=== PATIENT | female | born 1955 | race Caucasian/White ===

== ENCOUNTER 2020-06-10 14:29 | Inpatient (IN) | payer MEDICARE ==
[2020-06-10] MEDS ORDERED: ONDANSETRON 4 MG/2 ML VIAL IVP STA (14:58)
[2020-06-10] MEDS ORDERED: PANTOPRAZOLE 40 MG/10 ML VIAL IVP STA (14:58)
[2020-06-10] MEDS ORDERED: MORPHINE SULFATE 4 MG/ML SYRINGE IV STA (14:58)
[2020-06-10] MEDS ORDERED: SODIUM CHLORIDE 0.9% 1,000 ML IV STA ×2 (14:58)
--- NOTE | 2020-06-10 15:02 | ED ---
Abdominal Pain HPI - General Chief Complaint: Abdominal Pain Stated Complaint: Abd pain Time Seen by Provider: 06/10/20 14:40 Source: patient, RN notes reviewed, old records reviewed Mode of arrival: ambulatory Limitations: no limitations - History of Present Illness Initial Comments: Patient is a 64-year-old female presents here today for lower abdominal pain. Worsening pain starting today. She has been treated for UTI 2 weeks ago. Patient reportedly has had an ostomy done a few years ago and states that she rode past 6 months she's had some output from her rectum. And pressure feeling she has to go to the bathroom. Patient states that she's had no chest pain or shortness of breath. Patient's daughter is an RN who told to come to the ER to her pain. Patient has had no recorded fevers. - Related Data Allergies Allergy/AdvReac Type Severity Reaction Status Date / Time No Known Allergies Allergy Verified 06/10/20 14:37 Review of Systems ROS Statement: Those systems with pertinent positive or pertinent negative responses have been documented in the HPI. ROS Other: All systems not noted in ROS Statement are negative. 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 Past Psychological History: No Psychological Hx Reported Smoking Status: Current every day smoker Past Alcohol Use History: None Reported Past Drug Use History: None Reported General Exam - General Exam Comments Initial Comments: 64-year-old Female. No distress. Limitations: no limitations General appearance: alert, in no apparent distress Head exam: Present: atraumatic, normocephalic, normal inspection Eye exam: Present: normal appearance, PERRL, EOMI. Absent: scleral icterus, conjunctival injection, periorbital swelling ENT exam: Present: normal exam, mucous membranes moist Neck exam: Present: normal inspection. Absent: tenderness, meningismus, lymphadenopathy Respiratory exam: Present: normal lung sounds bilaterally. Absent: respiratory distress, wheezes, rales, rhonchi, stridor Cardiovascular Exam: Present: regular rate, normal rhythm, normal heart sounds. Absent: systolic murmur, diastolic murmur, rubs, gallop, clicks GI/Abdominal exam: Present: soft, normal bowel sounds. Absent: distended, tenderness, guarding, rebound, rigid Extremities exam: Present: normal inspection, full ROM, normal capillary refill. Absent: tenderness, pedal edema, joint swelling, calf tenderness Back exam: Present: normal inspection Neurological exam: Present: alert Psychiatric exam: Present: normal affect, normal mood Skin exam: Present: warm, dry, intact, normal color. Absent: rash Course Vital Signs 06/10/20 06/10/20 14:33 17:07 Temperature 98 F Pulse Rate 138 H 118 H Respiratory 20 12 Rate Blood Pressure 162/84 135/121 O2 Sat by Pulse 97 96 Oximetry Medical Decision Making - Medical Decision Making 64-year-old female who just returned today with lower abdominal pain. She's b een having some lower abdominal pressure for the past 2 weeks but worsening today. She did have some tenderness and guarding. She also states she's had abnormal rectal output despite having an ostomy. Rectal exam was benign with no output on exam today. Patient's labs reveal mild leukocytosis. CT shows evidence of small bowel mass. Impossible partial small bowel obstruction. She does report decreased output from her ostomy. She is no active vomiting. Discussed the findings with Patient. Her surgeon was in [facility] 3 years ago to create the ostomy. She does not remember who her surgeon was. Discussed with Dr. Quevedo whom discussed with Dr. Dent, request medicine admit with surgery consult. - Lab Data Result diagrams: 06/10/20 15:22 06/10/20 15:22 Lab Results 06/10/20 06/10/20 06/10/20 Range/Units 15:22 15:22 15:22 WBC 15.8 H (3.8-10.6) k/uL RBC 5.63 H (3.80-5.40) m/uL Hgb 16.3 H (11.4-16.0) gm/dL Hct 49.5 H (34.0-46.0) % MCV 87.9 (80.0-100.0) fL MCH 28.9 (25.0-35.0) pg MCHC 32.9 (31.0-37.0) g/dL RDW 13.4 (11.5-15.5) % Plt Count 444 (150-450) k/uL Neutrophils % 74 % Lymphocytes % 19 % Monocytes % 4 % Eosinophils % 1 % Basophils % 1 % Neutrophils # 11.6 H (1.3-7.7) k/uL Lymphocytes # 3.0 (1.0-4.8) k/uL Monocytes # 0.6 (0-1.0) k/uL Eosinophils # 0.2 (0-0.7) k/uL Basophils # 0.1 (0-0.2) k/uL PT (9.0-12.0) sec INR (<1.2) APTT (22.0-30.0) sec Sodium 142 (137-145) mmol/L Potassium 3.5 (3.5-5.1) mmol/L Chloride 102 (98-107) mmol/L Carbon Dioxide 28 (22-30) mmol/L Anion Gap 12 mmol/L BUN 13 (7-17) mg/dL Creatinine 0.49 L (0.52-1.04) mg/dL Est GFR (CKD-EPI)AfAm >90 (>60 ml/min/1.73 sqM) Est GFR (CKD-EPI)NonAf >90 (>60 ml/min/1.73 sqM) Glucose 148 H (74-99) mg/dL Lactic Ac Sepsis Rflx Plasma Lactic Acid Donovan (0.7-2.0) mmol/L Calcium 10.3 H (8.4-10.2) mg/dL Total Bilirubin 0.7 (0.2-1.3) mg/dL AST 24 (14-36) U/L ALT 14 (4-34) U/L Alkaline Phosphatase 43 (38-126) U/L Total Protein 7.8 (6.3-8.2) g/dL Albumin 4.9 (3.5-5.0) g/dL Amylase 50 (30-110) U/L Lipase 53 (23-300) U/L Urine Color Yellow Urine Appearance Clear (Clear) Urine pH 5.5 (5.0-8.0) Ur Specific [place] 1.025 (1.001-1.035) Urine Protein 1+ H (Negative) Urine Glucose (UA) Negative (Negative) Urine Ketones 2+ H (Negative) Urine Blood Negative (Negative) Urine Nitrite Negative (Negative) Urine Bilirubin Negative (Negative) Urine Urobilinogen 2.0 (<2.0) mg/dL Ur Leukocyte Esterase Negative (Negative) Urine RBC 1 (0-5) /hpf Urine WBC 1 (0-5) /hpf Ur Squamous Epith Cells 3 (0-4) /hpf Urine Mucus Few H (None) /hpf Stool Occult Blood (Negative) 06/10/20 06/10/20 06/10/20 Range/Units 15:22 15:22 16:08 WBC (3.8-10.6) k/uL RBC (3.80-5.40) m/uL Hgb (11.4-16.0) gm/dL Hct (34.0-46.0) % MCV (80.0-100.0) fL MCH (25.0-35.0) pg MCHC (31.0-37.0) g/dL RDW (11.5-15.5) % Plt Count (150-450) k/uL Neutrophils % % Lymphocytes % % Monocytes % % Eosinophils % % Basophils % % Neutrophils # (1.3-7.7) k/uL Lymphocytes # (1.0-4.8) k/uL Monocytes # (0-1.0) k/uL Eosinophils # (0-0.7) k/uL Basophils # (0-0.2) k/uL PT 10.6 (9.0-12.0) sec INR 1.0 (<1.2) APTT 24.2 (22.0-30.0) sec Sodium (137-145) mmol/L Potassium (3.5-5.1) mmol/L Chloride (98-107) mmol/L Carbon Dioxide (22-30) mmol/L Anion Gap mmol/L BUN (7-17) mg/dL Creatinine (0.52-1.04) mg/dL Est GFR (CKD-EPI)AfAm (>60 ml/min/1.73 sqM) Est GFR (CKD-EPI)NonAf (>60 ml/min/1.73 sqM) Glucose (74-99) mg/dL Lactic Ac Sepsis Rflx Y Plasma Lactic Acid Donovan 2.1 H* (0.7-2.0) mmol/L Calcium (8.4-10.2) mg/dL Total Bilirubin (0.2-1.3) mg/dL AST (14-36) U/L ALT (4-34) U/L Alkaline Phosphatase (38-126) U/L Total Protein (6.3-8.2) g/dL Albumin (3.5-5.0) g/dL Amylase (30-110) U/L Lipase (23-300) U/L Urine Color Urine Appearance (Clear) Urine pH (5.0-8.0) Ur Specific [place] (1.001-1.035) Urine Protein (Negative) Urine Glucose (UA) (Negative) Urine Ketones (Negative) Urine Blood (Negative) Urine Nitrite (Negative) Urine Bilirubin (Negative) Urine Urobilinogen (<2.0) mg/dL Ur Leukocyte Esterase (Negative) Urine RBC (0-5) /hpf Urine WBC (0-5) /hpf Ur Squamous Epith Cells (0-4) /hpf Urine Mucus (None) /hpf Stool Occult Blood (Negative) 06/10/20 Range/Units 17:08 WBC (3.8-10.6) k/uL RBC (3.80-5.40) m/uL Hgb (11.4-16.0) gm/dL Hct (34.0-46.0) % MCV (80.0-100.0) fL MCH (25.0-35.0) pg MCHC (31.0-37.0) g/dL RDW (11.5-15.5) % Plt Count (150-450) k/uL Neutrophils % % Lymphocytes % % Monocytes % % Eosinophils % % Basophils % % Neutrophils # (1.3-7.7) k/uL Lymphocytes # (1.0-4.8) k/uL Monocytes # (0-1.0) k/uL Eosinophils # (0-0.7) k/uL Basophils # (0-0.2) k/uL PT (9.0-12.0) sec INR (<1.2) APTT (22.0-30.0) sec Sodium (137-145) mmol/L Potassium (3.5-5.1) mmol/L Chloride (98-107) mmol/L Carbon Dioxide (22-30) mmol/L Anion Gap mmol/L BUN (7-17) mg/dL Creatinine (0.52-1.04) mg/dL Est GFR (CKD-EPI)AfAm (>60 ml/min/1.73 sqM) Est GFR (CKD-EPI)NonAf (>60 ml/min/1.73 sqM) Glucose (74-99) mg/dL Lactic Ac Sepsis Rflx Plasma Lactic Acid Donovan (0.7-2.0) mmol/L Calcium (8.4-10.2) mg/dL Total Bilirubin (0.2-1.3) mg/dL AST (14-36) U/L ALT (4-34) U/L Alkaline Phosphatase (38-126) U/L Total Protein (6.3-8.2) g/dL Albumin (3.5-5.0) g/dL Amylase (30-110) U/L Lipase (23-300) U/L Urine Color Urine Appearance (Clear) Urine pH (5.0-8.0) Ur Specific [place] (1.001-1.035) Urine Protein (Negative) Urine Glucose (UA) (Negative) Urine Ketones (Negative) Urine Blood (Negative) Urine Nitrite (Negative) Urine Bilirubin (Negative) Urine Urobilinogen (<2.0) mg/dL Ur Leukocyte Esterase (Negative) Urine RBC (0-5) /hpf Urine WBC (0-5) /hpf Ur Squamous Epith Cells (0-4) /hpf Urine Mucus (None) /hpf Stool Occult Blood Negative (Negative) - Radiology Data Radiology results: report reviewed EKG shows sinus tachycardia will which cures. ALLERGIC 114 beats were minute period. Interval is 170 ms. QRS duration is 80 ms. QT QTc is 320/[address] shows mild free fluid in the pelvis. Mixed density material concentrated in the small bowel and left lower quadrant of uncertain significance. Small bowel mass cannot be excluded. Dilated jejunum in the midabdomen. Partial mechanical small bowel obstruction is suspected at the site of the mixed density material. Disposition Clinical Impression: SBO (small bowel obstruction), Abdominal mass Disposition: ADMITTED IP TO THIS HOSP Condition: Stable Is patient prescribed a controlled substance at d/c from ED?: No Referrals: Randolph Renee DO [Primary Care Provider] - 1-2 days Time of Disposition: 18:17
[2020-06-10 15:42] LABS: Basophils # (A) 0.1 k/uL (0-0.2); Basophils % (A) 1 %; Eosinophils # (A) 0.2 k/uL (0-0.7); Eosinophils % (A) 1 %; HCT 49.5 % (34.0-46.0); HGB 16.3 gm/dL (11.4-16.0); Lymphocytes % (A) 19 %; MCH 28.9 pg (25.0-35.0); MCHC 32.9 g/dL (31.0-37.0); MCV 87.9 fL (80.0-100.0); Mean Platelet Volume 7.2; Monocytes # (A) 0.6 k/uL (0-1.0); Monocytes % (A) 4 %; Neutrophils # (A) 11.6 k/uL (1.3-7.7); Neutrophils % (A) 74 %; Platelet Count 444 k/uL (150-450); RBC 5.63 m/uL (3.80-5.40); RDW 13.4 % (11.5-15.5); WBC 15.8 k/uL (3.8-10.6)
[2020-06-10 15:43] LABS: Appearance,Urine Clear (Clear); Bilirubin,Urine Negative (Negative); Blood,Urine Negative (Negative); Color,Urine Yellow; Glucose,Urine (UA) Negative (Negative); Ketones,Urine 2+ (Negative); Leukocyte Esterase,Urine Negative (Negative); Mucus,Urine Few /hpf; Nitrite,Urine Negative (Negative); PH, Urine 5.5 (5.0-8.0); Protein,Urine 1+ (Negative); RBC,Urine 1 /hpf (0-5); Specific Gravity,Urine 1.025 (1.001-1.035); Squamous Epithelial Cell,Urine 3 /hpf (0-4); WBC,Urine 1 /hpf (0-5)
[2020-06-10 15:50] LABS: ALT 14 U/L (4-34); AST 24 U/L (14-36); African American GFR (CKD) >90 (>60 ml/min/1.73 sqM); Albumin 4.9 g/dL (3.5-5.0); Alkaline Phosphatase 43 U/L (38-126); Amylase 50 U/L (30-110); Anion Gap 12 mmol/L; Blood Urea Nitrogen 13 mg/dL (7-17); Calcium 10.3 mg/dL (8.4-10.2); Carbon Dioxide 28 mmol/L (22-30); Chloride 102 mmol/L (98-107); Glucose 148 mg/dL (74-99); Non-African American GFR(CKD) >90 (>60 ml/min/1.73 sqM); Potassium 3.5 mmol/L (3.5-5.1); Sodium 142 mmol/L (137-145); Total Bilirubin 0.7 mg/dL (0.2-1.3); Total Protein 7.8 g/dL (6.3-8.2)
[2020-06-10 15:52] LABS: Partial Thromboplastin Time 24.2 sec (22.0-30.0); Prothrombin Time 10.6 sec (9.0-12.0)
--- NOTE | 2020-06-10 15:54 | XR ---
EXAMINATION TYPE: XR KUB DATE OF EXAM: 06/10/2020 COMPARISON: NONE HISTORY: Abdominal pain TECHNIQUE: 2 views upright FINDINGS: There is no sign of intestinal obstruction or pneumoperitoneum. Fecal pattern is normal. Th ere is left side colostomy. There is no evidence of a mass. Lung bases are clear. IMPRESSION: Nonacute abdomen.
[2020-06-10] MEDS ORDERED: HYDROmorphone 1 MG/ML 1 ML SYRINGE IVP STA (16:58)
[2020-06-10] MEDS ORDERED: SODIUM CHLORIDE 0.9% 1,000 ML IV ONE (16:58)
--- NOTE | 2020-06-10 17:06 | CT ---
EXAMINATION TYPE: CT abdomen pelvis w con DATE OF EXAM: 06/10/2020 COMPARISON: HISTORY: Lower abdominal pain. History of ischemic bowel and resection. CT DLP: 641.9 mGycm Automated exposure control for dose reduction was used. CONTRAST: Performed with IV Contrast, patient injected with 100 mL of Isovue 300. Lung bases are clear of consolidation. There is no pleural effusion. Heart size is normal. There is n o pericardial effusion. Liver spleen stomach pancreas gallbladder appear intact. Bile ducts are not dilated. There is no adrenal mass. Kidneys show satisfactory contrast opacification. There is no hydronephrosi s. Ureters are not dilated. There is no retroperitoneal adenopathy. There is small amount of free flu id in the pelvis. Bladder distends smoothly. Uterus appears normal. There is no evidence of pelvic ma ss. Uterus is retroverted. There is transverse colostomy noted. There is some calcification in mixed density material in the mid small bowel in the left lower quadrant. Small bowel wall mass cannot be e xcluded. This could be some ingested Pepto-Bismol. There is similar small amount of material in the p osterior gastric fundus. There is some dilated jejunum in the mid abdomen that measures up to 3.6 cm. There is apparent resection of the sigmoid colon. Appendix is not definitely seen. There is no sign of thickened appendix. Lumbar vertebra have normal alignment. There is no compression fracture. Posterior elements are intac t. Bony pelvis is intact. Hip joints are intact. IMPRESSION: Mild free fluid in the pelvis. Mixed density material concentrated in the small bowel in the left lower quadrant of uncertain signif icance. Small bowel mass cannot be excluded. Dilated loop of jejunum in the mid abdomen. Partial mech anical small bowel obstruction is suspected at the site of mixed density material in the small bowel.
[2020-06-10] MEDS ORDERED: IBUPROFEN 400 MG TAB PO PRN (18:18)
[2020-06-10] MEDS ORDERED: NALOXONE 0.4 MG/ML 1 ML VIAL IV PRN (18:18)
[2020-06-10] MEDS ORDERED: HYDROmorphone 1 MG/ML 1 ML SYRINGE IVP PRN (18:18)
[2020-06-10] MEDS ORDERED: MORPHINE SULFATE 4 MG/ML SYRINGE IVP STA (18:20)
[2020-06-10 20:06] LABS: Glucose,Whole Blood 110 mg/dL (75-99)
[2020-06-10] MEDS: KETOROLAC 15 MG/ML 1 ML VIAL IVP PRN (20:08)
[2020-06-10] MEDS: PIPERACILLIN-TAZOBACTAM 3.375 GM in SODIUM CHLORIDE 0.9% 100 ML IVPB SCH (20:10)
[2020-06-10] MEDS: INSULIN ASPART (NovoLOG) 100 UNIT/ML VIAL SQ SCH (20:50)
[2020-06-10] MEDS ORDERED: HYDROcodone/APAP 5-325MG 1 EACH TAB PO SCH (21:00)
[2020-06-10] MEDS: GABAPENTIN 300 MG CAP PO SCH (21:56)
[2020-06-10] MEDS: MORPHINE SULFATE 4 MG/ML SYRINGE IVP PRN (22:25)
[2020-06-11] MEDS: HYDROcodone/APAP 5-325MG 1 EACH TAB PO PRN ×2 (00:43→19:51)
[2020-06-11] MEDS: ONDANSETRON 4 MG/2 ML VIAL IVP PRN ×2 (00:55→07:04)
[2020-06-11] MEDS: KETOROLAC 15 MG/ML 1 ML VIAL IVP PRN ×3 (02:10→15:05)
[2020-06-11] MEDS: PIPERACILLIN-TAZOBACTAM 3.375 GM in SODIUM CHLORIDE 0.9% 100 ML IVPB SCH ×3 (02:53→19:52)
[2020-06-11] MEDS: MORPHINE SULFATE 4 MG/ML SYRINGE IVP PRN ×5 (03:43→20:53)
[2020-06-11 05:24] LABS: Basophils # (A) 0.1 k/uL (0-0.2); Basophils % (A) 0 %; Eosinophils # (A) 0.3 k/uL (0-0.7); Eosinophils % (A) 2 %; HCT 36.7 % (34.0-46.0); Lymphocytes % (A) 28 %; MCH 28.7 pg (25.0-35.0); MCHC 32.3 g/dL (31.0-37.0); MCV 88.8 fL (80.0-100.0); Mean Platelet Volume 7.2; Monocytes # (A) 0.6 k/uL (0-1.0); Monocytes % (A) 5 %; Neutrophils # (A) 6.8 k/uL (1.3-7.7); Neutrophils % (A) 63 %; Platelet Count 356 k/uL (150-450); RBC 4.13 m/uL (3.80-5.40); RDW 13.6 % (11.5-15.5); WBC 10.7 k/uL (3.8-10.6)
[2020-06-11 05:46] LABS: HGB 11.9 gm/dL (11.4-16.0)
[2020-06-11] MEDS ORDERED: PANTOPRAZOLE 40 MG TABLET PO SCH (07:30)
[2020-06-11 07:54] LABS: Glucose,Whole Blood 106 mg/dL (75-99)
[2020-06-11] MEDS: lisinopriL 20 MG TAB PO SCH (07:58)
[2020-06-11] MEDS: ASPIRIN 81 MG PO SCH (07:58)
[2020-06-11] MEDS: DULoxetine HCL 60 MG CAPSULE.DR PO SCH (07:58)
[2020-06-11] MEDS: ATORVASTATIN 40 MG TAB PO SCH (07:59)
[2020-06-11] MEDS: INSULIN ASPART (NovoLOG) 100 UNIT/ML VIAL SQ SCH ×4 (07:59→20:18)
[2020-06-11] MEDS: PANTOPRAZOLE 40 MG/10 ML VIAL IV SCH (07:59)
[2020-06-11] MEDS: GABAPENTIN 300 MG CAP PO SCH ×4 (07:59→22:09)
[2020-06-11] MEDS ORDERED: SODIUM CHLORIDE 0.9% 1,000 ML IV SCH (09:30)
--- NOTE | 2020-06-11 09:37 | P.GSCN ---
History of Present Illness Consult date: 06/11/20 History of present illness: 64-year-old female presents to the emergency department with complaints of abdominal pain. She states that she has had chronic abdominal pain for the past few years, over the past couple of weeks pain has worsened and progressed significantly yesterday, bringing her to the emergency room. She states she felt mildly bloated. She states that pain is in bilateral lower quadrants of the abdomen. She states that she does have a complicated surgical history with ischemia to the bowel. This resulted in a colectomy and colostomy placement. Patient states that she was in intensive care for almost 2 weeks during that timeframe and based on intubation, does not remember most of that episode. Patient states that she has not had significant issues with her ostomy since that time. She states that over the last 24 hours, she has noted a decreased output from the ostomy. The last time she emptied her bag was prior to her arrival to the emergency department. She also had 1 episode of emesis this morning. Per nursing, this was after a dose of morphine was given. CT of the abdomen and pelvis was performed in the emergency department yesterday. Concern was noted for possibility of a partial small bowel obstruction. Concern was a lso noted by the radiologist of a material within the small bowel that could be concerning for Pepto-Bismol ingestion versus small bowel mass. On questioning, the patient does admit to using multiple Pepto-Bismol tablets secondary to her abdominal pain. Since presentation, her leukocytosis has improved and lactic acidosis has resolved. 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 1 heart stent Date of Last Stent Placement:: 2007 Past Psychological History: Depression Smoking Status: Current every day smoker Past Alcohol Use History: None Reported Additional Past Alcohol Use History / Comment(s): smoke 1.5 packs per day-trying to quit with gum. Past Drug Use History: None Reported - Past Family History Mother Family Medical History: COPD Father Family Medical History: Myocardial Infarction ([place]) Medications and Allergies Home Medications Medication Instructions Recorded Confirmed Type Aspirin [Adult Low Dose Aspirin EC] 81 mg PO DAILY 06/10/20 06/10/20 History Atorvastatin [Lipitor] 40 mg PO DAILY 06/10/20 06/10/20 History DULoxetine HCL [Cymbalta] 60 mg PO DAILY 06/10/20 06/10/20 History Esomeprazole Magnesium 40 mg PO DAILY 06/10/20 06/10/20 History Gabapentin [Neurontin] 600 mg PO QID 06/10/20 06/10/20 History Hydrocodone/Acetaminophen [Duncan 1 tab PO BID@1200,2000 06/10/20 06/10/20 History 5-325] Ramipril [Altace] 10 mg PO DAILY 06/10/20 06/10/20 History fentaNYL 12MCG/HR PATCH [Duragesic 12 mcg TRANSDERM Q72H 06/10/20 06/10/20 History 12MCG/HR] metFORMIN HCL [Glucophage] 1,000 mg PO BID 06/10/20 06/10/20 History Allergies Allergy/AdvReac Type Severity Reaction Status Date / Time nickel Allergy Unknown Verified 06/10/20 22:05 Surgical - Exam Osteopathic Statement: *. No significant issues noted on an osteopathic structural exam other than those noted in the History and Physical/Consult. Vital Signs Temp Pulse Resp BP Pulse Ox 98 F 138 H 20 162/84 97 06/10/20 14:33 06/10/20 14:33 06/10/20 14:33 06/10/20 14:33 06/10/20 14:33 - General well nourished, no distress - Eyes PERRL - ENT normal mucosa, no hearing loss - Neck trachea midline - Respiratory normal respiratory effort - Abdomen Soft, generalized tenderness to palpation, nondistended, no rebound, no guarding - Psychiatric oriented to time, oriented to person, oriented to place Results - Labs 06/11/20 04:42 06/10/20 15:22 Abnormal Lab Results - Last 24 Hours (Table) 06/10/20 06/10/20 06/10/20 Range/Units 15:22 15:22 15:22 WBC 15.8 H (3.8-10.6) k/uL RBC 5.63 H (3.80-5.40) m/uL Hgb 16.3 H (11.4-16.0) gm/dL Hct 49.5 H (34.0-46.0) % Neutrophils # 11.6 H (1.3-7.7) k/uL Creatinine 0.49 L (0.52-1.04) mg/dL Glucose 148 H (74-99) mg/dL POC Glucose (mg/dL) (75-99) mg/dL Plasma Lactic Acid [place] (0.7-2.0) mmol/L Calcium 10.3 H (8.4-10.2) mg/dL Urine Protein 1+ H (Negative) Urine Ketones 2+ H (Negative) Urine Mucus Few H (None) /hpf 06/10/20 06/10/20 06/11/20 Range/Units 15:22 20:01 04:42 WBC 10.7 H (3.8-10.6) k/uL RBC (3.80-5.40) m/uL Hgb (11.4-16.0) gm/dL Hct (34.0-46.0) % Neutrophils # (1.3-7.7) k/uL Creatinine (0.52-1.04) mg/dL Glucose (74-99) mg/dL POC Glucose (mg/dL) 110 H (75-99) mg/dL Plasma Lactic Acid [place] 2.1 H* (0.7-2.0) mmol/L Calcium (8.4-10.2) mg/dL Urine Protein (Negative) Urine Ketones (Negative) Urine Mucus (None) /hpf 06/11/20 Range/Units 07:53 WBC (3.8-10.6) k/uL RBC (3.80-5.40) m/uL Hgb (11.4-16.0) gm/dL Hct (34.0-46.0) % Neutrophils # (1.3-7.7) k/uL Creatinine (0.52-1.04) mg/dL Glucose (74-99) mg/dL POC Glucose (mg/dL) 106 H (75-99) mg/dL Plasma Lactic Acid [place] (0.7-2.0) mmol/L Calcium (8.4-10.2) mg/dL Urine Protein (Negative) Urine Ketones (Negative) Urine Mucus (None) /hpf Diabetes panel 06/10/20 Range/Units 15:22 Sodium 142 (137-145) mmol/L Potassium 3.5 (3.5-5.1) mmol/L Chloride 102 (98-107) mmol/L Carbon Dioxide 28 (22-30) mmol/L BUN 13 (7-17) mg/dL Creatinine 0.49 L (0.52-1.04) mg/dL Glucose 148 H (74-99) mg/dL Calcium 10.3 H (8.4-10.2) mg/dL AST 24 (14-36) U/L ALT 14 (4-34) U/L Alkaline Phosphatase 43 (38-126) U/L Total Protein 7.8 (6.3-8.2) g/dL Albumin 4.9 (3.5-5.0) g/dL Calcium panel 06/10/20 Range/Units 15:22 Calcium 10.3 H (8.4-10.2) mg/dL Albumin 4.9 (3.5-5.0) g/dL Pituitary panel 06/10/20 Range/Units 15:22 Sodium 142 (137-145) mmol/L Potassium 3.5 (3.5-5.1) mmol/L Chloride 102 (98-107) mmol/L Carbon Dioxide 28 (22-30) mmol/L BUN 13 (7-17) mg/dL Creatinine 0.49 L (0.52-1.04) mg/dL Glucose 148 H (74-99) mg/dL Calcium 10.3 H (8.4-10.2) mg/dL Adrenal panel 06/10/20 Range/Units 15:22 Sodium 142 (137-145) mmol/L Potassium 3.5 (3.5-5.1) mmol/L Chloride 102 (98-107) mmol/L Carbon Dioxide 28 (22-30) mmol/L BUN 13 (7-17) mg/dL Creatinine 0.49 L (0.52-1.04) mg/dL Glucose 148 H (74-99) mg/dL Calcium 10.3 H (8.4-10.2) mg/dL Total Bilirubin 0.7 (0.2-1.3) mg/dL AST 24 (14-36) U/L ALT 14 (4-34) U/L Alkaline Phosphatase 43 (38-126) U/L Total Protein 7.8 (6.3-8.2) g/dL Albumin 4.9 (3.5-5.0) g/dL Assessment and Plan (1) SBO (small bowel obstruction) Narrative/Plan: 64-year-old female with possibility of developing partial small bowel obstruction. Patient has had minimal output from her colostomy over the past [address] of the abdomen and pelvis was concerning for a developing obstruction and a possibility of a small bowel mass versus Pepto-Bismol ingestion. On questioning, patient does admit to using Pepto-Bismol. It is unlikely for a small bowel mass, however, due to this radiologic finding, we will likely have to perform a small bowel follow-through for further evaluation during the patient's admission. Currently, with concern of a small bowel obstruction, we will obtain a acute abdominal series this morning to evaluate for necessity of nasogastric tube placement. Leukocytosis is improving. Lactic acidosis has improved. We will continue to closely monitor and make surgical decisions based on the patient's clinical progress. Current Visit: Yes Status: Acute Code(s): K56.609 - UNSP INTESTNL OBST, UNSP TO PARTIAL VERSUS COMPLETE OBST SNOMED Code(s): 647650686
--- NOTE | 2020-06-11 10:39 | XR ---
EXAMINATION TYPE: XR abdomen acute w cxr DATE OF EXAM: 06/11/2020 COMPARISON: None HISTORY: Small bowel obstruction ischemic bowel TECHNIQUE: Acute abdominal series performed with a frontal chest upright and supine views the abdomen . FINDINGS: Heart size is normal. Pulmonary vasculature is normal. No suspicious infiltrates are eviden t. No free air is under the diaphragm. There couple of small bowel air-fluid levels present. Nonspecific small bowel gas is present. An osto my is on the left abdomen. Differential air-fluid levels are not evident. No mass effect is evident. Psoas margins are normal. O rganomegaly is not evident. Postsurgical changes are within the pelvis. IMPRESSION: 1. Nonspecific abdomen.
[2020-06-11 11:33] LABS: African American GFR (CKD) 118.5 (60.0-200.0); Albumin 3.7 g/dL (3.80-4.90); Albumin/Globulin Ratio 2.31 (1.60-3.17); Anion Gap 10.8 mmol/L (4.00-12.00); Carbon Dioxide 26.2 mmol/L (21.6-31.8); Globulin 1.6 g/dL (1.6-3.3); Non-African American GFR(CKD) 102.3 (60.0-200.0); Potassium 3.2 mmol/L (3.5-5.5); Total Bilirubin 0.4 mg/dL (0.2-1.2); Total Protein 5.3 g/dL (6.2-8.2)
[2020-06-11 11:41] LABS: Glucose,Whole Blood 162 mg/dL (75-99)
[2020-06-11 11:59] LABS: Calcium 7.9 mg/dL (8.7-10.3)
[2020-06-11 13:01] LABS: Hemoglobin A1C 6.1 % (4.0-6.0)
[2020-06-11] MEDS ORDERED: Magnesium Replacement Protocol 1 EACH MISC MISCELLANE PRN (16:43)
[2020-06-11] MEDS ORDERED: Potassium Replacement Protocol 1 EACH MISC MISCELLANE PRN (16:43)
[2020-06-11 16:56] LABS: Glucose,Whole Blood 106 mg/dL (75-99)
[2020-06-11] MEDS: POTASSIUM CHLORIDE ER 20 MEQ TAB.ER PO SCH ×2 (17:15→18:08)
[2020-06-11] MEDS: SODIUM CHLORIDE 0.9% 1,000 ML with POTASSIUM CHLORIDE 40 MEQ IV SCH ×2 (18:08)
[2020-06-11] MEDS: HEPARIN SODIUM,PORCINE 5,000 UNIT/ML 1 ML VIAL SQ SCH (19:52)
[2020-06-11 20:00] LABS: Glucose,Whole Blood 94 mg/dL (75-99)
--- NOTE | 2020-06-11 23:43 | HP ---
HISTORY AND PHYSICAL CHIEF COMPLAINT: Abdominal pain and bowel obstruction possibly. HISTORY OF PRESENT ILLNESS: This 64-year-old woman with a past medical history of multiple medical problems including history of colectomy and history of colostomy for possible ischemic bowel done in [facility]; also, history of diabetes mellitus, history of myocardial infarction, history of CAD stent being followed by Dr. Renee in the outpatient setting. The patient was treated for UTI for the last 2 weeks. The patient had some output from the rectum for the last 6 months. The patient had some pressure feeling in the abdomen. The patient also has significant pain in the lower part of the abdomen and the patient came to [facility] for further evaluation and treatment. The patient felt bloated. The pain is mostly in the lower part of the abdomen. The output from the ostomy has decreased for the past 24 hours concern was bowel obstruction. CT scan of the abdomen showed possible partial small-bowel obstruction. The CT scan of the pelvis and abdomen was done in the ER which showed A surgical evaluation by Dr. Dent is in progress. CT scan showed mild fluid in the pelvis and as well as mixed density material constant in the small bowel in the left lower quadrant of uncertain significance. Small bowel mass versus ingested Pepto- Bismol is a possibility. There is no history of any fever or rigors. There is no history of headache, loss of consciousness, or seizures at this time. PAST MEDICAL HISTORY: Diabetes, myocardial infarction, history of ischemic colon, history of CAD, stent. MEDICATIONS: Medications prior to admission, home medications are: 1. Fentanyl. 2. Hydrocodone. 3. Aspirin. 4. Glucophage. 5. Altace. 6. Neurontin. 7. Esomeprazole. 8. Cymbalta. 9. Lipitor. ALLERGIES: NICKEL. FAMILY HISTORY: History of COPD in the family. SOCIAL HISTORY: No history of smoking. No history of alcohol intake. REVIEW OF SYSTEMS: ENT: No diminished hearing or diminished vision. CARDIOVASCULAR SYSTEM: No angina. RESPIRATORY SYSTEM: No cough. GI: As mentioned earlier. : No dysuria. NERVOUS SYSTEM: No numbness or weakness. ALLERGY/IMMUNOLOGY: No asthma or hayfever. MUSCULOSKELETAL: As mentioned earlier. HEMATOLOGY/ONCOLOGY: No history of anemia. ENDOCRINE: No history of diabetes or hypothyroidism. CONSTITUTIONAL: As mentioned earlier. DERMATOLOGY: Negative. RHEUMATOLOGY: Negative. PSYCHIATRY: As mentioned earlier. PHYSICAL EXAMINATION: The patient is alert and oriented x3. Pulse 91, blood pressure 124/72, respiration 18, temperature 97.9, pulse ox 95% on room air. HEENT: Conjunctivae normal. NECK: No jugular venous distention. CARDIOVASCULAR: S1, S2 muffled. RESPIRATORY: Breath sounds diminished at the bases. A few scattered rhonchi and crackles. ABDOMEN: Soft. Colostomy in situ. There is significant distention in the lower part of the abdomen present. Mild diffuse tenderness also present. No guarding. No rigidity. Bowel sounds diminished. LEGS: No edema, no swelling. NERVOUS SYSTEM: As mentioned earlier. Moves all 4 limbs. No focal motor or sensory deficits. LYMPHATICS: No lymphadenopathy of the neck, axillae or groin. SKIN: No ulcer, rash or bleeding. JOINTS: No active deforming arthropathy. LABS: WBC 10.7. Sodium 143, potassium 3.2. Hemoglobin A1c 6.1. ASSESSMENT: 1. Abdominal pain, diminished p.o. intake, possibly is small-bowel obstruction. 2. Rule out small-bowel tumor. 3. Hypokalemia. 4. Increased WBC. 5. Dehydration, present on admission. 6. Diabetes mellitus type 2. 7. History of myocardial infarction. 8. History of coronary artery disease, stent. 9. History of colostomy. 10.History of depression. 11.History of nicotine dependence. 12.NO CODE, NO CPR, NO VENT. RECOMMENDATIONS AND DISCUSSION: This 64-year-old woman who presented with multiple complex medical issues, we will monitor the patient closely. Continue the current medications. Continue symptomatic treatment. Otherwise closely follow with Surgery, proton pump inhibitors, broad- spectrum IV antibiotics initiated, obtain cultures, obtain potassium and magnesium. Stool OB is negative. Prognosis guarded because of multiple complex medical issues. Further recommendations to follow. Also will obtain a surgical evaluation by Dr. Dent. A copy of dictation forwarded to Dr. Renee who is the primary physician. MMODL / IJN: [id number] / MTDD
[2020-06-12] MEDS: MORPHINE SULFATE 4 MG/ML SYRINGE IVP PRN ×3 (00:59→21:58)
[2020-06-12] MEDS: PIPERACILLIN-TAZOBACTAM 3.375 GM in SODIUM CHLORIDE 0.9% 100 ML IVPB SCH ×3 (03:28→19:17)
[2020-06-12] MEDS: KETOROLAC 15 MG/ML 1 ML VIAL IVP PRN (04:03)
[2020-06-12] MEDS: SODIUM CHLORIDE 0.9% 1,000 ML with POTASSIUM CHLORIDE 40 MEQ IV SCH ×4 (04:58→19:20)
[2020-06-12 07:15] LABS: Glucose,Whole Blood 70 mg/dL (75-99)
[2020-06-12] MEDS: INSULIN ASPART (NovoLOG) 100 UNIT/ML VIAL SQ SCH ×4 (07:35→20:24)
[2020-06-12] MEDS: lisinopriL 20 MG TAB PO SCH (07:56)
[2020-06-12] MEDS: ATORVASTATIN 40 MG TAB PO SCH (07:56)
[2020-06-12] MEDS: ASPIRIN 81 MG PO SCH (07:56)
[2020-06-12] MEDS: HEPARIN SODIUM,PORCINE 5,000 UNIT/ML 1 ML VIAL SQ SCH ×2 (07:57→20:26)
[2020-06-12] MEDS: GABAPENTIN 300 MG CAP PO SCH ×4 (07:57→21:03)
[2020-06-12] MEDS: PANTOPRAZOLE 40 MG/10 ML VIAL IV SCH (07:57)
[2020-06-12] MEDS: DULoxetine HCL 60 MG CAPSULE.DR PO SCH (07:57)
--- NOTE | 2020-06-12 08:17 | P.PN ---
Subjective Progress Note Date: 06/12/20 Patient seen and examined at bedside. No acute events. Denies any nausea or vomiting. States abdominal pain is improving. She has had bowel function through the ostomy. Objective - Vital Signs Vital signs: Vital Signs Temp 99.0 F 06/12/20 04:47 Pulse 86 06/12/20 04:47 Resp 16 06/12/20 04:47 BP 126/74 06/12/20 04:47 Pulse Ox 91 L 06/12/20 04:47 Intake & Output 06/11/20 06/12/20 06/12/20 18:59 06:59 18:59 Intake Total 450 0 Balance 450 0 Intake: Intake, IV Titration 450 Amount Sodium Chloride 0.9% 1, 450 000 ml @ 75 mls/hr IV . [id number] [facility] Rx#:[id number] Oral 0 Other: Voiding Method Toilet # Voids 2 - Constitutional General appearance: Present: cooperative, no acute distress - Gastrointestinal Gastrointestinal Comment(s): Soft, improved tenderness, nondistended, no rebound, no guarding, ostomy is pink and patent with output - Psychiatric Psychiatric: Present: A&O x's 3 - Labs CBC & Chem 7: 06/11/20 04:42 06/11/20 04:42 Labs: Abnormal Lab Results - Last 24 Hours (Table) 06/11/20 06/11/20 06/11/20 Range/Units 04:42 04:42 11:37 Potassium 3.2 L (3.5-5.5) mmol/L Creatinine 0.5 L (0.6-1.5) mg/dL POC Glucose (mg/dL) 162 H (75-99) mg/dL Hemoglobin A1c 6.1 H (4.0-6.0) % Calcium 7.9 L (8.7-10.3) mg/dL Alkaline Phosphatase 31 L (41-126) U/L Total Protein 5.3 L (6.2-8.2) g/dL Albumin 3.70 L (3.80-4.90) g/dL 06/11/20 06/12/20 Range/Units 16:54 07:14 Potassium (3.5-5.5) mmol/L Creatinine (0.6-1.5) mg/dL POC Glucose (mg/dL) 106 H 70 L (75-99) mg/dL Hemoglobin A1c (4.0-6.0) % Calcium (8.7-10.3) mg/dL Alkaline Phosphatase (41-126) U/L Total Protein (6.2-8.2) g/dL Albumin (3.80-4.90) g/dL Assessment and Plan (1) SBO (small bowel obstruction) Narrative/Plan: 64-year-old female with possibility of developing partial small bowel obstruction. Patient is having ostomy output and no longer having nausea or vomiting. She states that she is hungry at this time. At this point, it does appear that a partial small bowel obstruction is resolving. However, based on initial CT of the abdomen and pelvis that revealed a possibility of a small bowel mass, we will perform a small bowel follow-through to evaluate for any small bowel mass. Diet can be advanced after study is performed as it does not appear that the patient is obstructed at this time. Current Visit: Yes Status: Acute Code(s): K56.609 - UNSP INTESTNL OBST, UNSP TO PARTIAL VERSUS COMPLETE OBST SNOMED Code(s): 285619991
[2020-06-12] MEDS: HYDROcodone/APAP 5-325MG 1 EACH TAB PO PRN ×2 (08:37→20:28)
[2020-06-12 10:59] LABS: Potassium 3.7 mmol/L (3.5-5.5)
[2020-06-12] MEDS: MAGNESIUM SULFATE-D5W PMX 1 GM in DEXTROSE/WATER 1 100ML.BAG IVPB SCH ×4 (11:34→19:16)
[2020-06-12] MEDS: ONDANSETRON 4 MG/2 ML VIAL IVP PRN (12:23)
[2020-06-12 12:31] LABS: Glucose,Whole Blood 93 mg/dL (75-99)
[2020-06-12 17:17] LABS: Glucose,Whole Blood 90 mg/dL (75-99)
--- NOTE | 2020-06-12 19:42 | PN ---
PROGRESS NOTE DATE OF SERVICE: 06/12/2020 This 64-year-old woman who was admitted with acute partial small-bowel obstruction is being closely monitored. Abdominal distention is slightly better today. The patient was recommended abdominal barium followthrough by Surgery. No chest pain. No palpitations. No fever. PHYSICAL EXAMINATION: Alert and oriented x3. Pulse is 86. Blood pressure 126/74, respirations 16, temperature 99 degrees, pulse ox 91% on room air. HEENT: Conjunctivae normal. NECK: No jugular venous distention. CARDIOVASCULAR SYSTEM: S1, S2 muffled. RESPIRATORY SYSTEM: Breath sounds diminished at the bases. No rhonchi. No crackles. ABDOMEN: Soft. Colostomy present. Some output is also present. Mild diffuse tenderness. No guarding. No rigidity. No mass palpable. LEGS: No edema. No swelling. NERVOUS SYSTEM: No focal deficit. LABS: Magnesium 0.5. ASSESSMENT: 1. Abdominal pain and diminished p.o. intake, possibly partial small bowel obstruction. 2. Hypomagnesemia. 3. Rule out small-bowel tumor per CT scan. 4. Hypokalemia. 5. Increased white count. 6. Dehydration, present on admission. 7. Diabetes mellitus, type 2. 8. History of myocardial infarction. 9. History of coronary artery disease, stent. 10.History of colostomy. 11.History of depression. 12.History of nicotine dependence. 13.NO CODE, NO CPR, NO VENT. RECOMMENDATIONS AND DISCUSSION: I recommend to continue current medications, continue with the monitoring, symptomatic treatment. Otherwise at this time I recommend magnesium sulfate supplementation, barium followthrough. Closely follow with Surgery. Guarded prognosis. Further recommendations to follow. MMODL / IJN: [id number] /
[2020-06-12 19:52] LABS: Glucose,Whole Blood 87 mg/dL (75-99)
[2020-06-12] MEDS ORDERED: Magnesium Replacement Protocol 1 EACH MISC MISCELLANE PRN (21:11)
[2020-06-13 02:00] LABS: Glucose,Whole Blood 87 mg/dL (75-99)
[2020-06-13] MEDS: PIPERACILLIN-TAZOBACTAM 3.375 GM in SODIUM CHLORIDE 0.9% 100 ML IVPB SCH ×3 (03:16→19:50)
[2020-06-13] MEDS: MORPHINE SULFATE 4 MG/ML SYRINGE IVP PRN (03:49)
[2020-06-13 06:10] LABS: Basophils % (A) 0 %; Eosinophils # (A) 0.2 k/uL (0-0.7); Eosinophils % (A) 3 %; HCT 33.7 % (34.0-46.0); HGB 10.9 gm/dL (11.4-16.0); Lymphocytes # (A) 1.3 k/uL (1.0-4.8); Lymphocytes % (A) 20 %; MCH 29.8 pg (25.0-35.0); MCHC 32.4 g/dL (31.0-37.0); MCV 91.8 fL (80.0-100.0); Mean Platelet Volume 7.3; Monocytes # (A) 0.4 k/uL (0-1.0); Monocytes % (A) 6 %; Neutrophils # (A) 4.5 k/uL (1.3-7.7); Neutrophils % (A) 68 %; Platelet Count 265 k/uL (150-450); RBC 3.67 m/uL (3.80-5.40); RDW 13.3 % (11.5-15.5); WBC 6.6 k/uL (3.8-10.6)
[2020-06-13 07:03] LABS: Glucose,Whole Blood 71 mg/dL (75-99)
[2020-06-13] MEDS: GABAPENTIN 300 MG CAP PO SCH ×4 (08:12→21:01)
[2020-06-13] MEDS: lisinopriL 20 MG TAB PO SCH (08:12)
[2020-06-13] MEDS: ASPIRIN 81 MG PO SCH (08:12)
[2020-06-13] MEDS: DULoxetine HCL 60 MG CAPSULE.DR PO SCH (08:12)
[2020-06-13] MEDS: HYDROcodone/APAP 5-325MG 1 EACH TAB PO PRN (08:13)
[2020-06-13] MEDS: HEPARIN SODIUM,PORCINE 5,000 UNIT/ML 1 ML VIAL SQ SCH ×2 (08:13→21:34)
[2020-06-13] MEDS: PANTOPRAZOLE 40 MG/10 ML VIAL IV SCH (08:13)
[2020-06-13] MEDS: INSULIN ASPART (NovoLOG) 100 UNIT/ML VIAL SQ SCH ×4 (08:15→21:35)
[2020-06-13] MEDS: SODIUM CHLORIDE 0.9% 1,000 ML with POTASSIUM CHLORIDE 40 MEQ IV SCH ×2 (08:15)
[2020-06-13] MEDS: ATORVASTATIN 40 MG TAB PO SCH (08:15)
[2020-06-13 08:53] LABS: Magnesium 0.5 mg/dL (1.5-2.4)
[2020-06-13 09:27] LABS: African American GFR (CKD) 140.2 (60.0-200.0); Albumin 3.6 g/dL (3.80-4.90); Albumin/Globulin Ratio 2.4 (1.60-3.17); Anion Gap 11.2 mmol/L (4.00-12.00); Calcium 7.6 mg/dL (8.7-10.3); Carbon Dioxide 21.8 mmol/L (21.6-31.8); Globulin 1.5 g/dL (1.6-3.3); Magnesium 1.5 mg/dL (1.5-2.4); Potassium 3.6 mmol/L (3.5-5.5); Total Bilirubin 0.5 mg/dL (0.3-1.2); Total Protein 5.1 g/dL (6.2-8.2)
--- NOTE | 2020-06-13 09:41 | FL ---
EXAMINATION TYPE: FL small bowel follow through DATE OF EXAM: 06/13/2020 CLINICAL HISTORY: History of ischemic bowel and large resection with pain, small bowel obstruction TECHNIQUE: A single contrast small bowel follow through is performed utilizing barium. COMPARISON: Abdominal x-ray from yesterday and [address] exam from 2 days ago. FINDINGS: Technology [employer] Specialist image of the abdomen shows left-sided ostomy. There is overall paucity of bowel gas. Sutures left pelvis are redemonstrated from partial colectomy and distal rectal stump. The small bowel study shows delayed transit of contrast to colonic level or ostomy. At nearly 24 hour delay there is failure to pass contrast into the left-sided ostomy or remnant proximal colon. Initia l images show more prominent contrast filled and dilated stomach along with duodenal sweep and proxim al jejunal loops throughout the abdomen. More delayed images show less contrast filled and dilated pr oximal small bowel loops versus initial images. There is only slow movement of contrast into more dis onesimo small bowel loops. Nurse confirms there is no passage of contrast through the left-sided ostomy. Corresponding CT shows poor distention of the terminal ileum and distal ileal loops. IMPRESSION: Findings consistent with persistent mid to distal small bowel obstruction with transition point likely in the lower abdomen or upper pelvis midline or left of midline presumed on the basis o f adhesions. I suspect or favor left upper pelvis where there is transition from fecal and fluid fill ed dilated small bowel to nondistended small bowel axial image 15 and coronal image [address]
[2020-06-13 10:42] LABS: Glucose,Whole Blood 88 mg/dL (75-99)
[2020-06-13 11:09] VITALS: BMI 21.8
--- NOTE | 2020-06-13 11:58 | P.PN ---
Subjective This is a pleasant 64 years old female with multiple medical problems as below who presents with abdominal pain, constipation and recurrent nausea vomiting and found to have small bowel obstruction, with tumor cannot be ruled out. Surgery tomorrow on the case and they ordered a small bowel 5 through follow-through showing persistent mid to distal small bowel obstruction with transition zone as described. Surgery team decided to go for surgery tomorrow. NG tube placement was unsuccessful today. Vital signs stable. CBC and BMP and liver enzymes were unremarkable. She remains on Zosyn and normocephalic normal saline at 75 mL/h. Hemoglobin A1c 6.1% and BLOOD in stool is negative Objective - Vital Signs Vital signs: Vital Signs Temp 98.6 F 06/13/20 11:16 Pulse 85 06/13/20 11:16 Resp 18 06/13/20 11:16 BP 150/67 06/13/20 11:16 Pulse Ox 95 06/13/20 11:16 Intake & Output 06/12/20 06/13/20 06/13/20 18:59 06:59 18:59 Weight 57.606 kg Other: Voiding Method Bedside Commode # Voids 2 2 - Exam GENERAL: The patient is alert and oriented x3, not in any acute distress. Well developed, well nourished. HEENT: Pupils are round and equally reacting to light. EOMI. No scleral icterus. No conjunctival pallor. Normocephalic, atraumatic. No pharyngeal erythema. No thyromegaly. CARDIOVASCULAR: S1 and S2 present. No murmurs, rubs, or gallops. PULMONARY: Chest is clear to auscultation, no wheezing or crackles. ABDOMEN: Soft, nontender, nondistended, normoactive bowel sounds. No palpable or ganomegaly. MUSCULOSKELETAL: No joint swelling or deformity. EXTREMITIES: No cyanosis, clubbing, or pedal edema. NEUROLOGICAL: Gross neurological examination did not reveal any focal deficits. SKIN: No rashes. no petechiae. - Labs CBC & Chem 7: 06/13/20 05:37 06/13/20 05:37 Labs: Abnormal Lab Results - Last 24 Hours (Table) 06/12/20 06/13/20 06/13/20 Range/Units 04:32 05:37 05:37 RBC 3.67 L (3.80-5.40) m/uL Hgb 10.9 L (11.4-16.0) gm/dL Hct 33.7 L (34.0-46.0) % BUN 6.0 L (9.0-27.0) mg/dL Creatinine 0.3 L (0.6-1.5) mg/dL POC Glucose (mg/dL) (75-99) mg/dL Calcium 7.6 L (8.7-10.3) mg/dL Magnesium 0.5 L* (1.5-2.4) mg/dL Total Protein 5.1 L (6.2-8.2) g/dL Albumin 3.60 L (3.80-4.90) g/dL Globulin 1.5 L (1.6-3.3) g/dL 06/13/20 Range/Units 07:01 RBC (3.80-5.40) m/uL Hgb (11.4-16.0) gm/dL Hct (34.0-46.0) % BUN (9.0-27.0) mg/dL Creatinine (0.6-1.5) mg/dL POC Glucose (mg/dL) 71 L (75-99) mg/dL Calcium (8.7-10.3) mg/dL Magnesium (1.5-2.4) mg/dL Total Protein (6.2-8.2) g/dL Albumin (3.80-4.90) g/dL Globulin (1.6-3.3) g/dL Assessment and Plan Assessment: -Acute Small bowel obstruction, tumor could not be excluded patient is going for exploratory laparotomy tomorrow by surgery team. Continue with antibiotic -Diabetes mellitus -History of coronary artery disease status post stent -Nicotine dependence Depression, not in activity DVT prophylaxis: Subcutaneous heparin GI prophylaxis: Protonix Prognosis is guarded
--- NOTE | 2020-06-13 13:14 | P.PN ---
Progress Note - Text Progress Note Date: 06/13/20 Small bowel follow-through was evaluated. The finding was noted of distal small bowel obstruction. At this point, the patient has no output from her ostomy site. He continues to have abdominal pain. I did discuss this in depth with the patient and the patient's daughter. Recommendation is for laparotomy to relieve the function. Obstruction is likely secondary from previous surgical adhesions. I did also recommend nasogastric tube placement prior to surgical procedure. The case was discussed in depth with the patient and the patient's daughter. The patient is noted to have a located medical history and tobacco use with cigarette smoking. When the risks of surgery secondary to these comorbidities. I also did a poor outcome. The patient has decided to lift her no CODE STATUS for the surgical procedure. We will make further recommendations after surgery. Joe Dent, DO
[2020-06-13] MEDS ORDERED: IV FLUID CONTINUATION 1,000 ML IV ONE (13:28)
[2020-06-13 13:48] LABS: Glucose,Whole Blood 78 mg/dL (75-99)
[2020-06-13] MEDS ORDERED: DEXAMETHASONE SOD PHOSPHATE 10 MG/ML 1 ML VIAL IV ONE (14:08)
[2020-06-13] MEDS ORDERED: ONDANSETRON 4 MG/2 ML VIAL IVP ONE (14:08)
[2020-06-13] MEDS ORDERED: HEPARIN SODIUM,PORCINE 5,000 UNIT/ML 1 ML VIAL SQ ONE (14:16)
[2020-06-13] MEDS ORDERED: MIDAZOLAM 2 MG/2 ML VIAL ONE (14:30)
[2020-06-13] MEDS ORDERED: LIDOCAINE 1% INJ 10MG/ML (20 ML MDV) ONE (14:30)
[2020-06-13] MEDS ORDERED: SUCCINYLCHOLINE CHLORIDE 100 MG/5 ML SYR IV ONE (14:30)
[2020-06-13] MEDS ORDERED: ROCURONIUM 10 MG/ML (10 ML VIAL) IV ONE (14:30)
[2020-06-13] MEDS ORDERED: fentaNYL (PF) 50 MCG/ML 2 ML AMP ONE (14:30)
[2020-06-13] MEDS ORDERED: NEOSTIGMINE 1 MG/ML 10 ML VIAL ONE (14:30)
[2020-06-13] MEDS ORDERED: GLYCOPYRROLATE 0.2 MG/ML 2 ML VIAL ONE (14:30)
[2020-06-13] MEDS ORDERED: PROPOFOL 10 MG/ML 20 ML VIAL IV ONE (14:30)
[2020-06-13] MEDS ORDERED: LACTATED RINGERS 1,000 ML IV ONE (14:32)
--- NOTE | 2020-06-13 17:56 | P.OP ---
Date of Procedure: 06/13/20 Preoperative Diagnosis: Small bowel obstruction Postoperative Diagnosis: Small bowel obstruction Small bowel perforation Small bowel ischemia Frozen abdomen Procedure(s) Performed: Exploratory laparotomy Small bowel resection 2 Appendectomy Extensive lysis of adhesions Anesthesia: KERRY Surgeon: Joe Dent Pathology: other (Small bowel resection 2, appendix) Condition: stable Disposition: floor Indications for Procedure: 64-year-old female presented to the emergency department with complaints of abdominal pain. On workup, she was found to have concern for small bowel obstruction and possibility of small bowel mass. Initially, it appeared that her obstruction was relieved, however on small bowel follow-through it was noted that the patient did have a high-grade obstruction. Secondary to this, plan was for laparotomy to relieve bowel obstruction. Risks, benefits and alternatives were provided to the patient. She did provide consent prior to attending the operating suite. Operative Findings: Frozen abdomen Small bowel perforation Small bowel ischemia Description of Procedure: The patient was brought into the operating suite and placed in supine position on the operating table. The patient underwent endotracheal intubation after general anesthetic was administered. The patient was then prepped and draped in regular sterile fashion. Colostomy was covered and Ioband was placed. Navarro catheter was placed under sterile conditions. NG tube was placed prior to incision. Midline incision was made over the patient's previous midline incision site. Dissection was carried towards the fascia and the fascia was incised. The fascia was incised along the length of the incision. It was immediately clear that the patient had significant amount of adhesions of the small bowel adherent to the abdominal wall and other small bowel. 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 Meticulous dissection was carried to free the small bowel from adhesions. Extensive lysis of adhesions was performed that took approximately 90 minutes. During this dissection, it was clear that the extremely dilated portion of the proximal small bowel was extremely thin-walled and on dissection was noted to have a small tear that was leaking succus. After appropriate proximal and distal adhesions were dissected, this portion of the small bowel was resected. Resection was performed using a BUTCH 75 mm staple load fired across both proximal and distal segment. Anastomosis was then created by creating 2 enterotomies and stapling with a BUTCH-75 stapler. Resulting enterotomy was closed with a TX 60 stapler. Dissection was then carried distally ileocolic junction. At this point the appendix was noted to be densely adhered to the abdominal wall and the right ovary. Due to the fact that the patient had a frozen abdomen, it was decided that an appendectomy would be performed. A window was created between the appendix and the mesoappendix. LigaSure was used to dissect the appendix from the mesoappendix. A stapler was fired across the base of the appendix and the appendix was handed off as specimen. The transition point was noted in the left lower quadrant as dissection was carried proximally from the ileocolic junction. This was noted t o have some ischemic changes. Due to this concern, this portion of the small bowel was also resected. This portion of the small bowel was noted to be approximately 2 inches long. Both a proximal and distal point of transection were noted and transected using BUTCH 75 mm stapler. Enterotomies were then created in both proximal and distal end and anastomosis was created with a BUTCH- 75 stapler. Resulting enterotomy was closed with a TX 60 stapler. Staple line was then imbricated using 3-0 Vicryl suture. At this point the entire small bowel was freed from surrounding adhesions from the ligament of Treitz to the ileocolic junction. Hemostasis was noted to be maintained. No additional points of obstruction were noted. The small bowel was then reduced back into the abdomen. The midline incision was then closed with a looped PDS suture. Skin incision was then closed with skin jay. The patient was awakened in the operating suite and taken to postanesthesia care unit in stable condition.
[2020-06-13 18:24] LABS: Glucose,Whole Blood 186 mg/dL (75-99)
[2020-06-13] MEDS: DEXTROSE 5%-0.45% NACL 1,000 ML IV SCH (19:51)
[2020-06-13 20:26] LABS: Glucose,Whole Blood 187 mg/dL (75-99)
[2020-06-13] MEDS: HYDROmorphone 0.5 MG/0.5 ML SYRINGE IVP PRN (22:47)
[2020-06-14] MEDS: HYDROmorphone 0.5 MG/0.5 ML SYRINGE IVP PRN ×7 (02:00→23:36)
[2020-06-14] MEDS: PIPERACILLIN-TAZOBACTAM 3.375 GM in SODIUM CHLORIDE 0.9% 100 ML IVPB SCH ×3 (03:05→19:57)
[2020-06-14] MEDS: DEXTROSE 5%-0.45% NACL 1,000 ML IV SCH ×2 (03:06→14:01)
[2020-06-14 05:08] LABS: HCT 36.8 % (34.0-46.0); HGB 12.2 gm/dL (11.4-16.0); MCH 29.6 pg (25.0-35.0); MCHC 33.3 g/dL (31.0-37.0); MCV 88.9 fL (80.0-100.0); Mean Platelet Volume 7.3; Platelet Count 315 k/uL (150-450); RBC 4.13 m/uL (3.80-5.40); RDW 13.8 % (11.5-15.5); WBC 9.7 k/uL (3.8-10.6)
[2020-06-14 05:54] LABS: Lymphocytes # (M) 0.58 k/uL (1.0-4.8); Monocytes # (M) 0.58 k/uL (0-1.0); Neutrophils # (M) 8.54 k/uL (1.3-7.7); Neutrophils % (M) 88 %; Nucleated Red Blood Cells 0 /100 WBC (0-0); Total Cells Counted 100
[2020-06-14 07:22] LABS: Glucose,Whole Blood 204 mg/dL (75-99)
[2020-06-14] MEDS: INSULIN ASPART (NovoLOG) 100 UNIT/ML VIAL SQ SCH ×4 (08:12→21:33)
[2020-06-14] MEDS: GABAPENTIN 300 MG CAP PO SCH ×4 (08:16→21:33)
[2020-06-14] MEDS: ASPIRIN 81 MG PO SCH (08:16)
[2020-06-14] MEDS: lisinopriL 20 MG TAB PO SCH (08:16)
[2020-06-14] MEDS: ATORVASTATIN 40 MG TAB PO SCH (08:17)
[2020-06-14] MEDS: DULoxetine HCL 60 MG CAPSULE.DR PO SCH (08:17)
[2020-06-14] MEDS: PANTOPRAZOLE 40 MG/10 ML VIAL IV SCH (08:17)
[2020-06-14] MEDS: HEPARIN SODIUM,PORCINE 5,000 UNIT/ML 1 ML VIAL SQ SCH ×2 (08:17→19:59)
[2020-06-14 09:36] LABS: African American GFR (CKD) 118.5 (60.0-200.0); Anion Gap 11.6 mmol/L (4.00-12.00); Calcium 7.6 mg/dL (8.7-10.3); Carbon Dioxide 19.4 mmol/L (21.6-31.8); Non-African American GFR(CKD) 102.3 (60.0-200.0); Potassium 3.5 mmol/L (3.5-5.5)
[2020-06-14 11:42] LABS: Glucose,Whole Blood 196 mg/dL (75-99)
--- NOTE | 2020-06-14 13:19 | P.PN ---
Subjective Progress Note Date: 06/14/20 Patient seen and examined at bedside. No significant complaints. Denies any significant abdominal pain. States pain is well controlled. Navarro catheter is in place. Nasogastric tube in place. Objective - Vital Signs Vital signs: Vital Signs Temp 98.0 F 06/14/20 12:09 Pulse 109 H 06/14/20 12:09 Resp 15 06/14/20 12:09 BP 113/66 06/14/20 12:09 Pulse Ox 98 06/14/20 12:09 Intake & Output 06/13/20 06/14/20 06/14/20 18:59 06:59 18:59 Intake Total 2000 500 Output Total 725 1550 Balance 1275 -1050 Weight 57.606 kg Intake: IV 1300 Intake, IV Titration 700 500 Amount Dextrose 5%-0.45% NaCl 1, 400 000 ml @ 100 mls/hr IV . Q10H [facility] Rx#:[id number] Piperacillin-Tazobactam 3 100 100 .375 gm In Sodium Chloride 0.9% 100 ml @ 25 mls/hr IVPB Q8H [facility] Rx#: [id number] Sodium Chloride 0.9% 1, 600 000 ml @ 75 mls/hr IV . [id number] [facility] with Potassium Chloride 40 meq Rx#:[id number] Output: Gastric Drainage 150 350 Urine 525 1200 Estimated Blood Loss 50 Other: Voiding Method Bedside Commode - Constitutional General appearance: Present: cooperative, no acute distress - Respiratory Details: no difficulty with respiration - Gastrointestinal Gastrointestinal Comment(s): soft, appropriate tenderness, nondistended, no rebound, no guarding, no output from ostomy - Musculoskeletal Musculoskeletal: Present: generalized weakness - Psychiatric Psychiatric: Present: A&O x's 3 - Labs CBC & Chem 7: 06/14/20 04:46 06/14/20 04:46 Labs: Abnormal Lab Results - Last 24 Hours (Table) 06/13/20 06/13/20 06/14/20 Range/Units 18:21 20:25 04:46 Neutrophils # (Manual) (1.3-7.7) k/uL Lymphocytes # (Manual) (1.0-4.8) k/uL Carbon Dioxide 19.4 L (21.6-31.8) mmol/L BUN 5.0 L (9.0-27.0) mg/dL Creatinine 0.5 L (0.6-1.5) mg/dL BUN/Creatinine Ratio 10.00 L (12.00-20.00) Ratio Glucose 210 H (70-110) mg/dL POC Glucose (mg/dL) 186 H 187 H (75-99) mg/dL Calcium 7.6 L (8.7-10.3) mg/dL Magnesium 1.0 L (1.5-2.4) mg/dL 06/14/20 06/14/20 06/14/20 Range/Units 04:46 07:20 11:38 Neutrophils # (Manual) 8.54 H (1.3-7.7) k/uL Lymphocytes # (Manual) 0.58 L (1.0-4.8) k/uL Carbon Dioxide (21.6-31.8) mmol/L BUN (9.0-27.0) mg/dL Creatinine (0.6-1.5) mg/dL BUN/Creatinine Ratio (12.00-20.00) Ratio Glucose (70-110) mg/dL POC Glucose (mg/dL) 204 H 196 H (75-99) mg/dL Calcium (8.7-10.3) mg/dL Magnesium (1.5-2.4) mg/dL Assessment and Plan (1) SBO (small bowel obstruction) Narrative/Plan: Postoperative day #1, exploratory laparotomy, small bowel resection Will continue Navarro catheter for today Increase activity Patient will likely remain n.p.o. for a few days, will begin TPN for parenteral nutrition Continue pain control Medical management Current Visit: Yes Status: Acute Code(s): K56.609 - UNSP INTESTNL OBST, UNSP TO PARTIAL VERSUS COMPLETE OBST SNOMED Code(s): 371196795
[2020-06-14] MEDS: MAGNESIUM SULFATE-D5W PMX 1 GM in DEXTROSE/WATER 1 100ML.BAG IVPB SCH ×3 (15:15→18:25)
[2020-06-14] MEDS: POTASSIUM CHLORIDE ER 20 MEQ TAB.ER PO SCH ×2 (15:22→16:44)
[2020-06-14] MEDS ORDERED: MVI, ADULT NO.4 WITH VIT K 10 ML, TRACE (CONC-1ML/DOSE) 1 ML in AMINO ACID 4.25%-D10W+L... IV ONE ×3 (16:00)
[2020-06-14] MEDS: FAT EMULSION 20% 250 ML IV SCH (16:39)
[2020-06-14] MEDS: SODIUM CHLORIDE 0.9% 1,000 ML IV SCH (16:40)
[2020-06-14 17:25] LABS: Glucose,Whole Blood 155 mg/dL (75-99)
--- NOTE | 2020-06-14 17:40 | P.PN ---
Subjective 64 years old female with multiple medical problems as below who presents with abdominal pain, constipation and recurrent nausea vomiting and found to have small bowel obstruction, with tumor cannot be ruled out. Surgery tomorrow on the case and they ordered a small bowel 5 through follow-through showing persistent mid to distal small bowel obstruction with transition zone as described. Surgery team decided to go for surgery tomorrow. NG tube placement was unsuccessful today. Vital signs stable. CBC and BMP and liver enzymes were unremarkable. She remains on Zosyn and normocephalic normal saline at 75 mL/h. Hemoglobin A1c 6.1% and BLOOD in stool is negative 06/14/2020 Patient is an NG tube in place still having significant output patient will be started on TPN and start her on IV fluids at 50 mL per hour S patient will get the fluids in the form of TPN around 80 mL per hour. Constitutional: Denied any fatigue denied any fever. Cardio vascular: denied any chest pain, palpitations Gastrointestinal denied any nausea vomiting Pulmonary: Denied any shortness of breath cough Neurologic denied any new focal deficits All inpatient medications were reviewed and appropriate changes in these medications as dictated in the interval history and assessment and plan. Objective - Vital Signs Vital signs: Vital Signs Temp 98.0 F 06/14/20 12:09 Pulse 109 H 06/14/20 12:09 Resp 15 06/14/20 12:09 BP 113/66 06/14/20 12:09 Pulse Ox 98 06/14/20 12:09 Intake & Output 06/13/20 06/14/20 06/14/20 18:59 06:59 18:59 Intake Total 2000 500 Output Total 725 1550 Balance 1275 -1050 Weight 57.606 kg 57.606 kg Intake: IV 1300 Intake, IV Titration 700 500 Amount Dextrose 5%-0.45% NaCl 1, 400 000 ml @ 100 mls/hr IV . Q10H [facility] Rx#:[id number] Piperacillin-Tazobactam 3 100 100 .375 gm In Sodium Chloride 0.9% 100 ml @ 25 mls/hr IVPB Q8H [facility] Rx#: [id number] Sodium Chloride 0.9% 1, 600 000 ml @ 75 mls/hr IV . [id number] [facility] with Potassium Chloride 40 meq Rx#:[id number] Output: Gastric Drainage 150 350 Urine 525 1200 Estimated Blood Loss 50 Other: Voiding Method Bedside Commode Indwelling Catheter - Exam GENERAL: The patient is alert and oriented x3, not in any acute distress. Well developed, well nourished. HEENT: Pupils are round and equally reacting to light. EOMI. No scleral icterus. No conjunctival pallor. Normocephalic, atraumatic. No pharyngeal erythema. No thyromegaly. CARDIOVASCULAR: S1 and S2 present. No murmurs, rubs, or gallops. PULMONARY: Chest is clear to auscultation, no wheezing or crackles. ABDOMEN: Soft, nontender, nondistended, bowel sounds are sluggish. No palpable organomegaly. NG tube in place with significant output MUSCULOSKELETAL: No joint swelling or deformity. EXTREMITIES: No cyanosis, clubbing, or pedal edema. NEUROLOGICAL: Gross neurological examination did not reveal any focal deficits. SKIN: No rashes. no petechiae. - Labs CBC & Chem 7: 06/14/20 04:46 06/14/20 04:46 Labs: Abnormal Lab Results - Last 24 Hours (Table) 06/13/20 06/13/20 06/14/20 Range/Units 18:21 20:25 04:46 Neutrophils # (Manual) (1.3-7.7) k/uL Lymphocytes # (Manual) (1.0-4.8) k/uL Carbon Dioxide 19.4 L (21.6-31.8) mmol/L BUN 5.0 L (9.0-27.0) mg/dL Creatinine 0.5 L (0.6-1.5) mg/dL BUN/Creatinine Ratio 10.00 L (12.00-20.00) Ratio Glucose 210 H (70-110) mg/dL POC Glucose (mg/dL) 186 H 187 H (75-99) mg/dL Calcium 7.6 L (8.7-10.3) mg/dL Magnesium 1.0 L (1.5-2.4) mg/dL 06/14/20 06/14/20 06/14/20 Range/Units 04:46 07: 11:38 Neutrophils # (Manual) 8.54 H (1.3-7.7) k/uL Lymphocytes # (Manual) 0.58 L (1.0-4.8) k/uL Carbon Dioxide (21.6-31.8) mmol/L BUN (9.0-27.0) mg/dL Creatinine (0.6-1.5) mg/dL BUN/Creatinine Ratio (12.00-20.00) Ratio Glucose (70-110) mg/dL POC Glucose (mg/dL) 204 H 196 H (75-99) mg/dL Calcium (8.7-10.3) mg/dL Magnesium (1.5-2.4) mg/dL 06/14/20 Range/Units 17:23 Neutrophils # (Manual) (1.3-7.7) k/uL Lymphocytes # (Manual) (1.0-4.8) k/uL Carbon Dioxide (21.6-31.8) mmol/L BUN (9.0-27.0) mg/dL Creatinine (0.6-1.5) mg/dL BUN/Creatinine Ratio (12.00-20.00) Ratio Glucose (70-110) mg/dL POC Glucose (mg/dL) 155 H (75-99) mg/dL Calcium (8.7-10.3) mg/dL Magnesium (1.5-2.4) mg/dL Assessment and Plan Plan: - Small bowel obstruction, patient is status post laparotomy small bowel resection pathology is pending and the patient will be started on TPN as per [facility] surgery and patient was started on IV fluids as well patient presently has an NG tube -Diabetes mellitustype II continue with present regimen -History of coronary artery disease with stents in the past -Nicotine dependence Depression, not in activity DVT prophylaxis: Subcutaneous heparin GI prophylaxis: Protonix
[2020-06-14 20:53] LABS: Glucose,Whole Blood 177 mg/dL (75-99)
[2020-06-15] MEDS: DEXTROSE 5%-0.45% NACL 1,000 ML IV SCH ×2 (01:25→10:11)
[2020-06-15] MEDS: PIPERACILLIN-TAZOBACTAM 3.375 GM in SODIUM CHLORIDE 0.9% 100 ML IVPB SCH ×3 (03:36→20:05)
[2020-06-15] MEDS: HYDROmorphone 0.5 MG/0.5 ML SYRINGE IVP PRN ×6 (03:36→23:12)
[2020-06-15 06:08] LABS: Basophils % (A) 0 %; Eosinophils # (A) 0.1 k/uL (0-0.7); Eosinophils % (A) 1 %; HCT 32.4 % (34.0-46.0); HGB 10.8 gm/dL (11.4-16.0); Lymphocytes # (A) 0.8 k/uL (1.0-4.8); Lymphocytes % (A) 8 %; MCH 28.8 pg (25.0-35.0); MCHC 33.2 g/dL (31.0-37.0); MCV 86.7 fL (80.0-100.0); Mean Platelet Volume 7.3; Monocytes # (A) 0.4 k/uL (0-1.0); Monocytes % (A) 5 %; Neutrophils # (A) 7.7 k/uL (1.3-7.7); Neutrophils % (A) 85 %; Platelet Count 308 k/uL (150-450); RBC 3.74 m/uL (3.80-5.40); RDW 13.8 % (11.5-15.5); WBC 9.1 k/uL (3.8-10.6)
[2020-06-15 06:12] LABS: Ionized Calcium 4.6 mg/dL (4.5-5.3)
[2020-06-15] MEDS: ONDANSETRON 4 MG/2 ML VIAL IVP PRN (06:30)
[2020-06-15 07:12] LABS: Glucose,Whole Blood 181 mg/dL (75-99)
[2020-06-15] MEDS: INSULIN ASPART (NovoLOG) 100 UNIT/ML VIAL SQ SCH ×4 (08:17→22:30)
[2020-06-15] MEDS: DULoxetine HCL 60 MG CAPSULE.DR PO SCH (08:24)
[2020-06-15] MEDS: HEPARIN SODIUM,PORCINE 5,000 UNIT/ML 1 ML VIAL SQ SCH ×2 (08:24→20:04)
[2020-06-15] MEDS: PANTOPRAZOLE 40 MG/10 ML VIAL IV SCH (08:24)
[2020-06-15] MEDS: ASPIRIN 81 MG PO SCH (08:24)
[2020-06-15] MEDS: ATORVASTATIN 40 MG TAB PO SCH (08:24)
[2020-06-15] MEDS: lisinopriL 20 MG TAB PO SCH (08:24)
[2020-06-15] MEDS: GABAPENTIN 300 MG CAP PO SCH ×4 (08:24→22:31)
[2020-06-15 09:45] LABS: African American GFR (CKD) 127.6 (60.0-200.0); Albumin 3.2 g/dL (3.80-4.90); Anion Gap 9.4 mmol/L (4.00-12.00); BUN/Creat Ratio 12.5 Ratio (12.00-20.00); Calcium 7.9 mg/dL (8.7-10.3); Carbon Dioxide 25.6 mmol/L (21.6-31.8); Globulin 1.6 g/dL (1.6-3.3); Magnesium 1.5 mg/dL (1.5-2.4); Non-African American GFR(CKD) 110.1 (60.0-200.0); Phosphorus 1.2 mg/dL (2.4-5.1); Potassium 3.1 mmol/L (3.5-5.5); Total Bilirubin 0.5 mg/dL (0.2-1.2); Total Protein 4.8 g/dL (6.2-8.2)
[2020-06-15] MEDS ORDERED: 1: MVI, ADULT NO.4 WITH VIT K 10 ML, TRACE (CONC-1ML/DOSE) 1 ML in AMINO ACID 4.25%-D10W IV SCH ×3 (10:00)
[2020-06-15 11:21] LABS: Glucose,Whole Blood 183 mg/dL (75-99)
[2020-06-15] MEDS: SODIUM CHLORIDE 0.9% 1,000 ML IV SCH (11:27)
[2020-06-15] MEDS: POTASSIUM PHOSPHATE 10 MMOL in SODIUM CHLORIDE 0.9% 250 ML IV SCH ×3 (14:03→17:59)
[2020-06-15] MEDS: POTASSIUM CHLORIDE ER 20 MEQ TAB.ER PO SCH ×2 (14:03→15:55)
[2020-06-15] MEDS: MAGNESIUM SULFATE-D5W PMX 1 GM in DEXTROSE/WATER 1 100ML.BAG IVPB SCH ×3 (14:04→23:56)
--- NOTE | 2020-06-15 15:22 | P.PN ---
Subjective Progress Note Date: 06/15/20 Patient seen and examined at bedside. States her abdominal pain is very well controlled. Denies any nausea or vomiting. Nasogastric tube in place with only about 350 mL of bilious material over the past 24 hours. No ostomy output yet. Objective - Vital Signs Vital signs: Vital Signs Temp 98.1 F 06/15/20 12:23 Pulse 109 H 06/15/20 12:23 Resp 17 06/15/20 12:23 BP 156/72 06/15/20 12:23 Pulse Ox 97 06/15/20 12:23 Intake & Output 06/14/20 06/15/20 06/15/20 18:59 06:59 18:59 Intake Total 1710.833 0 Output Total 650 200 Balance -650 1510.833 0 Weight 57.606 kg Intake: Intake, IV Titration 1710.833 Amount Fat Emulsion 20% 250 ml @ 210 21 mls/hr IV [id number]@1600 [facility] Rx#:[id number] Magnesium Sulfate-D5w Pmx 100 1 gm In Dextrose/Water 1 100ml.bag @ 100 mls/hr IVPB Q1H [facility] Rx#: [id number] Mvi, Adult No.4 with Vit 800.833 K 10 ml Trace (Conc-1Ml/ Dose) 1 ml In Amino Acid 4.25%-D10w+Lytes*E* 1,000 ml @ 50 mls/hr IV . [id number] [facility] Rx#:[id number] Sodium Chloride 0.9% 1, 600 000 ml @ 50 mls/hr IV . Q20H [facility] Rx#:[id number] Oral 0 Output: Gastric Drainage 200 Urine 650 Other: Voiding Method Indwelling Catheter Indwelling Catheter Indwelling Catheter - Constitutional General appearance: Present: cooperative, no acute distress - EENT Eyes: Present: PERRLA - Gastrointestinal Gastrointestinal Comment(s): Soft, nontender, nondistended, no rebound, no guarding, midline incision with surgical dressing intact, ostomy is pink and patent with no output - Musculoskeletal Musculoskeletal: Present: generalized weakness - Psychiatric Psychiatric: Present: A&O x's 3 - Labs CBC & Chem 7: 06/15/20 05:30 06/15/20 05:30 Labs: Abnormal Lab Results - Last 24 Hours (Table) 06/14/20 06/14/2020 Range/Units 17:23 20:52 05:30 RBC 3.74 L (3.80-5.40) m/uL Hgb 10.8 L (11.4-16.0) gm/dL Hct 32.4 L (34.0-46.0) % Lymphocytes # 0.8 L (1.0-4.8) k/uL Potassium (3.5-5.5) mmol/L BUN (9.0-27.0) mg/dL Creatinine (0.6-1.5) mg/dL Glucose (70-110) mg/dL POC Glucose (mg/dL) 155 H 177 H (75-99) mg/dL Calcium (8.7-10.3) mg/dL Phosphorus (2.4-5.1) mg/dL Total Protein (6.2-8.2) g/dL Albumin (3.80-4.90) g/dL 06/15/20 06/15/20 06/15/20 Range/Units 05:30 07:10 11:20 RBC (3.80-5.40) m/uL Hgb (11.4-16.0) gm/dL Hct (34.0-46.0) % Lymphocytes # (1.0-4.8) k/uL Potassium 3.1 L (3.5-5.5) mmol/L BUN 5.0 L (9.0-27.0) mg/dL Creatinine 0.4 L (0.6-1.5) mg/dL Glucose 188 H (70-110) mg/dL POC Glucose (mg/dL) 181 H 183 H (75-99) mg/dL Calcium 7.9 L (8.7-10.3) mg/dL Phosphorus 1.2 L (2.4-5.1) mg/dL Total Protein 4.8 L (6.2-8.2) g/dL Albumin 3.20 L (3.80-4.90) g/dL Assessment and Plan (1) SBO (small bowel obstruction) Narrative/Plan: Postoperative day #2, exploratory laparotomy, small bowel resection Okay to DC Navarro catheter, patient is requesting 1 additional day of Navarro catheter Increase activity, patient was up to the chair today We'll consult physical and occupational therapy TPN was started, continue Patient with tachycardia, we will continue to follow as it is likely postsurgical at this time with no evidence of any other source Continue pain control Medical management Current Visit: Yes Status: Acute Code(s): K56.609 - UNSP INTESTNL OBST, UNSP TO PARTIAL VERSUS COMPLETE OBST SNOMED Code(s): 620265945
[2020-06-15 17:15] LABS: Glucose,Whole Blood 202 mg/dL (75-99)
--- NOTE | 2020-06-15 17:30 | P.PN ---
Subjective 64 years old female with multiple medical problems as below who presents with abdominal pain, constipation and recurrent nausea vomiting and found to have small bowel obstruction, with tumor cannot be ruled out. Surgery tomorrow on the case and they ordered a small bowel 5 through follow-through showing persistent mid to distal small bowel obstruction with transition zone as described. Surgery team decided to go for surgery tomorrow. NG tube placement was unsuccessful today. Vital signs stable. CBC and BMP and liver enzymes were unremarkable. She remains on Zosyn and normocephalic normal saline at 75 mL/h. Hemoglobin A1c 6.1% and BLOOD in stool is negative 06/14/2020 Patient is an NG tube in place still having significant output patient will be started on TPN and start her on IV fluids at 50 mL per hour S patient will get the fluids in the form of TPN around 80 mL per hour. 06/15/2020 Patient has around 400 mL of bilious fluid be NG tube. Patient will fluids are within normal limits and the patient is presently on TPN as well as normal saline. Patient bicarbonate improved. Acidosis resolved patient has low potassium which will be replaced low phosphorus and magnesium was replaced patient does have started passing gas and moved bowel into the colostomy at Constitutional: Denied any fatigue denied any fever. Cardio vascular: denied any chest pain, palpitations Gastrointestinal denied any nausea vomiting Pulmonary: Denied any shortness of breath cough Neurologic denied any new focal deficits All inpatient medications were reviewed and appropriate changes in these medications as dictated in the interval history and assessment and plan. Objective - Vital Signs Vital signs: Vital Signs Temp 98.1 F 06/15/20 12:23 Pulse 109 H 06/15/20 12:23 Resp 17 06/15/20 12:23 BP 156/72 06/15/20 12:23 Pulse Ox 97 06/15/20 12:23 Intake & Output 06/14/20 06/15/20 06/15/20 18:59 06:59 18:59 Intake Total 7122.992 1708 Output Total 650 200 750 Balance -650 1510.833 950 Weight 57.606 kg Intake: Intake, IV Titration 9041.409 2140 Amount Fat Emulsion 20% 250 ml @ 210 21 mls/hr IV [id number]@1600 [facility] Rx#:[id number] Magnesium Sulfate-D5w Pmx 100 1 gm In Dextrose/Water 1 100ml.bag @ 100 mls/hr IVPB Q1H [facility] Rx#: [id number] Magnesium Sulfate-D5w Pmx 200 1 gm In Dextrose/Water 1 100ml.bag @ 100 mls/hr IVPB Q1H [facility] Rx#: [id number] Mvi, Adult No.4 with Vit 800.833 K 10 ml Trace (Conc-1Ml/ Dose) 1 ml In Amino Acid 4.25%-D10w+Lytes*E* 1,000 ml @ 50 mls/hr IV . [id number] [facility] Rx#:[id number] Mvi, Adult No.4 with Vit 1000 K 10 ml Trace (Conc-1Ml/ Dose) 1 ml Potassium Chloride 20 meq Magnesium Sulfate gm 1 gm Potassium Phosphate 10 mmol In Amino Acid 4.25%- D10w+Lytes*E* 1,000 ml @ 70 mls/hr IV .BY DURATION [facility] Rx#:[id number] Potassium Phosphate 10 500 mmol In Sodium Chloride 0 .9% 250 ml @ 125 mls/hr IV Q2H [facility] Rx#:[id number] Sodium Chloride 0.9% 1, 600 000 ml @ 50 mls/hr IV . Q20H [facility] Rx#:[id number] Oral 0 Output: Gastric Drainage 200 Urine 650 750 Other: Voiding Method Indwelling Catheter Indwelling Catheter Indwelling Catheter - Exam GENERAL: The patient is alert and oriented x3, not in any acute distress. Well developed, well nourished. HEENT: Pupils are round and equally reacting to light. EOMI. No scleral icterus. No conjunctival pallor. Normocephalic, atraumatic. No pharyngeal erythema. No thyromegaly. CARDIOVASCULAR: S1 and S2 present. No murmurs, rubs, or gallops. PULMONARY: Chest is clear to auscultation, no wheezing or crackles. ABDOMEN: Soft, nontender, nondistended, bowel sounds are sluggish. No palpable organomegaly. NG tube in place with significant output MUSCULOSKELETAL: No joint swelling or deformity. EXTREMITIES: No cyanosis, clubbing, or pedal edema. NEUROLOGICAL: Gross neurological examination did not reveal any focal deficits. SKIN: No rashes. no petechiae. - Labs CBC & Chem 7: 06/15/20 05:30 06/15/20 05:30 Labs: Abnormal Lab Results - Last 24 Hours (Table) 06/14/20 06/15/20 06/15/20 Range/Units 20:52 05:30 05:30 RBC 3.74 L (3.80-5.40) m/uL Hgb 10.8 L (11.4-16.0) gm/dL Hct 32.4 L (34.0-46.0) % Lymphocytes # 0.8 L (1.0-4.8) k/uL Potassium 3.1 L (3.5-5.5) mmol/L BUN 5.0 L (9.0-27.0) mg/dL Creatinine 0.4 L (0.6-1.5) mg/dL Glucose 188 H (70-110) mg/dL POC Glucose (mg/dL) 177 H (75-99) mg/dL Calcium 7.9 L (8.7-10.3) mg/dL Phosphorus 1.2 L (2.4-5.1) mg/dL Total Protein 4.8 L (6.2-8.2) g/dL Albumin 3.20 L (3.80-4.90) g/dL 06/15/20 06/15/20 06/15/20 Range/Units 07:10 11:20 17:14 RBC (3.80-5.40) m/uL Hgb (11.4-16.0) gm/dL Hct (34.0-46.0) % Lymphocytes # (1.0-4.8) k/uL Potassium (3.5-5.5) mmol/L BUN (9.0-27.0) mg/dL Creatinine (0.6-1.5) mg/dL Glucose (70-110) mg/dL POC Glucose (mg/dL) 181 H 183 H 202 H (75-99) mg/dL Calcium (8.7-10.3) mg/dL Phosphorus (2.4-5.1) mg/dL Total Protein (6.2-8.2) g/dL Albumin (3.80-4.90) g/dL Assessment and Plan Plan: - Small bowel obstruction, patient is status post laparotomy small bowel resection pathology is pending and the patient will be started on TPN as per [facility] surgery and patient was started on IV fluids as well patient presently has an NG tube -Diabetes mellitustype II continue with present regimen -History of coronary artery disease with stents in the past -Nicotine dependence Depression, not in activity DVT prophylaxis: Subcutaneous heparin GI prophylaxis: Protonix
[2020-06-15 21:23] LABS: Glucose,Whole Blood 147 mg/dL (75-99)
[2020-06-15 22:49] LABS: Magnesium 1.8 mg/dL (1.6-2.3); Potassium 3.2 mmol/L (3.5-5.1)
[2020-06-15] MEDS: POTASSIUM CHLORIDE 10 MEQ in WATER FOR INJECTION 1 100ML.BAG IVPB SCH (23:56)
[2020-06-15] MEDS: 1: MVI, ADULT NO.4 WITH VIT K 10 ML, TRACE (CONC-1ML/DOSE) 1 ML, POTASSIUM CHLORIDE 20 M IV SCH ×6 (23:58)
[2020-06-16] MEDS: MAGNESIUM SULFATE-D5W PMX 1 GM in DEXTROSE/WATER 1 100ML.BAG IVPB SCH ×3 (00:55→15:33)
[2020-06-16] MEDS: POTASSIUM CHLORIDE 10 MEQ in WATER FOR INJECTION 1 100ML.BAG IVPB SCH ×3 (00:55→03:04)
[2020-06-16] MEDS: HYDROmorphone 0.5 MG/0.5 ML SYRINGE IVP PRN ×7 (03:01→21:01)
[2020-06-16] MEDS: PIPERACILLIN-TAZOBACTAM 3.375 GM in SODIUM CHLORIDE 0.9% 100 ML IVPB SCH ×3 (04:09→19:57)
[2020-06-16 07:18] LABS: Glucose,Whole Blood 186 mg/dL (75-99)
[2020-06-16 07:29] LABS: Basophils % (A) 0 %; Eosinophils # (A) 0.3 k/uL (0-0.7); Eosinophils % (A) 3 %; HCT 30.5 % (34.0-46.0); HGB 10.1 gm/dL (11.4-16.0); Lymphocytes # (A) 0.7 k/uL (1.0-4.8); Lymphocytes % (A) 8 %; MCH 29.3 pg (25.0-35.0); MCV 88.6 fL (80.0-100.0); Mean Platelet Volume 7.1; Monocytes # (A) 0.4 k/uL (0-1.0); Monocytes % (A) 5 %; Neutrophils # (A) 7.2 k/uL (1.3-7.7); Neutrophils % (A) 82 %; Platelet Count 304 k/uL (150-450); RBC 3.45 m/uL (3.80-5.40); RDW 13.7 % (11.5-15.5); WBC 8.8 k/uL (3.8-10.6)
[2020-06-16] MEDS: GABAPENTIN 300 MG CAP PO SCH ×4 (08:13→21:49)
[2020-06-16] MEDS: ASPIRIN 81 MG PO SCH (08:13)
[2020-06-16] MEDS: DULoxetine HCL 60 MG CAPSULE.DR PO SCH (08:13)
[2020-06-16] MEDS: PANTOPRAZOLE 40 MG/10 ML VIAL IV SCH (08:13)
[2020-06-16] MEDS: ATORVASTATIN 40 MG TAB PO SCH (08:13)
[2020-06-16] MEDS: lisinopriL 20 MG TAB PO SCH (08:13)
[2020-06-16] MEDS: INSULIN ASPART (NovoLOG) 100 UNIT/ML VIAL SQ SCH ×4 (08:14→21:44)
[2020-06-16] MEDS: HEPARIN SODIUM,PORCINE 5,000 UNIT/ML 1 ML VIAL SQ SCH ×2 (08:14→21:44)
[2020-06-16] MEDS: SODIUM CHLORIDE 0.9% 1,000 ML IV SCH (10:35)
[2020-06-16] MEDS ORDERED: POTASSIUM CHLORIDE ER 20 MEQ TAB.ER PO STA (10:54)
[2020-06-16 11:37] LABS: African American GFR (CKD) 140.2 (60.0-200.0); Anion Gap 7.7 mmol/L (4.00-12.00); BUN/Creat Ratio 23.33 Ratio (12.00-20.00); Carbon Dioxide 25.3 mmol/L (21.6-31.8); Magnesium 1.8 mg/dL (1.5-2.4); Phosphorus 2.1 mg/dL (2.4-5.1); Potassium 3.7 mmol/L (3.5-5.5)
[2020-06-16 11:40] LABS: Glucose,Whole Blood 162 mg/dL (75-99)
--- NOTE | 2020-06-16 12:50 | P.PN ---
Subjective Progress Note Date: 06/16/20 Patient seen and examined at bedside. States she is feeling better. No significant output from ostomy at this point. Denies nausea or vomiting. Is ambulating. Objective - Vital Signs Vital signs: Vital Signs Temp 98.1 F 06/16/20 12:21 Pulse 99 06/16/20 12:21 Resp 18 06/16/20 12:21 BP 123/56 06/16/20 12:21 Pulse Ox 100 06/16/20 12:21 Intake & Output 06/15/20 06/16/20 06/16/20 18:59 06:59 18:59 Intake Total 1700 2100 Output Total 3800 1850 1325 Balance -2100 250 -1325 Intake: Intake, IV Titration 1700 2100 Amount Magnesium Sulfate-D5w Pmx 200 1 gm In Dextrose/Water 1 100ml.bag @ 100 mls/hr IVPB Q1H [facility] Rx#: [id number] Magnesium Sulfate-D5w Pmx 200 1 gm In Dextrose/Water 1 100ml.bag @ 100 mls/hr IVPB Q1H [facility] Rx#: [id number] Mvi, Adult No.4 with Vit 1000 700 K 10 ml Trace (Conc-1Ml/ Dose) 1 ml Potassium Chloride 20 meq Magnesium Sulfate gm 1 gm Potassium Phosphate 10 mmol In Amino Acid 4.25%- D10w+Lytes*E* 1,000 ml @ 70 mls/hr IV .BY DURATION [facility] Rx#:[id number] Piperacillin-Tazobactam 3 100 .375 gm In Sodium Chloride 0.9% 100 ml @ 25 mls/hr IVPB Q8H [facility] Rx#: [id number] Potassium Chloride 10 meq 400 In Water For Injection 1 100ml.bag @ 100 mls/hr IVPB Q1HR [facility] Rx#: [id number] Potassium Phosphate 10 500 100 mmol In Sodium Chloride 0 .9% 250 ml @ 125 mls/hr IV Q2H [facility] Rx#:[id number] Sodium Chloride 0.9% 1, 600 000 ml @ 50 mls/hr IV . Q20H [facility] Rx#:[id number] Oral 0 Output: Gastric Drainage 125 Urine 3800 1850 1200 Other: Voiding Method Indwelling Catheter Indwelling Catheter Indwelling Catheter # Voids 2 - Constitutional General appearance: Present: cooperative, no acute distress - Gastrointestinal Gastrointestinal Comment(s): Soft, nontender, nondistended, no rebound, no guarding, ostomy is pink and patent with no output - Musculoskeletal Musculoskeletal: Present: generalized weakness - Psychiatric Psychiatric: Present: A&O x's 3 - Labs CBC & Chem 7: 06/16/20 07:08 06/16/20 07:08 Labs: Abnormal Lab Results - Last 24 Hours (Table) 06/15/20 06/15/20 06/15/20 Range/Units 17:14 21:14 22:17 RBC (3.80-5.40) m/uL Hgb (11.4-16.0) gm/dL Hct (34.0-46.0) % Lymphocytes # (1.0-4.8) k/uL Potassium 3.2 L (3.5-5.1) mmol/L BUN (9.0-27.0) mg/dL Creatinine (0.6-1.5) mg/dL BUN/Creatinine Ratio (12.00-20.00) Ratio Glucose (70-110) mg/dL POC Glucose (mg/dL) 202 H 147 H (75-99) mg/dL Calcium (8.7-10.3) mg/dL Phosphorus (2.4-5.1) mg/dL 06/16/20 06/16/20 06/16/20 Range/Units 07:07 07:08 07:08 RBC 3.45 L (3.80-5.40) m/uL Hgb 10.1 L (11.4-16.0) gm/dL Hct 30.5 L (34.0-46.0) % Lymphocytes # 0.7 L (1.0-4.8) k/uL Potassium (3.5-5.1) mmol/L BUN 7.0 L (9.0-27.0) mg/dL Creatinine 0.3 L (0.6-1.5) mg/dL BUN/Creatinine Ratio 23.33 H (12.00-20.00) Ratio Glucose 183 H (70-110) mg/dL POC Glucose (mg/dL) 186 H (75-99) mg/dL Calcium 8.0 L (8.7-10.3) mg/dL Phosphorus 2.1 L (2.4-5.1) mg/dL 06/16/20 Range/Units 11:37 RBC (3.80-5.40) m/uL Hgb (11.4-16.0) gm/dL Hct (34.0-46.0) % Lymphocytes # (1.0-4.8) k/uL Potassium (3.5-5.1) mmol/L BUN (9.0-27.0) mg/dL Creatinine (0.6-1.5) mg/dL BUN/Creatinine Ratio (12.00-20.00) Ratio Glucose (70-110) mg/dL POC Glucose (mg/dL) 162 H (75-99) mg/dL Calcium (8.7-10.3) mg/dL Phosphorus (2.4-5.1) mg/dL Assessment and Plan (1) SBO (small bowel obstruction) Narrative/Plan: Postoperative day #3, exploratory laparotomy, small bowel resection Discontinue Navarro catheter, discussed with nursing Increase activity, patient was up to the chair today Consult to physical and occupational therapy TPN was started, continue Tachycardia improved today Awaiting bowel function Continue pain control Medical management Current Visit: Yes Status: Acute Code(s): K56.609 - UNSP INTESTNL OBST, UNSP TO PARTIAL VERSUS COMPLETE OBST SNOMED Code(s): 818178804
[2020-06-16] MEDS ORDERED: POTASSIUM PHOSPHATE 10 MMOL in SODIUM CHLORIDE 0.9% 250 ML IV ONE (13:30)
--- NOTE | 2020-06-16 15:28 | P.PN ---
Subjective 64 years old female with multiple medical problems as below who presents with abdominal pain, constipation and recurrent nausea vomiting and found to have small bowel obstruction, with tumor cannot be ruled out. Surgery tomorrow on the case and they ordered a small bowel 5 through follow-through showing persistent mid to distal small bowel obstruction with transition zone as described. Surgery team decided to go for surgery tomorrow. NG tube placement was unsuccessful today. Vital signs stable. CBC and BMP and liver enzymes were unremarkable. She remains on Zosyn and normocephalic normal saline at 75 mL/h. Hemoglobin A1c 6.1% and BLOOD in stool is negative 06/14/2020 Patient is an NG tube in place still having significant output patient will be started on TPN and start her on IV fluids at 50 mL per hour S patient will get the fluids in the form of TPN around 80 mL per hour. 06/15/2020 Patient has around 400 mL of bilious fluid be NG tube. Patient will fluids are within normal limits and the patient is presently on TPN as well as normal saline. Patient bicarbonate improved. Acidosis resolved patient has low potassium which will be replaced low phosphorus and magnesium was replaced patient does have started passing gas and moved bowel into the colostomy. 06/16/2020 Passing some gas patient only had around 250 mL output from the NG tube for last 24 hours. Patient did not move her bowel. Patient does have good bowel sounds Constitutional: Denied any fatigue denied any fever. Cardio vascular: denied any chest pain, palpitations Gastrointestinal denied any nausea vomiting Pulmonary: Denied any shortness of breath cough Neurologic denied any new focal deficits All inpatient medications were reviewed and appropriate changes in these medications as dictated in the interval history and assessment and plan. Objective - Vital Signs Vital signs: Vital Signs Temp 98.1 F 06/16/20 12:21 Pulse 99 06/16/20 12:21 Resp 18 06/16/20 12:21 BP 123/56 06/16/20 12:21 Pulse Ox 100 06/16/20 12:21 Intake & Output 06/15/20 06/16/20 06/16/20 18:59 06:59 18:59 Intake Total 1700 2100 Output Total 3800 1850 2175 Balance -2100 250 -2175 Weight 57.606 kg Intake: Intake, IV Titration 1700 2100 Amount Magnesium Sulfate-D5w Pmx 200 1 gm In Dextrose/Water 1 100ml.bag @ 100 mls/hr IVPB Q1H [facility] Rx#: [id number] Magnesium Sulfate-D5w Pmx 200 1 gm In Dextrose/Water 1 100ml.bag @ 100 mls/hr IVPB Q1H [facility] Rx#: [id number] Mvi, Adult No.4 with Vit 1000 700 K 10 ml Trace (Conc-1Ml/ Dose) 1 ml Potassium Chloride 20 meq Magnesium Sulfate gm 1 gm Potassium Phosphate 10 mmol In Amino Acid 4.25%- D10w+Lytes*E* 1,000 ml @ 70 mls/hr IV .BY DURATION [facility] Rx#:[id number] Piperacillin-Tazobactam 3 100 .375 gm In Sodium Chloride 0.9% 100 ml @ 25 mls/hr IVPB Q8H [facility] Rx#: [id number] Potassium Chloride 10 meq 400 In Water For Injection 1 100ml.bag @ 100 mls/hr IVPB Q1HR [facility] Rx#: [id number] Potassium Phosphate 10 500 100 mmol In Sodium Chloride 0 .9% 250 ml @ 125 mls/hr IV Q2H [facility] Rx#:[id number] Sodium Chloride 0.9% 1, 600 000 ml @ 50 mls/hr IV . Q20H [facility] Rx#:[id number] Oral 0 Output: Gastric Drainage 125 Urine 3800 1850 2050 Uretheral (Navarro) 850 Other: Voiding Method Indwelling Catheter Indwelling Catheter Indwelling Catheter # Voids 2 - Exam GENERAL: The patient is alert and oriented x3, not in any acute distress. Well developed, well nourished. HEENT: Pupils are round and equally reacting to light. EOMI. No scleral icterus. No conjunctival pallor. Normocephalic, atraumatic. No pharyngeal erythema. No thyromegaly. CARDIOVASCULAR: S1 and S2 present. No murmurs, rubs, or gallops. PULMONARY: Chest is clear to auscultation, no wheezing or crackles. ABDOMEN: Soft, nontender, nondistended, bowel sounds are sluggish. No palpable organomegaly. NG tube in place with significant output MUSCULOSKELETAL: No joint swelling or deformity. EXTREMITIES: No cyanosis, clubbing, or pedal edema. NEUROLOGICAL: Gross neurological examination did not reveal any focal deficits. SKIN: No rashes. no petechiae. - Labs CBC & Chem 7: 06/16/20 07:08 06/16/20 07:08 Labs: Abnormal Lab Results - Last 24 Hours (Table) 06/15/20 06/15/20 06/15/20 Range/Units 17:14 21:14 22:17 RBC (3.80-5.40) m/uL Hgb (11.4-16.0) gm/dL Hct (34.0-46.0) % Lymphocytes # (1.0-4.8) k/uL Potassium 3.2 L (3.5-5.1) mmol/L BUN (9.0-27.0) mg/dL Creatinine (0.6-1.5) mg/dL BUN/Creatinine Ratio (12.00-20.00) Ratio Glucose (70-110) mg/dL POC Glucose (mg/dL) 202 H 147 H (75-99) mg/dL Calcium (8.7-10.3) mg/dL Phosphorus (2.4-5.1) mg/dL 06/16/20 06/16/20 06/16/20 Range/Units 07:07 07:08 07:08 RBC 3.45 L (3.80-5.40) m/uL Hgb 10.1 L (11.4-16.0) gm/dL Hct 30.5 L (34.0-46.0) % Lymphocytes # 0.7 L (1.0-4.8) k/uL Potassium (3.5-5.1) mmol/L BUN 7.0 L (9.0-27.0) mg/dL Creatinine 0.3 L (0.6-1.5) mg/dL BUN/Creatinine Ratio 23.33 H (12.00-20.00) Ratio Glucose 183 H (70-110) mg/dL POC Glucose (mg/dL) 186 H (75-99) mg/dL Calcium 8.0 L (8.7-10.3) mg/dL Phosphorus 2.1 L (2.4-5.1) mg/dL 06/16/20 Range/Units 11:37 RBC (3.80-5.40) m/uL Hgb (11.4-16.0) gm/dL Hct (34.0-46.0) % Lymphocytes # (1.0-4.8) k/uL Potassium (3.5-5.1) mmol/L BUN (9.0-27.0) mg/dL Creatinine (0.6-1.5) mg/dL BUN/Creatinine Ratio (12.00-20.00) Ratio Glucose (70-110) mg/dL POC Glucose (mg/dL) 162 H (75-99) mg/dL Calcium (8.7-10.3) mg/dL Phosphorus (2.4-5.1) mg/dL Assessment and Plan Plan: - Small bowel obstruction, patient is status post laparotomy small bowel resection pathology is pending and the patient will be started on TPN as per [facility] surgery and patient was started on IV fluids as well patient presently has an NG tube -Diabetes mellitustype II continue with present regimen -History of coronary artery disease with stents in the past -Nicotine dependence Depression, not in activity DVT prophylaxis: Subcutaneous heparin GI prophylaxis: Protonix
[2020-06-16] MEDS: FAT EMULSION 20% 250 ML IV SCH (15:33)
[2020-06-16] MEDS: 1: MVI, ADULT NO.4 WITH VIT K 10 ML, TRACE (CONC-1ML/DOSE) 1 ML, POTASSIUM CHLORIDE 20 M IV SCH ×6 (15:34)
[2020-06-16 17:15] LABS: Glucose,Whole Blood 138 mg/dL (75-99)
[2020-06-16 20:40] LABS: Glucose,Whole Blood 156 mg/dL (75-99)
[2020-06-17] MEDS: HYDROmorphone 0.5 MG/0.5 ML SYRINGE IVP PRN ×4 (00:01→11:31)
[2020-06-17] MEDS: 1: MVI, ADULT NO.4 WITH VIT K 10 ML, TRACE (CONC-1ML/DOSE) 1 ML, POTASSIUM CHLORIDE 20 M IV SCH ×18 (00:04→20:07)
[2020-06-17] MEDS: PIPERACILLIN-TAZOBACTAM 3.375 GM in SODIUM CHLORIDE 0.9% 100 ML IVPB SCH ×3 (03:37→19:20)
[2020-06-17] MEDS: SODIUM CHLORIDE 0.9% 1,000 ML IV SCH (03:39)
[2020-06-17 04:05] LABS: Basophils % (A) 0 %; Eosinophils # (A) 0.3 k/uL (0-0.7); Eosinophils % (A) 4 %; HCT 32.1 % (34.0-46.0); HGB 10.9 gm/dL (11.4-16.0); Lymphocytes % (A) 13 %; MCH 30.7 pg (25.0-35.0); MCHC 33.9 g/dL (31.0-37.0); MCV 90.4 fL (80.0-100.0); Mean Platelet Volume 7.2; Monocytes # (A) 0.6 k/uL (0-1.0); Monocytes % (A) 7 %; Neutrophils # (A) 5.6 k/uL (1.3-7.7); Neutrophils % (A) 73 %; Platelet Count 304 k/uL (150-450); RBC 3.56 m/uL (3.80-5.40); RDW 13.4 % (11.5-15.5); WBC 7.7 k/uL (3.8-10.6)
[2020-06-17 07:07] LABS: Glucose,Whole Blood 181 mg/dL (75-99)
[2020-06-17] MEDS: INSULIN ASPART (NovoLOG) 100 UNIT/ML VIAL SQ SCH ×4 (07:59→21:12)
[2020-06-17] MEDS: DULoxetine HCL 60 MG CAPSULE.DR PO SCH (08:00)
[2020-06-17] MEDS: lisinopriL 20 MG TAB PO SCH (08:00)
[2020-06-17] MEDS: GABAPENTIN 300 MG CAP PO SCH ×5 (08:00→21:13)
[2020-06-17] MEDS: ASPIRIN 81 MG PO SCH (08:00)
[2020-06-17] MEDS: HEPARIN SODIUM,PORCINE 5,000 UNIT/ML 1 ML VIAL SQ SCH ×2 (08:00→21:12)
[2020-06-17] MEDS: ATORVASTATIN 40 MG TAB PO SCH (08:00)
[2020-06-17] MEDS: PANTOPRAZOLE 40 MG/10 ML VIAL IV SCH (08:00)
[2020-06-17 09:54] LABS: African American GFR (CKD) 127.6 (60.0-200.0); Albumin 3.4 g/dL (3.80-4.90); Albumin/Globulin Ratio 1.79 (1.60-3.17); Anion Gap 9.7 mmol/L (4.00-12.00); Calcium 8.6 mg/dL (8.7-10.3); Carbon Dioxide 25.3 mmol/L (21.6-31.8); Globulin 1.9 g/dL (1.6-3.3); Magnesium 1.7 mg/dL (1.5-2.4); Non-African American GFR(CKD) 110.1 (60.0-200.0); Phosphorus 2.9 mg/dL (2.4-5.1); Potassium 4.2 mmol/L (3.5-5.5); Total Bilirubin 0.3 mg/dL (0.3-1.2); Total Protein 5.3 g/dL (6.2-8.2)
[2020-06-17 12:07] LABS: Glucose,Whole Blood 148 mg/dL (75-99)
--- NOTE | 2020-06-17 13:25 | P.PN ---
Subjective Progress Note Date: 06/17/20 Patient doing well no complaints. No output from ileostomy. Walking in halls Objective - Vital Signs Vital signs: Vital Signs Temp 99.2 F 06/17/20 11:46 Pulse 100 06/17/20 11:46 Resp 16 06/17/20 11:46 BP 157/84 06/17/20 11:46 Pulse Ox 99 06/17/20 11:46 Intake & Output 06/16/20 06/17/20 06/17/20 18:59 06:59 18:59 Intake Total 1026.3333 1640 Output Total 0005 Balance -0988.6613 1640 Weight 57.606 kg Intake: Intake, IV Titration 1026.3333 1640 Amount Mvi, Adult No.4 with Vit 1026.3333 840 K 10 ml Trace (Conc-1Ml/ Dose) 1 ml Potassium Chloride 20 meq Magnesium Sulfate gm 1 gm Potassium Phosphate 10 mmol In Amino Acid 4.25%- D10w+Lytes*E* 1,000 ml @ 70 mls/hr IV .BY DURATION GAIL Rx#:[id number] Piperacillin-Tazobactam 3 200 .375 gm In Sodium Chloride 0.9% 100 ml @ 25 mls/hr IVPB Q8H GAIL Rx#: [id number] Sodium Chloride 0.9% 1, 600 000 ml @ 50 mls/hr IV . Q20H GAIL Rx#:[id number] Output: Gastric Drainage 225 Urine 2250 Uretheral ([place]) 850 Other: Voiding Method Bedside Commode Bedside Commode Bedside Commode Diaper Diaper # Voids 1 3 1 - Constitutional General appearance: Present: cooperative - Cardiovascular Rhythm: regular - Gastrointestinal Gastrointestinal Comment(s): S/NT/ND incision CDI Ostomy pink patent no output - Labs CBC & Chem 7: 06/17/20 03:40 06/17/20 03:40 Labs: Abnormal Lab Results - Last 24 Hours (Table) 06/16/20 06/16/20 06/17/20 Range/Units 17:09 20:36 03:40 RBC (3.80-5.40) m/uL Hgb (11.4-16.0) gm/dL Hct (34.0-46.0) % BUN 8.0 L (9.0-27.0) mg/dL Creatinine 0.4 L (0.6-1.5) mg/dL Glucose 184 H (70-110) mg/dL POC Glucose (mg/dL) 138 H 156 H (75-99) mg/dL Calcium 8.6 L (8.7-10.3) mg/dL Total Protein 5.3 L (6.2-8.2) g/dL Albumin 3.40 L (3.80-4.90) g/dL 06/17/20 06/17/20 06/17/20 Range/Units 03:40 07:00 11:47 RBC 3.56 L (3.80-5.40) m/uL Hgb 10.9 L (11.4-16.0) gm/dL Hct 32.1 L (34.0-46.0) % BUN (9.0-27.0) mg/dL Creatinine (0.6-1.5) mg/dL Glucose (70-110) mg/dL POC Glucose (mg/dL) 181 H 148 H (75-99) mg/dL Calcium (8.7-10.3) mg/dL Total Protein (6.2-8.2) g/dL Albumin (3.80-4.90) g/dL Assessment and Plan Assessment: S/P exlap SBR and RADHAMES Plan: Continue NPO NGT AND TPN until further bowel function returns
[2020-06-17] MEDS: KETOROLAC 15 MG/ML 1 ML VIAL IVP PRN (16:07)
[2020-06-17] MEDS: MAGNESIUM SULFATE-D5W PMX 1 GM in DEXTROSE/WATER 1 100ML.BAG IVPB SCH ×2 (16:07→17:58)
--- NOTE | 2020-06-17 16:58 | P.PN ---
Subjective 64 years old female with multiple medical problems as below who presents with abdominal pain, constipation and recurrent nausea vomiting and found to have small bowel obstruction, with tumor cannot be ruled out. Surgery tomorrow on the case and they ordered a small bowel 5 through follow-through showing persistent mid to distal small bowel obstruction with transition zone as described. Surgery team decided to go for surgery tomorrow. NG tube placement was unsuccessful today. Vital signs stable. CBC and BMP and liver enzymes were unremarkable. She remains on Zosyn and normocephalic normal saline at 75 mL/h. Hemoglobin A1c 6.1% and BLOOD in stool is negative 06/14/2020 Patient is an NG tube in place still having significant output patient will be started on TPN and start her on IV fluids at 50 mL per hour S patient will get the fluids in the form of TPN around 80 mL per hour. 06/15/2020 Patient has around 400 mL of bilious fluid be NG tube. Patient will fluids are within normal limits and the patient is presently on TPN as well as normal saline. Patient bicarbonate improved. Acidosis resolved patient has low potassium which will be replaced low phosphorus and magnesium was replaced patient does have started passing gas and moved bowel into the colostomy. 06/16/2020 Passing some gas patient only had around 250 mL output from the NG tube for last 24 hours. Patient did not move her bowel. Patient does have good bowel sounds 06/17/2020 Patient barely has any output via NG tube probably NG tube can be removed patie nt does have good bowel sounds passing gas but did not move her bowel yet. Patient will be started on nonsteroidal and anti-inflammatory steroid opiates patient is Dilaudid as well as fentanyl patch. Constitutional: Denied any fatigue denied any fever. Cardio vascular: denied any chest pain, palpitations Gastrointestinal denied any nausea vomiting Pulmonary: Denied any shortness of breath cough Neurologic denied any new focal deficits All inpatient medications were reviewed and appropriate changes in these medications as dictated in the interval history and assessment and plan. Objective - Vital Signs Vital signs: Vital Signs Temp 99.2 F 06/17/20 11:46 Pulse 100 06/17/20 11:46 Resp 16 06/17/20 11:46 BP 157/84 06/17/20 11:46 Pulse Ox 99 06/17/20 11:46 Intake & Output 10/09/20 10/10/20 10/10/20 18:59 06:59 18:59 Intake Total 1026.3333 1640 970 Output Total 2475 Balance -2081.5870 1640 970 Weight 57.606 kg Intake: IV 420 Mvi, Adult No.4 with Vit 420 K 10 ml Trace (Conc-1Ml/ Dose) 1 ml Potassium Chloride 20 meq Magnesium Sulfate gm 1 gm Potassium Phosphate 10 mmol In Amino Acid 4.25%- D10w+Lytes*E* 1,000 ml @ 70 mls/hr IV .BY DURATION GAIL Rx#:[id number] Intake, IV Titration 1026.3333 1640 450 Amount Mvi, Adult No.4 with Vit 1026.3333 840 K 10 ml Trace (Conc-1Ml/ Dose) 1 ml Potassium Chloride 20 meq Magnesium Sulfate gm 1 gm Potassium Phosphate 10 mmol In Amino Acid 4.25%- D10w+Lytes*E* 1,000 ml @ 70 mls/hr IV .BY DURATION GAIL Rx#:[id number] Piperacillin-Tazobactam 3 200 .375 gm In Sodium Chloride 0.9% 100 ml @ 25 mls/hr IVPB Q8H GAIL Rx#: [id number] Sodium Chloride 0.9% 1, 600 450 000 ml @ 50 mls/hr IV . Q20H GAIL Rx#:[id number] Oral 100 Output: Gastric Drainage 225 Urine 2250 Uretheral ([place]) 850 Other: Voiding Method Bedside Commode Bedside Commode Bedside Commode Diaper Diaper # Voids 1 3 3 - Exam GENERAL: The patient is alert and oriented x3, not in any acute distress. Well developed, well nourished. HEENT: Pupils are round and equally reacting to light. EOMI. No scleral icterus. No conjunctival pallor. Normocephalic, atraumatic. No pharyngeal erythema. No thyromegaly. CARDIOVASCULAR: S1 and S2 present. No murmurs, rubs, or gallops. PULMONARY: Chest is clear to auscultation, no wheezing or crackles. ABDOMEN: Soft, nontender, nondistended, bowel sounds are sluggish. No palpable organomegaly. NG tube in place with significant output MUSCULOSKELETAL: No joint swelling or deformity. EXTREMITIES: No cyanosis, clubbing, or pedal edema. NEUROLOGICAL: Gross neurological examination did not reveal any focal deficits. SKIN: No rashes. no petechiae. - Labs CBC & Chem 7: 06/17/20 03:40 06/17/20 03:40 Labs: Abnormal Lab Results - Last 24 Hours (Table) 06/16/20 06/16/20 06/17/20 Range/Units 17:09 20:36 03:40 RBC (3.80-5.40) m/uL Hgb (11.4-16.0) gm/dL Hct (34.0-46.0) % BUN 8.0 L (9.0-27.0) mg/dL Creatinine 0.4 L (0.6-1.5) mg/dL Glucose 184 H (70-110) mg/dL POC Glucose (mg/dL) 138 H 156 H (75-99) mg/dL Calcium 8.6 L (8.7-10.3) mg/dL Total Protein 5.3 L (6.2-8.2) g/dL Albumin 3.40 L (3.80-4.90) g/dL 06/17/20 06/17/20 06/17/20 Range/Units 03:40 07:00 11:47 RBC 3.56 L (3.80-5.40) m/uL Hgb 10.9 L (11.4-16.0) gm/dL Hct 32.1 L (34.0-46.0) % BUN (9.0-27.0) mg/dL Creatinine (0.6-1.5) mg/dL Glucose (70-110) mg/dL POC Glucose (mg/dL) 181 H 148 H (75-99) mg/dL Calcium (8.7-10.3) mg/dL Total Protein (6.2-8.2) g/dL Albumin (3.80-4.90) g/dL Assessment and Plan Plan: - Small bowel obstruction, patient is status post laparotomy small bowel resection pathology is showed just serositis without any evidence of cancer and the is presently on TPN still has an NG tube which probably can come out today. Patient will be transitioned to nonsteroidal anti-inflammatory's to avoid any ileus. -Diabetes mellitustype II continue with present regimen -History of coronary artery disease with stents in the past -Nicotine dependence Depression, not in activity DVT prophylaxis: Subcutaneous heparin GI prophylaxis: Protonix
[2020-06-17 17:15] LABS: Glucose,Whole Blood 187 mg/dL (75-99)
[2020-06-17 20:18] LABS: Glucose,Whole Blood 157 mg/dL (75-99)
[2020-06-18] MEDS: KETOROLAC 15 MG/ML 1 ML VIAL IVP PRN ×4 (00:28→20:46)
[2020-06-18] MEDS: SODIUM CHLORIDE 0.9% 1,000 ML IV SCH ×2 (01:08→22:58)
[2020-06-18] MEDS: PIPERACILLIN-TAZOBACTAM 3.375 GM in SODIUM CHLORIDE 0.9% 100 ML IVPB SCH ×3 (04:31→20:47)
[2020-06-18 06:57] LABS: Basophils % (A) 1 %; Eosinophils # (A) 0.2 k/uL (0-0.7); Eosinophils % (A) 3 %; HCT 28.2 % (34.0-46.0); HGB 9.6 gm/dL (11.4-16.0); Lymphocytes % (A) 17 %; MCH 30.3 pg (25.0-35.0); MCHC 34.1 g/dL (31.0-37.0); MCV 88.7 fL (80.0-100.0); Mean Platelet Volume 8.1; Monocytes # (A) 0.5 k/uL (0-1.0); Monocytes % (A) 9 %; Neutrophils # (A) 3.9 k/uL (1.3-7.7); Neutrophils % (A) 68 %; Platelet Count 173 k/uL (150-450); RBC 3.18 m/uL (3.80-5.40); RDW 13.4 % (11.5-15.5); WBC 5.7 k/uL (3.8-10.6)
[2020-06-18 07:09] LABS: Glucose,Whole Blood 202 mg/dL (75-99)
[2020-06-18 07:21] LABS: ALT 11 U/L (4-34); AST 26 U/L (14-36); African American GFR (CKD) >90 (>60 ml/min/1.73 sqM); Albumin 2.9 g/dL (3.5-5.0); Albumin/Globulin Ratio 1.1; Alkaline Phosphatase 60 U/L (38-126); Anion Gap 8 mmol/L; Blood Urea Nitrogen 11 mg/dL (7-17); Calcium 9.1 mg/dL (8.4-10.2); Carbon Dioxide 24 mmol/L (22-30); Chloride 104 mmol/L (98-107); Globulin 2.7 g/dL; Glucose 189 mg/dL (74-99); Magnesium 1.8 mg/dL (1.6-2.3); Non-African American GFR(CKD) >90 (>60 ml/min/1.73 sqM); Phosphorus 4.4 mg/dL (2.5-4.5); Potassium 5.8 mmol/L (3.5-5.1); Sodium 136 mmol/L (137-145); Total Bilirubin 0.7 mg/dL (0.2-1.3); Total Protein 5.6 g/dL (6.3-8.2)
[2020-06-18] MEDS: ACETAMINOPHEN TAB 325 MG TAB PO PRN (08:25)
[2020-06-18] MEDS: ASPIRIN 81 MG PO SCH (08:25)
[2020-06-18] MEDS: ATORVASTATIN 40 MG TAB PO SCH (08:25)
[2020-06-18] MEDS: DULoxetine HCL 60 MG CAPSULE.DR PO SCH (08:25)
[2020-06-18] MEDS: INSULIN ASPART (NovoLOG) 100 UNIT/ML VIAL SQ SCH ×4 (08:25→20:46)
[2020-06-18] MEDS: GABAPENTIN 300 MG CAP PO SCH ×4 (08:25→20:46)
[2020-06-18] MEDS: HEPARIN SODIUM,PORCINE 5,000 UNIT/ML 1 ML VIAL SQ SCH ×2 (08:26→20:46)
[2020-06-18] MEDS: PANTOPRAZOLE 40 MG/10 ML VIAL IV SCH (08:29)
[2020-06-18] MEDS: lisinopriL 20 MG TAB PO SCH (08:29)
[2020-06-18] MEDS: MAGNESIUM SULFATE-D5W PMX 1 GM in DEXTROSE/WATER 1 100ML.BAG IVPB SCH ×2 (08:29→12:13)
--- NOTE | 2020-06-18 09:34 | P.PN ---
Subjective Progress Note Date: 06/18/20 Patient doing well no complaints. No output from ileostomy but hse states she thinks she had some gas in bag. Walking in halls Objective - Vital Signs Vital signs: Vital Signs Temp 98.5 F 06/18/20 04:21 Pulse 97 06/18/20 04:21 Resp 18 06/18/20 04:21 BP 150/83 06/18/20 04:21 Pulse Ox 95 06/18/20 04:21 Intake & Output 06/17/20 06/18/20 06/18/20 18:59 06:59 18:59 Intake Total 970 1440 Balance 970 1440 Intake: IV 420 840 Mvi, Adult No.4 with Vit 420 840 K 10 ml Trace (Conc-1Ml/ Dose) 1 ml Potassium Chloride 20 meq Magnesium Sulfate gm 1 gm Potassium Phosphate 10 mmol In Amino Acid 4.25%- D10w+Lytes*E* 1,000 ml @ 70 mls/hr IV .BY DURATION GAIL Rx#:[id number] Intake, IV Titration 450 600 Amount Piperacillin-Tazobactam 3 200 .375 gm In Sodium Chloride 0.9% 100 ml @ 25 mls/hr IVPB Q8H GAIL Rx#: [id number] Sodium Chloride 0.9% 1, 450 400 000 ml @ 50 mls/hr IV . Q20H GAIL Rx#:[id number] Oral 100 Other: Voiding Method Bedside Commode Bedside Commode Diaper Diaper Incontinent # Voids 3 6 - Constitutional General appearance: Present: cooperative - Cardiovascular Rhythm: regular - Gastrointestinal Gastrointestinal Comment(s): S/NT/ND Ileostomy pink and patent without gas or bile in bag - Psychiatric Psychiatric: Present: A&O x's 3 - Labs CBC & Chem 7: 06/18/20 06:46 06/18/20 06:46 Labs: Abnormal Lab Results - Last 24 Hours (Table) 06/17/20 06/17/20 06/17/20 Range/Units 03:40 11:47 16:56 RBC (3.80-5.40) m/uL Hgb (11.4-16.0) gm/dL Hct (34.0-46.0) % Sodium (137-145) mmol/L Potassium (3.5-5.1) mmol/L BUN 8.0 L (9.0-27.0) mg/dL Creatinine 0.4 L (0.6-1.5) mg/dL Glucose 184 H (70-110) mg/dL POC Glucose (mg/dL) 148 H 187 H (75-99) mg/dL Calcium 8.6 L (8.7-10.3) mg/dL Total Protein 5.3 L (6.2-8.2) g/dL Albumin 3.40 L (3.80-4.90) g/dL 06/17/20 06/18/20 06/18/20 Range/Units 20:17 06:46 06:46 RBC 3.18 L (3.80-5.40) m/uL Hgb 9.6 L (11.4-16.0) gm/dL Hct 28.2 L (34.0-46.0) % Sodium 136 L (137-145) mmol/L Potassium 5.8 H (3.5-5.1) mmol/L BUN (9.0-27.0) mg/dL Creatinine 0.36 L (0.6-1.5) mg/dL Glucose 189 H (70-110) mg/dL POC Glucose (mg/dL) 157 H (75-99) mg/dL Calcium (8.7-10.3) mg/dL Total Protein 5.6 L (6.2-8.2) g/dL Albumin 2.9 L (3.80-4.90) g/dL 06/18/20 Range/Units 07:04 RBC (3.80-5.40) m/uL Hgb (11.4-16.0) gm/dL Hct (34.0-46.0) % Sodium (137-145) mmol/L Potassium (3.5-5.1) mmol/L BUN (9.0-27.0) mg/dL Creatinine (0.6-1.5) mg/dL Glucose (70-110) mg/dL POC Glucose (mg/dL) 202 H (75-99) mg/dL Calcium (8.7-10.3) mg/dL Total Protein (6.2-8.2) g/dL Albumin (3.80-4.90) g/dL Assessment and Plan Assessment: S/P exlap SBR and RADHAMES Plan: Continue NPO NGT AND TPN until further bowel function returns
[2020-06-18 11:44] LABS: Glucose,Whole Blood 137 mg/dL (75-99)
[2020-06-18] MEDS: [UNRECOGNIZED DRUG - REMARK] IV SCH ×4 (12:13)
[2020-06-18] MEDS ORDERED: SODIUM POLYSTYRENE SULFONATE 15 GM/60 ML BOTTLE PO STA (12:45)
[2020-06-18] MEDS: amLODIPine 5 MG TAB PO SCH (13:05)
--- NOTE | 2020-06-18 13:51 | P.PN ---
Subjective 64 years old female with multiple medical problems as below who presents with abdominal pain, constipation and recurrent nausea vomiting and found to have small bowel obstruction, with tumor cannot be ruled out. Surgery tomorrow on the case and they ordered a small bowel 5 through follow-through showing persistent mid to distal small bowel obstruction with transition zone as described. Surgery team decided to go for surgery tomorrow. NG tube placement was unsuccessful today. Vital signs stable. CBC and BMP and liver enzymes were unremarkable. She remains on Zosyn and normocephalic normal saline at 75 mL/h. Hemoglobin A1c 6.1% and BLOOD in stool is negative 06/14/2020 Patient is an NG tube in place still having significant output patient will be started on TPN and start her on IV fluids at 50 mL per hour S patient will get the fluids in the form of TPN around 80 mL per hour. 06/15/2020 Patient has around 400 mL of bilious fluid be NG tube. Patient will fluids are within normal limits and the patient is presently on TPN as well as normal saline. Patient bicarbonate improved. Acidosis resolved patient has low potassium which will be replaced low phosphorus and magnesium was replaced patient does have started passing gas and moved bowel into the colostomy. 06/16/2020 Passing some gas patient only had around 250 mL output from the NG tube for last 24 hours. Patient did not move her bowel. Patient does have good bowel sounds 06/17/2020 Patient barely has any output via NG tube probably NG tube can be removed patie nt does have good bowel sounds passing gas but did not move her bowel yet. Patient will be started on nonsteroidal and anti-inflammatory steroid opiates patient is Dilaudid as well as fentanyl patch. 06/18/2020 Patient is receiving medication for constipation is passing gas did not move her bowel yet patient still has an NG tube although not much drainage from there patient was started on nonsteroidal anti-inflammatories yesterday to avoid opiates. Patient's serum potassium went up because of which I'm cutting down lisinopril will also do her kayOxalate instructions were provided not to give tomorrow morning lisinopril if patient's potassium continues to be high tomorrow. Patient's blood pressure was elevated patient was started on amlodipine Constitutional: Denied any fatigue denied any fever. Cardio vascular: denied any chest pain, palpitations Gastrointestinal denied any nausea vomiting Pulmonary: Denied any shortness of breath cough Neurologic denied any new focal deficits All inpatient medications were reviewed and appropriate changes in these medications as dictated in the interval history and assessment and plan. Objective - Vital Signs Vital signs: Vital Signs Temp 98.1 F 06/18/20 11:12 Pulse 80 06/18/20 11:12 Resp 18 06/18/20 11:12 BP 167/69 06/18/20 11:12 Pulse Ox 95 06/18/20 11:12 Intake & Output 06/17/20 06/18/20 06/18/20 18:59 06:59 18:59 Intake Total 970 1440 Balance 970 1440 Intake: IV 420 840 Mvi, Adult No.4 with Vit 420 840 K 10 ml Trace (Conc-1Ml/ Dose) 1 ml Potassium Chloride 20 meq Magnesium Sulfate gm 1 gm Potassium Phosphate 10 mmol In Amino Acid 4.25%- D10w+Lytes*E* 1,000 ml @ 70 mls/hr IV .BY DURATION GAIL Rx#:[id number] Intake, IV Titration 450 600 Amount Piperacillin-Tazobactam 3 200 .375 gm In Sodium Chloride 0.9% 100 ml @ 25 mls/hr IVPB Q8H GAIL Rx#: [id number] Sodium Chloride 0.9% 1, 450 400 000 ml @ 50 mls/hr IV . Q20H GAIL Rx#:[id number] Oral 100 Other: Voiding Method Bedside Commode Bedside Commode Bedside Commode Diaper Diaper Diaper Incontinent Incontinent # Voids 3 6 - Exam GENERAL: The patient is alert and oriented x3, not in any acute distress. Well developed, well nourished. HEENT: Pupils are round and equally reacting to light. EOMI. No scleral icterus. No conjunctival pallor. Normocephalic, atraumatic. No pharyngeal erythema. No thyromegaly. CARDIOVASCULAR: S1 and S2 present. No murmurs, rubs, or gallops. PULMONARY: Chest is clear to auscultation, no wheezing or crackles. ABDOMEN: Soft, nontender, nondistended, bowel sounds are sluggish. No palpable organomegaly. NG tube in place with significant output MUSCULOSKELETAL: No joint swelling or deformity. EXTREMITIES: No cyanosis, clubbing, or pedal edema. NEUROLOGICAL: Gross neurological examination did not reveal any focal deficits. SKIN: No rashes. no petechiae. - Labs CBC & Chem 7: 06/18/20 06:46 06/18/20 06:46 Labs: Abnormal Lab Results - Last 24 Hours (Table) 06/17/20 06/17/20 06/18/20 Range/Units 16:56 20:17 06:46 RBC 3.18 L (3.80-5.40) m/uL Hgb 9.6 L (11.4-16.0) gm/dL Hct 28.2 L (34.0-46.0) % Sodium (137-145) mmol/L Potassium (3.5-5.1) mmol/L Creatinine (0.52-1.04) mg/dL Glucose (74-99) mg/dL POC Glucose (mg/dL) 187 H 157 H (75-99) mg/dL Total Protein (6.3-8.2) g/dL Albumin (3.5-5.0) g/dL 06/18/20 06/18/20 06/18/20 Range/Units 06:46 07:04 11:14 RBC (3.80-5.40) m/uL Hgb (11.4-16.0) gm/dL Hct (34.0-46.0) % Sodium 136 L (137-145) mmol/L Potassium 5.8 H (3.5-5.1) mmol/L Creatinine 0.36 L (0.52-1.04) mg/dL Glucose 189 H (74-99) mg/dL POC Glucose (mg/dL) 202 H 137 H (75-99) mg/dL Total Protein 5.6 L (6.3-8.2) g/dL Albumin 2.9 L (3.5-5.0) g/dL Assessment and Plan Plan: - Small bowel obstruction, patient is status post laparotomy small bowel resection pathology is showed just serositis without any evidence of cancer and the is presently on TPN still has an NG tube which probably can come out today. Patient will be transitioned to nonsteroidal anti-inflammatory's to avoid any ileus. -Hyperkalemia: Management as mentioned above this -Diabetes mellitustype II continue with present regimen -History of coronary artery disease with stents in the past -Nicotine dependence Depression, not in activity DVT prophylaxis: Subcutaneous heparin GI prophylaxis: Protonix
[2020-06-18] MEDS: HYDROmorphone 0.5 MG/0.5 ML SYRINGE IVP PRN (16:21)
[2020-06-18 17:24] LABS: Glucose,Whole Blood 203 mg/dL (75-99)
[2020-06-18 20:14] LABS: Glucose,Whole Blood 143 mg/dL (75-99)
[2020-06-19] MEDS: KETOROLAC 15 MG/ML 1 ML VIAL IVP PRN ×4 (01:38→20:06)
[2020-06-19] MEDS: HYDROmorphone 0.5 MG/0.5 ML SYRINGE IVP PRN (02:10)
[2020-06-19] MEDS: SODIUM CHLORIDE 0.9% 1,000 ML IV SCH (02:24)
[2020-06-19] MEDS: [UNRECOGNIZED DRUG - REMARK] IV SCH ×8 (02:24→16:28)
[2020-06-19] MEDS: PIPERACILLIN-TAZOBACTAM 3.375 GM in SODIUM CHLORIDE 0.9% 100 ML IVPB SCH ×3 (03:42→19:25)
[2020-06-19 05:12] LABS: HCT 30.8 % (34.0-46.0); HGB 10.2 gm/dL (11.4-16.0); MCH 30.2 pg (25.0-35.0); MCHC 33.1 g/dL (31.0-37.0); MCV 91.3 fL (80.0-100.0); Mean Platelet Volume 7.7; RBC 3.37 m/uL (3.80-5.40); RDW 13.4 % (11.5-15.5); WBC 8.4 k/uL (3.8-10.6)
[2020-06-19 05:46] LABS: Platelet Count 384 k/uL (150-450)
[2020-06-19 06:17] LABS: Eosinophils # (M) 0.34 k/uL (0-0.7); Lymphocytes # (M) 1.76 k/uL (1.0-4.8); Monocytes # (M) 1.01 k/uL (0-1.0); Neutrophils # (M) 5.29 k/uL (1.3-7.7); Neutrophils % (M) 63 %; Nucleated Red Blood Cells 0 /100 WBC (0-0); Total Cells Counted 100
[2020-06-19 06:56] LABS: Glucose,Whole Blood 184 mg/dL (75-99)
--- NOTE | 2020-06-19 08:46 | P.PN ---
Subjective Progress Note Date: 06/19/20 Patient seen and examined at bedside. States overall, she is feeling very well. Ambulating in the kim. She states that she is having some gas in the ostomy bag and she has had to burp the bag over the past 2 days. Per nursing, this has not been witnessed. Objective - Vital Signs Vital signs: Vital Signs Temp 99 F 06/19/20 04:58 Pulse 91 06/19/20 04:58 Resp 18 06/19/20 04:58 BP 169/71 06/19/20 04:58 Pulse Ox 95 06/19/20 04:58 Intake & Output 06/18/20 06/19/20 06/19/20 18:59 06:59 18:59 Intake Total 1060 1080 Balance 1060 1080 Intake: IV 560 560 Mvi, Adult No.4 with Vit 560 560 K 10 ml Trace (Conc-1Ml/ Dose) 1 ml Potassium Chloride 20 meq Magnesium Sulfate gm 1 gm Potassium Phosphate 10 mmol In Amino Acid 4.25%- D10w+Lytes*E* 1,000 ml @ 70 mls/hr IV .BY DURATION GAIL Rx#:[id number] Intake, IV Titration 400 520 Amount Magnesium Sulfate gm 1.5 70 gm In Amino Acid 4.25%- D10w+Lytes*E* 1,000 ml @ 70 mls/hr IV .BY DURATION GAIL Rx#:[id number] Sodium Chloride 0.9% 1, 400 450 000 ml @ 50 mls/hr IV . Q20H GAIL Rx#:[id number] Oral 100 Other: Voiding Method Bedside Commode Bedside Commode Diaper Incontinent # Voids 2 2 - Constitutional General appearance: Present: cooperative, no acute distress - Respiratory Details: No difficulty with respiration - Gastrointestinal Gastrointestinal Comment(s): Soft, mildly distended, no rebound, no guarding, incision site clean, dry and intact, ostomy is pink and patent - Musculoskeletal Musculoskeletal: Present: generalized weakness - Psychiatric Psychiatric: Present: A&O x's 3 - Labs CBC & Chem 7: 06/19/20 04:01 06/18/20 06:46 Labs: Abnormal Lab Results - Last 24 Hours (Table) 06/18/20 06/18/20 06/18/20 Range/Units 11:14 17:22 20:13 RBC (3.80-5.40) m/uL Hgb (11.4-16.0) gm/dL Hct (34.0-46.0) % Monocytes # (Manual) (0-1.0) k/uL POC Glucose (mg/dL) 137 H 203 H 143 H (75-99) mg/dL 06/19/20 06/19/20 Range/Units 04:01 06:54 RBC 3.37 L (3.80-5.40) m/uL Hgb 10.2 L (11.4-16.0) gm/dL Hct 30.8 L (34.0-46.0) % Monocytes # (Manual) 1.01 H (0-1.0) k/uL POC Glucose (mg/dL) 184 H (75-99) mg/dL Assessment and Plan (1) SBO (small bowel obstruction) Narrative/Plan: Postoperative day #6, exploratory laparotomy, small bowel resection Increase activity, continue to ambulate in hallway Continue physical and occupational therapy Continue TPN Apparently, nasogastric tube fell out yesterday. After attempt was made to replace, patient refused further replacement. On discussion today, patient stated it is not worth it to have the tube in. She is stating that she is having some gas in the ostomy bag and has had to burp the ostomy bag the past few days. Based on this finding, we will start a trial of sips of clear liquids. This was explained to the patient. Continue pain control, try to avoid narcotic pain medication Medical management Current Visit: Yes Status: Acute Code(s): K56.609 - UNSP INTESTNL OBST, UNSP TO PARTIAL VERSUS COMPLETE OBST SNOMED Code(s): 317571949
[2020-06-19] MEDS: INSULIN ASPART (NovoLOG) 100 UNIT/ML VIAL SQ SCH ×4 (08:50→21:04)
[2020-06-19] MEDS: lisinopriL 20 MG TAB PO SCH (08:50)
[2020-06-19] MEDS: ATORVASTATIN 40 MG TAB PO SCH (08:50)
[2020-06-19] MEDS: ASPIRIN 81 MG PO SCH (08:50)
[2020-06-19] MEDS: HEPARIN SODIUM,PORCINE 5,000 UNIT/ML 1 ML VIAL SQ SCH ×2 (08:51→21:05)
[2020-06-19] MEDS: amLODIPine 5 MG TAB PO SCH (08:51)
[2020-06-19] MEDS: PANTOPRAZOLE 40 MG/10 ML VIAL IV SCH (08:51)
[2020-06-19] MEDS: GABAPENTIN 300 MG CAP PO SCH ×4 (08:51→21:04)
[2020-06-19] MEDS: DULoxetine HCL 60 MG CAPSULE.DR PO SCH (08:51)
[2020-06-19 10:22] LABS: African American GFR (CKD) 127.6 (60.0-200.0); Albumin 3.4 g/dL (3.80-4.90); Albumin/Globulin Ratio 1.62 (1.60-3.17); Anion Gap 10.6 mmol/L (4.00-12.00); BUN/Creat Ratio 22.5 Ratio (12.00-20.00); Calcium 8.6 mg/dL (8.7-10.3); Carbon Dioxide 26.4 mmol/L (21.6-31.8); Globulin 2.1 g/dL (1.6-3.3); Magnesium 1.8 mg/dL (1.5-2.4); Non-African American GFR(CKD) 110.1 (60.0-200.0); Phosphorus 3.8 mg/dL (2.4-5.1); Potassium 4.4 mmol/L (3.5-5.5); Total Bilirubin 0.4 mg/dL (0.2-1.2); Total Protein 5.5 g/dL (6.2-8.2)
[2020-06-19 11:27] LABS: Glucose,Whole Blood 197 mg/dL (75-99)
[2020-06-19] MEDS: MAGNESIUM SULFATE-D5W PMX 1 GM in DEXTROSE/WATER 1 100ML.BAG IVPB SCH ×2 (12:25→16:28)
--- NOTE | 2020-06-19 14:30 | P.PN ---
Subjective 64 years old female with multiple medical problems as below who presents with abdominal pain, constipation and recurrent nausea vomiting and found to have small bowel obstruction, with tumor cannot be ruled out. Surgery tomorrow on the case and they ordered a small bowel 5 through follow-through showing persistent mid to distal small bowel obstruction with transition zone as described. Surgery team decided to go for surgery tomorrow. NG tube placement was unsuccessful today. Vital signs stable. CBC and BMP and liver enzymes were unremarkable. She remains on Zosyn and normocephalic normal saline at 75 mL/h. Hemoglobin A1c 6.1% and BLOOD in stool is negative 06/14/2020 Patient is an NG tube in place still having significant output patient will be started on TPN and start her on IV fluids at 50 mL per hour S patient will get the fluids in the form of TPN around 80 mL per hour. 06/15/2020 Patient has around 400 mL of bilious fluid be NG tube. Patient will fluids are within normal limits and the patient is presently on TPN as well as normal saline. Patient bicarbonate improved. Acidosis resolved patient has low potassium which will be replaced low phosphorus and magnesium was replaced patient does have started passing gas and moved bowel into the colostomy. 06/16/2020 Passing some gas patient only had around 250 mL output from the NG tube for last 24 hours. Patient did not move her bowel. Patient does have good bowel sounds 06/17/2020 Patient barely has any output via NG tube probably NG tube can be removed patie nt does have good bowel sounds passing gas but did not move her bowel yet. Patient will be started on nonsteroidal and anti-inflammatory steroid opiates patient is Dilaudid as well as fentanyl patch. 06/18/2020 Patient is receiving medication for constipation is passing gas did not move her bowel yet patient still has an NG tube although not much drainage from there patient was started on nonsteroidal anti-inflammatories yesterday to avoid opiates. Patient's serum potassium went up because of which I'm cutting down lisinopril will also do her kayOxalate instructions were provided not to give tomorrow morning lisinopril if patient's potassium continues to be high tomorrow. Patient's blood pressure was elevated patient was started on amlodipine 06/19/2020 Patient's pain is fairly well-controlled NG tube came out and patient is single gas into the colostomy bag and tolerating clear liquid diet. Patient still has a fentanyl patch patient is also on Toradol when necessary. Her potassium improved. Constitutional: Denied any fatigue denied any fever. Cardio vascular: denied any chest pain, palpitations Gastrointestinal denied any nausea vomiting Pulmonary: Denied any shortness of breath cough Neurologic denied any new focal deficits All inpatient medications were reviewed and appropriate changes in these medications as dictated in the interval history and assessment and plan. Objective - Vital Signs Vital signs: Vital Signs Temp 98.5 F 06/19/20 12:05 Pulse 98 06/19/20 12:05 Resp 17 06/19/20 12:05 BP 166/73 06/19/20 12:05 Pulse Ox 94 L 06/19/20 12:05 Intake & Output 06/18/20 06/19/20 06/19/20 18:59 06:59 18:59 Intake Total 1060 1080 Balance 1060 1080 Weight 57.606 kg Intake: IV 560 560 Mvi, Adult No.4 with Vit 560 560 K 10 ml Trace (Conc-1Ml/ Dose) 1 ml Potassium Chloride 20 meq Magnesium Sulfate gm 1 gm Potassium Phosphate 10 mmol In Amino Acid 4.25%- D10w+Lytes*E* 1,000 ml @ 70 mls/hr IV .BY DURATION GAIL Rx#:[id number] Intake, IV Titration 400 520 Amount Magnesium Sulfate gm 1.5 70 gm In Amino Acid 4.25%- D10w+Lytes*E* 1,000 ml @ 70 mls/hr IV .BY DURATION GAIL Rx#:[id number] Sodium Chloride 0.9% 1, 400 450 000 ml @ 50 mls/hr IV . Q20H GAIL Rx#:[id number] Oral 100 Other: Voiding Method Bedside Commode Bedside Commode Diaper Incontinent # Voids 2 2 - Exam GENERAL: The patient is alert and oriented x3, not in any acute distress. Well developed, well nourished. HEENT: Pupils are round and equally reacting to light. EOMI. No scleral icterus. No conjunctival pallor. Normocephalic, atraumatic. No pharyngeal erythema. No thyromegaly. CARDIOVASCULAR: S1 and S2 present. No murmurs, rubs, or gallops. PULMONARY: Chest is clear to auscultation, no wheezing or crackles. ABDOMEN: Soft, nontender, nondistended, normal bowel sounds patient does have air in the colostomy bag. No palpable organomegaly. Off NG tube MUSCULOSKELETAL: No joint swelling or deformity. EXTREMITIES: No cyanosis, clubbing, or pedal edema. NEUROLOGICAL: Gross neurological examination did not reveal any focal deficits. SKIN: No rashes. no petechiae. - Labs CBC & Chem 7: 06/19/20 04:01 06/19/20 04:01 Labs: Abnormal Lab Results - Last 24 Hours (Table) 06/18/20 06/18/20 06/19/20 Range/Units 17:22 20:13 04:01 RBC 3.37 L (3.80-5.40) m/uL Hgb 10.2 L (11.4-16.0) gm/dL Hct 30.8 L (34.0-46.0) % Monocytes # (Manual) 1.01 H (0-1.0) k/uL Creatinine (0.6-1.5) mg/dL BUN/Creatinine Ratio (12.00-20.00) Ratio Glucose (70-110) mg/dL POC Glucose (mg/dL) 203 H 143 H (75-99) mg/dL Calcium (8.7-10.3) mg/dL Total Protein (6.2-8.2) g/dL Albumin (3.80-4.90) g/dL 06/19/20 06/19/20 06/19/20 Range/Units 04:01 06:54 11:26 RBC (3.80-5.40) m/uL Hgb (11.4-16.0) gm/dL Hct (34.0-46.0) % Monocytes # (Manual) (0-1.0) k/uL Creatinine 0.4 L (0.6-1.5) mg/dL BUN/Creatinine Ratio 22.50 H (12.00-20.00) Ratio Glucose 201 H (70-110) mg/dL POC Glucose (mg/dL) 184 H 197 H (75-99) mg/dL Calcium 8.6 L (8.7-10.3) mg/dL Total Protein 5.5 L (6.2-8.2) g/dL Albumin 3.40 L (3.80-4.90) g/dL Assessment and Plan Plan: - Small bowel obstruction, patient is status post laparotomy small bowel resecti on pathology is showed just serositis without any evidence of cancer and the is presently on TPN still has an NG tube which probably can come out today. Patient will be transitioned to nonsteroidal anti-inflammatory's to avoid any ileus. Patient is passing gas NG tube is out started on clear liquid diet. Patient's saturations have gone down a bit and requiring oxygen I'll obtain a chest x-ray to make sure patient doesn't have any pulmonary edema patient's IV fluids will be discontinued if needed will order Lasix. -Hyperkalemia: Management as mentioned above this -Diabetes mellitustype II continue with present regimen -History of coronary artery disease with stents in the past -Nicotine dependence Depression, not in activity DVT prophylaxis: Subcutaneous heparin GI prophylaxis: Protonix
--- NOTE | 2020-06-19 14:58 | XR ---
EXAMINATION TYPE: XR chest 1V DATE OF EXAM: 06/19/2020 CLINICAL HISTORY: Pulmonary edema TECHNIQUE: Portable upright view of the chest COMPARISON: Chest radiograph 06/11/2020 FINDINGS: The cardiomediastinal silhouette is within normal limits for size. Pulmonary vasculature i s normal. There is no focal air space opacity, pleural effusion, or pneumothorax seen. The osseous st ructures are intact. IMPRESSION: No acute cardiopulmonary process.
[2020-06-19] MEDS: FAT EMULSION 20% 250 ML IV SCH (16:28)
[2020-06-19] MEDS: ACETAMINOPHEN TAB 325 MG TAB PO PRN (16:29)
[2020-06-19 17:11] LABS: Glucose,Whole Blood 161 mg/dL (75-99)
[2020-06-19 20:50] LABS: Glucose,Whole Blood 216 mg/dL (75-99)
[2020-06-20] MEDS: KETOROLAC 15 MG/ML 1 ML VIAL IVP PRN ×3 (01:47→18:27)
[2020-06-20] MEDS: PIPERACILLIN-TAZOBACTAM 3.375 GM in SODIUM CHLORIDE 0.9% 100 ML IVPB SCH ×3 (03:33→20:59)
[2020-06-20 07:09] LABS: Glucose,Whole Blood 207 mg/dL (75-99)
[2020-06-20] MEDS: INSULIN ASPART (NovoLOG) 100 UNIT/ML VIAL SQ SCH ×4 (07:36→21:26)
[2020-06-20] MEDS: amLODIPine 5 MG TAB PO SCH (07:37)
[2020-06-20] MEDS: lisinopriL 20 MG TAB PO SCH (07:37)
[2020-06-20] MEDS: ASPIRIN 81 MG PO SCH (07:38)
[2020-06-20] MEDS: DULoxetine HCL 60 MG CAPSULE.DR PO SCH (07:38)
[2020-06-20] MEDS: PANTOPRAZOLE 40 MG/10 ML VIAL IV SCH (07:38)
[2020-06-20] MEDS: ATORVASTATIN 40 MG TAB PO SCH (07:38)
[2020-06-20] MEDS: GABAPENTIN 300 MG CAP PO SCH ×4 (07:38→21:25)
[2020-06-20] MEDS: HYDROmorphone 0.5 MG/0.5 ML SYRINGE IVP PRN ×2 (07:56→11:32)
[2020-06-20] MEDS: HEPARIN SODIUM,PORCINE 5,000 UNIT/ML 1 ML VIAL SQ SCH ×2 (07:57→21:26)
--- NOTE | 2020-06-20 09:11 | P.PN ---
Subjective Progress Note Date: 06/20/20 Patient seen and examined at bedside. Had a large bowel movement that is present in the ostomy bag at this time. Denies nausea or vomiting. Tolerating clear liquid diet. Objective - Vital Signs Vital signs: Vital Signs Temp 99.4 F 06/20/20 05:00 Pulse 82 06/20/20 05:00 Resp 18 06/20/20 05:00 BP 172/74 06/20/20 05:00 Pulse Ox 97 06/20/20 05:00 Intake & Output 06/19/20 06/20/20 06/20/20 18:59 06:59 18:59 Intake Total 1436 Balance 1436 Weight 57.606 kg Intake: Intake, IV Titration 1436 Amount Fat Emulsion 20% 250 ml @ 231 21 mls/hr IV MoWeFr@1600 GAIL Rx#:[id number] Magnesium Sulfate gm 1.5 805 gm In Amino Acid 4.25%- D10w+Lytes*E* 1,000 ml @ 70 mls/hr IV .BY DURATION GAIL Rx#:[id number] Magnesium Sulfate-D5w Pmx 100 1 gm In Dextrose/Water 1 100ml.bag @ 100 mls/hr IVPB Q1H GAIL Rx#: [id number] Piperacillin-Tazobactam 3 100 .375 gm In Sodium Chloride 0.9% 100 ml @ 25 mls/hr IVPB Q8H GAIL Rx#: [id number] Sodium Chloride 0.9% 1, 200 000 ml @ 50 mls/hr IV . Q20H GAIL Rx#:[id number] Other: Voiding Method Bedside Commode # Voids 5 8 - Constitutional General appearance: Present: cooperative, no acute distress - Gastrointestinal Gastrointestinal Comment(s): Soft, nontender, nondistended, no rebound, no guarding, ostomy pink and patent, some serous drainage noted from the midline incision site - Psychiatric Psychiatric: Present: A&O x's 3 - Labs CBC & Chem 7: 06/19/20 04:01 06/19/20 04:01 Labs: Abnormal Lab Results - Last 24 Hours (Table) 06/19/20 06/19/20 06/19/20 Range/Units 04:01 11:26 17:10 Creatinine 0.4 L (0.6-1.5) mg/dL BUN/Creatinine Ratio 22.50 H (12.00-20.00) Ratio Glucose 201 H (70-110) mg/dL POC Glucose (mg/dL) 197 H 161 H (75-99) mg/dL Calcium 8.6 L (8.7-10.3) mg/dL Total Protein 5.5 L (6.2-8.2) g/dL Albumin 3.40 L (3.80-4.90) g/dL 06/19/20 06/20/20 Range/Units 20:48 06:58 Creatinine (0.6-1.5) mg/dL BUN/Creatinine Ratio (12.00-20.00) Ratio Glucose (70-110) mg/dL POC Glucose (mg/dL) 216 H 207 H (75-99) mg/dL Calcium (8.7-10.3) mg/dL Total Protein (6.2-8.2) g/dL Albumin (3.80-4.90) g/dL Assessment and Plan (1) SBO (small bowel obstruction) Narrative/Plan: Postoperative day #7, exploratory laparotomy, small bowel resection Increase activity, continue to ambulate in hallway Continue physical and occupational therapy Half rate TPN today, plan for discontinuing TPN tomorrow Patient having bowel function. Advance to full liquid diet. Continue pain control, try to avoid narcotic pain medication Likely plan for discharge tomorrow after patient has weaned from TPN. Medical management Current Visit: Yes Status: Acute Code(s): K56.609 - UNSP INTESTNL OBST, UNSP TO PARTIAL VERSUS COMPLETE OBST SNOMED Code(s): 826214648
[2020-06-20 09:31] LABS: African American GFR (CKD) 127.6 (60.0-200.0); Anion Gap 10.9 mmol/L (4.00-12.00); BUN/Creat Ratio 22.5 Ratio (12.00-20.00); Calcium 8.5 mg/dL (8.7-10.3); Carbon Dioxide 24.1 mmol/L (21.6-31.8); Magnesium 1.7 mg/dL (1.5-2.4); Non-African American GFR(CKD) 110.1 (60.0-200.0); Phosphorus 3.2 mg/dL (2.4-5.1); Potassium 3.9 mmol/L (3.5-5.5)
[2020-06-20] MEDS: MAGNESIUM SULFATE-D5W PMX 1 GM in DEXTROSE/WATER 1 100ML.BAG IVPB SCH ×2 (11:31→16:45)
[2020-06-20] MEDS: [UNRECOGNIZED DRUG - REMARK] IV SCH ×8 (11:31→18:40)
[2020-06-20 12:00] LABS: Glucose,Whole Blood 151 mg/dL (75-99)
--- NOTE | 2020-06-20 15:20 | P.PN ---
Subjective 64 years old female with multiple medical problems as below who presents with abdominal pain, constipation and recurrent nausea vomiting and found to have small bowel obstruction, with tumor cannot be ruled out. Surgery tomorrow on the case and they ordered a small bowel 5 through follow-through showing persistent mid to distal small bowel obstruction with transition zone as described. Surgery team decided to go for surgery tomorrow. NG tube placement was unsuccessful today. Vital signs stable. CBC and BMP and liver enzymes were unremarkable. She remains on Zosyn and normocephalic normal saline at 75 mL/h. Hemoglobin A1c 6.1% and BLOOD in stool is negative 06/14/2020 Patient is an NG tube in place still having significant output patient will be started on TPN and start her on IV fluids at 50 mL per hour S patient will get the fluids in the form of TPN around 80 mL per hour. 06/15/2020 Patient has around 400 mL of bilious fluid be NG tube. Patient will fluids are within normal limits and the patient is presently on TPN as well as normal saline. Patient bicarbonate improved. Acidosis resolved patient has low potassium which will be replaced low phosphorus and magnesium was replaced patient does have started passing gas and moved bowel into the colostomy. 06/16/2020 Passing some gas patient only had around 250 mL output from the NG tube for last 24 hours. Patient did not move her bowel. Patient does have good bowel sounds 06/17/2020 Patient barely has any output via NG tube probably NG tube can be removed patie nt does have good bowel sounds passing gas but did not move her bowel yet. Patient will be started on nonsteroidal and anti-inflammatory steroid opiates patient is Dilaudid as well as fentanyl patch. 06/18/2020 Patient is receiving medication for constipation is passing gas did not move her bowel yet patient still has an NG tube although not much drainage from there patient was started on nonsteroidal anti-inflammatories yesterday to avoid opiates. Patient's serum potassium went up because of which I'm cutting down lisinopril will also do her kayOxalate instructions were provided not to give tomorrow morning lisinopril if patient's potassium continues to be high tomorrow. Patient's blood pressure was elevated patient was started on amlodipine 06/19/2020 Patient's pain is fairly well-controlled NG tube came out and patient is single gas into the colostomy bag and tolerating clear liquid diet. Patient still has a fentanyl patch patient is also on Toradol when necessary. Her potassium improved. 06/20/2020 Patient did have a bowel movement into the colostomy.patient's TPN will be tapered down and possibility of discharge tomorrow patient will be continued with physical therapy and occupational therapy patient. Diet is being advanced to full liquid diet. Possibly of discharge tomorrow Constitutional: Denied any fatigue denied any fever. Cardio vascular: denied any chest pain, palpitations Gastrointestinal denied any nausea vomiting Pulmonary: Denied any shortness of breath cough Neurologic denied any new focal deficits All inpatient medications were reviewed and appropriate changes in these medications as dictated in the interval history and assessment and plan. Objective - Vital Signs Vital signs: Vital Signs Temp 98.7 F 06/20/20 11:54 Pulse 104 H 06/20/20 11:54 Resp 18 06/20/20 11:54 BP 137/78 06/20/20 11:54 Pulse Ox 96 06/20/20 11:54 Intake & Output 06/19/20 06/20/20 06/20/20 18:59 06:59 18:59 Intake Total 1003 1436 Balance 1003 1436 Weight 57.606 kg Intake: Intake, IV Titration 1003 1436 Amount Fat Emulsion 20% 250 ml @ 231 21 mls/hr IV MoWeFr@1600 GAIL Rx#:[id number] Magnesium Sulfate gm 1.5 1003 805 gm In Amino Acid 4.25%- D10w+Lytes*E* 1,000 ml @ 70 mls/hr IV .BY DURATION GAIL Rx#:[id number] Magnesium Sulfate-D5w Pmx 100 1 gm In Dextrose/Water 1 100ml.bag @ 100 mls/hr IVPB Q1H GAIL Rx#: [id number] Piperacillin-Tazobactam 3 100 .375 gm In Sodium Chloride 0.9% 100 ml @ 25 mls/hr IVPB Q8H GAIL Rx#: [id number] Sodium Chloride 0.9% 1, 200 000 ml @ 50 mls/hr IV . Q20H GAIL Rx#:[id number] Other: Voiding Method Bedside Commode # Voids 5 8 1 - Exam GENERAL: The patient is alert and oriented x3, not in any acute distress. Well developed, well nourished. HEENT: Pupils are round and equally reacting to light. EOMI. No scleral icterus. No conjunctival pallor. Normocephalic, atraumatic. No pharyngeal erythema. No thyromegaly. CARDIOVASCULAR: S1 and S2 present. No murmurs, rubs, or gallops. PULMONARY: Chest is clear to auscultation, no wheezing or crackles. ABDOMEN: Soft, nontender, nondistended, normal bowel sounds patient does havetool in the colostomy bag. No palpable organomegaly. Off NG tube MUSCULOSKELETAL: No joint swelling or deformity. EXTREMITIES: No cyanosis, clubbing, or pedal edema. NEUROLOGICAL: Gross neurological examination did not reveal any focal deficits. SKIN: No rashes. no petechiae. - Labs CBC & Chem 7: 06/19/20 04:01 06/20/20 04:38 Labs: Abnormal Lab Results - Last 24 Hours (Table) 06/19/20 06/19/20 06/20/20 Range/Units 17:10 20:48 04:38 Creatinine 0.4 L (0.6-1.5) mg/dL BUN/Creatinine Ratio 22.50 H (12.00-20.00) Ratio Glucose 211 H (70-110) mg/dL POC Glucose (mg/dL) 161 H 216 H (75-99) mg/dL Calcium 8.5 L (8.7-10.3) mg/dL 06/20/20 06/20/20 Range/Units 06:58 11:58 Creatinine (0.6-1.5) mg/dL BUN/Creatinine Ratio (12.00-20.00) Ratio Glucose (70-110) mg/dL POC Glucose (mg/dL) 207 H 151 H (75-99) mg/dL Calcium (8.7-10.3) mg/dL Assessment and Plan Plan: - Small bowel obstruction, patient is status post laparotomy small bowel resection pathology is showed just serositis without any evidence of cancer and the is presently on TPN still has an NG tube which probably can come out today. Patient will be transitioned to nonsteroidal anti-inflammatory's to avoid any ileus. patient side is being advanced and does have stool in the colostomy bag -Hyperkalemia: Management as mentioned above this -Diabetes mellitustype II continue with present regimen -History of coronary artery disease with stents in the past -Nicotine dependence Depression, not in activity DVT prophylaxis: Subcutaneous heparin GI prophylaxis: Protonix
[2020-06-20 17:24] LABS: Glucose,Whole Blood 141 mg/dL (75-99)
[2020-06-20 21:05] VITALS: TEMP 98.3
[2020-06-20 21:09] LABS: Glucose,Whole Blood 152 mg/dL (75-99)
[2020-06-21] MEDS: KETOROLAC 15 MG/ML 1 ML VIAL IVP PRN ×2 (02:41→10:27)
[2020-06-21] MEDS: PIPERACILLIN-TAZOBACTAM 3.375 GM in SODIUM CHLORIDE 0.9% 100 ML IVPB SCH ×2 (03:17→12:54)
[2020-06-21 05:28] VITALS: BP 165/79; PULSE 93; RESP 18
[2020-06-21 05:47] LABS: Ionized Calcium 4.8 mg/dL (4.5-5.3)
[2020-06-21 07:07] LABS: Glucose,Whole Blood 177 mg/dL (75-99)
[2020-06-21] MEDS ORDERED: [UNRECOGNIZED DRUG - REMARK] IV SCH ×4 (08:00)
[2020-06-21] MEDS: GABAPENTIN 300 MG CAP PO SCH (08:39)
[2020-06-21] MEDS: lisinopriL 20 MG TAB PO SCH (08:39)
[2020-06-21] MEDS: INSULIN ASPART (NovoLOG) 100 UNIT/ML VIAL SQ SCH ×2 (08:39→12:55)
[2020-06-21] MEDS: ASPIRIN 81 MG PO SCH (08:39)
[2020-06-21] MEDS: ATORVASTATIN 40 MG TAB PO SCH (08:39)
[2020-06-21] MEDS: amLODIPine 5 MG TAB PO SCH (08:39)
[2020-06-21] MEDS: HEPARIN SODIUM,PORCINE 5,000 UNIT/ML 1 ML VIAL SQ SCH (08:40)
[2020-06-21] MEDS: DULoxetine HCL 60 MG CAPSULE.DR PO SCH (08:40)
[2020-06-21] MEDS: PANTOPRAZOLE 40 MG/10 ML VIAL IV SCH (08:40)
[2020-06-21 09:39] LABS: African American GFR (CKD) 127.6 (60.0-200.0); Anion Gap 8.9 mmol/L (4.00-12.00); BUN/Creat Ratio 22.5 Ratio (12.00-20.00); Calcium 8.5 mg/dL (8.7-10.3); Carbon Dioxide 24.1 mmol/L (21.6-31.8); Magnesium 1.8 mg/dL (1.5-2.4); Non-African American GFR(CKD) 110.1 (60.0-200.0); Phosphorus 3.4 mg/dL (2.4-5.1)
--- NOTE | 2020-06-21 09:51 | P.DS ---
Providers Date of admission: 06/10/20 18:20 Attending physician: Juan Rice Consults: 06/10/20 18:18 Consult Physician Stat Consulting Provider: Joe Dent Consult Reason/Comments: Abdominal mass Do you want consulting provider notified?: Already Contacted [facility]: 64 years old female with multiple medical problems as below who presents with abdominal pain, constipation and recurrent nausea vomiting and found to have small bowel obstruction, with tumor cannot be ruled out. Surgery tomorrow on the case and they ordered a small bowel 5 through follow-through showing persistent mid to distal small bowel obstruction with transition zone as described. Surgery team decided to go for surgery tomorrow. NG tube placement was unsuccessful today. Vital signs stable. CBC and BMP and liver enzymes were unremarkable. She remains on Zosyn and normocephalic normal saline at 75 mL/h. Hemoglobin A1c 6.1% and BLOOD in stool is negative 06/14/2020 Patient is an NG tube in place still having significant output patient will be started on TPN and start her on IV fluids at 50 mL per hour S patient will get the fluids in the form of TPN around 80 mL per hour. 06/15/2020 Patient has around 400 mL of bilious fluid be NG tube. Patient will fluids are within normal limits and the patient is presently on TPN as well as normal saline. Patient bicarbonate improved. Acidosis resolved patient has low potassium which will be replaced low phosphorus and magnesium was replaced patient does have started passing gas and moved bowel into the colostomy. 06/16/2020 Passing some gas patient only had around 250 mL output from the NG tube for last 24 hours. Patient did not move her bowel. Patient does have good bowel sounds 06/17/2020 Patient barely has any output via NG tube probably NG tube can be removed patient does have good bowel sounds passing gas but did not move her bowel yet. Patient will be started on nonsteroidal and anti-inflammatory steroid opiates patient is Dilaudid as well as fentanyl patch. 06/18/2020 Patient is receiving medication for constipation is passing gas did not move her bowel yet patient still has an NG tube although not much drainage from there patient was started on nonsteroidal anti-inflammatories yesterday to avoid opiates. Patient's serum potassium went up because of which I'm cutting down lisinopril will also do her kayOxalate instructions were provided not to give tomorrow morning lisinopril if patient's potassium continues to be high tomorrow. Patient's blood pressure was elevated patient was started on amlodipine 06/19/2020 Patient's pain is fairly well-controlled NG tube came out and patient is single gas into the colostomy bag and tolerating clear liquid diet. Patient still has a fentanyl patch patient is also on Toradol when necessary. Her potassium improved. 06/20/2020 Patient did have a bowel movement into the colostomy.patient's TPN will be tapered down and possibility of discharge tomorrow patient will be continued with physical therapy and occupational therapy patient. Diet is being advanced to full liquid diet. Possibly of discharge tomorrow 06/21/2020 Patient is clinically doing well will be discharged today patient's TPN will be discontinued. GENERAL: The patient is alert and oriented x3, not in any acute distress. Well developed, well nourished. HEENT: Pupils are round and equally reacting to light. EOMI. No scleral icterus. No conjunctival pallor. Normocephalic, atraumatic. No pharyngeal erythema. No thyromegaly. CARDIOVASCULAR: S1 and S2 present. No murmurs, rubs, or gallops. PULMONARY: Chest is clear to auscultation, no wheezing or crackles. ABDOMEN: Soft, nontender, nondistended, normal bowel sounds patient does have tool in the colostomy bag. No palpable organomegaly. Off NG tube MUSCULOSKELETAL: No joint swelling or deformity. EXTREMITIES: No cyanosis, clubbing, or pedal edema. NEUROLOGICAL: Gross neurological examination did not reveal any focal deficits. SKIN: No rashes. no petechiae. Assessment and Plan Plan: - Small bowel obstruction, patient is status post laparotomy small bowel resection pathology is showed just serositis without any evidence of cancer and tTPN is being discontinued. -Hyperkalemia: Management as mentioned above this -Diabetes mellitustype II continue with present regimen -History of coronary artery disease with stents in the past -Nicotine dependence Depression Patient Condition at Discharge: Stable Plan - Discharge Summary Discharge Rx Participant: Yes New Discharge Prescriptions: New amLODIPine [Norvasc] 5 mg PO DAILY #30 tab traMADol HCL [Ultram] 50 mg PO Q4HR PRN 3 Days #18 tab PRN Reason: Pain Continue metFORMIN HCL [Glucophage] 1,000 mg PO BID fentaNYL 12MCG/HR PATCH [Duragesic 12MCG/HR] 12 mcg TRANSDERM Q72H Ramipril [Altace] 10 mg PO DAILY Gabapentin [Neurontin] 600 mg PO QID Esomeprazole Magnesium 40 mg PO DAILY DULoxetine HCL [Cymbalta] 60 mg PO DAILY Atorvastatin [Lipitor] 40 mg PO DAILY Aspirin [Adult Low Dose Aspirin EC] 81 mg PO DAILY Discontinued Hydrocodone/Acetaminophen [[place] 5-325] 1 tab PO BID@1200,1999 Discharge Medication List Aspirin [Adult Low Dose Aspirin EC] 81 mg PO DAILY 06/10/20 [History] Atorvastatin [Lipitor] 40 mg PO DAILY 06/10/20 [History] DULoxetine HCL [Cymbalta] 60 mg PO DAILY 06/10/20 [History] Esomeprazole Magnesium 40 mg PO DAILY 06/10/20 [History] Gabapentin [Neurontin] 600 mg PO QID 06/10/20 [History] Ramipril [Altace] 10 mg PO DAILY 06/10/20 [History] fentaNYL 12MCG/HR PATCH [Duragesic 12MCG/HR] 12 mcg TRANSDERM Q72H 06/10/20 [History] metFORMIN HCL [Glucophage] 1,000 mg PO BID 06/10/20 [History] amLODIPine [Norvasc] 5 mg PO DAILY #30 tab 06/21/20 [Rx] traMADol HCL [Ultram] 50 mg PO Q4HR PRN 3 Days #18 tab 06/21/20 [Rx] Follow up Appointment(s)/Referral(s): Randolph Renee DO [Primary Care Provider] - 06/26/20 2:05 pm (Will see Nanda @ 2:05 in [place] office ) Joe Dent DO [Doctor of Osteopathic Medicine] - 1 Week (Please call office and leave message to make appointment ) Discharge Disposition: HOME SELF-CARE
[2020-06-21 11:14] LABS: Glucose,Whole Blood 144 mg/dL (75-99)
--- NOTE | 2020-06-21 12:05 | P.PN ---
Subjective Progress Note Date: 06/21/20 Pt seen and examined. Tolerating diet. Denies N/V. Having stool from ostomy. Objective - Vital Signs Vital signs: Vital Signs Temp 98.3 F 06/21/20 05:00 Pulse 93 06/21/20 05:00 Resp 18 06/21/20 05:00 BP 165/79 06/21/20 05:00 Pulse Ox 98 06/21/20 05:00 Intake & Output 06/20/20 06/21/20 06/21/20 18:59 06:59 18:59 Intake Total 200 Balance 200 Intake: Intake, IV Titration 200 Amount Piperacillin-Tazobactam 3 200 .375 gm In Sodium Chloride 0.9% 100 ml @ 25 mls/hr IVPB Q8H [facility] Rx#: [id number] Other: Voiding Method Bedside Commode Bedside Commode # Voids 1 1 # Bowel Movements 1 - Constitutional General appearance: Present: cooperative, no acute distress - Gastrointestinal Gastrointestinal Comment(s): soft, NT, ND, midline incision site C/D/I, ostomy pink and patent - Psychiatric Psychiatric: Present: A&O x's 3 - Labs CBC & Chem 7: 06/19/20 04:01 06/21/20 05:03 Labs: Abnormal Lab Results - Last 24 Hours (Table) 06/20/20 06/20/20 06/21/20 Range/Units 17:13 21:07 05:03 Sodium 134 L (135-145) mmol/L Creatinine 0.4 L (0.6-1.5) mg/dL BUN/Creatinine Ratio 22.50 H (12.00-20.00) Ratio Glucose 197 H (70-110) mg/dL POC Glucose (mg/dL) 141 H 152 H (75-99) mg/dL Calcium 8.5 L (8.7-10.3) mg/dL 06/21/20 06/21/20 Range/Units 07:05 11:13 Sodium (135-145) mmol/L Creatinine (0.6-1.5) mg/dL BUN/Creatinine Ratio (12.00-20.00) Ratio Glucose (70-110) mg/dL POC Glucose (mg/dL) 177 H 144 H (75-99) mg/dL Calcium (8.7-10.3) mg/dL Assessment and Plan (1) SBO (small bowel obstruction) Narrative/Plan: Postoperative day #8, exploratory laparotomy, small bowel resection Increase activity, continue to ambulate in hallway Continue physical and occupational therapy Patient having bowel function. Advance to soft diet on discharge Continue pain control, try to avoid narcotic pain medication OK for DC with Oral Abx Medical management Current Visit: Yes Status: Acute Code(s): K56.609 - UNSP INTESTNL OBST, UNSP TO PARTIAL VERSUS COMPLETE OBST SNOMED Code(s): 184613876
--- NOTE | 2020-06-22 11:32 | CDI ---
Documentation Clarification Form Date: 06/22/20 From: Sabrina Gates Phone: If you have a question about this query, please contact Sybil Woodall, Legal Financial Specialist at [phone] between 8am and 5pm. Admit Date: 06/10/20 Discharge Date:06/21/20 Patient Name: Caitie Almaraz Visit Number: [id number] ATTENTION: The Clinical Documentation Specialists (CDI) and [facility] Coding Staff appreciate your assistance in clarifying documentation. Please respond to the clarification below the line at the bottom and electronically sign. The CDI & [facility] Coding staff will review the response and follow-up if needed. Please note: Queries are made part of the Legal Health Record. If you have any questions, please contact the author of this message via ITS. Dear Dr. Felipe The patient presented with the following: partial small bowel obstruction. Documentation in the Op note states small bowel ischemia History/Risk Factors: History of bowel ischemia, colectomy, colostomy, CAD Clinical Indicators: Abdominal pain Lab findings: Lactic Acid 2.1, WBC 9.7 Radiology findings: CT Abd/pelvis: Mild free fluid in the pelvis 06/13/20 Small bowel follow through - Findings consistent with persistent mid to distal small bowel obstruction presumed on the basis of adhesions Pathology: Small bowel #1 - Focal early serositis in assocation with a transmural defect. No significant pathologic abnormality. Small bowel #2 - mild/minimal serositis with focal serosal adhesion formation and normal mucosa. Vital Signs: T. 98, P. 138, R. 20, BP 162/84 Treatment: Resection of small bowel, IV Zosyn In your professional opinion, can you please clarify? Small Bowel Ischemia Ruled Out Small Bowel Ischemia Ruled In (specify acuity) Acute Chronic Other, please specify Unable to determine Unable to determine MTDD
--- NOTE | 2020-06-22 11:41 | CDI ---
Documentation Clarification Form Date: 06/22/20 From: Sabrina Gates Phone: If you have a question about this query, please contact Sybil Woodall, Geriatric Personal Care Aide at [phone] between 8am and 5pm. Admit Date: 06/10/20 Discharge Date:06/21/20 Patient Name: Caitie Almaraz Visit Number: [id number] ATTENTION: The Clinical Documentation Specialists (CDI) and [facility] Coding Staff appreciate your assistance in clarifying documentation. Please respond to the clarification below the line at the bottom and electronically sign. The CDI & [facility] Coding staff will review the response and follow-up if needed. Please note: Queries are made part of the Legal Health Record. If you have any questions, please contact the author of this message via ITS. Dear Dr. Felipe The patient presented with the following: small bowel obstruction History/Risk Factors: CAD, history of stent, previous ND Clinical Indicators: Elevated blood pressure Vital Signs: BP: 06/10 - 162/84, 135/121, 131/85; 06/13 - Systolic 139 - 175, diastolic 61 - 80; 06/18 Systolic 135 - 167, diastolic 69 - 84; 06/19 Systolic - 161 - 169, diastolic 69 - 73 Treatment: Patient started on Amlodipine 5 mg PO daily In your professional opinion, can you please clarify the elevated blood pressure? Hypertension Elevated readings without diagnosis of hypertension Other, please specify Unable to determine Hypertension MTDD
== END 2020-06-21 13:57 | disposition home or self-care (01) | DRG 329 ==
LOC: EC 14:29 → 6NMEDSUR 18:20
PROVIDERS: ADMIT Hospitalist; ATTEND Hospitalist
PROC: 0DTJ0ZZ Resection of Appendix, Open Approach (ICD-10-PCS; principal; 2020-06-13 14:32)
PROC: 0D1B0Z4 Bypass Ileum to Cutaneous, Open Approach (ICD-10-PCS; principal; 2020-06-13 14:32)
PROC: 0DB80ZZ Excision of Small Intestine, Open Approach (ICD-10-PCS; principal; 2020-06-13 14:32)
PROC: 0DNW0ZZ Release Peritoneum, Open Approach (ICD-10-PCS; principal; 2020-06-13 14:32)
PROC: 0D9670Z Drainage of Stomach with Drainage Device, Via Natural or Artificial Opening (ICD-10-PCS; principal; 2020-06-13 14:32)
PROC: 3E0336Z Introduction of Nutritional Substance into Peripheral Vein, Percutaneous Approach (ICD-10-PCS; 2020-06-14)
DX: K56.51 Intestinal adhesions [bands], with partial obstruction (principal); K65.8 Other peritonitis; K63.1 Perforation of intestine (nontraumatic); E87.2 Acidosis; K55.9 Vascular disorder of intestine, unspecified; D72.829 Elevated white blood cell count, unspecified; E11.9 Type 2 diabetes mellitus without complications; E83.42 Hypomagnesemia; I10 Essential (primary) hypertension; E86.0 Dehydration; E87.5 Hyperkalemia; E87.6 Hypokalemia; F17.200 Nicotine dependence, unspecified, uncomplicated; F32.9 Major depressive disorder, single episode, unspecified; I25.10 Atherosclerotic heart disease of native coronary artery without angina pectoris; I25.2 Old myocardial infarction; G89.29 Other chronic pain; Z66 Do not resuscitate; Z79.82 Long term (current) use of aspirin; Z79.84 Long term (current) use of oral hypoglycemic drugs; Z79.899 Other long term (current) drug therapy; Z87.440 Personal history of urinary (tract) infections; Z89.519 Acquired absence of unspecified leg below knee; Z93.3 Colostomy status; Z95.5 Presence of coronary angioplasty implant and graft; Z90.49 Acquired absence of other specified parts of digestive tract; Z82.49 Family history of ischemic heart disease and other diseases of the circulatory system; Z82.5 Family history of asthma and other chronic lower respiratory diseases
CPT/HCPCS: 36415; 71045; 74018; 74022; 74177; 74248; 80048; 80053; 81001; 82150; 82272; 82330; 83036; 83605; 83690; 83735; 84100; 84132; 84478; 85025; 85610; 85730; 86850; 86900; 86901; 88302; 88307; 93005; 96361; 96374; 96375; 99285

== ENCOUNTER → 2021-10-05 | Outpatient (CLI) | payer MEDICARE ==
--- NOTE | 2021-10-05 09:55 | US ---
EXAMINATION TYPE: US abdomen complete DATE OF EXAM: 10/05/2021 COMPARISON: CT A&P 2019 CLINICAL HISTORY: R10.10 ABDOMINAL PAIN. Nausea and vomiting for many months per patient. EXAM MEASUREMENTS: Liver Length: 16.4 cm. Normal less than 15.5 cm. Gallbladder Wall: 0.25 cm CBD: 1.02 cm Spleen: 8.2 x 3.6 cm Right Kidney: 10.9 x 4.1 x 4.9 cm Left Kidney: 11.9 x 4.8 x 5.3 cm Pancreas: Limited visualization; pancreatic duct measuring 0.41 cm. Normal less than 0.3 cm at the d istal head of pancreas. Liver: Appears wnl Gallbladder: Hydropic; 11.8 x 4.7 cm Evidence for sonographic Dillon's sign: No CBD: Dilated at 1.02 cm Spleen: wnl Right Kidney: No hydronephrosis or masses seen Left Kidney: No hydronephrosis or masses seen Upper IVC: wnl Abd Aorta: wnl IMPRESSION: 1. Mild hepatomegaly. 2. Prominent pancreatic duct within the head and proximal body of the pancreas. Consider ERCP for add itional evaluation.
== END | disposition home or self-care (01) ==
LOC: RADUSWWP 08:14
PROVIDERS: ATTEND Family Medicine
DX: R16.0 Hepatomegaly, not elsewhere classified (principal)
CPT/HCPCS: 76700

== ENCOUNTER → 2021-10-29 | Outpatient (CLI) | payer MEDICARE ==
[2021-10-29 07:30] LABS: Basophils # (A) 0.1 k/uL (0-0.2); Basophils % (A) 1 %; Eosinophils # (A) 0.4 k/uL (0-0.7); Eosinophils % (A) 4 %; HCT 41.3 % (34.0-46.0); HGB 13.9 gm/dL (11.4-16.0); Lymphocytes # (A) 4.6 k/uL (1.0-4.8); Lymphocytes % (A) 51 %; MCH 31.8 pg (25.0-35.0); MCHC 33.7 g/dL (31.0-37.0); MCV 94.3 fL (80.0-100.0); Monocytes # (A) 0.5 k/uL (0-1.0); Monocytes % (A) 5 %; Neutrophils # (A) 3.3 k/uL (1.3-7.7); Neutrophils % (A) 36 %; Platelet Count 364 k/uL (150-450); RBC 4.38 m/uL (3.80-5.40); RDW 13.1 % (11.5-15.5); WBC 9.1 k/uL (3.8-10.6)
[2021-10-29 07:42] LABS: ALT 14 U/L (4-34); AST 18 U/L (14-36); African American GFR (CKD) >90 (>60 ml/min/1.73 sqM); Albumin 4.2 g/dL (3.5-5.0); Albumin/Globulin Ratio 1.4; Alkaline Phosphatase 54 U/L (38-126); Anion Gap 7 mmol/L; Blood Urea Nitrogen 12 mg/dL (7-17); Calcium 9.8 mg/dL (8.4-10.2); Carbon Dioxide 26 mmol/L (22-30); Chloride 106 mmol/L (98-107); Globulin 3.1 g/dL; Glucose 119 mg/dL (74-99); Lipase 140 U/L (23-300); Non-African American GFR(CKD) >90 (>60 ml/min/1.73 sqM); Potassium 4.2 mmol/L (3.5-5.1); Sodium 139 mmol/L (137-145); Total Bilirubin 0.5 mg/dL (0.2-1.3); Total Protein 7.3 g/dL (6.3-8.2)
--- NOTE | 2021-10-30 06:12 | MR ---
EXAMINATION TYPE: MR abdomen wo/w con DATE OF EXAM: 10/29/2021 COMPARISON: None HISTORY: Prior xray, CT , and US on synapse, no prior MR, upper abdomen issues, history of colostomy CONTRAST: Standard multiplanar, multisequence MRI departmental protocol images were obtained without contrast a nd with 5.5ml mL intravenous Gadavist gadolinium contrast. Liver shows no focal defect. There is borderline dilated gallbladder measuring 4.7 cm in diameter. Th ere is no evidence of pancreatic mass. Spleen appears intact. The distal pancreatic duct is tortuous and mildly ectatic. No filling defect. The common bile duct measures up to 11 mm. I see no filling de fect. There is no evidence of adrenal mass. Kidneys have normal size and contour. There is no hydronephrosi s. The stomach is intact. There is no evidence of pleural effusion. There is no evidence of retroperi toneal adenopathy. The contrast images show no pathologic enhancement. There is normal enhancement of the kidneys. There is normal enhancement of the portal venous system. No evidence of thrombosis. The re is 2 cm fat-containing umbilical hernia. There is no ascites. There is colostomy noted in the left mid abdomen. IMPRESSION: Dilated gallbladder suggestive of gallbladder dysfunction or cholecystitis. No gallstones seen. No ev idence of common duct stone. Large common bile duct Consistent with gallbladder dysfunction. pancreatic duct measures 6 mm distally and could relate to previous inflammation No pancreatic mass identified.
== END | disposition home or self-care (01) ==
LOC: RADMRIMAIN 06:40
PROVIDERS: ATTEND Nurse Practitioner Family
DX: K82.8 Other specified diseases of gallbladder (principal)
CPT/HCPCS: 80053; 83690; 85025; 74183; 36415; A9585

== ENCOUNTER 2022-05-16 09:57 | Inpatient (IN) | payer MEDICARE ==
[2022-05-16] MEDS ORDERED: METOCLOPRAMIDE 5 MG/ML 2 ML VIAL IVP STA (10:05)
--- NOTE | 2022-05-16 10:16 | ED ---
Weakness HPI - General Chief complaint: Weakness Stated complaint: weakness Time Seen by Provider: 05/16/22 09:58 Source: patient, family, EMS, RN notes reviewed - History of Present Illness Initial comments: This is a 66-year-old female who presents to the emergency department for weakness. Patient was brought in by EMS, her daughter states that she had not answered the phone for the last day, and decided to go over to her house, at which time she decided to call EMS due to the progressive weakness. Her daughter did note that she had dried vomit on her pillow as well. Patient reports associated dizziness with the weakness. Denies any room spinning sensations and describes the dizziness as a lightheadedness. States that she is not able to walk very far without getting fatigued. Also experiencing memory loss and difficulty recalling the date. Her daughter is a nurse here at [facility] and is w ith her at bedside. Denies any unilateral symptoms, chest pain, shortness of breath, or experiencing any pain. Additionally, her daughter states that she has recently been treated for multiple UTIs that have not been going away. Denies any fevers, chills, sore throat, cough, dyspnea, chest pain, palpitations, abdominal pain, nausea, vomiting, diarrhea, back pain, or headaches. MD Complaint: generalized weakness Onset/Timin -: week(s) Location: generalized Consistency: constant - Related Data Home Medications Medication Instructions Recorded Confirmed Aspirin [Adult Low Dose Aspirin EC] 81 mg PO DAILY 06/10/20 05/16/22 Atorvastatin [Lipitor] 40 mg PO DAILY 06/10/20 05/16/22 DULoxetine HCL [Cymbalta] 60 mg PO DAILY 06/10/20 05/16/22 Gabapentin [Neurontin] 600 mg PO QID 06/10/20 05/16/22 fentaNYL 12MCG/HR PATCH [Duragesic 12 mcg TRANSDERM Q72H 06/10/20 05/16/22 12MCG/HR] ramipriL [Altace] 10 mg PO DAILY 06/10/20 05/16/22 Albuterol Inhaler [Ventolin Hfa 2 puff INHALATION RT-Q6H PRN 05/16/22 05/16/22 Inhaler] HYDROcodone/APAP 5-325MG [[place] 1 tab PO BID PRN 05/16/22 05/16/22 5-325] Naproxen Sodium [Aleve] 220 mg PO Q8H PRN 05/16/22 05/16/22 Omeprazole 20 mg PO DAILY 05/16/22 05/16/22 metFORMIN HCL [Glucophage] 500 mg PO BID 05/16/22 05/16/22 Allergies Allergy/AdvReac Type Severity Reaction Status Date / Time nickel Allergy Unknown Verified 05/16/22 11:25 Review of Systems ROS Statement: Those systems with pertinent positive or pertinent negative responses have been documented in the HPI. ROS Other: All systems not noted in ROS Statement are negative. 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 1 heart stent Date of Last Stent Placement:: 2007 Past Psychological History: Depression Smoking Status: Current every day smoker Past Alcohol Use History: None Reported Additional Past Alcohol Use History / Comment(s): smoke 1.5 packs per day-trying to quit with gum. Past Drug Use History: None Reported - Past Family History Mother Family Medical History: COPD Father Family Medical History: Myocardial Infarction (SD) General Exam General appearance: alert, in no apparent distress Head exam: Present: atraumatic, normocephalic, normal inspection Respiratory exam: Present: normal lung sounds bilaterally. Absent: respiratory distress, wheezes, rales, rhonchi, stridor Cardiovascular Exam: Present: regular rate, normal rhythm, normal heart sounds. Absent: systolic murmur, diastolic murmur, rubs, gallop, clicks Neurological exam: Present: alert, oriented X3, CN II-XII intact Expanded Speech: Present: fluid speech Psychiatric exam: Present: normal affect, normal mood Skin exam: Present: warm, dry, intact, normal color. Absent: rash Course Vital Signs 05/16/22 10:13 Temperature 97.6 F Pulse Rate 97 Respiratory 20 Rate Blood Pressure 131/66 O2 Sat by Pulse 97 Oximetry EKG Findings - EKG Comments: EKG Findings:: Sinus rhythm. Ventricular rate 95 bpm, [place] interval 167 ms, QRS duration 78 ms, QTC 380 ms. Medical Decision Making - Medical Decision Making This is a 66-year-old female who presents to the emergency department for weakness. Given that this has been a progressive onset without any unilateral symptoms, this is unlikely to be a vascular process. Patient started on 1 L of IV fluids by EMS in route. Chest x-ray reveals no acute cardiopulmonary process. Lab work reveals a critically low magnesium level of 0.6. She also has a urinary tract infection. Magnesium replaced with 3 g IV magnesium sulfat e. She was also given 20 mEq of K-dur for hypokalemia. 1 g of ceftriaxone provided for the urinary tract infection. Given the critically low magnesium level and failed outpatient management of the UTI, patient will be admitted for further care. This case was discussed in detail with the attending ED physician. Presentation, findings, and treatment plan discussed in detail as well. - Lab Data Result diagrams: 05/16/22 10:14 05/16/22 10:14 Lab Results 05/16/22 05/16/22 05/16/22 Range/Units 10:14 10:14 10:14 WBC 10.6 (3.8-10.6) k/uL RBC 3.91 (3.80-5.40) m/uL Hgb 11.6 (11.4-16.0) gm/dL Hct 35.5 (34.0-46.0) % MCV 90.8 (80.0-100.0) fL MCH 29.7 (25.0-35.0) pg MCHC 32.7 (31.0-37.0) g/dL RDW 13.4 (11.5-15.5) % Plt Count 268 (150-450) k/uL MPV 7.8 Neutrophils % 77 % Lymphocytes % 12 % Monocytes % 8 % Eosinophils % 0 % Basophils % 0 % Neutrophils # 8.2 H (1.3-7.7) k/uL Lymphocytes # 1.3 (1.0-4.8) k/uL Monocytes # 0.8 (0-1.0) k/uL Eosinophils # 0.1 (0-0.7) k/uL Basophils # 0.0 (0-0.2) k/uL PT 11.8 (9.0-12.0) sec INR 1.1 (<1.2) APTT 24.8 (22.0-30.0) sec Sodium (137-145) mmol/L Potassium (3.5-5.1) mmol/L Chloride (98-107) mmol/L Carbon Dioxide (22-30) mmol/L Anion Gap mmol/L BUN (7-17) mg/dL Creatinine (0.52-1.04) mg/dL Est GFR (CKD-EPI)AfAm (>60 ml/min/1.73 sqM) Est GFR (CKD-EPI)NonAf (>60 ml/min/1.73 sqM) Glucose (74-99) mg/dL Plasma Lactic Acid [place] (0.7-2.0) mmol/L Calcium (8.4-10.2) mg/dL Phosphorus (2.5-4.5) mg/dL Magnesium (1.6-2.3) mg/dL Total Bilirubin (0.2-1.3) mg/dL AST (14-36) U/L ALT (4-34) U/L Alkaline Phosphatase (38-126) U/L Troponin I (0.000-0.034) ng/mL Total Protein (6.3-8.2) g/dL Albumin (3.5-5.0) g/dL TSH (0.465-4.680) mIU/L Urine Color Yellow Urine Appearance Turbid H (Clear) Urine pH 6.0 (5.0-8.0) Ur Specific [place] 1.018 (1.001-1.035) Urine Protein 2+ H (Negative) Urine Glucose (UA) 2+ H (Negative) Urine Ketones 4+ H (Negative) Urine Blood Small H (Negative) Urine Nitrite Positive H (Negative) Urine Bilirubin Negative (Negative) Urine Urobilinogen <2.0 (<2.0) mg/dL Ur Leukocyte Esterase Large H (Negative) Urine RBC 4 (0-5) /hpf Urine WBC >182 H (0-5) /hpf Urine WBC Clumps Many H (None) /hpf Urine Bacteria Few H (None) /hpf Urine Mucus Few H (None) /hpf Coronavirus (PCR) (Not Detectd) 05/16/22 05/16/22 05/16/22 Range/Units 10:14 10:14 10:14 WBC (3.8-10.6) k/uL RBC (3.80-5.40) m/uL Hgb (11.4-16.0) gm/dL Hct (34.0-46.0) % MCV (80.0-100.0) fL MCH (25.0-35.0) pg MCHC (31.0-37.0) g/dL RDW (11.5-15.5) % Plt Count (150-450) k/uL MPV Neutrophils % % Lymphocytes % % Monocytes % % Eosinophils % % Basophils % % Neutrophils # (1.3-7.7) k/uL Lymphocytes # (1.0-4.8) k/uL Monocytes # (0-1.0) k/uL Eosinophils # (0-0.7) k/uL Basophils # (0-0.2) k/uL PT (9.0-12.0) sec INR (<1.2) APTT (22.0-30.0) sec Sodium 136 L (137-145) mmol/L Potassium 3.2 L (3.5-5.1) mmol/L Chloride 96 L (98-107) mmol/L Carbon Dioxide 24 (22-30) mmol/L Anion Gap 16 mmol/L BUN 12 (7-17) mg/dL Creatinine 0.41 L (0.52-1.04) mg/dL Est GFR (CKD-EPI)AfAm >90 (>60 ml/min/1.73 sqM) Est GFR (CKD-EPI)NonAf >90 (>60 ml/min/1.73 sqM) Glucose 147 H (74-99) mg/dL Plasma Lactic Acid Donovan 1.2 (0.7-2.0) mmol/L Calcium 7.6 L (8.4-10.2) mg/dL Phosphorus (2.5-4.5) mg/dL Magnesium 0.6 L* (1.6-2.3) mg/dL Total Bilirubin 0.8 (0.2-1.3) mg/dL AST 18 (14-36) U/L ALT 9 (4-34) U/L Alkaline Phosphatase 49 (38-126) U/L Troponin I <0.012 (0.000-0.034) ng/mL Total Protein 6.1 L (6.3-8.2) g/dL Albumin 3.5 (3.5-5.0) g/dL TSH 0.565 (0.465-4.680) mIU/L Urine Color Urine Appearance (Clear) Urine pH (5.0-8.0) Ur Specific [place] (1.001-1.035) Urine Protein (Negative) Urine Glucose (UA) (Negative) Urine Ketones (Negative) Urine Blood (Negative) Urine Nitrite (Negative) Urine Bilirubin (Negative) Urine Urobilinogen (<2.0) mg/dL Ur Leukocyte Esterase (Negative) Urine RBC (0-5) /hpf Urine WBC (0-5) /hpf Urine WBC Clumps (None) /hpf Urine Bacteria (None) /hpf Urine Mucus (None) /hpf Coronavirus (PCR) (Not Detectd) 05/16/22 05/16/22 Range/Units 10:14 10:19 WBC (3.8-10.6) k/uL RBC (3.80-5.40) m/uL Hgb (11.4-16.0) gm/dL Hct (34.0-46.0) % MCV (80.0-100.0) fL MCH (25.0-35.0) pg MCHC (31.0-37.0) g/dL RDW (11.5-15.5) % Plt Count (150-450) k/uL MPV Neutrophils % % Lymphocytes % % Monocytes % % Eosinophils % % Basophils % % Neutrophils # (1.3-7.7) k/uL Lymphocytes # (1.0-4.8) k/uL Monocytes # (0-1.0) k/uL Eosinophils # (0-0.7) k/uL Basophils # (0-0.2) k/uL PT (9.0-12.0) sec INR (<1.2) APTT (22.0-30.0) sec Sodium (137-145) mmol/L Potassium (3.5-5.1) mmol/L Chloride (98-107) mmol/L Carbon Dioxide (22-30) mmol/L Anion Gap mmol/L BUN (7-17) mg/dL Creatinine (0.52-1.04) mg/dL Est GFR (CKD-EPI)AfAm (>60 ml/min/1.73 sqM) Est GFR (CKD-EPI)NonAf (>60 ml/min/1.73 sqM) Glucose (74-99) mg/dL Plasma Lactic Acid Donovan (0.7-2.0) mmol/L Calcium (8.4-10.2) mg/dL Phosphorus 2.4 L (2.5-4.5) mg/dL Magnesium (1.6-2.3) mg/dL Total Bilirubin (0.2-1.3) mg/dL AST (14-36) U/L ALT (4-34) U/L Alkaline Phosphatase (38-126) U/L Troponin I (0.000-0.034) ng/mL Total Protein (6.3-8.2) g/dL Albumin (3.5-5.0) g/dL TSH (0.465-4.680) mIU/L Urine Color Urine Appearance (Clear) Urine pH (5.0-8.0) Ur Specific [place] (1.001-1.035) Urine Protein (Negative) Urine Glucose (UA) (Negative) Urine Ketones (Negative) Urine Blood (Negative) Urine Nitrite (Negative) Urine Bilirubin (Negative) Urine Urobilinogen (<2.0) mg/dL Ur Leukocyte Esterase (Negative) Urine RBC (0-5) /hpf Urine WBC (0-5) /hpf Urine WBC Clumps (None) /hpf Urine Bacteria (None) /hpf Urine Mucus (None) /hpf Coronavirus (PCR) Not Detected (Not Detectd) - Radiology Data Radiology results: report reviewed, image reviewed Disposition Clinical Impression: Hypomagnesemia, UTI (urinary tract infection), Weakness Disposition: ADMITTED IP TO THIS HOSP
[2022-05-16 11:19] LABS: Basophils % (A) 0 %; Eosinophils # (A) 0.1 k/uL (0-0.7); Eosinophils % (A) 0 %; HCT 35.5 % (34.0-46.0); HGB 11.6 gm/dL (11.4-16.0); Lymphocytes # (A) 1.3 k/uL (1.0-4.8); Lymphocytes % (A) 12 %; MCH 29.7 pg (25.0-35.0); MCHC 32.7 g/dL (31.0-37.0); MCV 90.8 fL (80.0-100.0); Mean Platelet Volume 7.8; Monocytes # (A) 0.8 k/uL (0-1.0); Monocytes % (A) 8 %; Neutrophils # (A) 8.2 k/uL (1.3-7.7); Neutrophils % (A) 77 %; Platelet Count 268 k/uL (150-450); RBC 3.91 m/uL (3.80-5.40); RDW 13.4 % (11.5-15.5); WBC 10.6 k/uL (3.8-10.6)
[2022-05-16 11:45] LABS: Appearance,Urine Turbid (Clear); Bacteria,Urine Few /hpf; Bilirubin,Urine Negative (Negative); Blood,Urine Small (Negative); Color,Urine Yellow; Glucose,Urine (UA) 2+ (Negative); Leukocyte Esterase,Urine Large (Negative); Mucus,Urine Few /hpf; Nitrite,Urine Positive (Negative); Protein,Urine 2+ (Negative); RBC,Urine 4 /hpf (0-5); Specific Gravity,Urine 1.018 (1.001-1.035); Urobilinogen,Urine <2.0 mg/dL (<2.0); WBC,Urine >182 /hpf (0-5)
[2022-05-16 11:48] LABS: INR 1.1 (<1.2); Partial Thromboplastin Time 24.8 sec (22.0-30.0); Prothrombin Time 11.8 sec (9.0-12.0)
[2022-05-16 11:49] LABS: Ketones,Urine 4+ (Negative)
[2022-05-16 12:06] LABS: ALT 9 U/L (4-34); AST 18 U/L (14-36); African American GFR (CKD) >90 (>60 ml/min/1.73 sqM); Albumin 3.5 g/dL (3.5-5.0); Alkaline Phosphatase 49 U/L (38-126); Anion Gap 16 mmol/L; Blood Urea Nitrogen 12 mg/dL (7-17); Calcium 7.6 mg/dL (8.4-10.2); Carbon Dioxide 24 mmol/L (22-30); Chloride 96 mmol/L (98-107); Glucose 147 mg/dL (74-99); Non-African American GFR(CKD) >90 (>60 ml/min/1.73 sqM); Potassium 3.2 mmol/L (3.5-5.1); Sodium 136 mmol/L (137-145); Total Bilirubin 0.8 mg/dL (0.2-1.3); Total Protein 6.1 g/dL (6.3-8.2)
--- NOTE | 2022-05-16 12:06 | XR ---
EXAMINATION TYPE: 2 view chest x-ray DATE OF EXAM: 05/16/2022 CLINICAL HISTORY: Weakness. TECHNIQUE: Frontal and lateral views of the chest are obtained. COMPARISON: None at time of dictation. FINDINGS: Mild chronic underlying emphysematous changes are present. There is no focal air space opa city, pleural effusion, or pneumothorax seen. The cardiac silhouette size is within normal limits. O verlying EKG leads are seen. The osseous structures are intact. IMPRESSION: No acute process.
[2022-05-16 12:11] LABS: Magnesium 0.6 mg/dL (1.6-2.3)
[2022-05-16] MEDS ORDERED: POTASSIUM CHLORIDE ER 20 MEQ TAB.ER PO STA (12:18)
[2022-05-16] MEDS ORDERED: NALOXONE 0.4 MG/ML 1 ML VIAL IV PRN ×2 (12:32→14:55)
[2022-05-16] MEDS ORDERED: HYDROcodone/APAP 5-325MG 1 EACH TAB PO PRN (12:36)
[2022-05-16] MEDS: MAGNESIUM SULFATE-D5W PMX 1 GM in DEXTROSE/WATER 1 100ML.BAG IVPB SCH ×3 (13:10→15:15)
[2022-05-16] MEDS: GABAPENTIN 300 MG CAP PO SCH ×3 (13:12→21:40)
[2022-05-16] MEDS ORDERED: cefTRIAXone IN SWFI 1,000 MG/10 ML SYRINGE IVP SCH (13:45)
[2022-05-16] MEDS ORDERED: ALBUTEROL NEBULIZED 2.5 MG/3 ML INHALATION PRN (15:04)
--- NOTE | 2022-05-16 15:08 | P.HPIM ---
History of Present Illness H&P Date: 05/16/22 Chief Complaint: uti 66-year-old female who presents to the emergency department for weakness and change in mental status. Patient's daughter states that she had not answered the phone for the last day, and decided to go over to her house, at which time she decided to call EMS due to the progressive weakness. Her daughter did note that she had dried vomit on her pillow as well. Patient reports associated dizziness with the weakness. History is very limited from the patient due to confusion. No one currently at the bedside to elaborate further history. Patient's has been having memory loss. Denies any unilateral symptoms, chest pain, shortness of breath, or experiencing any pain. Her daughter told emergency department staff that patient has recently been treated for multiple UTIs that have not been going away. In the emergency department she was hemodynamically stable. Labs revealed sodium 136, potassium 3., magnesium 0.6, tested negative for covid. 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 1 heart stent Date of Last Stent Placement:: 2007 Past Psychological History: Depression Smoking Status: Current every day smoker Past Alcohol Use History: None Reported Additional Past Alcohol Use History / Comment(s): smoke 1.5 packs per day-trying to quit with gum. Past Drug Use History: None Reported - Past Family History Mother Family Medical History: COPD Father Family Medical History: Myocardial Infarction (MA) Medications and Allergies Home Medications Medication Instructions Recorded Confirmed Type Aspirin [Adult Low Dose Aspirin EC] 81 mg PO DAILY 06/10/20 05/16/22 History Atorvastatin [Lipitor] 40 mg PO DAILY 06/10/20 05/16/22 History DULoxetine HCL [Cymbalta] 60 mg PO DAILY 06/10/20 05/16/22 History Gabapentin [Neurontin] 600 mg PO QID 06/10/20 05/16/22 History fentaNYL 12MCG/HR PATCH [Duragesic 12 mcg TRANSDERM Q72H 06/10/20 05/16/22 History 12MCG/HR] ramipriL [Altace] 10 mg PO DAILY 06/10/20 05/16/22 History Albuterol Inhaler [Ventolin Hfa 2 puff INHALATION RT-Q6H PRN 05/16/22 05/16/22 History Inhaler] HYDROcodone/APAP 5-325MG [[place] 1 tab PO BID PRN 05/16/22 05/16/22 History 5-325] Naproxen Sodium [Aleve] 220 mg PO Q8H PRN 05/16/22 05/16/22 History Omeprazole 20 mg PO DAILY 05/16/22 05/16/22 History metFORMIN HCL [Glucophage] 500 mg PO BID 05/16/22 05/16/22 History Allergies Allergy/AdvReac Type Severity Reaction Status Date / Time nickel Allergy Unknown Verified 05/16/22 11:25 Physical Exam Vitals: Vital Signs Temp Pulse Resp BP Pulse Ox 05/16/22 10:13 97.6 F 97 20 131/66 97 Intake and Output 05/15/22 05/16/22 05/16/22 22:59 06:59 14:59 Other: Weight 58.967 kg Constitutional: No acute distress, conversant, pleasant Eyes:Anicteric sclerae, moist conjunctiva, no lid-lag, PERRLA, ENMT: Oropharynx clear, no erythema, exudates Neck: Supple, FROM, no masses, or JVD, No carotid bruits, No thyromegaly Lungs: Clear to auscultation, Clear to percussion, Normal respiratory effort, no accessory muscle use Cardiovascular: Heart regular in rate and rhythm, No murmurs, gallops, or rubs, No peripheral edema Abdominal: Soft, Nontender, no guarding, rebound or rigidity, Normoactive bowel sounds, No hepatomegaly, No splenomegaly, No palpable mass Skin: Normal temperature, tone, texture, turgor, no induration, No subcutaneous nodules, No rash, lesions, No ulcers Extremities: Left above-knee amputation. No digital cyanosis, No clubbing, Pedal pulses intact and symmetrical, Radial pulses intact and symmetrical, No calf tenderness Neuro: Alert but disoriented to date and place Results CBC & Chem 7: 05/16/22 10:14 05/16/22 10:14 Labs: Abnormal Lab Results - Last 24 Hours (Table) 05/16/22 05/16/22 05/16/22 Range/Units 10:14 10:14 10:14 Neutrophils # 8.2 H (1.3-7.7) k/uL Sodium 136 L (137-145) mmol/L Potassium 3.2 L (3.5-5.1) mmol/L Chloride 96 L (98-107) mmol/L Creatinine 0.41 L (0.52-1.04) mg/dL Glucose 147 H (74-99) mg/dL Calcium 7.6 L (8.4-10.2) mg/dL Magnesium 0.6 L* (1.6-2.3) mg/dL Total Protein 6.1 L (6.3-8.2) g/dL Urine Appearance Turbid H (Clear) Urine Protein 2+ H (Negative) Urine Glucose (UA) 2+ H (Negative) Urine Ketones 4+ H (Negative) Urine Blood Small H (Negative) Urine Nitrite Positive H (Negative) Ur Leukocyte Esterase Large H (Negative) Urine WBC >182 H (0-5) /hpf Urine WBC Clumps Many H (None) /hpf Urine Bacteria Few H (None) /hpf Urine Mucus Few H (None) /hpf Assessment and Plan Plan: Metabolic encephalopathy Likely secondary to her infection Hold all opiates Neuro checks Acute UTI, recurrent Patient was treated by her primary care physician recently, urine cultures obtained at the office, will follow Ceftriaxone 1 g IV daily for now Diabetes type 2 Hold oral hypoglycemic agents Sliding scale insulin HTN Hyperlipidemia Stable resume meds DVT prophylaxis Lovenox subcu Admit to inpatient Expected length of stay more than 2 midnights.
[2022-05-16] MEDS: SODIUM CHLORIDE 0.9% 1,000 ML IV SCH (15:33)
[2022-05-16 17:14] LABS: Glucose,Whole Blood 151 mg/dL (70-110)
[2022-05-16] MEDS: ACETAMINOPHEN TAB 325 MG TAB PO PRN ×2 (17:52→23:05)
[2022-05-16] MEDS: INSULIN ASPART (NovoLOG) 100 UNIT/ML VIAL SQ SCH ×2 (17:53→21:40)
[2022-05-16 18:44] LABS: African American GFR (CKD) >90 (>60 ml/min/1.73 sqM); Anion Gap 14 mmol/L; Blood Urea Nitrogen 9 mg/dL (7-17); Calcium 7.8 mg/dL (8.4-10.2); Carbon Dioxide 24 mmol/L (22-30); Chloride 94 mmol/L (98-107); Glucose 147 mg/dL (74-99); Magnesium 1.6 mg/dL (1.6-2.3); Non-African American GFR(CKD) >90 (>60 ml/min/1.73 sqM); Sodium 132 mmol/L (137-145)
[2022-05-16 20:44] LABS: Glucose,Whole Blood 275 mg/dL (70-110)
[2022-05-17] MEDS: ACETAMINOPHEN TAB 325 MG TAB PO PRN ×2 (04:16→18:20)
[2022-05-17] MEDS: SODIUM CHLORIDE 0.9% 1,000 ML IV SCH ×2 (04:34→22:31)
[2022-05-17 07:07] LABS: Glucose,Whole Blood 167 mg/dL (70-110)
[2022-05-17] MEDS: ENOXAPARIN 40 MG/0.4 ML SYRINGE SQ SCH (08:20)
[2022-05-17] MEDS: INSULIN ASPART (NovoLOG) 100 UNIT/ML VIAL SQ SCH ×4 (08:20→22:30)
[2022-05-17] MEDS: ATORVASTATIN 40 MG TAB PO SCH (08:21)
[2022-05-17] MEDS: DULoxetine HCL 60 MG CAPSULE.DR PO SCH (08:21)
[2022-05-17] MEDS: PANTOPRAZOLE 40 MG TABLET PO SCH (08:21)
[2022-05-17] MEDS: GABAPENTIN 300 MG CAP PO SCH ×4 (08:21→22:31)
[2022-05-17] MEDS: ASPIRIN 81 MG PO SCH (08:21)
[2022-05-17] MEDS: lisinopriL 20 MG TAB PO SCH (08:21)
[2022-05-17 09:03] LABS: Basophils # (A) 0.02 X 10*3/uL (0.00-0.10); Basophils % (A) 0.2 %; Eosinophils # (A) 0.01 X 10*3/uL (0.04-0.35); Eosinophils % (A) 0.1 %; HCT 33.3 % (37.2-46.3); HGB 11.2 g/dL (12.0-15.0); Immature Grans, Automated 0.2 %; Lymphocytes # (A) 1.24 X 10*3/uL (0.90-5.00); Lymphocytes % (A) 14.7 %; MCH 30.1 pg (27.0-32.0); MCHC 33.6 g/dL (32.0-37.0); MCV 89.5 fL (80.0-97.0); Mean Platelet Volume 10.2 fL (9.5-12.2); Monocytes % (A) 9.5 %; NRBC Per 100 WBC 0 /100 WBCS (0.0-0.0); Neutrophils # (A) 6.37 X 10*3/uL (1.80-7.70); Neutrophils % (A) 75.3 %; Platelet Count 275 X 10*3/uL (140-440); RBC 3.72 X 10*6/uL (4.10-5.20); RDW 13.3 % (11.5-14.5); WBC 8.46 X 10*3/uL (4.50-10.00)
[2022-05-17 09:22] LABS: Magnesium 1.7 mg/dL (1.5-2.4)
[2022-05-17 09:38] LABS: African American GFR (CKD) 116.9 (60.0-200.0); Albumin 3.3 g/dL (3.8-4.9); Albumin/Globulin Ratio 1.43 (1.60-3.17); Anion Gap 12.5 mmol/L (10.00-18.00); BUN/Creat Ratio 12.8 Ratio (12.00-20.00); Blood Urea Nitrogen 6.4 mg/dL (9.0-27.0); Calcium 7.8 mg/dL (8.7-10.3); Carbon Dioxide 25.5 mmol/L (20.0-27.5); Globulin 2.3 g/dL (1.6-3.3); Non-African American GFR(CKD) 100.9 (60.0-200.0); Potassium 2.6 mmol/L (3.5-5.5); Total Bilirubin 0.3 mg/dL (0.30-1.20); Total Protein 5.6 g/dL (6.2-8.2)
[2022-05-17] MEDS ORDERED: POTASSIUM CHLORIDE ER 20 MEQ TAB.ER PO STA (10:25)
[2022-05-17] MEDS ORDERED: POTASSIUM CHLORIDE 20 MEQ in WATER FOR INJECTION 1 100ML.BAG IVPB STA (10:25)
[2022-05-17 11:05] LABS: Glucose,Whole Blood 164 mg/dL (70-110)
[2022-05-17 11:34] VITALS: BMI 23.8
[2022-05-17] MEDS ORDERED: POTASSIUM CHLORIDE ER 20 MEQ TAB.ER PO SCH (12:00)
[2022-05-17] MEDS ORDERED: POTASSIUM CHLORIDE ER 20 MEQ TAB.ER PO ONE (13:00)
[2022-05-17] MEDS: HYDROcodone/APAP 5-325MG 1 EACH TAB PO PRN (13:10)
--- NOTE | 2022-05-17 13:22 | P.PN ---
Subjective Progress Note Date: 05/17/22 Principal diagnosis: change in mentation According to patient's daughter. Patient is currently feeling much better. Her mental status is improved. She denied having any pain or shortness of breath. She did have a fever last night as high as 101.9. That is currently resolved. Objective - Vital Signs Vital signs: Vital Signs Temp 99.9 F H 05/17/22 11:36 Pulse 74 05/17/22 11:36 Resp 16 05/17/22 11:36 BP 155/72 05/17/22 11:36 Pulse Ox 98 05/17/22 11:36 FiO2 Intake & Output 05/16/22 05/17/22 05/17/22 18:59 06:59 18:59 Output Total 50 Balance -50 Weight 58.967 kg 58.967 kg Output: Stool 50 Other: Voiding Method Toilet Toilet # Voids 2 - Exam Constitutional: No acute distress, conversant, pleasant Eyes:Anicteric sclerae, moist conjunctiva, no lid-lag, PERRLA, ENMT: Oropharynx clear, no erythema, exudates Neck: Supple, FROM, no masses, or JVD, No carotid bruits, No thyromegaly Lungs: Clear to auscultation, Clear to percussion, Normal respiratory effort, no accessory muscle use Cardiovascular: Heart regular in rate and rhythm, No murmurs, gallops, or rubs, No peripheral edema Abdominal: Soft, Nontender, no guarding, rebound or rigidity, Normoactive bowel sounds, No hepatomegaly, No splenomegaly, No palpable mass Skin: Normal temperature, tone, texture, turgor, no induration, No subcutaneous nodules, No rash, lesions, No ulcers Extremities: Left above-knee amputation. No digital cyanosis, No clubbing, Pedal pulses intact and symmetrical, Radial pulses intact and symmetrical, No calf tenderness Psychiatric: Alert and oriented to person, place and time, appropriate affect, intact judgement Neuro: Muscles Strength 5/5 in all 4 extremities, Sensation to light touch grossly present throughout, Cranial nerves II-XII grossly intact, no focal sensory deficits - Labs CBC & Chem 7: 05/17/22 05:45 05/17/22 05:45 Labs: Abnormal Lab Results - Last 24 Hours (Table) 05/16/22 05/16/22 05/16/22 Range/Units 17:12 18:09 20:42 RBC (4.10-5.20) X 10*6/uL Hgb (12.0-15.0) g/dL Hct (37.2-46.3) % Eosinophils # (0.04-0.35) X 10*3/uL Sodium 132 L (137-145) mmol/L Potassium 3.0 L (3.5-5.1) mmol/L Chloride 94 L (98-107) mmol/L BUN (9.0-27.0) mg/dL Creatinine 0.43 L (0.52-1.04) mg/dL Glucose 147 H (74-99) mg/dL POC Glucose (mg/dL) 151 H 275 H (70-110) mg/dL Calcium 7.8 L (8.4-10.2) mg/dL ALT (8-44) U/L Total Protein (6.2-8.2) g/dL Albumin (3.8-4.9) g/dL Albumin/Globulin Ratio (1.60-3.17) g/dL 05/17/22 05/17/22 05/17/22 Range/Units 05:45 05:45 07:06 RBC 3.72 L (4.10-5.20) X 10*6/uL Hgb 11.2 L (12.0-15.0) g/dL Hct 33.3 L (37.2-46.3) % Eosinophils # 0.01 L (0.04-0.35) X 10*3/uL Sodium (137-145) mmol/L Potassium 2.6 L* (3.5-5.1) mmol/L Chloride (98-107) mmol/L BUN 6.4 L (9.0-27.0) mg/dL Creatinine 0.5 L (0.52-1.04) mg/dL Glucose 162 H (74-99) mg/dL POC Glucose (mg/dL) 167 H (70-110) mg/dL Calcium 7.8 L (8.4-10.2) mg/dL ALT 7 L (8-44) U/L Total Protein 5.6 L (6.2-8.2) g/dL Albumin 3.3 L (3.8-4.9) g/dL Albumin/Globulin Ratio 1.43 L (1.60-3.17) g/dL 05/17/22 Range/Units 11:04 RBC (4.10-5.20) X 10*6/uL Hgb (12.0-15.0) g/dL Hct (37.2-46.3) % Eosinophils # (0.04-0.35) X 10*3/uL Sodium (137-145) mmol/L Potassium (3.5-5.1) mmol/L Chloride (98-107) mmol/L BUN (9.0-27.0) mg/dL Creatinine (0.52-1.04) mg/dL Glucose (74-99) mg/dL POC Glucose (mg/dL) 164 H (70-110) mg/dL Calcium (8.4-10.2) mg/dL ALT (8-44) U/L Total Protein (6.2-8.2) g/dL Albumin (3.8-4.9) g/dL Albumin/Globulin Ratio (1.60-3.17) g/dL Microbiology - Last 24 Hours (Table) 05/16/22 10:14 Urine Culture - Preliminary Urine,Catheterized Assessment and Plan Plan: Metabolic encephalopathy Likely secondary to her infection Improved Acute UTI, recurrent Patient was treated by her primary care physician recently, urine cultures obtained at the office, will follow Ceftriaxone 1 g IV daily Acute sepsis Secondary to UTI Blood cultures sent Follow-up urine cultures and blood cultures Diabetes type 2 Hold oral hypoglycemic agents Sliding scale insulin HTN Hyperlipidemia Stable resume meds DVT prophylaxis Lovenox subcu
[2022-05-17 17:19] LABS: Glucose,Whole Blood 131 mg/dL (70-110)
[2022-05-17 18:32] LABS: Appearance,Urine Cloudy (Clear); Bilirubin,Urine Negative (Negative); Blood,Urine Small (Negative); Color,Urine Yellow; Glucose,Urine (UA) 3+ (Negative); Ketones,Urine 1+ (Negative); Leukocyte Esterase,Urine Large (Negative); Mucus,Urine Rare /hpf; Nitrite,Urine Negative (Negative); Protein,Urine 1+ (Negative); RBC,Urine 7 /hpf (0-5); Specific Gravity,Urine 1.016 (1.001-1.035); Squamous Epithelial Cell,Urine 6 /hpf (0-4); Urobilinogen,Urine <2.0 mg/dL (<2.0); WBC,Urine 140 /hpf (0-5)
[2022-05-17] MEDS ORDERED: MORPHINE SULFATE 2 MG/ML SYRINGE IVP STA (19:36)
[2022-05-17 20:27] LABS: Glucose,Whole Blood 318 mg/dL (70-110)
[2022-05-18] MEDS: HYDROcodone/APAP 5-325MG 1 EACH TAB PO PRN ×2 (01:09→17:35)
[2022-05-18] MEDS: ACETAMINOPHEN TAB 325 MG TAB PO PRN (04:19)
[2022-05-18 07:11] LABS: Glucose,Whole Blood 118 mg/dL (70-110)
[2022-05-18] MEDS: INSULIN ASPART (NovoLOG) 100 UNIT/ML VIAL SQ SCH ×4 (07:17→20:36)
[2022-05-18] MEDS: lisinopriL 20 MG TAB PO SCH (08:48)
[2022-05-18] MEDS: PANTOPRAZOLE 40 MG TABLET PO SCH (08:48)
[2022-05-18] MEDS: GABAPENTIN 300 MG CAP PO SCH ×4 (08:48→22:01)
[2022-05-18] MEDS: DULoxetine HCL 60 MG CAPSULE.DR PO SCH (08:48)
[2022-05-18] MEDS: ATORVASTATIN 40 MG TAB PO SCH (08:48)
[2022-05-18] MEDS: ASPIRIN 81 MG PO SCH (08:48)
[2022-05-18] MEDS: ENOXAPARIN 40 MG/0.4 ML SYRINGE SQ SCH (08:48)
[2022-05-18] MEDS: SODIUM CHLORIDE 0.9% 1,000 ML IV SCH ×2 (08:49→20:37)
[2022-05-18] MEDS ORDERED: MORPHINE SULFATE 2 MG/ML SYRINGE IVP STA (09:56)
[2022-05-18 11:15] LABS: Glucose,Whole Blood 308 mg/dL (70-110)
[2022-05-18 11:32] LABS: Basophils # (A) 0.02 X 10*3/uL (0.00-0.10); Basophils % (A) 0.2 %; Eosinophils # (A) 0.04 X 10*3/uL (0.04-0.35); Eosinophils % (A) 0.5 %; HCT 30.8 % (37.2-46.3); Immature Grans, Automated 0.4 %; Lymphocytes # (A) 1.22 X 10*3/uL (0.90-5.00); MCHC 32.5 g/dL (32.0-37.0); MCV 89.3 fL (80.0-97.0); Mean Platelet Volume 10.2 fL (9.5-12.2); Monocytes # (A) 0.89 X 10*3/uL (0.20-1.00); Monocytes % (A) 10.9 %; NRBC Per 100 WBC 0 /100 WBCS (0.0-0.0); Neutrophils # (A) 5.93 X 10*3/uL (1.80-7.70); Platelet Count 285 X 10*3/uL (140-440); RBC 3.45 X 10*6/uL (4.10-5.20); RDW 13.4 % (11.5-14.5); WBC 8.13 X 10*3/uL (4.50-10.00)
[2022-05-18 11:40] LABS: African American GFR (CKD) 138.3 (60.0-200.0); Anion Gap 9.3 mmol/L (10.00-18.00); Calcium 7.7 mg/dL (8.7-10.3); Carbon Dioxide 24.7 mmol/L (20.0-27.5); Non-African American GFR(CKD) 119.3 (60.0-200.0); Potassium 3.2 mmol/L (3.5-5.5)
[2022-05-18] MEDS: INSULIN DETEMIR (LEVEMIR) 100 UNIT/ML SYR SQ SCH (13:24)
[2022-05-18] MEDS ORDERED: POTASSIUM CHLORIDE ER 20 MEQ TAB.ER PO STA (14:44)
--- NOTE | 2022-05-18 14:48 | P.PN ---
Subjective Progress Note Date: 05/18/22 Principal diagnosis: change in mentation Patient has been having pain in her left lower extremity stump. She had a fever last night of 102. She denied having any chills. No nausea or vomiting. Objective - Vital Signs Vital signs: Vital Signs Temp 98.5 F 05/18/22 11:42 Pulse 80 05/18/22 11:42 Resp 15 05/18/22 11:42 BP 126/74 05/18/22 11:42 Pulse Ox 96 05/18/22 11:42 FiO2 Intake & Output 05/17/22 05/18/22 05/18/22 18:59 06:59 18:59 Output Total 100 Balance -100 Weight 58.967 kg Output: Stool 100 Other: Voiding Method Toilet Toilet Toilet # Voids 3 2 - Exam Constitutional: No acute distress, conversant, pleasant Eyes:Anicteric sclerae, moist conjunctiva, no lid-lag, PERRLA, ENMT: Oropharynx clear, no erythema, exudates Neck: Supple, FROM, no masses, or JVD, No carotid bruits, No thyromegaly Lungs: Clear to auscultation, Clear to percussion, Normal respiratory effort, no accessory muscle use Cardiovascular: Heart regular in rate and rhythm, No murmurs, gallops, or rubs, No peripheral edema Abdominal: Soft, Nontender, no guarding, rebound or rigidity, Normoactive bowel sounds, No hepatomegaly, No splenomegaly, No palpable mass Skin: Normal temperature, tone, texture, turgor, no induration, No subcutaneous nodules, No rash, lesions, No ulcers Extremities: Left above-knee amputation. No digital cyanosis, No clubbing, Pedal pulses intact and symmetrical, Radial pulses intact and symmetrical, No calf tenderness Psychiatric: Alert and oriented to person, place and time, appropriate affect, intact judgement Neuro: Muscles Strength 5/5 in all 4 extremities, Sensation to light touch grossly present throughout, Cranial nerves II-XII grossly intact, no focal sensory deficits - Labs CBC & Chem 7: 05/18/22 06:19 05/18/22 06:19 Labs: Abnormal Lab Results - Last 24 Hours (Table) 05/17/22 05/17/22 05/17/22 Range/Units 14:20 17:18 20:25 RBC (4.10-5.20) X 10*6/uL Hgb (12.0-15.0) g/dL Hct (37.2-46.3) % Sodium (135-145) mmol/L Potassium (3.5-5.5) mmol/L Anion Gap (10.00-18.00) mmol/L BUN (9.0-27.0) mg/dL Creatinine (0.6-1.5) mg/dL BUN/Creatinine Ratio (12.00-20.00) Ratio POC Glucose (mg/dL) 131 H 318 H (70-110) mg/dL Calcium (8.7-10.3) mg/dL Urine Appearance Cloudy H (Clear) Urine Protein 1+ H (Negative) Urine Glucose (UA) 3+ H (Negative) Urine Ketones 1+ H (Negative) Urine Blood Small H (Negative) Ur Leukocyte Esterase Large H (Negative) Urine RBC 7 H (0-5) /hpf Urine WBC 140 H (0-5) /hpf Urine WBC Clumps Few H (None) /hpf Ur Squamous Epith Cells 6 H (0-4) /hpf Urine Mucus Rare H (None) /hpf 05/18/22 05/18/22 05/18/22 Range/Units 06:19 06:19 07:10 RBC 3.45 L (4.10-5.20) X 10*6/uL Hgb 10.0 L (12.0-15.0) g/dL Hct 30.8 L (37.2-46.3) % Sodium 133 L (135-145) mmol/L Potassium 3.2 L (3.5-5.5) mmol/L Anion Gap 9.30 L (10.00-18.00) mmol/L BUN 3.0 L (9.0-27.0) mg/dL Creatinine 0.3 L (0.6-1.5) mg/dL BUN/Creatinine Ratio 10.00 L (12.00-20.00) Ratio POC Glucose (mg/dL) 118 H (70-110) mg/dL Calcium 7.7 L (8.7-10.3) mg/dL Urine Appearance (Clear) Urine Protein (Negative) Urine Glucose (UA) (Negative) Urine Ketones (Negative) Urine Blood (Negative) Ur Leukocyte Esterase (Negative) Urine RBC (0-5) /hpf Urine WBC (0-5) /hpf Urine WBC Clumps (None) /hpf Ur Squamous Epith Cells (0-4) /hpf Urine Mucus (None) /hpf 05/18/22 Range/Units 11:14 RBC (4.10-5.20) X 10*6/uL Hgb (12.0-15.0) g/dL Hct (37.2-46.3) % Sodium (135-145) mmol/L Potassium (3.5-5.5) mmol/L Anion Gap (10.00-18.00) mmol/L BUN (9.0-27.0) mg/dL Creatinine (0.6-1.5) mg/dL BUN/Creatinine Ratio (12.00-20.00) Ratio POC Glucose (mg/dL) 308 H (70-110) mg/dL Calcium (8.7-10.3) mg/dL Urine Appearance (Clear) Urine Protein (Negative) Urine Glucose (UA) (Negative) Urine Ketones (Negative) Urine Blood (Negative) Ur Leukocyte Esterase (Negative) Urine RBC (0-5) /hpf Urine WBC (0-5) /hpf Urine WBC Clumps (None) /hpf Ur Squamous Epith Cells (0-4) /hpf Urine Mucus (None) /hpf Microbiology - Last 24 Hours (Table) 05/17/22 14:20 Urine Culture - Preliminary Urine,Voided 05/16/22 18:14 Blood Culture - Preliminary Blood No Growth after 24 hours 05/16/22 10:14 Urine Culture - Preliminary Urine,Catheterized Gram Neg Bacilli Assessment and Plan Plan: Metabolic encephalopathy Likely secondary to her infection Improved Acute UTI, recurrent Follow-up urine cultures Ceftriaxone 1 g IV daily Acute sepsis Secondary to UTI Blood cultures sent Follow-up urine cultures and blood cultures Diabetes type 2 Blood sugars uncontrolled, start Lantus 10 units daily. Hold oral hypoglycemic agents Sliding scale insulin HTN Hyperlipidemia Stable resume meds Chronic pain continue opiates. DVT prophylaxis Lovenox subcu
[2022-05-18 17:15] LABS: Glucose,Whole Blood 64 mg/dL (70-110)
[2022-05-18 17:30] LABS: Glucose,Whole Blood 95 mg/dL (70-110)
[2022-05-18 18:15] VITALS: RESP 16; TEMP 98.1
[2022-05-18 20:17] LABS: Glucose,Whole Blood 259 mg/dL (70-110)
[2022-05-19] MEDS: ACETAMINOPHEN TAB 325 MG TAB PO PRN (00:11)
[2022-05-19] MEDS ORDERED: Potassium Replacement Protocol 1 EACH MISC MISCELLANE PRN (02:58)
[2022-05-19] MEDS: POTASSIUM CHLORIDE ER 20 MEQ TAB.ER PO SCH ×2 (04:04→05:02)
[2022-05-19 07:09] LABS: Glucose,Whole Blood 105 mg/dL (70-110)
[2022-05-19] MEDS: INSULIN ASPART (NovoLOG) 100 UNIT/ML VIAL SQ SCH (07:23)
[2022-05-19] MEDS: HYDROcodone/APAP 5-325MG 1 EACH TAB PO PRN (08:33)
[2022-05-19] MEDS: GABAPENTIN 300 MG CAP PO SCH (08:34)
[2022-05-19] MEDS: ATORVASTATIN 40 MG TAB PO SCH (08:34)
[2022-05-19] MEDS: ENOXAPARIN 40 MG/0.4 ML SYRINGE SQ SCH (08:34)
[2022-05-19] MEDS: ASPIRIN 81 MG PO SCH (08:34)
[2022-05-19] MEDS: PANTOPRAZOLE 40 MG TABLET PO SCH (08:34)
[2022-05-19] MEDS: lisinopriL 20 MG TAB PO SCH (08:35)
[2022-05-19] MEDS: DULoxetine HCL 60 MG CAPSULE.DR PO SCH (08:35)
[2022-05-19] MEDS: INSULIN DETEMIR (LEVEMIR) 100 UNIT/ML SYR SQ SCH (08:35)
[2022-05-19 08:43] VITALS: BP 164/72; PULSE 79
--- NOTE | 2022-05-19 09:04 | P.DS ---
Providers Date of admission: 05/16/22 12:42 Expected date of discharge: 05/19/22 Attending physician: Alan Forman MD [facility] Course: 66-year-old female who presents to the emergency department for weakness and change in mental status. Patient's daughter states that she had not answered the phone for the last day, and decided to go over to her house, at which time she decided to call EMS due to the progressive weakness. Her daughter did note that she had dried vomit on her pillow as well. Patient reports associated dizziness with the weakness. History is very limited from the patient due to confusion. No one currently at the bedside to elaborate further history. Patient's has been having memory loss. Denies any unilateral symptoms, chest pain, shortness of breath, or experiencing any pain. Her daughter told emergency department staff that patient has recently been treated for multiple UTIs that have not been going away. In the emergency department she was hemodynamically stable. Labs revealed sodium 136, potassium 3., magnesium 0.6, tested negative for covid. Urinalysis was significant for pyuria. Patient was admitted for further evaluation and treatment. Upon admission she continued to have high fevers. Up to 102. Source was likely from the urine. Patient was treated with ceftriaxone 1 g IV daily. Urine cultures grew Klebsiella that was sensitive to third-generation cephalosporins. During the hospitalization she was treated with sliding scale insulin. Oral meds were held. Her potassium was noted to be low at 2.6, it was replaced. Normalized on the day of discharge. With treatment of her mental status improved, she came back to her baseline, confusion resolved. At that time of discharge she has not been febrile for more than 24 hours. She is currently doing well. Case discussed with her daughter. She will be discharged home in stable condition. Time for discharge 35 minutes. Plan - Discharge Summary Discharge Rx Participant: No New Discharge Prescriptions: New Cefdinir [Omnicef] 300 mg PO Q12HR 5 Days #10 capsule Continue fentaNYL 12MCG/HR PATCH [Duragesic 12MCG/HR] 12 mcg TRANSDERM Q72H ramipriL [Altace] 10 mg PO DAILY Gabapentin [Neurontin] 600 mg PO QID DULoxetine HCL [Cymbalta] 60 mg PO DAILY Atorvastatin [Lipitor] 40 mg PO DAILY Aspirin [Adult Low Dose Aspirin EC] 81 mg PO DAILY Naproxen Sodium [Aleve] 220 mg PO Q8H PRN PRN Reason: Pain metFORMIN HCL [Glucophage] 500 mg PO BID Omeprazole 20 mg PO DAILY HYDROcodone/APAP 5-325MG [[place] 5-325] 1 tab PO BID PRN PRN Reason: Pain Albuterol Inhaler [Ventolin Hfa Inhaler] 2 puff INHALATION RT-Q6H PRN PRN Reason: Shortness Of Breath Discharge Medication List Aspirin [Adult Low Dose Aspirin EC] 81 mg PO DAILY 06/10/20 [History] Atorvastatin [Lipitor] 40 mg PO DAILY 06/10/20 [History] DULoxetine HCL [Cymbalta] 60 mg PO DAILY 06/10/20 [History] Gabapentin [Neurontin] 600 mg PO QID 06/10/20 [History] fentaNYL 12MCG/HR PATCH [Duragesic 12MCG/HR] 12 mcg TRANSDERM Q72H 06/10/20 [History] ramipriL [Altace] 10 mg PO DAILY 06/10/20 [History] Albuterol Inhaler [Ventolin Hfa Inhaler] 2 puff INHALATION RT-Q6H PRN 05/16/22 [History] HYDROcodone/APAP 5-325MG [[place] 5-325] 1 tab PO BID PRN 05/16/22 [History] Naproxen Sodium [Aleve] 220 mg PO Q8H PRN 05/16/22 [History] Omeprazole 20 mg PO DAILY 05/16/22 [History] metFORMIN HCL [Glucophage] 500 mg PO BID 05/16/22 [History] Cefdinir [Omnicef] 300 mg PO Q12HR 5 Days #10 capsule 05/19/22 [Rx] Follow up Appointment(s)/Referral(s): Randolph Renee, [Primary Care Provider] - 1-2 days Discharge/Stand Alone Forms: Who Do I Call?, Community Resources, Help In The Home, [employer]
[2022-05-19] MEDS: SODIUM CHLORIDE 0.9% 1,000 ML IV SCH (11:10)
== END 2022-05-19 11:45 | disposition home or self-care (01) | DRG 871 ==
LOC: EC 09:57 → 4SSUR 12:42 → 5NMEDONC 16:18
PROVIDERS: ADMIT Internal Medicine; ATTEND Internal Medicine
DX: A41.59 Other Gram-negative sepsis (principal); G93.41 Metabolic encephalopathy; N39.0 Urinary tract infection, site not specified; E11.9 Type 2 diabetes mellitus without complications; E78.5 Hyperlipidemia, unspecified; E83.42 Hypomagnesemia; E87.6 Hypokalemia; F17.210 Nicotine dependence, cigarettes, uncomplicated; F32.A Depression, unspecified; I10 Essential (primary) hypertension; I25.2 Old myocardial infarction; Z20.822 Contact with and (suspected) exposure to COVID-19; Z79.82 Long term (current) use of aspirin; Z79.84 Long term (current) use of oral hypoglycemic drugs; Z79.899 Other long term (current) drug therapy; Z87.440 Personal history of urinary (tract) infections; Z89.519 Acquired absence of unspecified leg below knee; Z93.3 Colostomy status; Z95.5 Presence of coronary angioplasty implant and graft; Z82.49 Family history of ischemic heart disease and other diseases of the circulatory system; Z82.5 Family history of asthma and other chronic lower respiratory diseases; Z88.8 Allergy status to other drugs, medicaments and biological substances; Z89.512 Acquired absence of left leg below knee
CPT/HCPCS: 36415; 71046; 80048; 80053; 81001; 83605; 83735; 84100; 84132; 84443; 84484; 85025; 85610; 85730; 87040; 87077; 87086; 87186; 87635; 93005; 96365; 96366; 96375; 99285

== ENCOUNTER 2023-01-21 07:33 | Emergency (ER) | payer MEDICARE ==
[2023-01-21 07:38] VITALS: TEMP 98.9
[2023-01-21] MEDS ORDERED: SODIUM CHLORIDE 0.9% 1,000 ML IV STA (07:40)
[2023-01-21] MEDS ORDERED: ONDANSETRON 4 MG/2 ML VIAL IVP STA (07:40)
[2023-01-21] MEDS ORDERED: MORPHINE SULFATE 4 MG/ML SYRINGE IVP STA (07:51)
[2023-01-21] MEDS ORDERED: KETOROLAC 15 MG/ML 1 ML VIAL IVP STA (07:51)
[2023-01-21 07:55] LABS: Basophils % (A) 0 %; Eosinophils # (A) 0.1 k/uL (0-0.7); Eosinophils % (A) 0 %; HCT 38.3 % (34.0-46.0); HGB 12.8 gm/dL (11.4-16.0); Lymphocytes # (A) 1.3 k/uL (1.0-4.8); Lymphocytes % (A) 9 %; MCH 30.3 pg (25.0-35.0); MCHC 33.5 g/dL (31.0-37.0); MCV 90.5 fL (80.0-100.0); Mean Platelet Volume 7.5; Monocytes # (A) 0.8 k/uL (0-1.0); Monocytes % (A) 6 %; Neutrophils # (A) 11.3 k/uL (1.3-7.7); Neutrophils % (A) 82 %; Platelet Count 401 k/uL (150-450); RBC 4.23 m/uL (3.80-5.40); RDW 13.5 % (11.5-15.5); WBC 13.7 k/uL (3.8-10.6)
[2023-01-21 08:10] LABS: ALT 14 U/L (4-34); AST 16 U/L (14-36); African American GFR (CKD) >90 (>60 ml/min/1.73 sqM); Albumin 3.9 g/dL (3.5-5.0); Alkaline Phosphatase 83 U/L (38-126); Anion Gap 15 mmol/L; Blood Urea Nitrogen 14 mg/dL (7-17); Calcium 9.4 mg/dL (8.4-10.2); Carbon Dioxide 23 mmol/L (22-30); Chloride 96 mmol/L (98-107); Glucose 187 mg/dL (74-99); Lipase 20 U/L (23-300); Magnesium 1.5 mg/dL (1.6-2.3); Non-African American GFR(CKD) >90 (>60 ml/min/1.73 sqM); Sodium 134 mmol/L (137-145); Total Bilirubin 0.7 mg/dL (0.2-1.3); Total Protein 7.1 g/dL (6.3-8.2)
[2023-01-21] MEDS ORDERED: MAGNESIUM OXIDE 400 MG TAB PO STA (09:50)
--- NOTE | 2023-01-21 09:51 | ED ---
Nausea/Vomiting/Diarrhea HPI - General Chief complaint: Nausea/Vomiting/Diarrhea Stated complaint: weakness Time Seen by Provider: 01/21/23 07:40 Source: patient, RN notes reviewed Mode of arrival: ambulatory Limitations: no limitations - History of Present Illness Initial comments: 67-year-old female presents emergency Department chief complaint of nausea vomiting. Patient states that she's had since last couple days. Patient reports no fever. No significant increase in stool output. She does have a colostomy in which she does have mild hypomagnesemia at times. Patient denies chest pain shortness breath she states she feels weak, dehydrated. Denies any dysuria hematuria patient's had history of bowel resection. - Related Data Home Medications Medication Instructions Recorded Confirmed Aspirin [Adult Low Dose Aspirin EC] 81 mg PO DAILY 06/10/20 05/16/22 Atorvastatin [Lipitor] 40 mg PO DAILY 06/10/20 05/16/22 DULoxetine HCL [Cymbalta] 60 mg PO DAILY 06/10/20 05/16/22 Gabapentin [Neurontin] 600 mg PO QID 06/10/20 05/16/22 fentaNYL 12MCG/HR PATCH [Duragesic 12 mcg TRANSDERM Q72H 06/10/20 05/16/22 12MCG/HR] ramipriL [Altace] 10 mg PO DAILY 06/10/20 05/16/22 Albuterol Inhaler [Ventolin Hfa 2 puff INHALATION RT-Q6H PRN 05/16/22 05/16/22 Inhaler] HYDROcodone/APAP 5-325MG [[place] 1 tab PO BID PRN 05/16/22 05/16/22 5-325] Naproxen Sodium [Aleve] 220 mg PO Q8H PRN 05/16/22 05/16/22 Omeprazole 20 mg PO DAILY 05/16/22 05/16/22 metFORMIN HCL [Glucophage] 500 mg PO BID 05/16/22 05/16/22 Previous Rx's Medication Instructions Recorded Cefdinir [Omnicef] 300 mg PO Q12HR 5 Days #10 capsule 05/19/22 Nitrofurantoin Monohyd/M-Cryst 100 mg PO Q12HR #14 cap 01/21/23 [Macrobid] Ondansetron Odt [Zofran Odt] 4 mg PO Q8HR PRN #10 tab 01/21/23 Allergies Allergy/AdvReac Type Severity Reaction Status Date / Time nickel Allergy Unknown Verified 01/21/23 07:38 Review of Systems ROS Statement: Those systems with pertinent positive or pertinent negative responses have been documented in the HPI. ROS Other: All systems not noted in ROS Statement are negative. Past Medical History Past Medical History: COPD, Diabetes Mellitus, Myocardial Infarction ([place]) Additional Past Medical History / Comment(s): ischemic of colon 2016, uti's, Last Myocardial Infarction Date:: 2009 History of Any Multi-Drug Resistant Organisms: None Reported Past Surgical History: Heart Catheterization With Stent Additional Past Surgical History / Comment(s): left Below the knee amputation r/ t fall, nonhealing infection after mulitple surgeries. colostomy - "due to ischemia of colon", another bowel surgery to remove part of colon r/t blockage, 1 heart stent Date of Last Stent Placement:: 2007 Past Psychological History: Depression Smoking Status: Current every day smoker Past Alcohol Use History: None Reported Past Drug Use History: None Reported - Past Family History Mother Family Medical History: COPD Father Family Medical History: Myocardial Infarction ([place]) General Exam Limitations: no limitations General appearance: alert, in no apparent distress Head exam: Present: atraumatic, normocephalic, normal inspection Eye exam: Present: normal appearance, PERRL, EOMI. Absent: scleral icterus, conjunctival injection, periorbital swelling ENT exam: Present: normal exam, mucous membranes dry Neck exam: Present: normal inspection, full ROM. Absent: tenderness, meningismus, lymphadenopathy Respiratory exam: Present: normal lung sounds bilaterally. Absent: respiratory distress, wheezes, rales, rhonchi, stridor Cardiovascular Exam: Present: normal rhythm, tachycardia, normal heart sounds. Absent: systolic murmur, diastolic murmur, rubs, gallop, clicks GI/Abdominal exam: Present: soft, normal bowel sounds. Absent: distended, tenderness, guarding, rebound, rigid Course Vital Signs 01/21/23 01/21/23 07:35 09:56 Temperature 98.9 F Pulse Rate 129 H 105 H Respiratory 20 18 Rate Blood Pressure 115/74 118/69 O2 Sat by Pulse 96 96 Oximetry Medical Decision Making - Medical Decision Making Was pt. sent in by a medical professional or institution (, PA, DATA WAREHOUSING MANAGER, urgent care, hospital, or [place] health care facility...) When possible be specific @ -No Did you speak to anyone other than the patient for history (EMS, parent, family, police, friend...)? What history was obtained from this source @ -No Did you review nursing and triage notes (agree or disagree)? Why? @ -I reviewed and agree with nursing and triage notes Were old charts reviewed (outside hosp., previous admission, EMS record, old EKG, old radiological studies, urgent care reports/EKG's, [place] health care facility records)? Report findings @ -No old charts were reviewed Differential Diagnosis (chest pain, altered mental status, abdominal pain women, abdominal pain men, vaginal bleeding, weakness, fever, dyspnea, syncope, headache, dizziness, GI bleed, back pain, seizure, CVA, palpatations, mental health, musculoskeletal)? @ -nDifferential Abdominal Pain Women: Appendicitis, Cholecystitis, diverticulosis, ischemic bowel, pancreatitis, hepatitis, UTI, gastroenteritis, AAA, incarcerated hernia, bowel obstruction, constipation, inflammatory bowel, hepatitis, peptic ulcer disease, splenic infarction, perforated viscus, vulvitis, ovarian torsion, PID, kidney stone, placenta abruption, this is not meant to be an all-inclusive listble EKG interpreted by me (3pts min.). @ -As above X-rays interpreted by me (1pt min.). @ -None done CT interpreted by me (1pt min.). @ -None done U/S interpreted by me (1pt. min.). @ -None done What testing was considered but not performed or refused? (CT, X-rays, U/S, la bs)? Why? @ -None What meds were considered but not given or refused? Why? @ -None Did you discuss the management of the patient with other professionals (professionals i.e. , PA, DATA WAREHOUSING MANAGER, lab, RT, psych nurse, social work case manager, wire welder, teacher, supply officer, shoe parts caser)? Give summary @ -No Was smoking cessation discussed for >3mins.? @ -No Was critical care preformed (if so, how long)? @ -No Were there social determinants of health that impacted care today? How? (Homelessness, low income, unemployed, alcoholism, drug addiction, transportation, low edu. Level, literacy, decrease access to med. care, mcc, rehab)? @ -No Was there de-escalation of care discussed even if they declined (Discuss DNR or withdrawal of care, Hospice)? DNR status @ -No What co-morbidities impacted this encounter? (DM, HTN, Smoking, COPD, CAD, Cancer, CVA, ARF, Chemo, Hep., AIDS, mental health diagnosis, sleep apnea, morbid obesity)? @ -History of bowel obstruction, colostomy Was patient admitted / discharged? Hospital course, mention meds given and route, prescriptions, significant lab abnormalities, going to OR and other pertinent info. @ -Discharge patient was well hydrated, given antiemetics patient is greatly improve her rate has improved. Patient did have mild dehydration. Patient does have evidence of urinary tract infection she was given Rocephin. Patient discharged on Macrobid. Patient agrees to plan of discharge and return for worsening changes symptoms. Undiagnosed new problem with uncertain prognosis? @ -No Drug Therapy requiring intensive monitoring for toxicity (Heparin, Nitro, Insulin, Cardizem)? @ -No Were any procedures done? @ -No Diagnosis/symptom? @ -Nausea vomiting, UTI Acute, or Chronic, or Acute on Chronic? @ -Acute Uncomplicated (without systemic symptoms) or Complicated (systemic symptoms)? @ -Uncomplicated Side effects of treatment? @ -No Exacerbation, Progression, or Severe Exacerbation? @ -No Poses a threat to life or bodily function? How? (Chest pain, [place], [place], pneumonia, PE, COPD, DKA, ARF, appy, cholecystitis, CVA, Diverticulitis, Homicidal, Suicidal, threat to staff... and all critical care pts) @ -No - Lab Data Result diagrams: 01/21/23 07:45 01/21/23 07:45 Lab Results 01/21/23 01/21/23 01/21/23 Range/Units 07:45 07:45 09:39 WBC 13.7 H (3.8-10.6) k/uL RBC 4.23 (3.80-5.40) m/uL Hgb 12.8 (11.4-16.0) gm/dL Hct 38.3 (34.0-46.0) % MCV 90.5 (80.0-100.0) fL MCH 30.3 (25.0-35.0) pg MCHC 33.5 (31.0-37.0) g/dL RDW 13.5 (11.5-15.5) % Plt Count 401 (150-450) k/uL MPV 7.5 Neutrophils % 82 % Lymphocytes % 9 % Monocytes % 6 % Eosinophils % 0 % Basophils % 0 % Neutrophils # 11.3 H (1.3-7.7) k/uL Lymphocytes # 1.3 (1.0-4.8) k/uL Monocytes # 0.8 (0-1.0) k/uL Eosinophils # 0.1 (0-0.7) k/uL Basophils # 0.0 (0-0.2) k/uL Sodium 134 L (137-145) mmol/L Potassium 4.0 (3.5-5.1) mmol/L Chloride 96 L (98-107) mmol/L Carbon Dioxide 23 (22-30) mmol/L Anion Gap 15 mmol/L BUN 14 (7-17) mg/dL Creatinine 0.55 (0.52-1.04) mg/dL Est GFR (CKD-EPI)AfAm >90 (>60 ml/min/1.73 sqM) Est GFR (CKD-EPI)NonAf >90 (>60 ml/min/1.73 sqM) Glucose 187 H (74-99) mg/dL Calcium 9.4 (8.4-10.2) mg/dL Magnesium 1.5 L (1.6-2.3) mg/dL Total Bilirubin 0.7 (0.2-1.3) mg/dL AST 16 (14-36) U/L ALT 14 (4-34) U/L Alkaline Phosphatase 83 (38-126) U/L Total Protein 7.1 (6.3-8.2) g/dL Albumin 3.9 (3.5-5.0) g/dL Lipase 20 L (23-300) U/L Urine Color Yellow Urine Appearance Turbid H (Clear) Urine pH 5.5 (5.0-8.0) Ur Specific [place] 1.019 (1.001-1.035) Urine Protein 2+ H (Negative) Urine Glucose (UA) 1+ H (Negative) Urine Ketones 2+ H (Negative) Urine Blood Small H (Negative) Urine Nitrite Positive H (Negative) Urine Bilirubin Negative (Negative) Urine Urobilinogen <2.0 (<2.0) mg/dL Ur Leukocyte Esterase Large H (Negative) Urine RBC 21 H (0-5) /hpf Urine WBC >182 H (0-5) /hpf Urine WBC Clumps Many H (None) /hpf Ur Squamous Epith Cells 1 (0-4) /hpf Urine Bacteria Occasional H (None) /hpf Urine Mucus Many H (None) /hpf - EKG Data -: EKG Interpreted by Me EKG Comments: EKG performed at 7:57 sinus tachycardia rate of 118. PR170 QS 78 QT / QTC 432/502 Disposition Clinical Impression: UTI (urinary tract infection), Dehydration, Nausea & vomiting Disposition: HOME SELF-CARE Condition: Stable Instructions (If sedation given, give patient instructions): Acute Nausea and Vomiting (ED) Additional Instructions: Please return to the Emergency Department if symptoms worsen or any other concerns. Prescriptions: Nitrofurantoin Monohyd/M-Cryst [Macrobid] 100 mg PO Q12HR #14 cap Ondansetron Odt [Zofran Odt] 4 mg PO Q8HR PRN #10 tab PRN Reason: Nausea Is patient prescribed a controlled substance at d/c from ED?: No Referrals: Randolph Renee DO [Primary Care Provider] - 1-2 days Time of Disposition: 10:11
[2023-01-21 09:55] LABS: Appearance,Urine Turbid (Clear); Bacteria,Urine Occasional /hpf; Bilirubin,Urine Negative (Negative); Blood,Urine Small (Negative); Color,Urine Yellow; Glucose,Urine (UA) 1+ (Negative); Leukocyte Esterase,Urine Large (Negative); Mucus,Urine Many /hpf; Nitrite,Urine Positive (Negative); PH, Urine 5.5 (5.0-8.0); Protein,Urine 2+ (Negative); RBC,Urine 21 /hpf (0-5); Specific Gravity,Urine 1.019 (1.001-1.035); Squamous Epithelial Cell,Urine 1 /hpf (0-4); Urobilinogen,Urine <2.0 mg/dL (<2.0); WBC,Urine >182 /hpf (0-5)
[2023-01-21 09:57] VITALS: BP 118/69; PULSE 105; RESP 18
[2023-01-21 10:07] LABS: Ketones,Urine 2+ (Negative)
[2023-01-21] MEDS ORDERED: cefTRIAXone IN SWFI 1,000 MG/10 ML SYRINGE IVP STA (10:25)
== END 2023-01-21 10:57 | disposition home or self-care (01) ==
LOC: EC 07:33
DX: N39.0 Urinary tract infection, site not specified (principal); E86.0 Dehydration; R11.2 Nausea with vomiting, unspecified; J44.9 Chronic obstructive pulmonary disease, unspecified; E11.9 Type 2 diabetes mellitus without complications; I25.2 Old myocardial infarction; F32.A Depression, unspecified; F17.200 Nicotine dependence, unspecified, uncomplicated; Z79.82 Long term (current) use of aspirin; Z79.899 Other long term (current) drug therapy; Z91.018 Allergy to other foods
CPT/HCPCS: 36415; 93005; 80053; 83690; 83735; 85025; 81001; 99285; 96374; 96375 ×3; 96361; J2270; J2405; J0696; J1885

== ENCOUNTER 2023-08-25 13:03 | Emergency (ER) | payer MEDICARE ==
[2023-08-25 13:30] VITALS: RESP 18
[2023-08-25] MEDS ORDERED: SODIUM CHLORIDE 0.9% 1,000 ML IV STA (13:53)
[2023-08-25] MEDS ORDERED: SODIUM CHLORIDE 0.9% 500 ML 500 ML IV STA (13:53)
--- NOTE | 2023-08-25 13:55 | ED ---
General Adult HPI - General Chief complaint: Weakness Stated complaint: weakness not feeling well Time Seen by Provider: 08/25/23 13:10 Source: patient, family, RN notes reviewed, old records reviewed Mode of arrival: wheelchair Limitations: no limitations - History of Present Illness Initial comments: This is a 68-year-old female presents emergency Department complaining since she hasn't been feeling well. Patient states since she's had vomiting and feeling extremely weak. Patient states his symptoms got worse over the weekend so she came in today to be evaluated. Patient denied any abdominal pain patient denies any cough patient denies any fever chills per patient denies any dysuria hematuria urinary frequency. Patient denies any chest pain shortness of breath. Patient states she just is very weak and continues to vomi t a few times a day. Patient states she has a colostomy so she always is having loose stools. - Related Data Home Medications Medication Instructions Recorded Confirmed Aspirin [Adult Low Dose Aspirin EC] 81 mg PO DAILY 06/10/20 05/16/22 Atorvastatin [Lipitor] 40 mg PO DAILY 06/10/20 05/16/22 DULoxetine HCL [Cymbalta] 60 mg PO DAILY 06/10/20 05/16/22 Gabapentin [Neurontin] 600 mg PO QID 06/10/20 05/16/22 fentaNYL 12MCG/HR PATCH [Duragesic 12 mcg TRANSDERM Q72H 06/10/20 05/16/22 12MCG/HR] ramipriL [Altace] 10 mg PO DAILY 06/10/20 05/16/22 Albuterol Inhaler [Ventolin Hfa 2 puff INHALATION RT-Q6H PRN 05/16/22 05/16/22 Inhaler] HYDROcodone/APAP 5-325MG [[place] 1 tab PO BID PRN 05/16/22 05/16/22 5-325] Naproxen Sodium [Aleve] 220 mg PO Q8H PRN 05/16/22 05/16/22 Omeprazole 20 mg PO DAILY 05/16/22 05/16/22 metFORMIN HCL [Glucophage] 500 mg PO BID 05/16/22 05/16/22 Previous Rx's Medication Instructions Recorded Cefdinir [Omnicef] 300 mg PO Q12HR 5 Days #10 capsule 05/19/22 Nitrofurantoin Monohyd/M-Cryst 100 mg PO Q12HR #14 cap 01/21/23 [Macrobid] Ondansetron Odt [Zofran Odt] 4 mg PO Q8HR PRN #10 tab 01/21/23 Nitrofurantoin Monohyd/M-Cryst 100 mg PO Q12HR #14 cap 08/25/23 [Macrobid] Allergies Allergy/AdvReac Type Severity Reaction Status Date / Time nickel Allergy Unknown Verified 01/21/23 07:38 Review of Systems ROS Statement: Those systems with pertinent positive or pertinent negative responses have been documented in the HPI. ROS Other: All systems not noted in ROS Statement are negative. 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 colostomy - "due to ischemia of colon", another bowel surgery to remove part of colon r/t blockage, 1 heart stent Date of Last Stent Placement:: 2007 Past Psychological History: Depression Smoking Status: Current every day smoker Past Alcohol Use History: None Reported Past Drug Use History: None Reported - Past Family History Mother Family Medical History: COPD Father Family Medical History: Myocardial Infarction ([place]) General Exam - General Exam Comments Initial Comments: GENERAL: Patient is well-developed and well-nourished. Patient is nontoxic and well- hydrated and is in mild distress. ENT: Neck is soft and supple. No significant lymphadenopathy is noted. Oropharynx is clear. Dry mucous membranes. Neck has full range of motion without elicitin g any pain. EYES: The sclera were anicteric and conjunctiva were pink and moist. Extraocular mov ements were intact and pupils were equal round and reactive to light. Eyelids were unremarkable. PULMONARY: Unlabored respirations. Good breath sounds bilaterally. No audible rales rhonchi or wheezing was noted. CARDIOVASCULAR: There is a regular rate and rhythm without any murmurs gallops or rubs. ABDOMEN: Patient has mild epigastric abdominal tenderness SKIN: Skin is clear with no lesions or rashes and otherwise unremarkable. NEUROLOGIC: Patient is alert and oriented x3. Cranial nerves II through XII are grossly intact. Motor and sensory are also intact. Normal speech, volume and content. Symmetrical smile. MUSCULOSKELETAL: Patient has a prosthetic leg on the left side. There is no edema on the right side LYMPHATICS: No significant lymphadenopathy is noted PSYCHIATRIC: Normal psychiatric evaluation. Limitations: no limitations Course Vital Signs 08/25/23 08/25/23 13:07 14:09 Temperature 97.8 F Pulse Rate 127 H 110 H Respiratory 18 18 Rate Blood Pressure 81/57 84/56 O2 Sat by Pulse 97 96 Oximetry Medical Decision Making - Medical Decision Making Was pt. sent in by a medical professional or institution (, PA, FACTORY HAND, urgent care, hospital, or prison...) When possible be specific @ -No Did you speak to anyone other than the patient for history (EMS, parent, family, police, friend...)? What history was obtained from this source @ -No Did you review nursing and triage notes (agree or disagree)? Why? @ -I reviewed and agree with nursing and triage notes Were old charts reviewed (outside hosp., previous admission, EMS record, old EKG, old radiological studies, urgent care reports/EKG's, prison records)? Report findings @ -No old charts were reviewed Differential Diagnosis (chest pain, altered mental status, abdominal pain women, abdominal pain men, vaginal bleeding, weakness, fever, dyspnea, syncope, headache, dizziness, GI bleed, back pain, seizure, CVA, palpatations, mental health, musculoskeletal)? @ -Differential Abdominal Pain Women: Appendicitis, Cholecystitis, diverticulosis, ischemic bowel, pancreatitis, hepatitis, UTI, gastroenteritis, AAA, incarcerated hernia, bowel obstruction, co nstipation, inflammatory bowel, hepatitis, peptic ulcer disease, splenic infarction, perforated viscus, vulvitis, ovarian torsion, PID, kidney stone, placenta abruption, this is not meant to be an all-inclusive list EKG interpreted by me (3pts min.). @ -As above X-rays interpreted by me (1pt min.). @ -None done CT interpreted by me (1pt min.). @ -None done U/S interpreted by me (1pt. min.). @ -None done What testing was considered but not performed or refused? (CT, X-rays, U/S, labs)? Why? @ -None What meds were considered but not given or refused? Why? @ -None Did you discuss the management of the patient with other professionals (professionals i.e. , PA, FACTORY HAND, lab, RT, psych nurse, community mental health social worker, desilverizer, teacher, patrol community service officer, watch caser)? Give summary @ -No Was smoking cessation discussed for >3mins.? @ -No Was critical care preformed (if so, how long)? @ -No Were there social determinants of health that impacted care today? How? (Homelessness, low income, unemployed, alcoholism, drug addiction, transportation, low edu. Level, literacy, decrease access to med. care, mcc, rehab)? @ -No Was there de-escalation of care discussed even if they declined (Discuss DNR or withdrawal of care, Hospice)? DNR status @ -No What co-morbidities impacted this encounter? (DM, HTN, Smoking, COPD, CAD, Cancer, CVA, ARF, Chemo, Hep., AIDS, mental health diagnosis, sleep apnea, morbid obesity)? @ -None Was patient admitted / discharged? Hospital course, mention meds given and route, prescriptions, significant lab abnormalities, going to OR and other pertinent info. @ -Patient had a urinary tract infection. I gave the patient 2 g of Rocephin. Patient states the last time she had Macrobid it worked really well for her urinary tract infectious I wrote a prescription for Macrobid. Patient also received a liter and half of fluid. Patient states she has Zofran at home if she gets nauseated. Patient states she was comfortable going home at this time. Undiagnosed new problem with uncertain prognosis? @ -No Drug Therapy requiring intensive monitoring for toxicity (Heparin, Nitro, Insulin, Cardizem)? @ -No Were any procedures done? @ -No Diagnosis/symptom? @ -Urinary tract infection Acute, or Chronic, or Acute on Chronic? @ -Acute Uncomplicated (without systemic symptoms) or Complicated (systemic symptoms)? @ -Complicated Side effects of treatment? @ -No Exacerbation, Progression, or Severe Exacerbation? @ -No Poses a threat to life or bodily function? How? (Chest pain, [place], [place], pneumonia, PE, COPD, DKA, ARF, appy, cholecystitis, CVA, Diverticulitis, Homicidal, Suicidal, threat to staff... and all critical care pts) @ -No - Lab Data Result diagrams: 08/25/23 14:06 08/25/23 14:06 Lab Results 08/25/23 08/25/23 08/25/23 Range/Units 14:06 14:06 14:06 WBC 10.8 H (3.8-10.6) k/uL RBC 4.83 (3.80-5.40) m/uL Hgb 13.9 (11.4-16.0) gm/dL Hct 42.6 (34.0-46.0) % MCV 88.2 (80.0-100.0) fL MCH 28.9 (25.0-35.0) pg MCHC 32.7 (31.0-37.0) g/dL RDW 14.9 (11.5-15.5) % Plt Count 543 H (150-450) k/uL MPV 7.7 Neutrophils % 72 % Lymphocytes % 19 % Monocytes % 6 % Eosinophils % 1 % Basophils % 0 % Neutrophils # 7.8 H (1.3-7.7) k/uL Lymphocytes # 2.0 (1.0-4.8) k/uL Monocytes # 0.7 (0-1.0) k/uL Eosinophils # 0.1 (0-0.7) k/uL Basophils # 0.0 (0-0.2) k/uL Sodium 136 L (137-145) mmol/L Potassium 3.4 L (3.5-5.1) mmol/L Chloride 93 L (98-107) mmol/L Carbon Dioxide 26 (22-30) mmol/L Anion Gap 17 mmol/L BUN 15 (7-17) mg/dL Creatinine 0.92 (0.52-1.04) mg/dL Est GFR (CKD-EPI)AfAm 74 (>60 ml/min/1.73 sqM) Est GFR (CKD-EPI)NonAf 64 (>60 ml/min/1.73 sqM) Glucose 167 H (74-99) mg/dL Plasma Lactic Acid [place] 4.2 H* (0.7-2.0) mmol/L Calcium 9.6 (8.4-10.2) mg/dL Total Bilirubin 0.4 (0.2-1.3) mg/dL AST 21 (14-36) U/L ALT 18 (4-34) U/L Alkaline Phosphatase 118 (38-126) U/L Total Protein 7.3 (6.3-8.2) g/dL Albumin 3.8 (3.5-5.0) g/dL Amylase 62 (30-110) U/L Lipase 166 (23-300) U/L Urine Color Urine Appearance (Clear) Urine pH (5.0-8.0) Ur Specific [place] (1.001-1.035) Urine Protein (Negative) Urine Glucose (UA) (Negative) Urine Ketones (Negative) Urine Blood (Negative) Urine Nitrite (Negative) Urine Bilirubin (Negative) Urine Urobilinogen (<2.0) mg/dL Ur Leukocyte Esterase (Negative) Urine RBC (0-5) /hpf Urine WBC (0-5) /hpf Urine WBC Clumps (None) /hpf Ur Squamous Epith Cells (0-4) /hpf Hyaline Casts (0-2) /lpf Urine Mucus (None) /hpf 08/25/23 Range/Units 15:40 WBC (3.8-10.6) k/uL RBC (3.80-5.40) m/uL Hgb (11.4-16.0) gm/dL Hct (34.0-46.0) % MCV (80.0-100.0) fL MCH (25.0-35.0) pg MCHC (31.0-37.0) g/dL RDW (11.5-15.5) % Plt Count (150-450) k/uL MPV Neutrophils % % Lymphocytes % % Monocytes % % Eosinophils % % Basophils % % Neutrophils # (1.3-7.7) k/uL Lymphocytes # (1.0-4.8) k/uL Monocytes # (0-1.0) k/uL Eosinophils # (0-0.7) k/uL Basophils # (0-0.2) k/uL Sodium (137-145) mmol/L Potassium (3.5-5.1) mmol/L Chloride (98-107) mmol/L Carbon Dioxide (22-30) mmol/L Anion Gap mmol/L BUN (7-17) mg/dL Creatinine (0.52-1.04) mg/dL Est GFR (CKD-EPI)AfAm (>60 ml/min/1.73 sqM) Est GFR (CKD-EPI)NonAf (>60 ml/min/1.73 sqM) Glucose (74-99) mg/dL Plasma Lactic Acid [place] (0.7-2.0) mmol/L Calcium (8.4-10.2) mg/dL Total Bilirubin (0.2-1.3) mg/dL AST (14-36) U/L ALT (4-34) U/L Alkaline Phosphatase (38-126) U/L Total Protein (6.3-8.2) g/dL Albumin (3.5-5.0) g/dL Amylase (30-110) U/L Lipase (23-300) U/L Urine Color Light Yellow Urine Appearance Turbid H (Clear) Urine pH 6.0 (5.0-8.0) Ur Specific [place] 1.030 (1.001-1.035) Urine Protein 2+ H (Negative) Urine Glucose (UA) Negative (Negative) Urine Ketones Negative (Negative) Urine Blood Moderate H (Negative) Urine Nitrite Negative (Negative) Urine Bilirubin Negative (Negative) Urine Urobilinogen <2.0 (<2.0) mg/dL Ur Leukocyte Esterase Moderate (Negative) Urine RBC 18 H (0-5) /hpf Urine WBC >182 H (0-5) /hpf Urine WBC Clumps Many H (None) /hpf Ur Squamous Epith Cells 8 H (0-4) /hpf Hyaline Casts 146 H (0-2) /lpf Urine Mucus Moderate H (None) /hpf Disposition Clinical Impression: Urinary tract infection Disposition: HOME SELF-CARE Condition: Good Prescriptions: Nitrofurantoin Monohyd/M-Cryst [Macrobid] 100 mg PO Q12HR #14 cap Is patient prescribed a controlled substance at d/c from ED?: No Referrals: Randolph Renee DO [Primary Care Provider] - 1-2 days Time of Disposition: 16:23
[2023-08-25 14:51] LABS: Basophils % (A) 0 %; Eosinophils # (A) 0.1 k/uL (0-0.7); Eosinophils % (A) 1 %; HCT 42.6 % (34.0-46.0); HGB 13.9 gm/dL (11.4-16.0); Lymphocytes % (A) 19 %; MCH 28.9 pg (25.0-35.0); MCHC 32.7 g/dL (31.0-37.0); MCV 88.2 fL (80.0-100.0); Mean Platelet Volume 7.7; Monocytes # (A) 0.7 k/uL (0-1.0); Monocytes % (A) 6 %; Neutrophils # (A) 7.8 k/uL (1.3-7.7); Neutrophils % (A) 72 %; Platelet Count 543 k/uL (150-450); RBC 4.83 m/uL (3.80-5.40); RDW 14.9 % (11.5-15.5); WBC 10.8 k/uL (3.8-10.6)
[2023-08-25 14:55] LABS: ALT 18 U/L (4-34); AST 21 U/L (14-36); African American GFR (CKD) 74 (>60 ml/min/1.73 sqM); Albumin 3.8 g/dL (3.5-5.0); Alkaline Phosphatase 118 U/L (38-126); Amylase 62 U/L (30-110); Anion Gap 17 mmol/L; Blood Urea Nitrogen 15 mg/dL (7-17); Calcium 9.6 mg/dL (8.4-10.2); Carbon Dioxide 26 mmol/L (22-30); Chloride 93 mmol/L (98-107); Glucose 167 mg/dL (74-99); Lipase 166 U/L (23-300); Non-African American GFR(CKD) 64 (>60 ml/min/1.73 sqM); Potassium 3.4 mmol/L (3.5-5.1); Sodium 136 mmol/L (137-145); Total Bilirubin 0.4 mg/dL (0.2-1.3); Total Protein 7.3 g/dL (6.3-8.2)
[2023-08-25 16:05] LABS: Appearance,Urine Turbid (Clear); Color,Urine Light Yellow; Protein,Urine 2+ (Negative)
[2023-08-25 16:06] LABS: Bilirubin,Urine Negative (Negative); Blood,Urine Moderate (Negative); Glucose,Urine (UA) Negative (Negative); Ketones,Urine Negative (Negative); Leukocyte Esterase,Urine Moderate (Negative); Nitrite,Urine Negative (Negative); Urobilinogen,Urine <2.0 mg/dL (<2.0)
[2023-08-25 16:09] LABS: Hyaline Casts,Urine 146 /lpf (0-2); Mucus,Urine Moderate /hpf; RBC,Urine 18 /hpf (0-5); Squamous Epithelial Cell,Urine 8 /hpf (0-4); WBC,Urine >182 /hpf (0-5)
[2023-08-25] MEDS ORDERED: cefTRIAXone IN SWFI 1,000 MG/10 ML SYRINGE IVP STA (16:15)
[2023-08-25 16:50] VITALS: BP 106/65; PULSE 82; TEMP 98.3
== END 2023-08-25 17:11 | disposition home or self-care (01) ==
LOC: EC 13:03
DX: N39.0 Urinary tract infection, site not specified (principal); B96.20 Unspecified Escherichia coli [E. coli] as the cause of diseases classified elsewhere; J44.9 Chronic obstructive pulmonary disease, unspecified; E11.9 Type 2 diabetes mellitus without complications; I25.2 Old myocardial infarction; F17.200 Nicotine dependence, unspecified, uncomplicated; F32.A Depression, unspecified; Z79.84 Long term (current) use of oral hypoglycemic drugs; Z79.899 Other long term (current) drug therapy; Z79.82 Long term (current) use of aspirin; Z95.5 Presence of coronary angioplasty implant and graft; Z91.048 Other nonmedicinal substance allergy status
CPT/HCPCS: 36415; 80053; 82150; 83605; 83690; 85025; 81001; 87086; 87077; 87186; 99284; 96374; 96361 ×2; J0696

== ENCOUNTER → 2023-10-31 | Outpatient (CLI) | payer MEDICARE ==
[2023-10-31 13:35] LABS: African American GFR (CKD) >90 (>60 ml/min/1.73 sqM); Blood Urea Nitrogen 10 mg/dL (7-17); Non-African American GFR(CKD) >90 (>60 ml/min/1.73 sqM)
--- NOTE | 2023-10-31 15:04 | CT ---
EXAMINATION TYPE: CT abdomen pelvis w con DATE OF EXAM: 10/31/2023 COMPARISON: 06/10/2020 HISTORY: Benign essential microscopic hematuria. CT DLP: 944 mGycm Automated exposure control for dose reduction was used. TECHNIQUE: Helical acquisition of images was performed from the lung bases through the pelvis. CONTRAST: Performed with Oral Contrast and with IV Contrast, patient injected with 100 mL of Isovue 300. FINDINGS: Lung bases are clear. There is no gallstone, wall thickening or pericholecystic fluid. Gallbladder is mildly prominent in s ize. There is no biliary ductal dilatation. There is a small hypodensity medial segment left lobe liver which is seen previously is stable. There is no suspicious mass within the liver, pancreas, spleen and adrenal glands is no organomegaly. There is no solid renal mass or hydronephrosis. There are no filling defects within the collecting sy stems or ureters. Caliber of the abdominal aorta is normal and there is no retroperitoneal adenopathy. There is a large periumbilical hernia containing colon with no evidence of obstruction or strangulati on. There is a colostomy in the left upper quadrant. There appears to been a left hemicolectomy. There has been interval development of a large septated mainly cystic cystic and partially solid mass in the midline pelvis measuring 11.7 x 11.4 cm. It is highly suspicious for uterine or adnexal neopl asm. MRI of the pelvis useful for further evaluation. There is no pelvic adenopathy or free fluid The osseous structures are intact. IMPRESSION: 1. Interval development of a large pelvic mass highly suspicious for neoplasm. Follow-up with MRI is recommended for further evaluation. 2. Postsurgical changes involving the left colon and sigmoid colon with left upper quadrant colostomy . 3. Periumbilical hernia containing colon. No evidence of bowel obstruction. 4. No significant amount of the kidneys or collecting systems.
== END ==
LOC: RADCTMAIN 12:37
PROVIDERS: ATTEND Urology
DX: K42.9 Umbilical hernia without obstruction or gangrene (principal); R31.1 Benign essential microscopic hematuria; R19.00 Intra-abdominal and pelvic swelling, mass and lump, unspecified site; Z93.3 Colostomy status
CPT/HCPCS: 82565; 84520; 74177; 36415; Q9967

== ENCOUNTER → 2023-11-07 | Outpatient (CLI) | payer MEDICARE ==
--- NOTE | 2023-11-07 19:44 | MR ---
EXAMINATION TYPE: MR pelvis wo/w con DATE OF EXAM: 11/07/2023 7:42 AM CLINICAL INDICATION:Female, 68 years old with history of R19.00 Pelvic mass; PHH, Pelvic mass, Abnorm al CT COMPARISON: CT 10/31/2023, MRI 10/29/2021 TECHNIQUE: Triplane multisequence imaging was performed of the pelvis. IV Contrast: 5.5 cc Gadavist FINDINGS: Reproductive: Vagina: Unremarkable. Uterus: The uterus is displaced to the left secondary to mass described below. Endometrium is grossly within normal limits. Evaluation limited due to large mass. Ovaries: There is a complex adnexal mass felt to be arising from the left ovary measuring at least 10 .9 x 9.4 x 10.9 cm with mural soft tissue/mass which is also measuring at least 7.1 x 6.0 x 4.1 cm. N o mural soft tissue edematous postcontrast enhancement. And areas of intrinsic high T1 signal are see n suggestive of proteinaceous/hemorrhagic contents. Bladder: Unremarkable. Bowel: Unremarkable as visualized. Peritoneum: A small amount of free fluid in the pelvis. Lymph nodes: No evidence of adenopathy. Vasculature: Unremarkable. Musculoskeletal: Bone marrow signal is within normal signal intensity. Abdominal wall/soft tissues: Unremarkable. IMPRESSION: Complex cystic mass in the pelvis, thought to be arising from the right ovary with displacement of th e uterus leftward. There is internal soft tissue and postcontrast enhancement. Findings concerning fo r cystic ovarian neoplasm such as serous or mucinous cystadenocarcinoma. No evidence for lymphadenopa thy at this time. Findings are new from 10/29/2021 MRI Gynecologic surgical consultation recommended.
== END | disposition home or self-care (01) ==
LOC: RADMRIMAIN 06:09
PROVIDERS: ATTEND Urology
DX: R19.00 Intra-abdominal and pelvic swelling, mass and lump, unspecified site (principal); R93.89 Abnormal findings on diagnostic imaging of other specified body structures
CPT/HCPCS: 72197; A9585

== ENCOUNTER → 2024-06-08 | Outpatient (CLI) | payer MEDICARE ==
[2024-06-08 11:53] LABS: African American GFR (CKD) >90 (>60 ml/min/1.73 sqM); Blood Urea Nitrogen 8 mg/dL (7-17); Non-African American GFR(CKD) >90 (>60 ml/min/1.73 sqM)
--- NOTE | 2024-06-08 14:34 | CT ---
EXAMINATION TYPE: CT abdomen pelvis w con CT DLP: 433.5 mGycm, Automated exposure control for dose reduction was used. DATE OF EXAM: 06/08/2024 1:46 PM COMPARISON: CT abdomen pelvis 10/31/2023, 06/10/2020, MR pelvis 11/07/2023, MR abdomen 10/29/2021 CLINICAL INDICATION:Female, 68 years old with history of C56.9 OVARIAN CX; ovarian ca TECHNIQUE: Standard CT of the abdomen and pelvis following the administration of 100 cc of Isovue 3 00 IV contrast material and oral contrast. Coronal and sagittal reformats were performed. FINDINGS: LOWER CHEST: Unremarkable ABDOMEN LIVER: Stable peripheral left hepatic lobe 1.7 cm hypodense lesion. Stable dating back to 2019 and co nsidered benign. Likely hemangioma or focal fatty infiltration. No suspicious hepatic lesions. GALLBLADDER AND BILE DUCTS: Increased dilated gallbladder measuring up to 3.8 cm in diameter. Redemon stration of intra and extrahepatic biliary ductal the common bile duct measuring up to 1.1 cm of the pancreatic head. There is abrupt cut off of the common bile duct at the pancreatic head. PANCREAS: Redemonstration of pancreatic duct dilatation measuring up to 7 mm of the pancreatic head. There is abrupt cut off of the duct at the ampulla. SPLEEN: Unremarkable. ADRENAL GLANDS: Unremarkable. KIDNEYS AND URETERS: No evidence of hydronephrosis or renal calculus. The kidneys enhance symmetrical ly. Bilateral extrarenal pelvises. Right inferior pole cortical 1.1 cm cyst is increased in prior exa mination when it measured grossly 8 mm. Chest is demonstrated within both collecting systems on the d elayed phase. PELVIS BLADDER: Unremarkable REPRODUCTIVE: Interval surgical removal of previously seen pelvic cystic mass. No suspicious soft tis christina within this surgical bed to suggest recurrence. ABDOMEN & PELVIS STOMACH AND BOWEL: Circumferential wall thickening of the stomach. No surrounding inflammatory change s. Duodenum is unremarkable. Postsurgical changes with left mid anterolateral wall ostomy and Jo n pouch. Enteric contrast reaches the ascending colon. Colonic anastomosis is identified in the poste rior pelvis. No evidence of bowel obstruction. PERITONEUM: No evidence of pneumoperitoneum or free fluid. VASCULATURE: Mild atherosclerotic calcifications are present throughout the abdominal aorta and its b ranches. No evidence of aortic aneurysm. MUSCULOSKELETAL: No acute osseous abnormalities. No aggressive osseous lesion. LYMPH NODES: No evidence for lymphadenopathy. SOFT TISSUE/ABDOMINAL WALL: Left mid anterior abdominal wall ostomy. Parastomal fat-containing hernia identified. Additional postsurgical changes of the anterior wall from periumbilical hernia treatment . Small stable midline ventral wall epigastric region fat filled hernia. IMPRESSION: 1. Postsurgical changes from pelvic complex cystic mass removal. No suspicious soft tissue in the collins rgical bed to suggest recurrence. No definitive evidence for metastasis within the abdomen or pelvis. 2. Similar intra and extra hepatic biliary ductal dilatation with main pancreatic duct dilatation. Ag ain focal transition identified at the ampulla. No reported mass on prior MR 2021. Additionally dilat ation of the gallbladder which is mildly increased from prior CT. 3. Nonspecific circumferential wall thickening of the stomach. Could be seen with gastritis. Correlat e clinically. [facility], , 06/08/2024 2:32 PM
== END | disposition home or self-care (01) ==
LOC: RADCTMAIN 10:55
PROVIDERS: ATTEND Internal Medicine Hematology & Oncology
DX: C56.9 Malignant neoplasm of unspecified ovary
CPT/HCPCS: 36415; 74177; 82565; 84520

== ENCOUNTER 2024-06-15 11:08 | Day surgery (SDC) | payer MEDICARE ==
[2024-06-11 12:02] VITALS: BMI 21.5
[~2024-06-15 11:08] MED LIST: HYDROmorphone 0.5 MG/0.5 ML SYRINGE IVP PRN; MIDAZOLAM 2 MG/2 ML VIAL IV PRN; Pre Op ABX Message 1 EACH MISC MISCELLANE ONE
[2024-06-15 12:25] VITALS: RESP 16; TEMP 97.2
[2024-06-15] MEDS: IV FLUID CONTINUATION 1,000 ML IV ONE (12:30)
[2024-06-15] MEDS: LACTATED RINGERS 1,000 ML IV SCH (12:31)
[2024-06-15 12:33] LABS: Glucose,Whole Blood 132 mg/dL (70-110)
[2024-06-15] MEDS: ONDANSETRON 4 MG/2 ML VIAL IVP ONE (12:33)
[2024-06-15] MEDS: DEXAMETHASONE SOD PHOSPHATE 4 MG/ML 1 ML VIAL IV ONE (12:33)
[2024-06-15 12:34] LABS: Anisocytosis Slight; Basophils % (A) 1 %; Eosinophils # (A) 0.2 k/uL (0-0.7); Eosinophils % (A) 2 %; HCT 38.4 % (34.0-46.0); HGB 12.6 gm/dL (11.4-16.0); Lymphocytes # (A) 3.3 k/uL (1.0-4.8); Lymphocytes % (A) 43 %; MCH 28.5 pg (25.0-35.0); MCHC 32.7 g/dL (31.0-37.0); Mean Platelet Volume 7.4; Monocytes # (A) 0.3 k/uL (0-1.0); Monocytes % (A) 4 %; Neutrophils # (A) 3.5 k/uL (1.3-7.7); Neutrophils % (A) 47 %; Platelet Count 376 k/uL (150-450); RBC 4.41 m/uL (3.80-5.40); RDW 18.3 % (11.5-15.5); WBC 7.6 k/uL (3.8-10.6)
[2024-06-15 12:45] LABS: Glucose 133 mg/dL (74-99); Potassium 4.6 mmol/L (3.5-5.1); Sodium 140 mmol/L (137-145)
[2024-06-15 12:46] LABS: ALT 19 U/L (4-34); AST 32 U/L (14-36); African American GFR (CKD) >90 (>60 ml/min/1.73 sqM); Albumin 4.4 g/dL (3.5-5.0); Alkaline Phosphatase 67 U/L (38-126); Anion Gap 4 mmol/L; Blood Urea Nitrogen 13 mg/dL (7-17); Calcium 9.8 mg/dL (8.4-10.2); Carbon Dioxide 27 mmol/L (22-30); Chloride 109 mmol/L (98-107); Non-African American GFR(CKD) >90 (>60 ml/min/1.73 sqM); Total Bilirubin 0.6 mg/dL (0.2-1.3); Total Protein 7.7 g/dL (6.3-8.2)
[2024-06-15] MEDS ORDERED: MIDAZOLAM 2 MG/2 ML VIAL ONE (13:52)
[2024-06-15] MEDS ORDERED: LIDOCAINE 1% INJ 10MG/ML (20 ML MDV) ONE (13:52)
[2024-06-15] MEDS ORDERED: ceFAZolin 1 GM/50 ML BAG (PMX) ONE (13:52)
[2024-06-15] MEDS: SODIUM CHLORIDE 0.9% 50 ML with ceFAZolin 2,000 MG IV ONE (13:52)
[2024-06-15] MEDS ORDERED: fentaNYL (PF) 50 MCG/ML 2 ML AMP ONE (13:52)
[2024-06-15] MEDS ORDERED: PROPOFOL 10 MG/ML 20 ML VIAL IV ONE (13:52)
[2024-06-15] MEDS ORDERED: KETAMINE HCL IN 0.9 % NACL 50 MG/5 ML SYRINGE ONE (13:52)
[2024-06-15] MEDS: BUPIVACAINE (PF) 0.25% 30 ML VIAL SQ ONE ×2 (14:05)
--- NOTE | 2024-06-15 14:51 | P.OP ---
Date of Procedure: 06/15/24 Preoperative Diagnosis: Ovarian cancer Postoperative Diagnosis: Ovarian cancer Procedure(s) Performed: Mediport placement with fluoroscopy Anesthesia: MAC Surgeon: Joe Dent Pathology: none sent Condition: stable Disposition: same day Indications for Procedure: 68-year-old female with recent diagnosis of ovarian cancer. After consultation with her oncologist, decision has been made for chemotherapy induction. Plan is for Mediport placement with fluoroscopy. Risks, benefits and alternatives were provided to the patient including risk of bleeding, pneumothorax, infection. She did provide consent prior to attending the operating suite. Operative Findings: Appropriate flush and withdrawal from Mediport site Description of Procedure: Patient was brought to the operative suite and placed in supine position on the operating table. Sedation was provided by anesthesia and the patient underwent endotracheal intubation. She was then prepped and draped in regular sterile fashion. Right chest was marked and attempt was made to access the subclavian vein. 3 separate attempts were made with no success in passing the wire after flash was observed in the syringe. Decision was made to place in the internal jugular vein. Ultrasound was used and internal jugular vein was accessed on first attempt. Guidewire was placed and noted to be in appropriate position under fluoroscopy. At this point incision was made over the anticipated pocket for port site and hemostasis was maintained. Pocket was created with cautery. Tunnel was then created from this site to the guidewire insertion site on the right side of the neck. Catheter was inserted through the tunnel. Dilator sheath was placed over the guidewire under fluoroscopic guidance and catheter was then placed with sheath removal. Catheter appeared in appropriate position based on fluoroscopy. Catheter was attached to port site and appropriate flush and withdrawal of saline was noted. Port was secured to the pectoralis fascia using 2-0 Prolene suture. Hep-Lock was placed with continued appropriate flush and withdrawal. Wound was then closed with 3-0 Vicryl and 4-0 Vicryl subcuticular suture. Sterile dressing was applied. The patient was awakened in the operating suite and taken to postanesthesia care unit in stable condition with pending chest x-ray.
--- NOTE | 2024-06-15 15:02 | FL ---
EXAMINATION TYPE: FL guided central line placemt DATE OF EXAM: 06/15/2024 FLUOROSCOPY Port a cath with Omega 1 image scanned 24 sec fluoro time 368.84 DAP [facility], , 06/15/2024 3:00 PM
[2024-06-15 15:24] VITALS: BP 124/57; PULSE 65
--- NOTE | 2024-06-15 15:37 | XR ---
EXAMINATION TYPE: XR chest 1V portable DATE OF EXAM: 06/15/2024 Comparison: 05/16/2022 Clinical History: 68-year-old female Mediport placement Findings: Heart upper limits of normal in size. Right anterior chest wall injection port with catheter tip the brachiocephalic vein confluence. Hyperinflation. No consolidation or pleural effusion. Impression: Borderline heart size. COPD. No definite acute process. Right anterior chest wall injection port with catheter tip near the expected brachiocephalic vein confluence. [facility], , 06/15/2024 3:35 PM
== END 2024-06-15 15:59 | disposition home or self-care (01) ==
LOC: OR 11:08
PROVIDERS: ATTEND Surgery
CPT/HCPCS: 71045; 77001; 80053; 85025

== ENCOUNTER 2024-10-06 16:53 | Inpatient (IN) | payer MEDICARE ==
--- NOTE | 2024-10-06 17:28 | ED ---
Weakness HPI - General Source: patient, RN notes reviewed Mode of arrival: EMS <JomarGwendolyn - Last Filed: 10/06/24 17:26> <Georgia Montero - Last Filed: 10/06/24 23:03> - General Chief complaint: Weakness Stated complaint: bladder infection Time Seen by Provider: 10/06/24 17:26 - History of Present Illness Initial comments: Quick [id number] female with history of active ovarian cancer on chemo and pulmonary embolism presenting for weakness. Patient had chemotherapy this morning was on the phone with her daughter who reported patient was moaning in pain on the phone which prompted her to call EMS. Patient endorses, dysuria, s hortness of breath, and chills. Denies chest pain. She is on Eliquis for previous pulmonary embolism. (Gwendolyn Hadley) 69-year-old female with past medical history of COPD, diabetes, pulmonary embolisms, mesenteric ischemia status post colostomy, ovarian cancer on current chemotherapy who presents to the emergency department with weakness. Patient was on the phone with her daughter when she went unresponsive. EMS was called. Patient was tachycardic in the 130s. Patient was confused. States that she has not felt well. She is cold and concern for UTI as she has had malodorous urine and dysuria. Patient is on chemotherapy. Her last infusion was on October 28. She follows with Dr. Hadley. States she has had a poor appetite. Patient has history of PE and is on Eliquis. No report of any fevers. No other alleviating, precipitating or modifying factors (Georgia Montero) - Related Data Home Medications Medication Instructions Recorded Confirmed Atorvastatin [Lipitor] 40 mg PO DAILY 06/10/20 10/06/24 DULoxetine HCL [Cymbalta] 60 mg PO DAILY 06/10/20 10/06/24 Gabapentin [Neurontin] 600 mg PO QID 06/10/20 10/06/24 fentaNYL 12MCG/HR PATCH [Duragesic 1 patch TRANSDERM Q72H 06/10/20 10/06/24 12MCG/HR] Albuterol Inhaler [Ventolin Hfa 2 puff INHALATION RT-Q4H PRN 05/16/22 10/06/24 Inhaler] HYDROcodone/APAP 5-325MG [[place] 1 tab PO BID PRN 05/16/22 10/06/24 5-325] Apixaban [Eliquis] 5 mg PO BID 06/11/24 10/06/24 Aspirin 81 mg PO DAILY 06/11/24 10/06/24 Fluticasone/Vilanterol [Breo 1 puff INHALATION RT-DAILY 06/11/24 10/06/24 Ellipta 100-25 Mcg Inhalr] Insulin Aspart (Niacinamide) 4 units SQ TID-W/MEALS PRN 06/11/24 10/06/24 [Fiasp 100 Unit/ml Flextouch Pen] Insulin Glargine,Hum.rec.anlog 10 unit SQ HS 06/11/24 10/06/24 [Basaglar Kwikpen U-100] Metoprolol Tartrate [Lopressor] 50 mg PO BID 06/11/24 10/06/24 Pantoprazole [Protonix] 40 mg PO DAILY 06/11/24 10/06/24 amLODIPine [Norvasc] 10 mg PO DAILY 06/11/24 10/06/24 Ondansetron [Zofran] 4 - 8 mg PO Q4H PRN MDD 8 tabs 06/28/24 10/06/24 Omeprazole 20 mg PO DAILY 10/06/24 10/06/24 Allergies Allergy/AdvReac Type Severity Reaction Status Date / Time adhesive tape Allergy Rash/Hives Verified 10/06/24 20:07 nickel Allergy Unknown Verified 10/06/24 20:07 Review of Systems ROS Other: All systems not noted in ROS Statement are negative. <Gwendolyn Hadley - Last Filed: 10/06/24 17:26> ROS Other: All systems not noted in ROS Statement are negative. <Georgia Montero - Last Filed: 10/06/24 23:03> ROS Statement: Those systems with pertinent positive or pertinent negative responses have been documented in the HPI. 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 colostomy - "due to ischemia of colon", another bowel surgery to remove part of colon r/t blockage, 1 heart stent Past Anesthesia/Blood Transfusion Reactions: No Reported Reaction Additional Past Anesthesia/Blood Transfusion Reaction / Comment(s): no known blood transfusion Date of Last Stent Placement:: 2007 Past Psychological History: Depression Smoking Status: Former smoker Past Alcohol Use History: None Reported Past Drug Use History: None Reported - Past Family History Mother Family Medical History: COPD Father Family Medical History: Myocardial Infarction (SC) Additional Family Medical History / Comment(s): SC at age 62 <Gwendolyn Hadley - Last Filed: 10/06/24 17:26> General Exam <Gwendolyn Hadley - Last Filed: 10/06/24 17:26> - General Exam Comments Initial Comments: Visual Physical Exam Vital signs reviewed General: Well-appearing, nontoxic, no acute distress. Head: Normocephalic, atraumatic Eyes: PERRLA, EOMI ENT: Airway patent Chest: Nonlabored breathing Skin: No visual rash, normal skin tone Neuro: Alert and oriented 3 Musculoskeletal: No gross abnormalities (Gwendolyn Hadley) Course Vital Signs 10/06/24 10/06/24 16:56 18:00 Temperature 98.5 F 98.8 F Pulse Rate 119 H 110 H Respiratory 16 18 Rate Blood Pressure 109/71 105/58 O2 Sat by Pulse 96 96 Oximetry Medical Decision Making <Gwendolyn Hadley - Last Filed: 10/06/24 17:26> - Lab Data Result diagrams: 10/06/24 17:42 10/06/24 17:42 <Georgia Montero - Last Filed: 10/06/24 23:03> - Medical Decision Making I completed the quick note portion of this chart signed Gwendolyn Hadley PA-C (Gwendolyn Hadley) Was pt. sent in by a medical professional or institution ([facility], [employer], urgent care, hospital, or residential...) When possible be specific @ -[No] Did you speak to anyone other than the patient for history (EMS, parent, family, police, friend...)? What history was obtained from this source @ -[No] Did you review nursing and triage notes (agree or disagree)? Why? @ -[I reviewed and agree with nursing and triage notes] Were old charts reviewed (outside hosp., previous admission, EMS record, old EKG, old radiological studies, urgent care reports/EKG's, residential records)? Report findings @ -[No old charts were reviewed] Differential Diagnosis (chest pain, altered mental status, abdominal pain women, abdominal pain men, vaginal bleeding, weakness, fever, dyspnea, syncope, headache, dizziness, GI bleed, back pain, seizure, CVA, palpatations, mental health, musculoskeletal)? @ -[not applicable] EKG interpreted by me (3pts min.). @ -Yes and demonstrates sinus rhythm with a rate of 93. Parable 161. QRS 78. QTc of 392. No acute ST segment elevation. Mild ST depression V2 through V6 X-rays interpreted by me (1pt min.). @ -[None done] CT interpreted by me (1pt min.). @ -[None done] U/S interpreted by me (1pt. min.). @ -[None done] What testing was considered but not performed or refused? (CT, X-rays, U/S, labs)? Why? @ -[None] What meds were considered but not given or refused? Why? @ -[None] Did you discuss the management of the patient with other professionals (professionals i.e. , PA, [employer]TE[employer]IAN, lab, RT, psych nurse, social work administrator, canvas baster, teacher, ambulance officer, case resource manager)? Give summary @ -[No] Was smoking cessation discussed for >3mins.? @ -[No] Was critical care preformed (if so, how long)? @ -[No] Were there social determinants of health that impacted care today? How? (Homelessness, low income, unemployed, alcoholism, drug addiction, transportation, low edu. Level, literacy, decrease access to med. care, long term, rehab)? @ -[No] Was there de-escalation of care discussed even if they declined (Discuss DNR or withdrawal of care, Hospice)? DNR status @ -[No] What co-morbidities impacted this encounter? (DM, HTN, Smoking, COPD, CAD, Cancer, CVA, ARF, Chemo, Hep., AIDS, mental health diagnosis, sleep apnea, morbid obesity)? @ -[None] Was patient admitted / discharged? Hospital course, mention meds given and route, prescriptions, significant lab abnormalities, going to OR and other pertinent info. @ -[hospital course] Undiagnosed new problem with uncertain prognosis? @ -[No] Drug Therapy requiring intensive monitoring for toxicity (Heparin, Nitro, Insulin, Cardizem)? @ -[No] Were any procedures done? @ -[No] Diagnosis/symptom? @ -[default] Acute, or Chronic, or Acute on Chronic? @ -[default] Uncomplicated (without systemic symptoms) or Complicated (systemic symptoms)? @ -[default] Side effects of treatment? @ -[No] Exacerbation, Progression, or Severe Exacerbation? @ -[No] Poses a threat to life or bodily function? How? (Chest pain, USA, SC, pneumonia, PE, COPD, DKA, ARF, appy, cholecystitis, CVA, Diverticulitis, Homicidal, Suicidal, threat to staff... and all critical care pts) @ -[No] (Georgia Montero) - Lab Data Lab Results 10/06/24 10/06/24 10/06/24 Range/Units 17:42 17:42 17:42 WBC 8.0 (3.8-10.6) k/uL RBC 3.18 L (3.80-5.40) m/uL Hgb 10.3 L (11.4-16.0) gm/dL Hct 30.1 L (34.0-46.0) % MCV 94.6 (80.0-100.0) fL MCH 32.3 (25.0-35.0) pg MCHC 34.2 (31.0-37.0) g/dL RDW 14.5 (11.5-15.5) % Plt Count 152 (150-450) k/uL MPV 9.0 Neutrophils % 72 % Lymphocytes % 14 % Monocytes % 10 % Eosinophils % 0 % Basophils % 0 % Neutrophils # 5.7 (1.3-7.7) k/uL Lymphocytes # 1.2 (1.0-4.8) k/uL Monocytes # 0.8 (0-1.0) k/uL Eosinophils # 0.0 (0-0.7) k/uL Basophils # 0.0 (0-0.2) k/uL PT 15.7 H (10.0-12.5) sec INR 1.5 H (<1.2) APTT 29.0 (22.0-30.0) sec Sodium (137-145) mmol/L Potassium (3.5-5.1) mmol/L Chloride (98-107) mmol/L Carbon Dioxide (22-30) mmol/L Anion Gap mmol/L BUN (7-17) mg/dL Creatinine (0.52-1.04) mg/dL Est GFR (CKD-EPI)AfAm (>60 ml/min/1.73 sqM) Est GFR (CKD-EPI)NonAf (>60 ml/min/1.73 sqM) Glucose (74-99) mg/dL Lactic Ac Sepsis Rflx Plasma Lactic Acid Donovan (0.7-2.0) mmol/L Calcium (8.4-10.2) mg/dL Magnesium (1.6-2.3) mg/dL Total Bilirubin (0.2-1.3) mg/dL AST (14-36) U/L ALT (4-34) U/L Alkaline Phosphatase (38-126) U/L Troponin I (0.000-0.034) ng/mL Total Protein (6.3-8.2) g/dL Albumin (3.5-5.0) g/dL Urine Color Yellow Urine Appearance Turbid H (Clear) Urine pH 6.0 (5.0-8.0) Ur Specific [place] 1.018 (1.001-1.035) Urine Protein 3+ H (Negative) Urine Glucose (UA) Trace H (Negative) Urine Ketones Negative (Negative) Urine Blood Moderate H (Negative) Urine Nitrite Negative (Negative) Urine Bilirubin Negative (Negative) Urine Urobilinogen <2.0 (<2.0) mg/dL Ur Leukocyte Esterase Large H (Negative) Urine RBC 31 H (0-5) /hpf Urine WBC >182 H (0-5) /hpf Urine WBC Clumps Many H (None) /hpf Ur Squamous Epith Cells 2 (0-4) /hpf Urine Bacteria Occasional H (None) /hpf Urine Mucus Few H (None) /hpf Influenza Type A (PCR) (Not Detectd) Influenza Type B (PCR) (Not Detectd) RSV (PCR) (Not Detectd) SARS-CoV-2 (PCR) (Not Detectd) 10/06/24 10/06/24 10/06/24 Range/Units 17:42 17:42 17:42 WBC (3.8-10.6) k/uL RBC (3.80-5.40) m/uL Hgb (11.4-16.0) gm/dL Hct (34.0-46.0) % MCV (80.0-100.0) fL MCH (25.0-35.0) pg MCHC (31.0-37.0) g/dL RDW (11.5-15.5) % Plt Count (150-450) k/uL MPV Neutrophils % % Lymphocytes % % Monocytes % % Eosinophils % % Basophils % % Neutrophils # (1.3-7.7) k/uL Lymphocytes # (1.0-4.8) k/uL Monocytes # (0-1.0) k/uL Eosinophils # (0-0.7) k/uL Basophils # (0-0.2) k/uL PT (10.0-12.5) sec INR (<1.2) APTT (22.0-30.0) sec Sodium 133 L (137-145) mmol/L Potassium 2.8 L (3.5-5.1) mmol/L Chloride 97 L (98-107) mmol/L Carbon Dioxide 23 (22-30) mmol/L Anion Gap 13 mmol/L BUN 10 (7-17) mg/dL Creatinine 0.75 (0.52-1.04) mg/dL Est GFR (CKD-EPI)AfAm >90 (>60 ml/min/1.73 sqM) Est GFR (CKD-EPI)NonAf 82 (>60 ml/min/1.73 sqM) Glucose 167 H (74-99) mg/dL Lactic Ac Sepsis Rflx Plasma Lactic Acid Donovan 2.6 H* (0.7-2.0) mmol/L Calcium 6.2 L* (8.4-10.2) mg/dL Magnesium <0.4 L* (1.6-2.3) mg/dL Total Bilirubin 0.8 (0.2-1.3) mg/dL AST 23 (14-36) U/L ALT 12 (4-34) U/L Alkaline Phosphatase 52 (38-126) U/L Troponin I <0.012 (0.000-0.034) ng/mL Total Protein 6.2 L (6.3-8.2) g/dL Albumin 3.6 (3.5-5.0) g/dL Urine Color Urine Appearance (Clear) Urine pH (5.0-8.0) Ur Specific [place] (1.001-1.035) Urine Protein (Negative) Urine Glucose (UA) (Negative) Urine Ketones (Negative) Urine Blood (Negative) Urine Nitrite (Negative) Urine Bilirubin (Negative) Urine Urobilinogen (<2.0) mg/dL Ur Leukocyte Esterase (Negative) Urine RBC (0-5) /hpf Urine WBC (0-5) /hpf Urine WBC Clumps (None) /hpf Ur Squamous Epith Cells (0-4) /hpf Urine Bacteria (None) /hpf Urine Mucus (None) /hpf Influenza Type A (PCR) (Not Detectd) Influenza Type B (PCR) (Not Detectd) RSV (PCR) (Not Detectd) SARS-CoV-2 (PCR) (Not Detectd) 10/06/24 10/06/24 Range/Units 17:42 18:48 WBC (3.8-10.6) k/uL RBC (3.80-5.40) m/uL Hgb (11.4-16.0) gm/dL Hct (34.0-46.0) % MCV (80.0-100.0) fL MCH (25.0-35.0) pg MCHC (31.0-37.0) g/dL RDW (11.5-15.5) % Plt Count (150-450) k/uL MPV Neutrophils % % Lymphocytes % % Monocytes % % Eosinophils % % Basophils % % Neutrophils # (1.3-7.7) k/uL Lymphocytes # (1.0-4.8) k/uL Monocytes # (0-1.0) k/uL Eosinophils # (0-0.7) k/uL Basophils # (0-0.2) k/uL PT (10.0-12.5) sec INR (<1.2) APTT (22.0-30.0) sec Sodium (137-145) mmol/L Potassium (3.5-5.1) mmol/L Chloride (98-107) mmol/L Carbon Dioxide (22-30) mmol/L Anion Gap mmol/L BUN (7-17) mg/dL Creatinine (0.52-1.04) mg/dL Est GFR (CKD-EPI)AfAm (>60 ml/min/1.73 sqM) Est GFR (CKD-EPI)NonAf (>60 ml/min/1.73 sqM) Glucose (74-99) mg/dL Lactic Ac Sepsis Rflx Y Plasma Lactic Acid Donovan (0.7-2.0) mmol/L Calcium (8.4-10.2) mg/dL Magnesium (1.6-2.3) mg/dL Total Bilirubin (0.2-1.3) mg/dL AST (14-36) U/L ALT (4-34) U/L Alkaline Phosphatase (38-126) U/L Troponin I (0.000-0.034) ng/mL Total Protein (6.3-8.2) g/dL Albumin (3.5-5.0) g/dL Urine Color Urine Appearance (Clear) Urine pH (5.0-8.0) Ur Specific [place] (1.001-1.035) Urine Protein (Negative) Urine Glucose (UA) (Negative) Urine Ketones (Negative) Urine Blood (Negative) Urine Nitrite (Negative) Urine Bilirubin (Negative) Urine Urobilinogen (<2.0) mg/dL Ur Leukocyte Esterase (Negative) Urine RBC (0-5) /hpf Urine WBC (0-5) /hpf Urine WBC Clumps (None) /hpf Ur Squamous Epith Cells (0-4) /hpf Urine Bacteria (None) /hpf Urine Mucus (None) /hpf Influenza Type A (PCR) Not Detected (Not Detectd) Influenza Type B (PCR) Not Detected (Not Detectd) RSV (PCR) Not Detected (Not Detectd) SARS-CoV-2 (PCR) Not Detected (Not Detectd) Disposition <Gwendolyn Hadley - Last Filed: 10/06/24 17:26> Is patient prescribed a controlled substance at d/c from ED?: No Time of Disposition: 20:15 Decision to Admit Reason: Admit from EC Decision Date: 10/06/24 Decision Time: 20:15 <Georgia Montero - Last Filed: 10/06/24 23:03> Clinical Impression: UTI (urinary tract infection), Hypocalcemia, Hypokalemia, Hypomagnesemia Disposition: ADMITTED IP TO THIS HOSP Condition: Stable
--- NOTE | 2024-10-06 17:42 | XR ---
EXAMINATION TYPE: XR chest 2V DATE OF EXAM: 10/06/2024 5:37 PM COMPARISON: Chest radiographs from 06/15/2024 TECHNIQUE: XR chest 2V Frontal and lateral views of the chest. CLINICAL INDICATION:Female, 69 years old with history of shortness of breath; FINDINGS: Lungs/Pleura: There is no evidence of pleural effusion, focal consolidation, or pneumothorax. Pulmonary vascularity: Unremarkable. Heart/mediastinum: Cardiomediastinal silhouette is unremarkable. Musculoskeletal: No acute osseous pathology. Other findings: None Lines/Tubes: [id number] projecting over the right hemithorax with distal tip at the right brachiocephalic confl uence in stable position. IMPRESSION: No acute cardiopulmonary disease process. [facility], , 10/06/2024 5:40 PM
[2024-10-06 18:11] LABS: Appearance,Urine Turbid (Clear); Bacteria,Urine Occasional /hpf; Bilirubin,Urine Negative (Negative); Blood,Urine Moderate (Negative); Color,Urine Yellow; Glucose,Urine (UA) Trace (Negative); Ketones,Urine Negative (Negative); Leukocyte Esterase,Urine Large (Negative); Mucus,Urine Few /hpf; Nitrite,Urine Negative (Negative); Protein,Urine 3+ (Negative); RBC,Urine 31 /hpf (0-5); Specific Gravity,Urine 1.018 (1.001-1.035); Squamous Epithelial Cell,Urine 2 /hpf (0-4); Urobilinogen,Urine <2.0 mg/dL (<2.0); WBC,Urine >182 /hpf (0-5)
[2024-10-06 18:22] LABS: INR 1.5 (<1.2); Prothrombin Time 15.7 sec (10.0-12.5)
[2024-10-06 18:27] LABS: Basophils % (A) 0 %; Eosinophils % (A) 0 %; HCT 30.1 % (34.0-46.0); HGB 10.3 gm/dL (11.4-16.0); Lymphocytes # (A) 1.2 k/uL (1.0-4.8); Lymphocytes % (A) 14 %; MCH 32.3 pg (25.0-35.0); MCHC 34.2 g/dL (31.0-37.0); MCV 94.6 fL (80.0-100.0); Monocytes # (A) 0.8 k/uL (0-1.0); Monocytes % (A) 10 %; Neutrophils # (A) 5.7 k/uL (1.3-7.7); Neutrophils % (A) 72 %; Platelet Count 152 k/uL (150-450); RBC 3.18 m/uL (3.80-5.40); RDW 14.5 % (11.5-15.5)
[2024-10-06 18:36] LABS: Influenza A Not Detected (Not Detectd); Influenza B Not Detected (Not Detectd); RSV Not Detected (Not Detectd)
[2024-10-06 19:01] LABS: ALT 12 U/L (4-34); AST 23 U/L (14-36); African American GFR (CKD) >90 (>60 ml/min/1.73 sqM); Albumin 3.6 g/dL (3.5-5.0); Alkaline Phosphatase 52 U/L (38-126); Anion Gap 13 mmol/L; Blood Urea Nitrogen 10 mg/dL (7-17); Carbon Dioxide 23 mmol/L (22-30); Chloride 97 mmol/L (98-107); Glucose 167 mg/dL (74-99); Non-African American GFR(CKD) 82 (>60 ml/min/1.73 sqM); Potassium 2.8 mmol/L (3.5-5.1); Sodium 133 mmol/L (137-145); Total Bilirubin 0.8 mg/dL (0.2-1.3); Total Protein 6.2 g/dL (6.3-8.2)
[2024-10-06 19:11] LABS: Calcium 6.2 mg/dL (8.4-10.2)
[2024-10-06 19:12] LABS: Magnesium <0.4 mg/dL (1.6-2.3)
[2024-10-06] MEDS ORDERED: NALOXONE 0.4 MG/ML 1 ML VIAL IV PRN (20:15)
[2024-10-06] MEDS ORDERED: ALBUTEROL NEBULIZED 2.5 MG/3 ML INHALATION PRN (20:23)
[2024-10-06] MEDS ORDERED: INSULIN ASPART (NovoLOG) 100 UNIT/ML VIAL SQ PRN (20:23)
[2024-10-06] MEDS: SODIUM CHLORIDE 0.9% 1,000 ML IV SCH (21:04)
[2024-10-06] MEDS: POTASSIUM CHLORIDE 20 MEQ in WATER FOR INJECTION 1 100ML.BAG IVPB STA (21:05)
[2024-10-06] MEDS: METOPROLOL TARTRATE 50 MG TAB PO SCH (21:09)
[2024-10-06] MEDS: APIXABAN 5 MG TAB PO SCH (21:09)
[2024-10-06] MEDS: POTASSIUM CHLORIDE ER 20 MEQ TAB.ER PO STA (21:09)
[2024-10-06] MEDS: cefTRIAXone IN SWFI 1,000 MG/10 ML SYRINGE IVP STA (21:10)
[2024-10-06] MEDS: INSULIN DETEMIR (LEVEMIR) 100 UNIT/ML SYR SQ SCH (21:10)
[2024-10-06] MEDS: GABAPENTIN 300 MG CAP PO SCH (21:13)
[2024-10-06] MEDS: ONDANSETRON 4 MG TAB PO PRN (21:45)
[2024-10-06] MEDS: MAGNESIUM SULFATE-D5W PMX 1 GM in DEXTROSE/WATER 1 100ML.BAG IVPB SCH (22:04)
--- NOTE | 2024-10-06 22:32 | P.HPIM ---
History of Present Illness H&P Date: 10/06/24 Chief Complaint: Weakness Patient is a 69-year-old female with past medical history of ovarian cancer currently undergoing chemotherapy (follows with Dr. Calvin Hadley), mesenteric ischemia status post colostomy,history of pulmonary embolisms on Eliquis, COPD, and diabetes who presents to the ED with chief complaint of feeling extremely fatigued since her last chemotherapy session on September 27 and believes she has a UTI. She states her last session is supposed to be sometime in October. Patient states she had 2 MIs and multiple PEs in December of last year. Patient states she has had a poor appetite although she is a diabetic and states she has been compliant with her insulin. She endorses chills, vomiting, dysuria, diarrhea. She denies abdominal pain, cough, fever, sick contacts, constipation. Per ED note review, it was noted that the patient was on the phone with her daughter when she went unresponsive and EMS was called. At the time, the patient was tachycardic in the 130s and she was confused. Currently, patient appears to be cold but oriented and provides the history stated above. Vitals on admission temperature 98.5, heart rate 119, respiratory rate 16, blood pressure 109/71, O2 saturation 96% on EKG independently interpreted as sinus rhythm, rate of 93 bpm and QTc of 392 ms CXR shows no acute cardiopulmonary process Labs on admission show WBCs 8, hemoglobin 10.3, MCV 94.6, platelets 152. PT 15.7, INR 1.5, PTT 29. Sodium 133, potassium 2.8, chloride 97, bicarb 23, BUN 10, creatinine 0.75, glucose 167. Lactic acid 2.6. Calcium 6.2. Magnesium <0.4. Troponin negative. Urinalysis was positive for leukocyte esterase, RBCs, WBCs, and bacteria. Cepheid was negative. Review of systems: Pertinent positives and negatives as discussed in HPI, a complete review of systems was performed and all other systems are negative. Allergies: NKDA PCP:Dr. Renee Social history: Tobacco:none Alcohol: none Recreational drugs: none Travel: none Sick contacts: none Physical examination: Vital signs reviewed General: Frail-appearing, mild distress, appears at stated age, appears tremulous endorsing chills, Derm: warm, dry, intact Head: atraumatic, normocephalic, symmetric Eyes: anicteric sclera Mouth: no lip lesion, mucus membranes moist Cardiovascular: S1 S2 reg, no murmur, right Mediport visualized without surrounding erythema Lungs: Diminished breath sounds bilaterally, no wheezing, rhonchi, rales Abdominal: soft, non tender to palpation, colostomy bag in place appears functional Extremities: Left BKA with prosthetic, right leg nonedematous Neuro: Alert, Oriented to person, time and place, Gross neurological examination did not reveal any focal deficits. Cranial nerves II to XII grossly intact. Bilateral upper and lower extremity muscle strength intact and sensation intact. Psych: well appearing, appropriate affect Assessment/Plan: Patient is a 69 year old with past medical ovarian cancer currently undergoing chemotherapy, mesenteric ischemia status post colostomy, history of PEs on Eliquis, COPD, and diabetes who presents to the ED with chief complaint of weakness and dysuria. Case was discussed with the ER physician and patient will be admitted to internal medicine service for further evaluation. Active: Malnourishment likely secondary to underlying malignancy requiring chemotherapy Hyponatremia, hypokalemia, hypocalcemia, hypomagnesemia Continue 0.9% NS at 130 mL/h Potassium chloride 40 mEq p.o. and 20 mEq IV received in ER IV magnesium sulfate started in ER IV Calcium gluconate given Continue to monitor with BMPs UTI present on admission Patient has history of E. coli infection sensitive to ceftriaxone Continue IV ceftriaxone 1 g daily Follow-up urine culture and adjust antibiotic coverage if necessary Follow-up blood cultures Monitor for signs of sepsis Lactic acidosis Continue to trend lactate Continue with IV fluids Hyperglycemia in insulin-dependent diabetic Resume home Levemir at 10 units SQ at bedtime Low insulin sliding scale Accu-Cheks per ACHS protocol Hypoglycemia precautions Ovarian cancer, currently undergoing chemotherapy Consult heme-onc Chronic: Hypertension, currently slightly hypotensive Resume amlodipine 10 mg Resume Lopressor 50 mg twice daily Hold BP meds if systolic less than 110 Hyperlipidemia Continue Lipitor 40 mg daily Chronic pain Continue fentanyl patch every 72 hours Continue gabapentin 600 mg 4 times daily Continue [place] 53 25 twice daily Continue duloxetine 60 mg GERD Continue Protonix 40 mg F: 0.9% NS at 130 mL/h E: Replete as needed N: Regular A: As tolerated DVT prophylaxis: Eliquis 5 mg twice daily for history of PE The patient is admitted with an anticipated more than 2 midnight stay for evaluation of malnourishment and UTI CODE STATUS: Full code Discussed with: Patient Anticipated discharge place: Pending clinical course Past Medical History Past Medical History: Cancer, Pulmonary Embolus (PE) Additional Past Medical History / Comment(s): ischemic of colon 2017, uti's, Last Myocardial Infarction Date:: 2009 History of Any Multi-Drug Resistant Organisms: MRSA Date of last positivie culture/infection: 2006 MDRO Source:: left leg Past Surgical History: Heart Catheterization With Stent, Hysterectomy Additional Past Surgical History / Comment(s): left Below the knee amputation r/t fall, nonhealing infection after mulitple surgeries. colostomy - "due to ischemia of colon", another bowel surgery to remove part of colon r/t blockage, 1 heart stent Past Anesthesia/Blood Transfusion Reactions: No Reported Reaction Additional Past Anesthesia/Blood Transfusion Reaction / Comment(s): no known blood transfusion Date of Last Stent Placement:: 2007 Past Psychological History: Depression Smoking Status: Former smoker Past Alcohol Use History: None Reported Past Drug Use History: None Reported - Past Family History Mother Family Medical History: COPD Father Family Medical History: Myocardial Infarction (NH) Additional Family Medical History / Comment(s): NH at age 62 Medications and Allergies Home Medications Medication Instructions Recorded Confirmed Type Atorvastatin [Lipitor] 40 mg PO DAILY 06/10/20 10/06/24 History DULoxetine HCL [Cymbalta] 60 mg PO DAILY 06/10/20 10/06/24 History Gabapentin [Neurontin] 600 mg PO QID 06/10/20 10/06/24 History fentaNYL 12MCG/HR PATCH [Duragesic 1 patch TRANSDERM Q72H 06/10/20 10/06/24 History 12MCG/HR] Albuterol Inhaler [Ventolin Hfa 2 puff INHALATION RT-Q4H PRN 05/16/22 10/06/24 History Inhaler] HYDROcodone/APAP 5-325MG [Converse 1 tab PO BID PRN 05/16/22 10/06/24 History 5-325] Apixaban [Eliquis] 5 mg PO BID 06/11/24 10/06/24 History Aspirin 81 mg PO DAILY 06/11/24 10/06/24 History Fluticasone/Vilanterol [Breo 1 puff INHALATION RT-DAILY 06/11/24 10/06/24 History Ellipta 100-25 Mcg Inhalr] Insulin Aspart (Niacinamide) 4 units SQ TID-W/MEALS PRN 06/11/24 10/06/24 History [Fiasp 100 Unit/ml Flextouch Pen] Insulin Glargine,Hum.rec.anlog 10 unit SQ HS 06/11/24 10/06/24 History [Basaglar Kwikpen U-100] Metoprolol Tartrate [Lopressor] 50 mg PO BID 06/11/24 10/06/24 History Pantoprazole [Protonix] 40 mg PO DAILY 06/11/24 10/06/24 History amLODIPine [Norvasc] 10 mg PO DAILY 06/11/24 10/06/24 History Ondansetron [Zofran] 4 - 8 mg PO Q4H PRN MDD 8 tabs 06/28/24 10/06/24 History Omeprazole 20 mg PO DAILY 10/06/24 10/06/24 History Allergies Allergy/AdvReac Type Severity Reaction Status Date / Time adhesive tape Allergy Rash/Hives Verified 10/06/24 20:07 nickel Allergy Unknown Verified 10/06/24 20:07 Physical Exam Vitals: Vital Signs Temp Pulse Resp BP Pulse Ox 10/06/24 18:00 98.8 F 110 H 18 105/58 96 10/06/24 16:56 98.5 F 119 H 16 109/71 96 Intake and Output 10/06/24 10/06/24 10/06/24 06:59 14:59 22:59 Other: Voiding Method Toilet Weight 52.163 kg Results CBC & Chem 7: 10/06/24 17:42 10/06/24 17:42 Labs: Abnormal Lab Results - Last 24 Hours (Table) 10/06/24 10/06/24 10/06/24 Range/Units 17:42 17:42 17:42 RBC 3.18 L (3.80-5.40) m/uL Hgb 10.3 L (11.4-16.0) gm/dL Hct 30.1 L (34.0-46.0) % PT 15.7 H (10.0-12.5) sec INR 1.5 H (<1.2) Sodium (137-145) mmol/L Potassium (3.5-5.1) mmol/L Chloride (98-107) mmol/L Glucose (74-99) mg/dL Plasma Lactic Acid Donovan (0.7-2.0) mmol/L Calcium (8.4-10.2) mg/dL Magnesium (1.6-2.3) mg/dL Total Protein (6.3-8.2) g/dL Urine Appearance Turbid H (Clear) Urine Protein 3+ H (Negative) Urine Glucose (UA) Trace H (Negative) Urine Blood Moderate H (Negative) Ur Leukocyte Esterase Large H (Negative) Urine RBC 31 H (0-5) /hpf Urine WBC >182 H (0-5) /hpf Urine WBC Clumps Many H (None) /hpf Urine Bacteria Occasional H (None) /hpf Urine Mucus Few H (None) /hpf 10/06/24 10/06/24 Range/Units 17:42 17:42 RBC (3.80-5.40) m/uL Hgb (11.4-16.0) gm/dL Hct (34.0-46.0) % PT (10.0-12.5) sec INR (<1.2) Sodium 133 L (137-145) mmol/L Potassium 2.8 L (3.5-5.1) mmol/L Chloride 97 L (98-107) mmol/L Glucose 167 H (74-99) mg/dL Plasma Lactic Acid Donovan 2.6 H* (0.7-2.0) mmol/L Calcium 6.2 L* (8.4-10.2) mg/dL Magnesium <0.4 L* (1.6-2.3) mg/dL Total Protein 6.2 L (6.3-8.2) g/dL Urine Appearance (Clear) Urine Protein (Negative) Urine Glucose (UA) (Negative) Urine Blood (Negative) Ur Leukocyte Esterase (Negative) Urine RBC (0-5) /hpf Urine WBC (0-5) /hpf Urine WBC Clumps (None) /hpf Urine Bacteria (None) /hpf Urine Mucus (None) /hpf
[2024-10-06] MEDS: ACETAMINOPHEN TAB 325 MG TAB PO PRN (23:11)
[2024-10-06] MEDS: CALCIUM GLUCONATE IN NACL 2 GM in SALINE 1 100ML.BAG IVPB ONE (23:32)
[2024-10-07] MEDS ORDERED: DEXTROSE 50% SYRINGE 50 ML IVP PRN ×2 (00:14)
[2024-10-07 00:51] LABS: Glucose,Whole Blood 153 mg/dL (70-110)
[2024-10-07] MEDS: MAGNESIUM SULFATE-D5W PMX 1 GM in DEXTROSE/WATER 1 100ML.BAG IVPB SCH (06:45)
[2024-10-07 07:45] LABS: Glucose,Whole Blood 173 mg/dL (70-110)
[2024-10-07 08:07] LABS: Ionized Calcium 3.8 mg/dL (4.5-5.3)
[2024-10-07] MEDS: SYMBICORT 80-4.5 MCG INHALER INHALATION SCH (08:43)
[2024-10-07] MEDS: INSULIN ASPART (NovoLOG) 100 UNIT/ML VIAL SQ SCH (08:44)
[2024-10-07] MEDS: ASPIRIN 81 MG PO SCH (08:45)
[2024-10-07] MEDS: DULoxetine HCL 60 MG CAPSULE.DR PO SCH (08:45)
[2024-10-07] MEDS: amLODIPine 10 MG TAB PO SCH (08:46)
[2024-10-07] MEDS: ATORVASTATIN 40 MG TAB PO SCH (08:47)
[2024-10-07] MEDS: PANTOPRAZOLE 40 MG TABLET PO SCH (08:47)
[2024-10-07] MEDS ORDERED: PANTOPRAZOLE 40 MG TABLET PO SCH (09:00)
[2024-10-07 10:45] LABS: Basophils # (A) 0.04 X 10*3/uL (0.00-0.10); Basophils % (A) 0.6 %; Eosinophils # (A) 0 X 10*3/uL (0.04-0.35); Eosinophils % (A) 0 %; HCT 26.5 % (37.2-46.3); HGB 8.6 g/dL (12.0-15.0); Lymphocytes % (A) 14.1 %; MCH 31.2 pg (27.0-32.0); MCHC 32.5 g/dL (32.0-37.0); Mean Platelet Volume 10.9 FL (9.5-12.2); Monocytes # (A) 0.99 X 10*3/uL (0.20-1.00); Monocytes % (A) 15.5 %; NRBC Per 100 WBC 0 X 10*3/uL (0.00-0.01); Neutrophils # (A) 4.44 X 10*3/uL (1.80-7.70); Neutrophils % (A) 69.3 %; Platelet Count 124 X 10*3/uL (140-440); RBC 2.76 X 10*6/uL (4.10-5.20); RDW 14.7 % (11.5-14.5)
[2024-10-07 12:05] LABS: Glucose,Whole Blood 146 mg/dL (70-110)
--- NOTE | 2024-10-07 13:10 | P.PN ---
Subjective Progress Note Date: 10/07/24 Patient is a 69-year-old female with past medical history of ovarian cancer currently undergoing chemotherapy (follows with Dr. Calvin Hadley), mesenteric ischemia status post colostomy,history of pulmonary embolisms on Eliquis, COPD, and diabetes who presents to the ED with chief complaint of feeling extremely fatigued since her last chemotherapy session on September 27 and believes she has a UTI. She states her last session is supposed to be sometime in October. Patient states she had 2 MIs and multiple PEs in December of last year. Patient states she has had a poor appetite although she is a diabetic and states she has been compliant with her insulin. She endorses chills, vomiting, dysuria, di arrhea. She denies abdominal pain, cough, fever, sick contacts, constipation. Per ED note review, it was noted that the patient was on the phone with her daughter when she went unresponsive and EMS was called. At the time, the patient was tachycardic in the 130s and she was confused. Currently, patient appears to be cold but oriented and provides the history stated above. 10/07/24 - Patient seen and examined at bedside this morning. States she is feeling better now than when she had first arrived in the emergency department. She has no acute complaints at this time. Review of systems: Pertinent positives and negatives as discussed in HPI, a complete review of systems was performed and all other systems are negative. Physical examination: Vital signs reviewed General: Frail-appearing, mild distress, appears at stated age, appears tremulous endorsing chills, Derm: warm, dry, intact Head: atraumatic, normocephalic, symmetric Eyes: anicteric sclera Mouth: no lip lesion, mucus membranes moist Cardiovascular: S1 S2 reg, no murmur, right Mediport visualized without surrounding erythema Lungs: Diminished breath sounds bilaterally, no wheezing, rhonchi, rales Abdominal: soft, non tender to palpation, colostomy bag in place appears functional Extremities: Left BKA with prosthetic, right leg nonedematous Neuro: Alert, Oriented to person, time and place, Gross neurological examination did not reveal any focal deficits. Cranial nerves II to XII grossly intact. Bilateral upper and lower extremity muscle strength intact and sensation intact. Psych: well appearing, appropriate affect New dated today: Labs: Pending at the time of dictation Assessment/Plan: Patient is a 69 year old with past medical ovarian cancer currently undergoing chemotherapy, mesenteric ischemia status post colostomy, history of PEs on Eliquis, COPD, and diabetes who presents to the ED with chief complaint of weakness and dysuria. Case was discussed with the ER physician and patient will be admitted to internal medicine service for further evaluation. Active: #Malnourishment likely secondary to underlying malignancy requiring chemotherapy #Hyponatremia, hypokalemia, hypocalcemia, hypomagnesemia -Continue 0.9% NS at 130 mL/h -Potassium chloride 40 mEq p.o. and 20 mEq IV received in ER -IV magnesium sulfate started in ER (has received 5 bags, 5 g, so far out of total of 8 ordered) -IV Calcium gluconate given (2 g) -Continue to monitor with BMPs and replenish as needed #Complicated UTI, present on admission -Patient has history of E. coli infection sensitive to ceftriaxone -Continue IV ceftriaxone 1 g daily -Follow-up urine culture and adjust antibiotic coverage if necessary -Follow-up blood cultures -Monitor for signs of sepsis #Lactic acidosis, resolved -2.6 => 2.5 => 1.3 -Continue with IV fluids #Hyperglycemia in insulin-dependent diabetic -Resume home Levemir at 10 units SQ at bedtime -Low insulin sliding scale -Accu-Cheks per ACHS protocol -Hypoglycemia precautions #Ovarian cancer, currently undergoing chemotherapy -Follows as an outpatient with Dr. Calvin Hadley, consult has been placed to he matology/oncology Chronic: #Hypertension, currently slightly hypotensive -Resume amlodipine 10 mg -Resume Lopressor 50 mg twice daily -Hold BP meds if systolic less than 110 #Hyperlipidemia -Continue Lipitor 40 mg daily #Chronic pain -Continue fentanyl patch every 72 hours -Continue gabapentin 600 mg 4 times daily -Continue [place] 53 25 twice daily -Continue duloxetine 60 mg #GERD -Continue Protonix 40 mg F: 0.9% NS at 130 mL/h E: Replete as needed N: Regular A: As tolerated GI prophylaxis: Continue home Protonix 40 mg daily DVT prophylaxis: Eliquis 5 mg twice daily for history of PE The patient is admitted with an anticipated more than 2 midnight stay for evaluation of malnourishment and UTI CODE STATUS: Full code Discussed with: Patient Anticipated discharge place: Pending clinical course I saw and evaluated the patient during the sandoval and critical portions of this encounter, and discussed the case in detail with the resident author of this note, I agree with the Assessment and Plan, and my changes, if any, are highlighted below. Objective - Vital Signs Vital signs: Vital Signs Temp 99.7 F H 10/07/24 07:40 Pulse 101 H 10/07/24 07:40 Resp 16 10/07/24 00:02 BP 125/64 10/07/24 07:40 Pulse Ox 97 10/07/24 00:02 FiO2 Intake & Output 10/06/24 10/07/24 10/07/24 18:59 06:59 18:59 Output Total 450 Balance -450 Weight 52.163 kg 52.163 kg Output: Urine 450 Other: Voiding Method Toilet - Labs CBC & Chem 7: 10/07/24 04:11 10/06/24 17:42 Labs: Abnormal Lab Results - Last 24 Hours (Table) 10/06/24 10/06/24 10/06/24 Range/Units 17:42 17:42 17:42 RBC 3.18 L (3.80-5.40) m/uL Hgb 10.3 L (11.4-16.0) gm/dL Hct 30.1 L (34.0-46.0) % PT 15.7 H (10.0-12.5) sec INR 1.5 H (<1.2) Sodium (137-145) mmol/L Potassium (3.5-5.1) mmol/L Chloride (98-107) mmol/L Glucose (74-99) mg/dL POC Glucose (mg/dL) (70-110) mg/dL Plasma Lactic Acid Donovan (0.7-2.0) mmol/L Calcium (8.4-10.2) mg/dL Ionized Calcium Meliza (4.5-5.3) mg/dL Magnesium (1.6-2.3) mg/dL Total Protein (6.3-8.2) g/dL Urine Appearance Turbid H (Clear) Urine Protein 3+ H (Negative) Urine Glucose (UA) Trace H (Negative) Urine Blood Moderate H (Negative) Ur Leukocyte Esterase Large H (Negative) Urine RBC 31 H (0-5) /hpf Urine WBC >182 H (0-5) /hpf Urine WBC Clumps Many H (None) /hpf Urine Bacteria Occasional H (None) /hpf Urine Mucus Few H (None) /hpf 10/06/24 10/06/24 10/06/24 Range/Units 17:42 17:42 21:30 RBC (3.80-5.40) m/uL Hgb (11.4-16.0) gm/dL Hct (34.0-46.0) % PT (10.0-12.5) sec INR (<1.2) Sodium 133 L (137-145) mmol/L Potassium 2.8 L (3.5-5.1) mmol/L Chloride 97 L (98-107) mmol/L Glucose 167 H (74-99) mg/dL POC Glucose (mg/dL) (70-110) mg/dL Plasma Lactic Acid Donovan 2.6 H* (0.7-2.0) mmol/L Calcium 6.2 L* (8.4-10.2) mg/dL Ionized Calcium Meliza 3.4 L* (4.5-5.3) mg/dL Magnesium <0.4 L* (1.6-2.3) mg/dL Total Protein 6.2 L (6.3-8.2) g/dL Urine Appearance (Clear) Urine Protein (Negative) Urine Glucose (UA) (Negative) Urine Blood (Negative) Ur Leukocyte Esterase (Negative) Urine RBC (0-5) /hpf Urine WBC (0-5) /hpf Urine WBC Clumps (None) /hpf Urine Bacteria (None) /hpf Urine Mucus (None) /hpf 10/06/24 10/07/24 10/07/24 Range/Units 21:30 00:49 07:44 RBC (3.80-5.40) m/uL Hgb (11.4-16.0) gm/dL Hct (34.0-46.0) % PT (10.0-12.5) sec INR (<1.2) Sodium (137-145) mmol/L Potassium (3.5-5.1) mmol/L Chloride (98-107) mmol/L Glucose (74-99) mg/dL POC Glucose (mg/dL) 153 H 173 H (70-110) mg/dL Plasma Lactic Acid Donovan 2.5 H* (0.7-2.0) mmol/L Calcium (8.4-10.2) mg/dL Ionized Calcium Meliza (4.5-5.3) mg/dL Magnesium (1.6-2.3) mg/dL Total Protein (6.3-8.2) g/dL Urine Appearance (Clear) Urine Protein (Negative) Urine Glucose (UA) (Negative) Urine Blood (Negative) Ur Leukocyte Esterase (Negative) Urine RBC (0-5) /hpf Urine WBC (0-5) /hpf Urine WBC Clumps (None) /hpf Urine Bacteria (None) /hpf Urine Mucus (None) /hpf
[2024-10-07 14:16] VITALS: BMI 21.0
[2024-10-07 17:24] LABS: Glucose,Whole Blood 204 mg/dL (70-110)
[2024-10-07 17:44] LABS: HCT 25.8 % (34.0-46.0); MCH 32.1 pg (25.0-35.0); MCV 97.1 fL (80.0-100.0); Platelet Count 109 k/uL (150-450); RBC 2.65 m/uL (3.80-5.40); RDW 14.7 % (11.5-15.5)
[2024-10-07 17:46] LABS: African American GFR (CKD) >90 (>60 ml/min/1.73 sqM); Anion Gap 8 mmol/L; Blood Urea Nitrogen 6 mg/dL (7-17); Calcium 6.5 mg/dL (8.4-10.2); Carbon Dioxide 22 mmol/L (22-30); Chloride 99 mmol/L (98-107); Glucose 180 mg/dL (74-99); Magnesium 2.5 mg/dL (1.6-2.3); Non-African American GFR(CKD) >90 (>60 ml/min/1.73 sqM); Phosphorus 2.2 mg/dL (2.5-4.5); Sodium 129 mmol/L (137-145)
[2024-10-07 17:49] LABS: Potassium 2.3 mmol/L (3.5-5.1)
[2024-10-07 17:50] LABS: HGB 8.5 gm/dL (11.4-16.0)
[2024-10-07] MEDS: POTASSIUM CHLORIDE ER 20 MEQ TAB.ER PO SCH (18:22)
[2024-10-07] MEDS: POTASSIUM CHLORIDE 10 MEQ in WATER FOR INJECTION 1 100ML.BAG IVPB SCH (18:23)
[2024-10-07 19:13] LABS: Band Neutrophils % 3 %; Monocytes # (M) 0.55 k/uL (0-1.0); Neutrophils % (M) 64 %; Nucleated Red Blood Cells 0 /100 WBC (0-0); Total Cells Counted 100
[2024-10-07 19:14] LABS: RBC Morphology Normal
[2024-10-07 20:39] LABS: Glucose,Whole Blood 240 mg/dL (70-110)
[2024-10-07] MEDS: HYDROcodone/APAP 5-325MG 1 EACH TAB PO PRN (20:47)
--- NOTE | 2024-10-07 20:50 | P.CONS ---
History of Present Illness - Reason for Consult Consult date: 10/07/24 ovarian cancer Requesting physician: Georgia Montero - Chief Complaint weakness, confusion - History of Present Illness Patient is a 69-year-old female with past medical history of ovarian cancer, who follows with Dr. Hadley and Dr. Ojeda ([facility]) at [facility] for adjuvant therapy for ovarian cancer. She initially presented with recurrent UTIs, was found to have large pelvic mass, evaluation by [facility] revealed ovarian carcinoma. The patient was evaluated by Dr Ojeda, was taken to OR abd had VICTORIANO+BSO, resections of bowels and extensive adhesions. Procedure was complicated by Bilateral central PEs, requiring thrombectomies and anticoagulation, had dehesence of abdominal wounds, complicated post-op course. She has then fully recovered and is being referred to us for adjuvant chemotherapy. She was then started on adjuvant carbo/taxol. Taxol dose reduced due to complaints of progressing peripheral neurpathies. Patient presented to emergency room with complaints of progressive weakness and confusion. Upon admit UA suspicious for UTI patient was started on Rocephin. Urine culture positive for E. coli. T max 102.9. Patient is also reporting diarrhea and nausea vomiting since treatment. C-diff pending. Labs upon admit, showed hypomagnesia and hypokalemia. Supplementation has been ordered. Lactic acid 2.6. CBC showing WBC WBC 6.4, hemoglobin 8.6, platelets 124,000. 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 colostomy - "due to ischemia of colon", another bowel surgery to remove part of colon r/t blockage, 1 heart stent Past Anesthesia/Blood Transfusion Reactions: No Reported Reaction Additional Past Anesthesia/Blood Transfusion Reaction / Comm: no known blood transfusion Date of Last Stent Placement:: 2007 Past Psychological History: Depression Smoking Status: Former smoker Past Alcohol Use History: None Reported Past Drug Use History: None Reported - Past Family History Mother Family Medical History: COPD Father Family Medical History: Myocardial Infarction (NH) Additional Family Medical History / Comment(s): NH at age 62 Medications and Allergies Home Medications Medication Instructions Recorded Confirmed Type Atorvastatin [Lipitor] 40 mg PO DAILY 06/10/20 10/06/24 History DULoxetine HCL [Cymbalta] 60 mg PO DAILY 06/10/20 10/06/24 History Gabapentin [Neurontin] 600 mg PO QID 06/10/20 10/06/24 History fentaNYL 12MCG/HR PATCH [Duragesic 1 patch TRANSDERM Q72H 06/10/20 10/06/24 History 12MCG/HR] Albuterol Inhaler [Ventolin Hfa 2 puff INHALATION RT-Q4H PRN 05/16/22 10/06/24 History Inhaler] HYDROcodone/APAP 5-325MG [[place] 1 tab PO BID PRN 05/16/22 10/06/24 History 5-325] Apixaban [Eliquis] 5 mg PO BID 06/11/24 10/06/24 History Aspirin 81 mg PO DAILY 06/11/24 10/06/24 History Fluticasone/Vilanterol [Breo 1 puff INHALATION RT-DAILY 06/11/24 10/06/24 History Ellipta 100-25 Mcg Inhalr] Insulin Aspart (Niacinamide) 4 units SQ TID-W/MEALS PRN 06/11/24 10/06/24 History [Fiasp 100 Unit/ml Flextouch Pen] Insulin Glargine,Hum.rec.anlog 10 unit SQ HS 06/11/24 10/06/24 History [Basaglar Kwikpen U-100] Metoprolol Tartrate [Lopressor] 50 mg PO BID 06/11/24 10/06/24 History Pantoprazole [Protonix] 40 mg PO DAILY 06/11/24 10/06/24 History amLODIPine [Norvasc] 10 mg PO DAILY 06/11/24 10/06/24 History Ondansetron [Zofran] 4 - 8 mg PO Q4H PRN MDD 8 tabs 06/28/24 10/06/24 History Omeprazole 20 mg PO DAILY 10/06/24 10/06/24 History Allergies Allergy/AdvReac Type Severity Reaction Status Date / Time adhesive tape Allergy Rash/Hives Verified 10/06/24 20:07 nickel Allergy Unknown Verified 10/06/24 20:07 Physical Exam Vitals: Vital Signs Temp Pulse Pulse Resp BP BP Pulse Ox 10/07/24 07:41 18 10/07/24 07:40 99.7 F H 101 H 125/64 10/07/24 03:36 99.2 F 10/07/24 00:02 100.1 F H 83 16 119/67 97 10/06/24 23:12 102.9 F H 98 20 118/57 97 10/06/24 18:00 98.8 F 110 H 18 105/58 96 10/06/24 16:56 98.5 F 119 H 16 109/71 96 Intake and Output 10/06/24 10/07/24 10/07/24 22:59 06:59 14:59 Output Total 450 225 Balance -450 -225 Output: Urine 450 Other 225 Other: Voiding Method Toilet # Bowel Movements 1 Weight 52.163 kg 52.163 kg - Constitutional General appearance: average body habitus, no acute distress - EENT Eyes: anicteric sclerae, EOMI ENT: hearing grossly normal - Respiratory breathing is even and unlabored - Cardiovascular skin warm and dry - Gastrointestinal General gastrointestinal: soft, no tenderness - Integumentary Integumentary: no cyanotic - Musculoskeletal Musculoskeletal: generalized weakness - Psychiatric Psychiatric: A&O x's 3 Results CBC & Chem 7: 10/07/24 16:58 10/07/24 16:58 Labs: Abnormal Lab Results - Last 24 Hours (Table) 10/06/24 10/06/24 10/06/24 Range/Units 17:42 17:42 17:42 RBC 3.18 L (3.80-5.40) m/uL Hgb 10.3 L (11.4-16.0) gm/dL Hct 30.1 L (34.0-46.0) % RDW (11.5-14.5) % Plt Count (140-440) X 10*3/uL Eosinophils # (0.04-0.35) X 10*3/uL PT 15.7 H (10.0-12.5) sec INR 1.5 H (<1.2) Sodium (137-145) mmol/L Potassium (3.5-5.1) mmol/L Chloride (98-107) mmol/L Glucose (74-99) mg/dL POC Glucose (mg/dL) (70-110) mg/dL Plasma Lactic Acid Donovan (0.7-2.0) mmol/L Calcium (8.4-10.2) mg/dL Ionized Calcium Meliza (4.5-5.3) mg/dL Magnesium (1.6-2.3) mg/dL Total Protein (6.3-8.2) g/dL Urine Appearance Turbid H (Clear) Urine Protein 3+ H (Negative) Urine Glucose (UA) Trace H (Negative) Urine Blood Moderate H (Negative) Ur Leukocyte Esterase Large H (Negative) Urine RBC 31 H (0-5) /hpf Urine WBC >182 H (0-5) /hpf Urine WBC Clumps Many H (None) /hpf Urine Bacteria Occasional H (None) /hpf Urine Mucus Few H (None) /hpf 10/06/24 10/06/24 10/06/24 Range/Units 17:42 17:42 21:30 RBC (3.80-5.40) m/uL Hgb (11.4-16.0) gm/dL Hct (34.0-46.0) % RDW (11.5-14.5) % Plt Count (140-440) X 10*3/uL Eosinophils # (0.04-0.35) X 10*3/uL PT (10.0-12.5) sec INR (<1.2) Sodium 133 L (137-145) mmol/L Potassium 2.8 L (3.5-5.1) mmol/L Chloride 97 L (98-107) mmol/L Glucose 167 H (74-99) mg/dL POC Glucose (mg/dL) (70-110) mg/dL Plasma Lactic Acid Donovan 2.6 H* (0.7-2.0) mmol/L Calcium 6.2 L* (8.4-10.2) mg/dL Ionized Calcium Meliza 3.4 L* (4.5-5.3) mg/dL Magnesium <0.4 L* (1.6-2.3) mg/dL Total Protein 6.2 L (6.3-8.2) g/dL Urine Appearance (Clear) Urine Protein (Negative) Urine Glucose (UA) (Negative) Urine Blood (Negative) Ur Leukocyte Esterase (Negative) Urine RBC (0-5) /hpf Urine WBC (0-5) /hpf Urine WBC Clumps (None) /hpf Urine Bacteria (None) /hpf Urine Mucus (None) /hpf 10/06/24 10/07/24 10/07/24 Range/Units 21:30 00:49 04:11 RBC 2.76 L (3.80-5.40) m/uL Hgb 8.6 L (11.4-16.0) gm/dL Hct 26.5 L (34.0-46.0) % RDW 14.7 H (11.5-14.5) % Plt Count 124 L (140-440) X 10*3/uL Eosinophils # 0 L (0.04-0.35) X 10*3/uL PT (10.0-12.5) sec INR (<1.2) Sodium (137-145) mmol/L Potassium (3.5-5.1) mmol/L Chloride (98-107) mmol/L Glucose (74-99) mg/dL POC Glucose (mg/dL) 153 H (70-110) mg/dL Plasma Lactic Acid Donovan 2.5 H* (0.7-2.0) mmol/L Calcium (8.4-10.2) mg/dL Ionized Calcium Meliza (4.5-5.3) mg/dL Magnesium (1.6-2.3) mg/dL Total Protein (6.3-8.2) g/dL Urine Appearance (Clear) Urine Protein (Negative) Urine Glucose (UA) (Negative) Urine Blood (Negative) Ur Leukocyte Esterase (Negative) Urine RBC (0-5) /hpf Urine WBC (0-5) /hpf Urine WBC Clumps (None) /hpf Urine Bacteria (None) /hpf Urine Mucus (None) /hpf 10/07/24 10/07/24 10/07/24 Range/Units 04:11 07:44 12:03 RBC (3.80-5.40) m/uL Hgb (11.4-16.0) gm/dL Hct (34.0-46.0) % RDW (11.5-14.5) % Plt Count (140-440) X 10*3/uL Eosinophils # (0.04-0.35) X 10*3/uL PT (10.0-12.5) sec INR (<1.2) Sodium (137-145) mmol/L Potassium (3.5-5.1) mmol/L Chloride (98-107) mmol/L Glucose (74-99) mg/dL POC Glucose (mg/dL) 173 H 146 H (70-110) mg/dL Plasma Lactic Acid Donovan (0.7-2.0) mmol/L Calcium (8.4-10.2) mg/dL Ionized Calcium Meliza 3.8 L (4.5-5.3) mg/dL Magnesium (1.6-2.3) mg/dL Total Protein (6.3-8.2) g/dL Urine Appearance (Clear) Urine Protein (Negative) Urine Glucose (UA) (Negative) Urine Blood (Negative) Ur Leukocyte Esterase (Negative) Urine RBC (0-5) /hpf Urine WBC (0-5) /hpf Urine WBC Clumps (None) /hpf Urine Bacteria (None) /hpf Urine Mucus (None) /hpf Assessment and Plan (1) Ovarian cancer Current Visit: Yes Status: Acute Priority: High Code(s): C56.9 - MALIGNANT NEOPLASM OF UNSPECIFIED OVARY SNOMED Code(s): 525444449 (2) Hypokalemia Current Visit: Yes Status: Acute Priority: High Code(s): E87.6 - HYPOKALEMIA SNOMED Code(s): 30541505 (3) Hypomagnesemia Current Visit: Yes Status: Acute Priority: High Code(s): E83.42 - HYPOMAGNESEMIA SNOMED Code(s): 113845818 (4) UTI (urinary tract infection) Current Visit: Yes Status: Acute Code(s): N39.0 - URINARY TRACT INFECTION, SITE NOT SPECIFIED SNOMED Code(s): 12669753 Plan: UTI, N/V/D: Presented with complaints of progressive weakness and confusion. -Upon admit UA suspicious for UTI, patient was started on Rocephin. -Urine culture positive for E. coli. T max 102.9. -Patient is also reporting diarrhea and nausea vomiting since treatment. C-diff pending -Magnesium, potassium replaced Ovarian cancer: -Oncology history as dictated in the HPI -Had VICTORIANO+BSO, resections of bowels and extensive adhesions. Procedure was complicated by Bilateral central PEs, requiring thrombectomies and anticoagulation, had dehesence of abdominal wounds -Started adjuvant chemotherapy with carbo/taxol. Taxol dose reduced due to complaints of progressing peripheral neuropathies -Treatment will be held until recovered form acute condition Doctor attests: I performed a history and physical examination of this patient, developed impression and plan of care. Discussed with dictator. I agree with dictators note, documented as a scribe.
[2024-10-07] MEDS ORDERED: INSULIN DETEMIR (LEVEMIR) 100 UNIT/ML SYR SQ SCH (21:00)
[2024-10-07] MEDS: INSULIN DETEMIR (LEVEMIR) 100 UNIT/ML SYR SQ SCH (21:59)
[2024-10-08 03:04] LABS: BUN/Creat Ratio 10.71 Ratio (12.00-20.00); Blood Urea Nitrogen 7.5 mg/dL (9.0-27.0); Calcium 6.9 mg/dL (8.7-10.3); Carbon Dioxide 21.7 mmol/L (21.6-31.8); Chloride 100 mmol/L (96-109); Glucose 152 mg/dL (70-110); Magnesium 1.5 mg/dL (1.5-2.4); Potassium 3.4 mmol/L (3.5-5.5); Sodium 136 mmol/L (135-145)
[2024-10-08 06:53] LABS: HCT 22.5 % (34.0-46.0); HGB 7.6 gm/dL (11.4-16.0); MCH 32.7 pg (25.0-35.0); MCHC 33.8 g/dL (31.0-37.0); MCV 96.9 fL (80.0-100.0); Mean Platelet Volume 8.9; Platelet Count 107 k/uL (150-450); RBC 2.32 m/uL (3.80-5.40); RDW 14.4 % (11.5-15.5)
[2024-10-08 07:17] LABS: Glucose,Whole Blood 98 mg/dL (70-110)
[2024-10-08 07:21] LABS: African American GFR (CKD) >90 (>60 ml/min/1.73 sqM); Anion Gap 9 mmol/L; Blood Urea Nitrogen 4 mg/dL (7-17); Calcium 6.8 mg/dL (8.4-10.2); Carbon Dioxide 21 mmol/L (22-30); Chloride 100 mmol/L (98-107); Glucose 94 mg/dL (74-99); Non-African American GFR(CKD) >90 (>60 ml/min/1.73 sqM); Potassium 3.1 mmol/L (3.5-5.1); Sodium 130 mmol/L (137-145)
[2024-10-08] MEDS: POTASSIUM CHLORIDE ER 20 MEQ TAB.ER PO STA ×2 (09:29→17:27)
--- NOTE | 2024-10-08 11:13 | P.PN ---
Subjective Progress Note Date: 10/08/24 Patient is a 69-year-old female with past medical history of ovarian cancer currently undergoing chemotherapy (follows with Dr. Calvin Hadley), mesenteric ischemia status post colostomy,history of pulmonary embolisms on Eliquis, COPD, and diabetes who presents to the ED with chief complaint of feeling extremely fatigued since her last chemotherapy session on September 27 and believes she has a UTI. She states her last session is supposed to be sometime in October. Patient states she had 2 MIs and multiple PEs in December of last year. Patient states she has had a poor appetite although she is a diabetic and states she has been compliant with her insulin. She endorses chills, vomiting, dysuria, di arrhea. She denies abdominal pain, cough, fever, sick contacts, constipation. Per ED note review, it was noted that the patient was on the phone with her daughter when she went unresponsive and EMS was called. At the time, the patient was tachycardic in the 130s and she was confused. Currently, patient appears to be cold but oriented and provides the history stated above. 10/07/24 - Patient seen and examined at bedside this morning. States she is feeling better now than when she had first arrived in the emergency department. She has no acute complaints at this time. 10/08/24 - Patient seen and examined at bedside this morning. States overnight she had worsening back pain, for which she was given a heating pad. Additionally, notes that she feels especially cold this morning. However, she has no acute complaints at this time. Review of systems: Pertinent positives and negatives as discussed in HPI, a complete review of systems was performed and all other systems are negative. Physical examination: Vital signs reviewed General: Frail-appearing, mild distress, appears at stated age, appears tremulous endorsing chills, Derm: warm, dry, intact Head: atraumatic, normocephalic, symmetric Eyes: anicteric sclera Mouth: no lip lesion, mucus membranes moist Cardiovascular: S1 S2 reg, no murmur, right Mediport visualized without surrounding erythema Lungs: Diminished breath sounds bilaterally, no wheezing, rhonchi, rales Abdominal: soft, non tender to palpation, colostomy bag in place appears functional Extremities: Left BKA with prosthetic, right leg nonedematous Neuro: Alert, Oriented to person, time and place, Gross neurological examination did not reveal any focal deficits. Cranial nerves II to XII grossly intact. Bi lateral upper and lower extremity muscle strength intact and sensation intact. Psych: well appearing, appropriate affect New dated today: Labs: WBCs 4.0, hemoglobin 7.6, hematocrit 22.5, platelet 107; sodium 130, potassium 3.1, BUN 4, creatinine 0.54, calcium 6.8, magnesium 1.7 Assessment/Plan: Patient is a 69 year old with past medical ovarian cancer currently undergoing chemotherapy, mesenteric ischemia status post colostomy, history of PEs on Eliquis, COPD, and diabetes who presents to the ED with chief complaint of weakness and dysuria. Case was discussed with the ER physician and patient will be admitted to internal medicine service for further evaluation. Active: #Malnourishment likely secondary to underlying malignancy requiring chemotherapy #Hyponatremia, hypokalemia, hypocalcemia, hypomagnesemia - resolved, hypophosphatemia -Continue 0.9% NS at 130 mL/h -Potassium chloride 40 mEq p.o. and 20 mEq IV received in ER -IV magnesium sulfate started in ER (has received 5 bags, 5 g, so far out of total of 8 ordered) -IV Calcium gluconate given (2 g) -Sodium trend: 133 => 136 => 129 => 130 -Potassium trend: 2.8 => 3.4 => 2.3 => 4.1 => 3.1 -She received 60 mEq p.o. potassium chloride and 40 mEq IV potassium chloride yesterday -Order placed for additional 40 mEq p.o. potassium chloride, continue to monitor potassium closely -Calcium trend: 6.2=> 6.9 => 6.5 => 6.8 -Magnesium trend:<0.4 => 1.5 => 2.5 => 1.7 -Ordered an additional 2 g magnesium sulfate -Continue to monitor with BMPs and replenish as needed #Worsening anemia -Hemoglobin trend: 10.3 => 8.6 => 8.5 => 7.6 -Continue to monitor CBC, possibly dilutional -Blood transfusion if hemoglobin <7 #Complicated UTI, present on admission -Patient has history of E. coli infection sensitive to ceftriaxone -Continue IV ceftriaxone 1 g daily -Follow-up urine culture and adjust antibiotic coverage if necessary -Follow-up blood cultures; preliminary blood culture negative -Monitor for signs of sepsis #Lactic acidosis, resolved -2.6 => 2.5 => 1.3 -Continue with IV fluids #Hyperglycemia in insulin-dependent diabetic -Resume home Levemir at 10 units SQ at bedtime -Low insulin sliding scale -Accu-Cheks per [facility] protocol -Hypoglycemia precautions #Ovarian cancer, currently undergoing chemotherapy -Follows as an outpatient with Dr. Calvin Hadley, consult has been placed to hematology/oncology Chronic: #Hypertension, currently slightly hypotensive -Resume amlodipine 10 mg -Resume Lopressor 50 mg twice daily -Hold BP meds if systolic less than 110 #Hyperlipidemia -Continue Lipitor 40 mg daily #Chronic pain -Continue fentanyl patch every 72 hours -Continue gabapentin 600 mg 4 times daily -Continue [place] 53 25 twice daily -Continue duloxetine 60 mg #GERD -Continue Protonix 40 mg F: 0.9% NS at 130 mL/h E: Replete as needed N: Regular A: As tolerated GI prophylaxis: Continue home Protonix 40 mg daily DVT prophylaxis: Eliquis 5 mg twice daily for history of PE The patient is admitted with an anticipated more than 2 midnight stay for evaluation of malnourishment and UTI CODE STATUS: Full code Discussed with: Patient Anticipated discharge place: Pending clinical course GI prophylaxis: DVT Prophylaxis: I saw and evaluated the patient during the sandoval and critical portions of this encounter, and discussed the case in detail with the resident author of this note, I agree with the Assessment and Plan, and my changes, if any, are highli ghted below. Feeling better. Wants to go home. UCx growing GNB. Continue to replace electrolytes. Repeat BMP in the AM Drop if Hg is likely dilutional. Repeat CBC in the AM Continue Rocephin while awaiting UCx Anticipate DC home tomorrow Objective - Vital Signs Vital signs: Vital Signs Temp 98.6 F 10/08/24 01:35 Pulse 92 10/08/24 01:35 Resp 16 10/08/24 01:35 BP 97/56 10/08/24 01:35 Pulse Ox 98 10/08/24 01:35 FiO2 Intake & Output 10/07/24 10/08/24 10/08/24 18:59 06:59 18:59 Output Total 225 450 Balance -225 -450 Weight 52.163 kg Output: Urine 450 Other 225 Other: Voiding Method Diaper Diaper External Catheter External Catheter # Bowel Movements 1 - Labs CBC & Chem 7: 10/08/24 06:11 10/08/24 14:25 Labs: Abnormal Lab Results - Last 24 Hours (Table) 10/07/24 10/07/24 10/07/24 Range/Units 04:11 04:11 07:44 RBC 2.76 L (4.10-5.20) X 10*6/uL Hgb 8.6 L (12.0-15.0) g/dL Hct 26.5 L (37.2-46.3) % RDW 14.7 H (11.5-14.5) % Plt Count 124 L (140-440) X 10*3/uL Eosinophils # 0 L (0.04-0.35) X 10*3/uL Sodium (137-145) mmol/L Potassium 3.4 L (3.5-5.5) mmol/L Anion Gap 14.30 H (4.00-12.00) mmol/L BUN 7.5 L (9.0-27.0) mg/dL BUN/Creatinine Ratio 10.71 L (12.00-20.00) Ratio Glucose 152 H (70-110) mg/dL POC Glucose (mg/dL) 173 H (70-110) mg/dL Calcium 6.9 L (8.7-10.3) mg/dL Ionized Calcium Meliza 3.8 L (4.5-5.3) mg/dL Phosphorus (2.5-4.5) mg/dL Magnesium (1.6-2.3) mg/dL 10/07/24 10/07/24 10/07/24 Range/Units 12:03 16:58 16:58 RBC 2.65 L (4.10-5.20) X 10*6/uL Hgb 8.5 L D (12.0-15.0) g/dL Hct 25.8 L (37.2-46.3) % RDW (11.5-14.5) % Plt Count 109 L (140-440) X 10*3/uL Eosinophils # (0.04-0.35) X 10*3/uL Sodium 129 L (137-145) mmol/L Potassium 2.3 L* (3.5-5.5) mmol/L Anion Gap (4.00-12.00) mmol/L BUN 6 L (9.0-27.0) mg/dL BUN/Creatinine Ratio (12.00-20.00) Ratio Glucose 180 H (70-110) mg/dL POC Glucose (mg/dL) 146 H (70-110) mg/dL Calcium 6.5 L (8.7-10.3) mg/dL Ionized Calcium Meliza (4.5-5.3) mg/dL Phosphorus 2.2 L (2.5-4.5) mg/dL Magnesium 2.5 H (1.6-2.3) mg/dL 10/07/24 10/07/24 10/08/24 Range/Units 17:23 20:35 06:11 RBC 2.32 L (4.10-5.20) X 10*6/uL Hgb 7.6 L (12.0-15.0) g/dL Hct 22.5 L (37.2-46.3) % RDW (11.5-14.5) % Plt Count 107 L (140-440) X 10*3/uL Eosinophils # (0.04-0.35) X 10*3/uL Sodium (137-145) mmol/L Potassium (3.5-5.5) mmol/L Anion Gap (4.00-12.00) mmol/L BUN (9.0-27.0) mg/dL BUN/Creatinine Ratio (12.00-20.00) Ratio Glucose (70-110) mg/dL POC Glucose (mg/dL) 204 H 240 H (70-110) mg/dL Calcium (8.7-10.3) mg/dL Ionized Calcium Meliza (4.5-5.3) mg/dL Phosphorus (2.5-4.5) mg/dL Magnesium (1.6-2.3) mg/dL Microbiology - Last 24 Hours (Table) 10/06/24 20:45 Blood Culture - Preliminary Blood
[2024-10-08 12:26] LABS: Glucose,Whole Blood 280 mg/dL (70-110)
--- NOTE | 2024-10-08 12:32 | CDI ---
Documentation Clarification Form Date: 10/08/2024 11:42:44 AM From: Katelin Leigh RN CCDS Phone: [phone] Admit Date: 10/06/2024 08:17:00 PM Patient Name: Caitie Almaraz Visit Number: [id number] Discharge Date: ATTENTION: The Clinical Documentation Specialists (CDI) and [facility] Coding Staff appreciate your assistance in clarifying documentation. Please respond to the clarification below the line at the bottom and electronically sign. The CDI & [facility] Coding staff will review the response and follow-up if needed. Please note: Queries are made part of the Legal Health Record. If you have any questions, please contact the author of this message via ITS. Doctor: Shireen Finley Malnourishment is documented 10/06, . Additional clarification regarding the severity of malnutrition is requested. History/Risk Factors: 69 year old female presents to the ED with being extremely fatigued since her last chemotherapy session on September 27 and believes she has a UTI. Medical history: Ovarian cancer, COPD, DM, PE, HLD and GERD. HP, 10/06. Clinical Indicators: RD Consult Assessment: Nutritional History: Acute weakness, Acute UTI, Acute hypomagnesemia, PMH COPD, DM, PE Ovarian cancer on chemo Diet: Consistent Carbohydrate- Nutritional Support: Oral supplement. Nutritional intake: Fair Percent consumed 50-75% regular diet 62% of meals consumed. Appetite Good. Physical Findings skin intact, no wounds ID. Anthropometrics weight 52.163kg stated by patient. Hgt 5ft 2in BMI 21.0. BMI classification underweight usual weight 58.06kg % 90% wgt loss 5.897 kg weight change decreased intake: duration of three months. Estimated Nutritional Needs: Kcals estimated energy formula for nutritional needs 25-30kclas/Kg Energy Needs 1300-1500Kcal. Estimated Protein needs: Estimated protein range 1.25grams/kg. Estimated protein needs 65grams/day. Nutritional diagnosis unintended weight loss related to cancer as evidenced by 13lb weight loss in three months . Treatment: Monitor daily intake of Supplement, Monitor PO intake Supplements: Ensure Enlive TID Please clarify the severity of malnutrition, if known: [ ] Mild Protein-Calorie Malnutrition [ ] Moderate Protein-Calorie Malnutrition [ ] Severe Protein-Calorie Malnutrition [ ] Other condition, please specify [ x ] Unable to Determine (Template Last Revised: March 2023) MTDD
[2024-10-08] MEDS: MAGNESIUM SULFATE-D5W PMX 1 GM in DEXTROSE/WATER 1 100ML.BAG IVPB STA (13:22)
[2024-10-08 15:13] LABS: Potassium 3.1 mmol/L (3.5-5.1)
[2024-10-08 16:21] LABS: African American GFR (CKD) >90 (>60 ml/min/1.73 sqM); Anion Gap 8 mmol/L; Blood Urea Nitrogen 5 mg/dL (7-17); Calcium 7.4 mg/dL (8.4-10.2); Carbon Dioxide 22 mmol/L (22-30); Chloride 101 mmol/L (98-107); Glucose 215 mg/dL (74-99); Non-African American GFR(CKD) >90 (>60 ml/min/1.73 sqM); Potassium 3.1 mmol/L (3.5-5.1); Sodium 131 mmol/L (137-145)
[2024-10-08 17:24] LABS: Glucose,Whole Blood 205 mg/dL (70-110)
[2024-10-08] MEDS: HYDROcodone/APAP 5-325MG 1 EACH TAB PO PRN (17:26)
--- NOTE | 2024-10-08 19:44 | P.PN ---
Subjective Progress Note Date: 10/08/24 Pt reporting feeling improved since admit. Diarrhea persisting. C-diff pending. N/v improved, tolerating oral intake. Continues IV abx for UTI Objective - Vital Signs Vital signs: Vital Signs Temp 99.2 F 10/08/24 12:23 Pulse 104 H 10/08/24 12:23 Resp 17 10/08/24 12:23 BP 115/60 10/08/24 12:23 Pulse Ox 94 L 10/08/24 12:23 FiO2 Intake & Output 10/07/24 10/08/24 10/08/24 18:59 06:59 18:59 Intake Total 780 Output Total 225 450 Balance -225 -450 780 Weight 52.163 kg Intake: Oral 780 Output: Urine 450 Other 225 Other: Voiding Method Diaper Diaper Diaper External Catheter External Catheter External Catheter # Bowel Movements 1 - Constitutional General appearance: Present: average body habitus, no acute distress - EENT Eyes: Present: anicteric sclerae, EOMI ENT: Present: hearing grossly normal - Respiratory Details: breathing is even and unlabored - Cardiovascular Details: skin warm and dry - Gastrointestinal General gastrointestinal: Present: soft. Absent: tenderness - Integumentary Integumentary: Absent: cyanotic, jaundiced - Psychiatric Psychiatric: Present: A&O x's 3 - Labs CBC & Chem 7: 10/08/24 06:11 10/08/24 14:25 Labs: Abnormal Lab Results - Last 24 Hours (Table) 10/07/24 10/07/24 10/07/24 Range/Units 04:11 16:58 16:58 RBC 2.65 L (3.80-5.40) m/uL Hgb 8.5 L D (11.4-16.0) gm/dL Hct 25.8 L (34.0-46.0) % Plt Count 109 L (150-450) k/uL Sodium 129 L (137-145) mmol/L Potassium 3.4 L 2.3 L* (3.5-5.5) mmol/L Carbon Dioxide (22-30) mmol/L Anion Gap 14.30 H (4.00-12.00) mmol/L BUN 7.5 L 6 L (9.0-27.0) mg/dL BUN/Creatinine Ratio 10.71 L (12.00-20.00) Ratio Glucose 152 H 180 H (70-110) mg/dL POC Glucose (mg/dL) (70-110) mg/dL Hemoglobin A1c (<=6.0) % Calcium 6.9 L 6.5 L (8.7-10.3) mg/dL Phosphorus 2.2 L (2.5-4.5) mg/dL Magnesium 2.5 H (1.6-2.3) mg/dL 10/07/24 10/07/24 10/08/24 Range/Units 17:23 20:35 06:11 RBC (3.80-5.40) m/uL Hgb (11.4-16.0) gm/dL Hct (34.0-46.0) % Plt Count (150-450) k/uL Sodium (137-145) mmol/L Potassium (3.5-5.5) mmol/L Carbon Dioxide (22-30) mmol/L Anion Gap (4.00-12.00) mmol/L BUN (9.0-27.0) mg/dL BUN/Creatinine Ratio (12.00-20.00) Ratio Glucose (70-110) mg/dL POC Glucose (mg/dL) 204 H 240 H (70-110) mg/dL Hemoglobin A1c 7.1 H (<=6.0) % Calcium (8.7-10.3) mg/dL Phosphorus (2.5-4.5) mg/dL Magnesium (1.6-2.3) mg/dL 10/08/24 10/08/24 10/08/24 Range/Units 06:11 06:11 12:25 RBC 2.32 L (3.80-5.40) m/uL Hgb 7.6 L (11.4-16.0) gm/dL Hct 22.5 L (34.0-46.0) % Plt Count 107 L (150-450) k/uL Sodium 130 L (137-145) mmol/L Potassium 3.1 L (3.5-5.5) mmol/L Carbon Dioxide 21 L (22-30) mmol/L Anion Gap (4.00-12.00) mmol/L BUN 4 L (9.0-27.0) mg/dL BUN/Creatinine Ratio (12.00-20.00) Ratio Glucose (70-110) mg/dL POC Glucose (mg/dL) 280 H (70-110) mg/dL Hemoglobin A1c (<=6.0) % Calcium 6.8 L (8.7-10.3) mg/dL Phosphorus (2.5-4.5) mg/dL Magnesium (1.6-2.3) mg/dL Microbiology - Last 24 Hours (Table) 10/06/24 17:42 Urine Culture - Preliminary Urine,Voided Gram Neg Bacilli 10/06/24 20:45 Blood Culture - Preliminary Blood Assessment and Plan (1) Ovarian cancer Current Visit: Yes Status: Acute Priority: High Code(s): C56.9 - MALIGNANT NEOPLASM OF UNSPECIFIED OVARY SNOMED Code(s): 029372341 (2) Hypokalemia Current Visit: Yes Status: Acute Priority: High Code(s): E87.6 - HYPOKALEMIA SNOMED Code(s): 33163675 (3) Hypomagnesemia Current Visit: Yes Status: Acute Priority: High Code(s): E83.42 - HYPOMAGNESEMIA SNOMED Code(s): 660466472 (4) UTI (urinary tract infection) Current Visit: Yes Status: Acute Code(s): N39.0 - URINARY TRACT INFECTION, SITE NOT SPECIFIED SNOMED Code(s): 34590360 Plan: UTI, N/V/D: Presented with complaints of progressive weakness and confusion. -Upon admit UA suspicious for UTI, patient was started on Rocephin. -Urine culture positive for gram negative bacilli. T max 102.9. No fevers for last 24 hours -Patient is also reporting diarrhea and nausea vomiting since treatment. N/V improved -C-diff pending -Magnesium, potassium replaced, lytes improving Ovarian cancer: -Oncology history as dictated in the HPI -Had VICTORIANO+BSO, resections of bowels and extensive adhesions. Procedure was complicated by Bilateral central PEs, requiring thrombectomies and antico agulation, had dehesence of abdominal wounds -Started adjuvant chemotherapy with carbo/taxol. Taxol dose reduced due to complaints of progressing peripheral neuropathies. S/p cycle 5 on 09/27 -Treatment will be held until recovered form acute condition Doctor attests: I performed a history and physical examination of this patient, developed impression and plan of care. Discussed with dictator. I agree with dictators note, documented as a scribe.
[2024-10-08] MEDS ORDERED: LOPERAMIDE 2 MG CAP PO PRN (19:46)
[2024-10-08 20:13] LABS: Glucose,Whole Blood 218 mg/dL (70-110)
[2024-10-08] MEDS: HYDROmorphone 0.5 MG/0.5 ML SYRINGE IVP PRN (20:35)
[2024-10-09 07:30] LABS: Glucose,Whole Blood 108 mg/dL (70-110)
[2024-10-09 08:00] VITALS: RESP 14
[2024-10-09 12:30] LABS: Glucose,Whole Blood 272 mg/dL (70-110)
[2024-10-09 12:39] VITALS: BP 103/64; PULSE 87; TEMP 98.2
[2024-10-09 12:53] LABS: Basophils # (A) 0.02 X 10*3/uL (0.00-0.10); Basophils % (A) 0.4 %; Eosinophils # (A) 0.04 X 10*3/uL (0.04-0.35); Eosinophils % (A) 0.8 %; HCT 23.5 % (37.2-46.3); HGB 7.6 g/dL (12.0-15.0); Lymphocytes # (A) 1.45 X 10*3/uL (0.90-5.00); Lymphocytes % (A) 29.9 %; MCH 31.7 pg (27.0-32.0); MCHC 32.3 g/dL (32.0-37.0); MCV 97.9 FL (80.0-97.0); Mean Platelet Volume 11.5 FL (9.5-12.2); Monocytes # (A) 0.62 X 10*3/uL (0.20-1.00); Monocytes % (A) 12.8 %; NRBC Per 100 WBC 0 X 10*3/uL (0.00-0.01); Neutrophils # (A) 2.69 X 10*3/uL (1.80-7.70); Neutrophils % (A) 55.5 %; Platelet Count 124 X 10*3/uL (140-440); RDW 14.7 % (11.5-14.5); WBC 4.85 X 10*3/uL (4.50-10.00)
--- NOTE | 2024-10-09 16:35 | P.DS ---
Providers Date of admission: 10/06/24 20:17 Attending physician: Tracee Mendez MD Consults: 10/06/24 20:15 Consult Physician Urgent Consulting Provider: Calvin Hadley Consult Reason/Comments: ovarian cancer on chemo Do you want consulting provider notified?: Yes [facility] Course: Discharge diagnoses; #Malnourishment likely secondary to underlying malignancy requiring chemotherapy #Hyponatremia, hypokalemia, hypocalcemia, hypomagnesemia - resolved, hypophosphatemia #Worsening anemia, likely dilutional #Complicated UTI, present on admission #Lactic acidosis, resolved #Hyperglycemia in insulin-dependent diabetic #Ovarian cancer, currently undergoing chemotherapy Hospital course; Patient is a 69-year-old female with past medical history of ovarian cancer currently undergoing chemotherapy (follows with Dr. Calvin Hadley), mesenteric ischemia status post colostomy,history of pulmonary embolisms on Eliquis, COPD, and diabetes who presents to the ED with chief complaint of feeling extremely fatigued since her last chemotherapy session on September 27 and believes she has a UTI. She states her last session is supposed to be sometime in October. Patient states she had 2 MIs and multiple PEs in December of last year. Patient states she has had a poor appetite although she is a diabetic and states she has been compliant with her insulin. She endorses chills, vomiting, dysuria, diarrhea. She is continued states she has been feeling better, and would like to go home. Status of electrolytes improved, C. difficile negative. Physical examination: Vital signs reviewed General: Frail-appearing, mild distress, appears at stated age, appears tremulous endorsing chills, Derm: warm, dry, intact Head: atraumatic, normocephalic, symmetric Eyes: anicteric sclera Mouth: no lip lesion, mucus membranes moist Cardiovascular: S1 S2 reg, no murmur, right Mediport visualized without surrounding erythema Lungs: Diminished breath sounds bilaterally, no wheezing, rhonchi, rales Abdominal: soft, non tender to palpation, colostomy bag in place appears functional Extremities: Left BKA with prosthetic, right leg nonedematous Neuro: Alert, Oriented to person, time and place, Gross neurological examination did not reveal any focal deficits. Cranial nerves II to XII grossly intact. Bilateral upper and lower extremity muscle strength intact and sensation intact. Psych: well appearing, appropriate affect Dictation was produced using [employer] dictation software. please excuse any grammatical, word or spelling errors. I saw and evaluated the patient during the sandoval and critical portions of this encounter, and discussed the case in detail with the resident author of this note, I agree with the Assessment and Plan, and my changes, if any, are highlighted below. Patient was seen and examined. Feeling well. No complaints. Looking forward to going home. Patient was admitted for treatment of UTI and electrolyte abnormalities. Her Mag and K was replaced. She had no further episodes of nausea/vomiting or diarrhea. UCx grew E. coli. Blood cultures negative. She was discharged home on Cefdinir 300 mg PO BID x 5 days to complete a total of 7 days antibiotics. Patient Condition at Discharge: Stable Plan - Discharge Summary Discharge Rx Participant: No New Discharge Prescriptions: New Cefdinir [Omnicef] 300 mg PO BID 5 Days #10 capsule Continue fentaNYL 12MCG/HR PATCH [Duragesic 12MCG/HR] 1 patch TRANSDERM Q72H Gabapentin [Neurontin] 600 mg PO QID DULoxetine HCL [Cymbalta] 60 mg PO DAILY Atorvastatin [Lipitor] 40 mg PO DAILY amLODIPine [Norvasc] 10 mg PO DAILY Pantoprazole [Protonix] 40 mg PO DAILY Ondansetron [Zofran] 4 - 8 mg PO Q4H PRN MDD 8 tabs PRN Reason: Nausea HYDROcodone/APAP 5-325MG [[place] 5-325] 1 tab PO BID PRN PRN Reason: Pain Albuterol Inhaler [Ventolin Hfa Inhaler] 2 puff INHALATION RT-Q4H PRN PRN Reason: Shortness Of Breath Apixaban [Eliquis] 5 mg PO BID Aspirin 81 mg PO DAILY Fluticasone/Vilanterol [Breo Ellipta 100-25 Mcg Inhalr] 1 puff INHALATION RT- DAILY Insulin Aspart (Niacinamide) [Fiasp 100 Unit/ml Flextouch Pen] 4 units SQ TID-W/MEALS PRN PRN Reason: if she eats meals Insulin Glargine,Hum.rec.anlog [Basaglar Kwikpen U-100] 10 unit SQ HS Metoprolol Tartrate [Lopressor] 50 mg PO BID Omeprazole 20 mg PO DAILY Discharge Medication List Atorvastatin [Lipitor] 40 mg PO DAILY 06/10/20 [History] DULoxetine HCL [Cymbalta] 60 mg PO DAILY 06/10/20 [History] Gabapentin [Neurontin] 600 mg PO QID 06/10/20 [History] fentaNYL 12MCG/HR PATCH [Duragesic 12MCG/HR] 1 patch TRANSDERM Q72H 06/10/20 [History] Albuterol Inhaler [Ventolin Hfa Inhaler] 2 puff INHALATION RT-Q4H PRN 05/16/22 [History] HYDROcodone/APAP 5-325MG [[place] 5-325] 1 tab PO BID PRN 05/16/22 [History] Apixaban [Eliquis] 5 mg PO BID 06/11/24 [History] Aspirin 81 mg PO DAILY 06/11/24 [History] Fluticasone/Vilanterol [Breo Ellipta 100-25 Mcg Inhalr] 1 puff INHALATION RT- DAILY 06/11/24 [History] Insulin Aspart (Niacinamide) [Fiasp 100 Unit/ml Flextouch Pen] 4 units SQ TID- W/MEALS PRN 06/11/24 [History] Insulin Glargine,Hum.rec.anlog [Basaglar Kwikpen U-100] 10 unit SQ HS 06/11/24 [History] Metoprolol Tartrate [Lopressor] 50 mg PO BID 06/11/24 [History] Pantoprazole [Protonix] 40 mg PO DAILY 06/11/24 [History] amLODIPine [Norvasc] 10 mg PO DAILY 06/11/24 [History] Ondansetron [Zofran] 4 - 8 mg PO Q4H PRN MDD 8 tabs 06/28/24 [History] Omeprazole 20 mg PO DAILY 10/06/24 [History] Cefdinir [Omnicef] 300 mg PO BID 5 Days #10 capsule 10/09/24 [Rx] Follow up Appointment(s)/Referral(s): Randolph Renee DO [Primary Care Provider] - 1-2 days (Please call and schedule Follow-up appointment) Patient Instructions/Handouts: Urinary Tract Infection in Women (DC), Ovarian Cancer (DC), Hypocalcemia (DC), Hypomagnesemia (DC) Discharge Disposition: HOME SELF-CARE
[2024-10-09 16:36] LABS: BUN/Creat Ratio <7.00 Ratio (12.00-20.00); Blood Urea Nitrogen <3.5 mg/dL (9.0-27.0); Calcium 8.2 mg/dL (8.7-10.3); Carbon Dioxide 21.6 mmol/L (21.6-31.8); Chloride 101 mmol/L (96-109); Glucose 107 mg/dL (70-110); Potassium 4.5 mmol/L (3.5-5.5); Sodium 137 mmol/L (135-145)
[2024-10-09 17:01] LABS: Glucose,Whole Blood 161 mg/dL (70-110)
== END 2024-10-09 18:12 | disposition home or self-care (01) | DRG 690 ==
LOC: EC 16:53 → 5NMEDONC 20:17
PROVIDERS: ADMIT Internal Medicine; ATTEND Internal Medicine
DX: N39.0 Urinary tract infection, site not specified (principal); E87.20 Acidosis, unspecified; C56.9 Malignant neoplasm of unspecified ovary; E83.51 Hypocalcemia; D64.9 Anemia, unspecified; B96.20 Unspecified Escherichia coli [E. coli] as the cause of diseases classified elsewhere; E11.65 Type 2 diabetes mellitus with hyperglycemia; I10 Essential (primary) hypertension; J44.9 Chronic obstructive pulmonary disease, unspecified; E87.1 Hypo-osmolality and hyponatremia; E78.5 Hyperlipidemia, unspecified; E83.42 Hypomagnesemia; Z68.21 Body mass index [BMI] 21.0-21.9, adult; G89.29 Other chronic pain; I25.2 Old myocardial infarction; K21.9 Gastro-esophageal reflux disease without esophagitis; E87.6 Hypokalemia; Z79.01 Long term (current) use of anticoagulants; Z79.4 Long term (current) use of insulin; Z79.82 Long term (current) use of aspirin; Z79.899 Other long term (current) drug therapy; Z92.21 Personal history of antineoplastic chemotherapy; Z93.3 Colostomy status; Z95.5 Presence of coronary angioplasty implant and graft; Z89.512 Acquired absence of left leg below knee; Z90.710 Acquired absence of both cervix and uterus; Z87.891 Personal history of nicotine dependence; Z86.711 Personal history of pulmonary embolism; Z90.49 Acquired absence of other specified parts of digestive tract
CPT/HCPCS: 36415; 71046; 80048; 80051; 80053; 81001; 82330; 83036; 83605; 83735; 84100; 84132; 84484; 85025; 85027; 85610; 85730; 87040; 87077; 87086; 87186; 87324; 87636; 93005; 94640; 96365; 96366; 96368; 96375; 99285

== ENCOUNTER 2024-11-26 16:26 | Inpatient (IN) | payer MEDICARE ==
--- NOTE | 2024-11-26 16:54 | ED ---
Recheck HPI - General Chief Complaint: Recheck/Abnormal Lab/Rx Stated Complaint: Abnormal Labs,Weakness Time Seen by Provider: 11/26/24 16:28 Source: patient, EMS, RN notes reviewed Mode of arrival: EMS Limitations: no limitations - History of Present Illness Initial Comments: This is a 69-year-old female who presents to the emergency department for abno rmal lab work. Patient had blood work done 3 days ago as part of a routine workup. She received a call today saying that her magnesium was critically low at 0.5 and her calcium was 6.7. States that this morning she started to feel very shaky and weak. She does have a history of low magnesium and is taking 1 g twice daily. States that she is unsure what keeps causing it to be low. Additionally, she was treated with antibiotics for a UTI recently, which she has since completed. States that she continues to have suprapubic pressure and urinary urgency. Denies any chest pain. Reports shortness of breath that has been ongoing for the last year, but does not believe it is any worse than usual. Denies any coughing or congestion. She has a history of ovarian cancer and follows with Dr. Hadley. States that she finished chemotherapy last month and is not currently on any treatment. MD Complaint: abnormal lab - Related Data Home Medications Medication Instructions Recorded Confirmed Atorvastatin [Lipitor] 40 mg PO DAILY 06/10/20 11/26/24 DULoxetine HCL [Cymbalta] 60 mg PO DAILY 06/10/20 11/26/24 Gabapentin [Neurontin] 600 mg PO QID 06/10/20 11/26/24 fentaNYL 12MCG/HR PATCH [Duragesic 1 patch TRANSDERM Q72H 06/10/20 11/26/24 12MCG/HR] Albuterol Inhaler [Ventolin Hfa 2 puff INHALATION RT-Q4H PRN 05/16/22 11/26/24 Inhaler] HYDROcodone/APAP 5-325MG [[place] 1 tab PO BID PRN 05/16/22 11/26/24 5-325] Apixaban [Eliquis] 5 mg PO BID 06/11/24 11/26/24 Aspirin 81 mg PO DAILY 06/11/24 11/26/24 Fluticasone/Vilanterol [Breo 1 puff INHALATION RT-DAILY 06/11/24 11/26/24 Ellipta 100-25 Mcg Inhalr] Insulin Aspart (Niacinamide) 4 units SQ TID-W/MEALS PRN 06/11/24 11/26/24 [Fiasp 100 Unit/ml Flextouch Pen] Insulin Glargine,Hum.rec.anlog 10 unit SQ HS 06/11/24 11/26/24 [Basaglar Kwikpen U-100] Metoprolol Tartrate [Lopressor] 50 mg PO BID 06/11/24 11/26/24 Pantoprazole [Protonix] 40 mg PO DAILY 06/11/24 11/26/24 amLODIPine [Norvasc] 10 mg PO DAILY 06/11/24 11/26/24 Ondansetron [Zofran] 4 - 8 mg PO Q4H PRN MDD 8 tabs 06/28/24 11/26/24 Omeprazole 20 mg PO DAILY 11/26/24 11/26/24 Allergies Allergy/AdvReac Type Severity Reaction Status Date / Time adhesive tape Allergy Rash/Hives Verified 11/26/24 17:58 nickel Allergy Unknown Verified 11/26/24 17:58 Review of Systems ROS Statement: Those systems with pertinent positive or pertinent negative responses have been documented in the HPI. ROS Other: All systems not noted in ROS Statement are negative. 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 colostomy - "due to ischemia of colon", another bowel surgery to remove part of colon r/t blockage, 1 heart stent Past Anesthesia/Blood Transfusion Reactions: No Reported Reaction Additional Past Anesthesia/Blood Transfusion Reaction / Comment(s): no known blood transfusion Date of Last Stent Placement:: 2007 Past Psychological History: Depression Smoking Status: Former smoker Past Alcohol Use History: None Reported Past Drug Use History: None Reported - Past Family History Mother Family Medical History: COPD Father Family Medical History: Myocardial Infarction (ND) Additional Family Medical History / Comment(s): ND at age 62 General Exam Limitations: no limitations General appearance: alert, other (tremors) Head exam: Present: atraumatic, normocephalic, normal inspection Respiratory exam: Present: normal lung sounds bilaterally. Absent: respiratory distress, wheezes, rales, rhonchi, stridor Cardiovascular Exam: Present: normal rhythm, tachycardia GI/Abdominal exam: Present: soft, normal bowel sounds. Absent: distended, tenderness, guarding, rebound, rigid Neurological exam: Present: alert, oriented X3, CN II-XII intact Psychiatric exam: Present: normal affect, normal mood Skin exam: Present: warm, dry, intact, normal color. Absent: rash Course Vital Signs 11/26/24 11/26/24 11/26/24 16:29 17:56 19:44 Temperature 97.7 F Pulse Rate 116 H 85 76 Respiratory 20 16 18 Rate Blood Pressure 145/67 135/67 125/57 O2 Sat by Pulse 98 98 96 Oximetry 11/26/24 11/26/24 21:28 23:09 Temperature Pulse Rate 95 70 Respiratory 16 16 Rate Blood Pressure 148/63 119/71 O2 Sat by Pulse 95 98 Oximetry Medical Decision Making - Medical Decision Making This is a 69-year-old female who presents to the emergency department for weakness and low magnesium. Was pt. sent in by a medical professional or institution? @ -No Did you speak to anyone other than the patient for history? @ -No Did you review nursing and triage notes? @ -Yes, and I agree, it is accurate with regards to the patient's symptoms. Were old charts reviewed? @ -No Differential Diagnosis? @ -Differential Weakness: Hypoglycemia, shock, sepsis, hyponatremia, anemia, infection, ND, ETOH, adverse medicine reaction, overdose, stroke, this is not meant to be an all-inclusive list. EKG interpreted by me (3pts min.)? @ -EKG interpreted by me demonstrating the following: Sinus rhythm. Ventricular rate 79 bpm, [place] interval 153 ms, QRS duration 78 ms, QTc 390 ms. X-rays interpreted by me (1pt min.)? @ -Chest x-ray obtained, my interpretation identifies no localized consolidations or infiltrates. CT interpreted by me (1pt min.)? @ -Not obtained U/S interpreted by me (1pt. min.)? @ -Not obtained What testing was considered but not performed? (CT, X-rays, U/S, labs)? Why? @ -None What meds were considered but not given? Why? @ -None Did you discuss the management of the patient with other professionals? @ -Yes, Sami Carpenter with [facility], who accepts the patient for admission Did you reconcile home meds? @ -Yes Was smoking cessation discussed for >3mins.? @ -No Was critical care preformed (if so, how long)? @ -No Were there social determinants of health that impacted care today? How? (Homeles sness, low income, unemployed, alcoholism, drug addiction, transportation, low edu. Level, literacy, decrease access to med. care, long-term, rehab)? @ -No Was there de-escalation of care discussed even if they declined? (Discuss DNR or withdrawal of care, Hospice)? @ -No What co-morbidities impacted this encounter? (DM, HTN, Smoking, COPD, CAD, Cance r, CVA, Hep., AIDS, mental health diagnosis, sleep apnea, morbid obesity)? @ -Cancer Was patient admitted / discharged? @ -Admitted. Lab work demonstrates a critically low magnesium level of less than 0.4. Lactic acid elevated at 2.6. Calcium low at 7.3. Magnesium replacement protocol ordered and 4 g of magnesium sulfate administered along with 1 g of calcium gluconate. She was also given a liter bolus of IV fluids. Chest x-ray reveals no acute process. Patient admitted to medicine for hypomagnesemia and weakness. She does also suspect that she has a UTI, however urinalysis is still pending at the point of admission. Consult placed for hem/onc, as patient is established with them for ovarian cancer. Case discussed with ED attending Dr. Samayoa. Undiagnosed new problem with uncertain prognosis? @ -None Drug Therapy requiring intensive monitoring for toxicity (Heparin, Nitro, Insulin, Cardizem)? @ -None Were any procedures done? @ -None Diagnosis/symptom? @ -Hypomagnesemia, weakness Acute, or Chronic, or Acute on Chronic? @ -Acute Uncomplicated (without systemic symptoms) or Complicated (systemic symptoms)? @ -Complicated Side effects of treatment? @ -None Exacerbation, Progression, or Severe Exacerbation] @ -Not applicable Poses a threat to life or bodily function? @ -Yes, can lead to cardiac arrhythmias, which can be fatal - Lab Data Result diagrams: 11/26/24 16:52 11/26/24 16:52 Lab Results 11/26/24 11/26/24 11/26/24 Range/Units 16:52 16:52 16:52 WBC 4.2 (3.8-10.6) k/uL RBC 4.03 (3.80-5.40) m/uL Hgb 14.1 D (11.4-16.0) gm/dL Hct 41.9 (34.0-46.0) % MCV 104.0 H D (80.0-100.0) fL MCH 34.9 (25.0-35.0) pg MCHC 33.6 (31.0-37.0) g/dL RDW 16.8 H (11.5-15.5) % Plt Count 245 (150-450) k/uL MPV 8.0 Neutrophils % 49 % Lymphocytes % 40 % Monocytes % 5 % Eosinophils % 1 % Basophils % 0 % Neutrophils # 2.1 (1.3-7.7) k/uL Lymphocytes # 1.7 (1.0-4.8) k/uL Monocytes # 0.2 (0-1.0) k/uL Eosinophils # 0.0 (0-0.7) k/uL Basophils # 0.0 (0-0.2) k/uL Hypochromasia Slight Anisocytosis Slight Macrocytosis Moderate PT (10.0-12.5) sec INR (<1.2) APTT (22.0-30.0) sec Sodium 141 (137-145) mmol/L Potassium 4.2 (3.5-5.1) mmol/L Chloride 109 H (98-107) mmol/L Carbon Dioxide 17 L (22-30) mmol/L Anion Gap 15 mmol/L BUN 11 (7-17) mg/dL Creatinine 0.69 (0.52-1.04) mg/dL Est GFR (CKD-EPI)AfAm >90 (>60 ml/min/1.73 sqM) Est GFR (CKD-EPI)NonAf 89 (>60 ml/min/1.73 sqM) Glucose 192 H (74-99) mg/dL POC Glucose (mg/dL) (70-110) mg/dL POC Glu [employer] Studies Teacher ID Lactic Ac Sepsis Rflx Plasma Lactic Acid Donovan 2.6 H* (0.7-2.0) mmol/L Calcium 7.3 L (8.4-10.2) mg/dL Ionized Calcium Meliza (4.5-5.3) mg/dL Phosphorus 4.0 (2.5-4.5) mg/dL Magnesium <0.4 L* (1.6-2.3) mg/dL Total Bilirubin 0.3 (0.2-1.3) mg/dL AST 20 (14-36) U/L ALT 13 (4-34) U/L Alkaline Phosphatase 50 (38-126) U/L Total Protein 7.3 (6.3-8.2) g/dL Albumin 4.4 (3.5-5.0) g/dL 11/26/24 11/26/24 11/26/24 Range/Units 16:52 17:10 19:47 WBC (3.8-10.6) k/uL RBC (3.80-5.40) m/uL Hgb (11.4-16.0) gm/dL Hct (34.0-46.0) % MCV (80.0-100.0) fL MCH (25.0-35.0) pg MCHC (31.0-37.0) g/dL RDW (11.5-15.5) % Plt Count (150-450) k/uL MPV Neutrophils % % Lymphocytes % % Monocytes % % Eosinophils % % Basophils % % Neutrophils # (1.3-7.7) k/uL Lymphocytes # (1.0-4.8) k/uL Monocytes # (0-1.0) k/uL Eosinophils # (0-0.7) k/uL Basophils # (0-0.2) k/uL Hypochromasia Anisocytosis Macrocytosis PT 13.1 H (10.0-12.5) sec INR 1.2 H (<1.2) APTT 24.4 (22.0-30.0) sec Sodium (137-145) mmol/L Potassium (3.5-5.1) mmol/L Chloride (98-107) mmol/L Carbon Dioxide (22-30) mmol/L Anion Gap mmol/L BUN (7-17) mg/dL Creatinine (0.52-1.04) mg/dL Est GFR (CKD-EPI)AfAm (>60 ml/min/1.73 sqM) Est GFR (CKD-EPI)NonAf (>60 ml/min/1.73 sqM) Glucose (74-99) mg/dL POC Glucose (mg/dL) (70-110) mg/dL POC Glu Fitness Studies Teacher ID Lactic Ac Sepsis Rflx Y Plasma Lactic Acid Donovan 1.4 (0.7-2.0) mmol/L Calcium (8.4-10.2) mg/dL Ionized Calcium Meliza (4.5-5.3) mg/dL Phosphorus (2.5-4.5) mg/dL Magnesium (1.6-2.3) mg/dL Total Bilirubin (0.2-1.3) mg/dL AST (14-36) U/L ALT (4-34) U/L Alkaline Phosphatase (38-126) U/L Total Protein (6.3-8.2) g/dL Albumin (3.5-5.0) g/dL 11/26/24 11/26/24 Range/Units 20:00 21:21 WBC (3.8-10.6) k/uL RBC (3.80-5.40) m/uL Hgb (11.4-16.0) gm/dL Hct (34.0-46.0) % MCV (80.0-100.0) fL MCH (25.0-35.0) pg MCHC (31.0-37.0) g/dL RDW (11.5-15.5) % Plt Count (150-450) k/uL MPV Neutrophils % % Lymphocytes % % Monocytes % % Eosinophils % % Basophils % % Neutrophils # (1.3-7.7) k/uL Lymphocytes # (1.0-4.8) k/uL Monocytes # (0-1.0) k/uL Eosinophils # (0-0.7) k/uL Basophils # (0-0.2) k/uL Hypochromasia Anisocytosis Macrocytosis PT (10.0-12.5) sec INR (<1.2) APTT (22.0-30.0) sec Sodium (137-145) mmol/L Potassium (3.5-5.1) mmol/L Chloride (98-107) mmol/L Carbon Dioxide (22-30) mmol/L Anion Gap mmol/L BUN (7-17) mg/dL Creatinine (0.52-1.04) mg/dL Est GFR (CKD-EPI)AfAm (>60 ml/min/1.73 sqM) Est GFR (CKD-EPI)NonAf (>60 ml/min/1.73 sqM) Glucose (74-99) mg/dL POC Glucose (mg/dL) 134 H (70-110) mg/dL POC Glu Fitness Studies Teacher ID [place] Lactic Ac Sepsis Rflx Plasma Lactic Acid Donovan (0.7-2.0) mmol/L Calcium (8.4-10.2) mg/dL Ionized Calcium Meliza 4.0 L (4.5-5.3) mg/dL Phosphorus (2.5-4.5) mg/dL Magnesium (1.6-2.3) mg/dL Total Bilirubin (0.2-1.3) mg/dL AST (14-36) U/L ALT (4-34) U/L Alkaline Phosphatase (38-126) U/L Total Protein (6.3-8.2) g/dL Albumin (3.5-5.0) g/dL - Radiology Data Radiology results: report reviewed, image reviewed Disposition Clinical Impression: Hypomagnesemia, Weakness Disposition: ADMITTED IP TO THIS HOSP
[2024-11-26 17:07] LABS: INR 1.2 (<1.2); Partial Thromboplastin Time 24.4 sec (22.0-30.0); Prothrombin Time 13.1 sec (10.0-12.5)
[2024-11-26 17:14] LABS: ALT 13 U/L (4-34); AST 20 U/L (14-36); African American GFR (CKD) >90 (>60 ml/min/1.73 sqM); Albumin 4.4 g/dL (3.5-5.0); Alkaline Phosphatase 50 U/L (38-126); Anion Gap 15 mmol/L; Blood Urea Nitrogen 11 mg/dL (7-17); Calcium 7.3 mg/dL (8.4-10.2); Carbon Dioxide 17 mmol/L (22-30); Chloride 109 mmol/L (98-107); Glucose 192 mg/dL (74-99); Non-African American GFR(CKD) 89 (>60 ml/min/1.73 sqM); Potassium 4.2 mmol/L (3.5-5.1); Sodium 141 mmol/L (137-145); Total Bilirubin 0.3 mg/dL (0.2-1.3); Total Protein 7.3 g/dL (6.3-8.2)
[2024-11-26 17:22] LABS: Anisocytosis Slight; Basophils % (A) 0 %; Eosinophils % (A) 1 %; HCT 41.9 % (34.0-46.0); Hypochromasia Slight; Lymphocytes # (A) 1.7 k/uL (1.0-4.8); Lymphocytes % (A) 40 %; MCH 34.9 pg (25.0-35.0); MCHC 33.6 g/dL (31.0-37.0); Macrocytosis Moderate; Monocytes # (A) 0.2 k/uL (0-1.0); Monocytes % (A) 5 %; Neutrophils # (A) 2.1 k/uL (1.3-7.7); Neutrophils % (A) 49 %; Platelet Count 245 k/uL (150-450); RBC 4.03 m/uL (3.80-5.40); RDW 16.8 % (11.5-15.5); WBC 4.2 k/uL (3.8-10.6)
[2024-11-26 17:23] LABS: HGB 14.1 gm/dL (11.4-16.0)
[2024-11-26 17:24] LABS: Magnesium <0.4 mg/dL (1.6-2.3)
[2024-11-26] MEDS ORDERED: Magnesium Replacement Protocol 1 EACH MISC MISCELLANE PRN (17:25)
--- NOTE | 2024-11-26 17:35 | XR ---
EXAMINATION TYPE: XR chest 2V DATE OF EXAM: 11/26/2024 5:28 PM COMPARISON: Chest radiographs from 10/06/2024 TECHNIQUE: XR chest 2V Frontal and lateral views of the chest. CLINICAL INDICATION:Female, 69 years old with history of Weakness, LORENA; FINDINGS: Lungs/Pleura: There is no evidence of pleural effusion, focal consolidation, or pneumothorax. Pulmonary vascularity: Unremarkable. Heart/mediastinum: Cardiomediastinal silhouette is unremarkable. Musculoskeletal: Multiple level degenerative disc disease changes seen throughout the spine. Other findings: None Lines/Tubes: Right anterior chest wall IJ Mediport catheter distal tip terminating in the brachiocephalic confluen ce in stable position. IMPRESSION: No acute cardiopulmonary disease/process. [facility], , 11/26/2024 5:32 PM
[2024-11-26] MEDS: MAGNESIUM SULFATE-D5W PMX 1 GM in DEXTROSE/WATER 1 100ML.BAG IVPB SCH (17:40)
[2024-11-26] MEDS: CALCIUM GLUCONATE IN NACL 1 GM in SALINE 1 100ML.BAG IVPB ONE (17:46)
[2024-11-26] MEDS: SODIUM CHLORIDE 0.9% 1,000 ML IV ONE (17:51)
[2024-11-26] MEDS ORDERED: HYDROcodone/APAP 5-325MG 1 EACH TAB PO PRN (18:07)
[2024-11-26] MEDS ORDERED: INSULIN LISPRO (HumaLOG) 100 UNIT/ML 10 mL VL SQ PRN (18:07)
[2024-11-26] MEDS ORDERED: ONDANSETRON ODT 4 MG TAB PO PRN (18:07)
[2024-11-26] MEDS ORDERED: ALBUTEROL NEBULIZED 2.5 MG/3 ML INHALATION PRN (18:07)
[2024-11-26] MEDS ORDERED: ONDANSETRON 4 MG/2 ML VIAL IVP PRN (18:35)
[2024-11-26] MEDS ORDERED: ACETAMINOPHEN TAB 325 MG TAB PO PRN (18:35)
[2024-11-26] MEDS ORDERED: MORPHINE SULFATE 4 MG/ML SYRINGE IV PRN (18:35)
[2024-11-26] MEDS ORDERED: NALOXONE 0.4 MG/ML 1 ML VIAL IV PRN (18:35)
[2024-11-26] MEDS: SODIUM CHLORIDE 0.9% 1,000 ML IV SCH (20:00)
[2024-11-26 21:22] LABS: Glucose,Whole Blood 134 mg/dL (70-110)
[2024-11-26] MEDS: INSULIN GLARGINE (LANTUS) 100 UNIT/ML SYR SQ SCH (21:24)
[2024-11-26] MEDS: INSULIN LISPRO (HumaLOG) 100 UNIT/ML 10 mL VL SQ SCH (21:24)
[2024-11-26] MEDS: GABAPENTIN 300 MG CAP PO SCH (21:31)
[2024-11-26] MEDS: APIXABAN 5 MG TAB PO SCH (21:31)
[2024-11-26] MEDS: METOPROLOL TARTRATE 50 MG TAB PO SCH (21:31)
--- NOTE | 2024-11-27 00:30 | P.HPIM ---
History of Present Illness H&P Date: 11/26/24 Patient is a 69-year-old female with ovarian cancer s/p chemotherapy and follows up with , history of PE on anticoagulation, insulin-dependent diabetes, hypertension presenting to the emergency for abnormal lab work. Patient had blood work done 3 days ago for workup with her PCP. Received a call stating that her magnesium was critically low and calcium was low as well. She has history of low magnesium and takes 1 g of magnesium twice daily. Patient states she was not feeling well and started to feel felt lightheaded and shaky. Patient admits to urinary urgency but finds it difficult to urinate and admits that dribbling, denies dysuria Patient denies any fever, chest pain, night sweats, chills, shortness of breath, nausea, vomiting, diarrhea. EKG independently interpreted displaying Chest x-ray independently interpreted displaying T 97.7, [place] 116, RR 20, BP 145/67, O2 saturation 98% on room Review of systems: Pertinent positives and negatives as discussed in HPI, a complete review of systems was performed and all other systems are negative. Physical examination: Vital signs reviewed General: Frail, mild distress, appears at stated age, normal weight Derm: no unusual rashes/lesions, warm Head: atraumatic, normocephalic, symmetric Eyes: EOMI, anicteric sclera, pupils equal round reactive to light Mouth: mucus membranes moist Cardiovascular: S1S2 reg, no murmur, positive dorsalis pedis pulse bilateral Lungs: Diminished lung sounds bilaterally, no rhonchi, no rales, no accessory muscle use Abdominal: soft, nontender to palpation, no guarding, colostomy bag in place appears functional, right CVA tenderness Ext: Left BKA with prosthetic Neuro: CN II-XI grossly intact, no gross focal neuro deficits Psych: Alert, oriented to person, place, and time Assessment/Plan: Patient is a 69-year-old female with ovarian cancer s/p chemotherapy and follows up with , history of PE on anticoagulation, insulin-dependent diabetes, hypertension presenting to the emergency for abnormal lab work. ED documentation reviewed. Discussed with the patient. The patient is admitted with an anticipated less than 2 midnight stay for evaluation of hypomagnesia. #. Severe hypomagnesemia #. High anion gap metabolic acidosis in the setting of lactic acidosis #. Hypocalcemia Magnesium < 0.4 Calcium 7.3, ionized calcium 4.0, likely secondary to to low Mg, patient asymptomatic 4 bags of IV magnesium sulfate started in ER, continue to monitor NS at 75 cc an hour #. History of recurrent UTI Patient has history of recurrent UTI Patient with right CVA tenderness on physical exam Admits to urinary urgency, denies dysuria UA with reflex to culture ordered #. Insulin-dependent diabetes mellitus Resume home Levemir 10 units SQ at bedtime Humalog 5 units AC 3 times daily Insulin sliding scale SQ Hypoglycemia precaution Accu-Cheks ACHS #. Ovarian cancer, currently undergoing chemotherapy Hematology/oncology consulted Chronic: #. Hypertension: amlodipine 10 mg QD, Lopressor 50 mg BID #. Hyperlipidemia: Continue Lipitor 40 mg daily #. History of PE: Resume Eliquis 5 mg BID #. GERD: Protonix 40 mg #. Chronic pain: fentanyl patch q72hr, gabapentin 600 mg QID, [place] 53 25 BID, duloxetine 60 mg QD DVT prophylaxis: Eliquis 5 mg PO twice daily GI prophylaxis: protonix 40 mg po daily CODE STATUS: Full code Anticipated discharge place: Likely home Yesika Verma MD PGY-1 IM Dictation was produced using [employer] dictation software. please excuse any grammatical, word or spelling errors. I have seen and evaluated the patient today. I Discussed the case with the resident and agree with the resident's findings I edited the assessment and plan as necessary as documented in the resident's note. 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 colostomy - "due to ischemia of colon", another bowel surgery to remove part of colon r/t blockage, 1 heart stent Past Anesthesia/Blood Transfusion Reactions: No Reported Reaction Additional Past Anesthesia/Blood Transfusion Reaction / Comment(s): no known blood transfusion Date of Last Stent Placement:: 2007 Past Psychological History: Depression Smoking Status: Former smoker Past Alcohol Use History: None Reported Past Drug Use History: None Reported - Past Family History Mother Family Medical History: COPD Father Family Medical History: Myocardial Infarction (MS) Additional Family Medical History / Comment(s): MS at age 62 Medications and Allergies Home Medications Medication Instructions Recorded Confirmed Type Atorvastatin [Lipitor] 40 mg PO DAILY 06/10/20 11/26/24 History DULoxetine HCL [Cymbalta] 60 mg PO DAILY 06/10/20 11/26/24 History Gabapentin [Neurontin] 600 mg PO QID 06/10/20 11/26/24 History fentaNYL 12MCG/HR PATCH [Duragesic 1 patch TRANSDERM Q72H 06/10/20 11/26/24 History 12MCG/HR] Albuterol Inhaler [Ventolin Hfa 2 puff INHALATION RT-Q4H PRN 05/16/22 11/26/24 History Inhaler] HYDROcodone/APAP 5-325MG [Williams 1 tab PO BID PRN 05/16/22 11/26/24 History 5-325] Apixaban [Eliquis] 5 mg PO BID 06/11/24 11/26/24 History Aspirin 81 mg PO DAILY 06/11/24 11/26/24 History Fluticasone/Vilanterol [Breo 1 puff INHALATION RT-DAILY 06/11/24 11/26/24 History Ellipta 100-25 Mcg Inhalr] Insulin Aspart (Niacinamide) 4 units SQ TID-W/MEALS PRN 06/11/24 11/26/24 History [Fiasp 100 Unit/ml Flextouch Pen] Insulin Glargine,Hum.rec.anlog 10 unit SQ HS 06/11/24 11/26/24 History [Basaglar Kwikpen U-100] Metoprolol Tartrate [Lopressor] 50 mg PO BID 06/11/24 11/26/24 History Pantoprazole [Protonix] 40 mg PO DAILY 06/11/24 11/26/24 History amLODIPine [Norvasc] 10 mg PO DAILY 06/11/24 11/26/24 History Ondansetron [Zofran] 4 - 8 mg PO Q4H PRN MDD 8 tabs 06/28/24 11/26/24 History Omeprazole 20 mg PO DAILY 11/26/24 11/26/24 History Allergies Allergy/AdvReac Type Severity Reaction Status Date / Time adhesive tape Allergy Rash/Hives Verified 11/26/24 17:58 nickel Allergy Unknown Verified 11/26/24 17:58 Physical Exam Vitals: Vital Signs Temp Pulse Resp BP Pulse Ox 11/26/24 17:56 85 16 135/67 98 11/26/24 16:29 97.7 F 116 H 20 145/67 98 Intake and Output 11/26/24 11/26/24 11/26/24 06:59 14:59 22:59 Other: Weight 54.431 kg Results CBC & Chem 7: 11/26/24 16:52 11/26/24 16:52 Labs: Abnormal Lab Results - Last 24 Hours (Table) 11/26/24 11/26/24 11/26/24 Range/Units 16:52 16:52 16:52 MCV 104.0 H D (80.0-100.0) fL RDW 16.8 H (11.5-15.5) % PT (10.0-12.5) sec INR (<1.2) Chloride 109 H (98-107) mmol/L Carbon Dioxide 17 L (22-30) mmol/L Glucose 192 H (74-99) mg/dL Plasma Lactic Acid Donovan 2.6 H* (0.7-2.0) mmol/L Calcium 7.3 L (8.4-10.2) mg/dL Magnesium <0.4 L* (1.6-2.3) mg/dL 11/26/24 Range/Units 16:52 MCV (80.0-100.0) fL RDW (11.5-15.5) % PT 13.1 H (10.0-12.5) sec INR 1.2 H (<1.2) Chloride (98-107) mmol/L Carbon Dioxide (22-30) mmol/L Glucose (74-99) mg/dL Plasma Lactic Acid Donovan (0.7-2.0) mmol/L Calcium (8.4-10.2) mg/dL Magnesium (1.6-2.3) mg/dL
[2024-11-27 05:54] LABS: Anisocytosis Slight; Basophils % (A) 0 %; Eosinophils # (A) 0.1 k/uL (0-0.7); Eosinophils % (A) 1 %; HCT 30.9 % (34.0-46.0); Hypochromasia Slight; Lymphocytes # (A) 2.8 k/uL (1.0-4.8); Lymphocytes % (A) 52 %; MCH 33.4 pg (25.0-35.0); MCHC 32.3 g/dL (31.0-37.0); MCV 103.3 fL (80.0-100.0); Macrocytosis Moderate; Mean Platelet Volume 8.2; Monocytes # (A) 0.3 k/uL (0-1.0); Monocytes % (A) 6 %; Neutrophils % (A) 37 %; Platelet Count 267 k/uL (150-450); RBC 2.99 m/uL (3.80-5.40); RDW 16.9 % (11.5-15.5); WBC 5.4 k/uL (3.8-10.6)
[2024-11-27 06:34] LABS: ALT 12 U/L (4-34); AST 18 U/L (14-36); African American GFR (CKD) >90 (>60 ml/min/1.73 sqM); Albumin 3.8 g/dL (3.5-5.0); Albumin/Globulin Ratio 1.4; Alkaline Phosphatase 60 U/L (38-126); Anion Gap 8 mmol/L; Blood Urea Nitrogen 4 mg/dL (7-17); Calcium 7.5 mg/dL (8.4-10.2); Carbon Dioxide 24 mmol/L (22-30); Chloride 106 mmol/L (98-107); Globulin 2.7 g/dL; Glucose 115 mg/dL (74-99); Non-African American GFR(CKD) >90 (>60 ml/min/1.73 sqM); Potassium 3.4 mmol/L (3.5-5.1); Sodium 138 mmol/L (137-145); Total Bilirubin 0.4 mg/dL (0.2-1.3); Total Protein 6.5 g/dL (6.3-8.2)
[2024-11-27] MEDS ORDERED: PANTOPRAZOLE 40 MG TABLET PO SCH (07:30)
[2024-11-27 07:52] LABS: Glucose,Whole Blood 184 mg/dL (70-110)
[2024-11-27] MEDS: SYMBICORT 80-4.5 MCG INHALER INHALATION SCH (08:07)
[2024-11-27] MEDS: ATORVASTATIN 40 MG TAB PO SCH (08:32)
[2024-11-27] MEDS: ASPIRIN 81 MG PO SCH (08:32)
[2024-11-27] MEDS: amLODIPine 10 MG TAB PO SCH (08:32)
[2024-11-27] MEDS: DULoxetine HCL 60 MG CAPSULE.DR PO SCH (08:32)
[2024-11-27] MEDS: CALCIUM ACETATE 667 MG TAB PO SCH (08:32)
[2024-11-27] MEDS: PANTOPRAZOLE 40 MG/10 ML VIAL IV SCH (08:33)
[2024-11-27] MEDS: HYDROcodone/APAP 5-325MG 1 EACH TAB PO PRN (08:42)
[2024-11-27] MEDS ORDERED: NON FORMULARY DRUG (Omeprazole [Omeprazole] 20 MG Capsule.Dr) PO SCH (09:00)
[2024-11-27] MEDS: POTASSIUM BICARBONATE/CIT AC 20 MEQ TABLET.EFF PO ONE (09:27)
[2024-11-27] MEDS: CALCIUM CARBONATE 500 MG CHEWABLE PO SCH (10:08)
[2024-11-27] MEDS: MAGNESIUM SULFATE-D5W PMX 1 GM in DEXTROSE/WATER 1 100ML.BAG IVPB SCH (10:08)
[2024-11-27 12:30] LABS: Glucose,Whole Blood 130 mg/dL (70-110)
--- NOTE | 2024-11-27 12:38 | P.PN ---
Subjective Progress Note Date: 11/27/24 Patient is a 69-year-old female with ovarian cancer s/p chemotherapy and follows up with , history of PE on anticoagulation, insulin-dependent diabetes, hypertension presenting to the emergency for abnormal lab work. Patient had blood work done 3 days ago for workup with her PCP. Received a call stating that her magnesium was critically low and calcium was low as well. She has history of low magnesium and takes 1 g of magnesium twice daily. Patient states she was not feeling well and started to feel felt lightheaded and shaky. Patient admits to urinary urgency but finds it difficult to urinate and admits that dribbling, denies dysuria Patient denies any fever, chest pain, night sweats, chills, shortness of breath, nausea, vomiting, diarrhea. EKG independently interpreted displaying Chest x-ray independently interpreted displaying T 97.7, CT 116, RR 20, BP 145/67, O2 saturation 98% on room 11/27/2024 patient seen and examined at bedside. No acute events overnight. Labs: WBC 5.4, hemoglobin 10, MCV 103, platelet count 2 67,000, sodium 138, potassium 3.4, bicarb 24, creatinine 0.47, glucose 115, calcium 7.5, phosphorus 4, magnesium 1.4. Liver enzymes normal, albumin normal. Review of systems: Pertinent positives and negatives as discussed in HPI, a complete review of systems was performed and all other systems are negative. Physical examination: Vital signs reviewed General: Frail, mild distress, appears at stated age, normal weight Derm: no unusual rashes/lesions, warm Head: atraumatic, normocephalic, symmetric Eyes: EOMI, anicteric sclera, pupils equal round reactive to light Mouth: mucus membranes moist Cardiovascular: S1S2 reg, no murmur, positive dorsalis pedis pulse bilateral Lungs: Diminished lung sounds bilaterally, no rhonchi, no rales, no accessory muscle use Abdominal: soft, nontender to palpation, no guarding, colostomy bag in place appears functional, right CVA tenderness Ext: Left BKA with prosthetic Neuro: CN II-XI grossly intact, no gross focal neuro deficits Psych: Alert, oriented to person, place, and time Assessment/Plan: Patient is a 69-year-old female with ovarian cancer s/p chemotherapy and follows up with , history of PE on anticoagulation, insulin-dependent diabetes, hypertension presenting to the emergency for abnormal lab work. ED documentation reviewed. Discussed with the patient. The patient is admitted with an anticipated less than 2 midnight stay for evaluation of hypomagnesia. #. Severe hypomagnesemia #. High anion gap metabolic acidosis in the setting of lactic acidosis #. Hypocalcemia #. Hypokalemia Magnesium 1.4, Calcium 7.5, Potassium 3.4 4 bags of IV magnesium sulfate Potassium bicarb 40 mEq p.o. Calcium carbonate 500 mg p.o. 3 times daily. Phoslo discontinued NS at 75 cc an hour Recheck electrolytes #. Macrocytic anemia hemoglobin 10, MCV 103 Check folate, B12, and iron studies #. History of recurrent UTI Patient has history of recurrent UTI Patient with right CVA tenderness on physical exam Admits to urinary urgency, denies dysuria UA with reflex to culture ordered #. Insulin-dependent diabetes mellitus Resume home Levemir 10 units SQ at bedtime Humalog 5 units AC 3 times daily Insulin sliding scale SQ Hypoglycemia precaution Accu-Cheks ACHS #. Ovarian cancer, currently undergoing chemotherapy Hematology/oncology consulted Chronic: #. Hypertension: amlodipine 10 mg QD, Lopressor 50 mg BID #. Hyperlipidemia: Continue Lipitor 40 mg daily #. History of PE: Resume Eliquis 5 mg BID #. GERD: Protonix 40 mg #. Chronic pain: fentanyl patch q72hr, gabapentin 600 mg QID, [place] 53 25 BID, duloxetine 60 mg QD DVT prophylaxis: Eliquis 5 mg PO twice daily GI prophylaxis: protonix 40 mg po daily CODE STATUS: Full code Anticipated discharge place: Likely home I saw and evaluated the patient during the sandoval and critical portions of this encounter, and discussed the case in detail with the resident author of this note, I agree with the Assessment and Plan, and my changes, if any, are highlighted in blue. Objective - Vital Signs Vital signs: Vital Signs Temp 97.7 F 11/27/24 01:53 Pulse 72 11/27/24 01:53 Resp 16 11/27/24 01:53 BP 115/72 11/27/24 01:53 Pulse Ox 98 11/27/24 01:53 FiO2 Intake & Output 11/26/24 11/26/24 11/27/24 06:59 18:59 06:59 Weight 54.431 kg 54.431 kg Other: # Voids 3 - Labs CBC & Chem 7: 11/27/24 05:20 11/27/24 05:20 Labs: Abnormal Lab Results - Last 24 Hours (Table) 11/26/24 11/26/24 11/26/24 Range/Units 16:52 16:52 16:52 RBC (3.80-5.40) m/uL Hgb (11.4-16.0) gm/dL Hct (34.0-46.0) % MCV 104.0 H D (80.0-100.0) fL RDW 16.8 H (11.5-15.5) % PT (10.0-12.5) sec INR (<1.2) Potassium (3.5-5.1) mmol/L Chloride 109 H (98-107) mmol/L Carbon Dioxide 17 L (22-30) mmol/L BUN (7-17) mg/dL Creatinine (0.52-1.04) mg/dL Glucose 192 H (74-99) mg/dL POC Glucose (mg/dL) (70-110) mg/dL Plasma Lactic Acid Donovan 2.6 H* (0.7-2.0) mmol/L Calcium 7.3 L (8.4-10.2) mg/dL Ionized Calcium Meliza (4.5-5.3) mg/dL Magnesium <0.4 L* (1.6-2.3) mg/dL 11/26/24 11/26/24 11/26/24 Range/Units 16:52 20:00 21:21 RBC (3.80-5.40) m/uL Hgb (11.4-16.0) gm/dL Hct (34.0-46.0) % MCV (80.0-100.0) fL RDW (11.5-15.5) % PT 13.1 H (10.0-12.5) sec INR 1.2 H (<1.2) Potassium (3.5-5.1) mmol/L Chloride (98-107) mmol/L Carbon Dioxide (22-30) mmol/L BUN (7-17) mg/dL Creatinine (0.52-1.04) mg/dL Glucose (74-99) mg/dL POC Glucose (mg/dL) 134 H (70-110) mg/dL Plasma Lactic Acid Donovan (0.7-2.0) mmol/L Calcium (8.4-10.2) mg/dL Ionized Calcium Meliza 4.0 L (4.5-5.3) mg/dL Magnesium (1.6-2.3) mg/dL 11/27/24 11/27/24 11/27/24 Range/Units 05:20 05:20 05:20 RBC 2.99 L (3.80-5.40) m/uL Hgb 10.0 L D (11.4-16.0) gm/dL Hct 30.9 L (34.0-46.0) % MCV 103.3 H (80.0-100.0) fL RDW 16.9 H (11.5-15.5) % PT (10.0-12.5) sec INR (<1.2) Potassium 3.4 L (3.5-5.1) mmol/L Chloride (98-107) mmol/L Carbon Dioxide (22-30) mmol/L BUN 4 L (7-17) mg/dL Creatinine 0.47 L (0.52-1.04) mg/dL Glucose 115 H (74-99) mg/dL POC Glucose (mg/dL) (70-110) mg/dL Plasma Lactic Acid Donovan (0.7-2.0) mmol/L Calcium 7.5 L (8.4-10.2) mg/dL Ionized Calcium Meliza (4.5-5.3) mg/dL Magnesium 1.4 L (1.6-2.3) mg/dL
[2024-11-27 12:58] LABS: Appearance,Urine Cloudy (Clear); Bacteria,Urine Many /hpf; Bilirubin,Urine Negative (Negative); Blood,Urine Negative (Negative); Color,Urine Colorless; Glucose,Urine (UA) Negative (Negative); Ketones,Urine Negative (Negative); Leukocyte Esterase,Urine Moderate (Negative); Mucus,Urine Rare /hpf; Nitrite,Urine Negative (Negative); Protein,Urine Negative (Negative); RBC,Urine 1 /hpf (0-5); Specific Gravity,Urine 1.009 (1.001-1.035); Squamous Epithelial Cell,Urine <1 /hpf (0-4); Urobilinogen,Urine <2.0 mg/dL (<2.0); WBC,Urine 22 /hpf (0-5)
[2024-11-27 13:37] VITALS: BMI 20.5
[2024-11-27 14:50] VITALS: BP 114/63; PULSE 71; RESP 19; TEMP 98.1
[2024-11-27 15:05] LABS: % Iron Saturation 11.57 (12.00-45.00); Ferritin 23.7 ng/mL (10.0-291.0)
[2024-11-27 15:17] LABS: African American GFR (CKD) >90 (>60 ml/min/1.73 sqM); Anion Gap 6 mmol/L; Blood Urea Nitrogen 5 mg/dL (7-17); Calcium 7.9 mg/dL (8.4-10.2); Carbon Dioxide 27 mmol/L (22-30); Chloride 102 mmol/L (98-107); Glucose 168 mg/dL (74-99); Non-African American GFR(CKD) 78 (>60 ml/min/1.73 sqM); Potassium 4.6 mmol/L (3.5-5.1); Sodium 135 mmol/L (137-145)
--- NOTE | 2024-11-27 16:22 | P.DS ---
Providers Date of admission: 11/26/24 22:32 Attending physician: Samy Rodriguez Consults: 11/26/24 18:35 Consult Physician Urgent Consulting Provider: Tabitha Hadley Consult Reason/Comments: Ovarian cancer patient, hypomagnesemia Do you want consulting provider notified?: Yes Primary care physician: [facility] Course: Hospital Course: Patient is a 69-year-old female with ovarian cancer s/p chemotherapy and follows up with , history of PE on anticoagulation, insulin-dependent diabetes, hypertension presenting to the emergency for abnormal lab work. Patient had blood work done 3 days ago for workup with her PCP. Received a call stating that her magnesium was critically low and calcium was low as well. EKG independently interpreted displayed sinus rhythm with a rate of 79, normal axis, no ST-T changes, QTc 390 MS Chest x-ray independently interpreted displayed no acute cardiopulmonary process T 97.7, [place] 116, RR 20, BP 145/67, O2 saturation 98% on room Patient was admitted for management of severe hypomagnesemia and hypocalcemia. IV fluids, IV magnesium and calcium carbonate ordered. Patient also developed subsequent hypokalemia and potassium was repleted. Lab values were monitored and improved throughout hospital stay. Patient did not develop any worsening of symptoms or complications throughout hospital stay. Patient is cleared for discharge today with magnesium oxide and calcium carbonate. We discontinued her oral Protonix. We advised that she follow-up with her PCP and repeat BMP and magnesium in 3 days on outpatient basis. Final Diagnosis: #. Severe hypomagnesemia, resolved #. High anion gap metabolic acidosis in the setting of lactic acidosis, resolved #. Hypocalcemia, resolved #. Hypokalemia, resolved #. Macrocytic anemia, stable #. History of recurrent UTI #. Insulin-dependent diabetes mellitus #. Ovarian cancer, s/p chemotherapy #. Hypertension #. Hyperlipidemia #. History of PE #. GERD #. Chronic pain Physical examination: Vital signs reviewed General: non toxic, no distress Derm: no unusual rashes/lesions, warm Head: atraumatic, normocephalic, symmetric Eyes: EOMI, anicteric sclera, pupils equal round reactive to light ENT: Nose and ears atraumatic Neck: No cervical lymphadenopathy, trachea midline, supple Mouth: no lip lesion, mucus membranes moist Cardiovascular: S1S2 reg, no murmur Lungs: CTA bilateral, no rhonchi, no rales, no accessory muscle use, colostomy bag in place appears functional Abdominal: soft, nondistended, nontender to palpation, no guarding Ext: muscle strength 5 out of 5 in all 4 extremities grossly, no gross muscle atrophy, no contractures, positive dorsalis pedis pulse, no edema, Left BKA with prosthetic Neuro: CN II-XI grossly intact, no gross focal neuro deficits Psych: Alert, oriented, appropriate affect and mood I saw and evaluated the patient during the sandoval and critical portions of this encounter, and discussed the case in detail with the resident author of this note, I agree with the Assessment and Plan, and my changes, if any, are highlighted in blue. Patient Condition at Discharge: Stable Plan - Discharge Summary Discharge Rx Participant: No New Discharge Prescriptions: New Magnesium Oxide [Mag-Ox] 400 mg PO BID #30 tablet Calcium Carbonate [Tums] 500 mg PO TID #30 tab Continue fentaNYL 12MCG/HR PATCH [Duragesic 12MCG/HR] 1 patch TRANSDERM Q72H Gabapentin [Neurontin] 600 mg PO QID DULoxetine HCL [Cymbalta] 60 mg PO DAILY Atorvastatin [Lipitor] 40 mg PO DAILY amLODIPine [Norvasc] 10 mg PO DAILY Ondansetron [Zofran] 4 - 8 mg PO Q4H PRN MDD 8 tabs PRN Reason: Nausea HYDROcodone/APAP 5-325MG [[place] 5-325] 1 tab PO BID PRN PRN Reason: Pain Albuterol Inhaler [Ventolin Hfa Inhaler] 2 puff INHALATION RT-Q4H PRN PRN Reason: Shortness Of Breath Apixaban [Eliquis] 5 mg PO BID Aspirin 81 mg PO DAILY Fluticasone/Vilanterol [Breo Ellipta 100-25 Mcg Inhalr] 1 puff INHALATION RT- DAILY Insulin Aspart (Niacinamide) [Fiasp 100 Unit/ml Flextouch Pen] 4 units SQ TID-W/MEALS PRN PRN Reason: if she eats meals Insulin Glargine,Hum.rec.anlog [Basaglar Kwikpen U-100] 10 unit SQ HS Metoprolol Tartrate [Lopressor] 50 mg PO BID Omeprazole 20 mg PO DAILY Discontinued Pantoprazole [Protonix] 40 mg PO DAILY Discharge Medication List Atorvastatin [Lipitor] 40 mg PO DAILY 06/10/20 [History] DULoxetine HCL [Cymbalta] 60 mg PO DAILY 06/10/20 [History] Gabapentin [Neurontin] 600 mg PO QID 06/10/20 [History] fentaNYL 12MCG/HR PATCH [Duragesic 12MCG/HR] 1 patch TRANSDERM Q72H 06/10/20 [History] Albuterol Inhaler [Ventolin Hfa Inhaler] 2 puff INHALATION RT-Q4H PRN 05/16/22 [History] HYDROcodone/APAP 5-325MG [[place] 5-325] 1 tab PO BID PRN 05/16/22 [History] Apixaban [Eliquis] 5 mg PO BID 06/11/24 [History] Aspirin 81 mg PO DAILY 06/11/24 [History] Fluticasone/Vilanterol [Breo Ellipta 100-25 Mcg Inhalr] 1 puff INHALATION RT- DAILY 06/11/24 [History] Insulin Aspart (Niacinamide) [Fiasp 100 Unit/ml Flextouch Pen] 4 units SQ TID- W/MEALS PRN 06/11/24 [History] Insulin Glargine,Hum.rec.anlog [Basaglar Kwikpen U-100] 10 unit SQ HS 06/11/24 [History] Metoprolol Tartrate [Lopressor] 50 mg PO BID 06/11/24 [History] amLODIPine [Norvasc] 10 mg PO DAILY 06/11/24 [History] Ondansetron [Zofran] 4 - 8 mg PO Q4H PRN MDD 8 tabs 06/28/24 [History] Omeprazole 20 mg PO DAILY 11/26/24 [History] Calcium Carbonate [Tums] 500 mg PO TID #30 tab 11/27/24 [Rx] Magnesium Oxide [Mag-Ox] 400 mg PO BID #30 tablet 11/27/24 [Rx] Follow up Appointment(s)/Referral(s): Randolph Renee DO [Primary Care Provider] - 1-2 days (please call friday to make appt ) Ambulatory/Diagnostic Orders: Basic Metabolic Panel [LAB.AMB] Time Frame: 3 Days, Location: None Selected Magnesium [LAB.AMB] Time Frame: 3 Days, Location: None Selected Patient Instructions/Handouts: Calcium Supplement (By mouth), Magnesium Oxide (By mouth), Hypocalcemia (DC), Hypomagnesemia (DC) Discharge Disposition: HOME SELF-CARE
--- NOTE | 2024-11-27 17:10 | P.CONS ---
History of Present Illness - Reason for Consult Consult date: 11/27/24 ovarian cancer Requesting physician: Samy Rodriguez - Chief Complaint abnormal labs by PCP - History of Present Illness Ms. Almaraz is a very pleasant 69 yo female with history of ovarian cancer, follows with Dr. Hadley, on chemo who is here for severely low magnesium on blood work done by PCP. Mag was <0.4. she had associated shakiness. ionized calcium was also slightly low at 4. CBC normal. she is on chronic mag supplements, 1gm bid. also with urinary urgency, and right CVA tenderness, with history of recurrent UTI. Vitals normal. CXR negative. Started on hydration and mag supplemented IV, and she was admitted. we were consulted for her underlying ova sarahi cancer. Feeling much better now after mag supplementation. Onc History: follows with Dr. Hadley. Caitie is bein evaluated at request of Dr Say Ojeda ([employer]/ONC) at [facility] for adjuvant therapy for ovarian cancer. She initially presented with recurrent UTIs, was found to have large pelvic mass, evaluation by [employer] revealed ovarian carcinoma. The patient was evaluated by Dr Ojeda, was taken to OR abd had VICTORIANO+BSO, resections of bowels and extensive adhesions. Procedure was complicated by Bilateral central PEs, requiring Thrombectomies and anticoagulation, had dehesence of abdominal wounds, complicated post-op course. She has then fully recovered and is being referred to us for adjuvant chemotherapy. She smokes 1 PPD, denies ETOH use. The patient is insulind-dependent type-2 diabetic, not compliant with diet and insulin dosing. 07/05/24 S/p cycle 1 carbo/taxol on 06/28. Reporting tolerating regimen well with managable side effects. Reporting fatigue and increased diarrhea, 2-3 episodes daily, using imodium with improvement in sx. Also has mild nausea controlled with zofran. Denies vomiting, tolerating oral intake 07/14/24: C/O headaches, mild nausea W/O vomiting 07/27/2024 S/p cycle 2 carbo/taxol on 07/19. Reporting tolerating regimen overall well with managable side effects. 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 Diarrhea persistent but unchanged. Also reporting dysuria, urinary freuqncy and hesitancy. Denies fevr chisll, abdominal pain. vomiting, tolerating oral intake 08/24/24: C/O Dysuria, developing numbness in fingers/toes as well as, skeletal pains after Chemotherapy infusion 10/12/24: C/O increasing numbness in both hands> feet. Was hospitalized with uro-sepsis > recovered 11/23/24: Feels better & stronger, numbness in hands/feet improved. Completed adjuvant Chemotherapy X 6. monitor off therapy. 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 colostomy - "due to ischemia of colon", another bowel surgery to remove part of colon r/t blockage, 1 heart stent Past Anesthesia/Blood Transfusion Reactions: No Reported Reaction Additional Past Anesthesia/Blood Transfusion Reaction / Comm: no known blood transfusion Date of Last Stent Placement:: 2007 Past Psychological History: Depression Smoking Status: Former smoker Past Alcohol Use History: None Reported Past Drug Use History: None Reported - Past Family History Mother Family Medical History: COPD Father Family Medical History: Myocardial Infarction ([place]) Additional Family Medical History / Comment(s): [place] at age 62 Medications and Allergies Home Medications Medication Instructions Recorded Confirmed Type Atorvastatin [Lipitor] 40 mg PO DAILY 06/10/20 11/26/24 History DULoxetine HCL [Cymbalta] 60 mg PO DAILY 06/10/20 11/26/24 History Gabapentin [Neurontin] 600 mg PO QID 06/10/20 11/26/24 History fentaNYL 12MCG/HR PATCH [Duragesic 1 patch TRANSDERM Q72H 06/10/20 11/26/24 History 12MCG/HR] Albuterol Inhaler [Ventolin Hfa 2 puff INHALATION RT-Q4H PRN 05/16/22 11/26/24 History Inhaler] HYDROcodone/APAP 5-325MG [[place] 1 tab PO BID PRN 05/16/22 11/26/24 History 5-325] Apixaban [Eliquis] 5 mg PO BID 06/11/24 11/26/24 History Aspirin 81 mg PO DAILY 06/11/24 11/26/24 History Fluticasone/Vilanterol [Breo 1 puff INHALATION RT-DAILY 06/11/24 11/26/24 History Ellipta 100-25 Mcg Inhalr] Insulin Aspart (Niacinamide) 4 units SQ TID-W/MEALS PRN 06/11/24 11/26/24 History [Fiasp 100 Unit/ml Flextouch Pen] Insulin Glargine,Hum.rec.anlog 10 unit SQ HS 06/11/24 11/26/24 History [Basaglar Kwikpen U-100] Metoprolol Tartrate [Lopressor] 50 mg PO BID 06/11/24 11/26/24 History amLODIPine [Norvasc] 10 mg PO DAILY 06/11/24 11/26/24 History Ondansetron [Zofran] 4 - 8 mg PO Q4H PRN MDD 8 tabs 06/28/24 11/26/24 History Omeprazole 20 mg PO DAILY 11/26/24 11/26/24 History Calcium Carbonate [Tums] 500 mg PO TID #30 tab 11/27/24 Rx Magnesium Oxide [Mag-Ox] 400 mg PO BID #30 tablet 11/27/24 Rx Allergies Allergy/AdvReac Type Severity Reaction Status Date / Time adhesive tape Allergy Rash/Hives Verified 11/26/24 17:58 nickel Allergy Unknown Verified 11/26/24 17:58 Physical Exam Vitals: Vital Signs Temp Pulse Pulse Resp BP BP Pulse Ox 11/27/24 01:53 97.7 F 72 16 115/72 98 11/26/24 23:09 70 16 119/71 98 11/26/24 21:28 95 16 148/63 95 11/26/24 19:44 76 18 125/57 96 11/26/24 17:56 85 16 135/67 98 11/26/24 16:29 97.7 F 116 H 20 145/67 98 Intake and Output 11/26/24 11/26/24 11/27/24 14:59 22:59 06:59 Other: # Voids 3 Weight 54.431 kg 54.431 kg Pt sitting up in bed, doing well, in no acute distress. no respiratory distress. Alert and oriented x 3. Results CBC & Chem 7: 11/27/24 05:20 11/27/24 14:43 Labs: Abnormal Lab Results - Last 24 Hours (Table) 11/26/24 11/26/24 11/26/24 Range/Units 16:52 16:52 16:52 MCV 104.0 H D (80.0-100.0) fL RDW 16.8 H (11.5-15.5) % PT (10.0-12.5) sec INR (<1.2) Chloride 109 H (98-107) mmol/L Carbon Dioxide 17 L (22-30) mmol/L Glucose 192 H (74-99) mg/dL POC Glucose (mg/dL) (70-110) mg/dL Plasma Lactic Acid Donovan 2.6 H* (0.7-2.0) mmol/L Calcium 7.3 L (8.4-10.2) mg/dL Ionized Calcium Meliza (4.5-5.3) mg/dL Magnesium <0.4 L* (1.6-2.3) mg/dL 11/26/24 11/26/24 11/26/24 Range/Units 16:52 20:00 21:21 MCV (80.0-100.0) fL RDW (11.5-15.5) % PT 13.1 H (10.0-12.5) sec INR 1.2 H (<1.2) Chloride (98-107) mmol/L Carbon Dioxide (22-30) mmol/L Glucose (74-99) mg/dL POC Glucose (mg/dL) 134 H (70-110) mg/dL Plasma Lactic Acid Donovan (0.7-2.0) mmol/L Calcium (8.4-10.2) mg/dL Ionized Calcium Meliza 4.0 L (4.5-5.3) mg/dL Magnesium (1.6-2.3) mg/dL Chest x-ray: report reviewed Assessment and Plan Assessment: 1. severe hypomagnesemia 2. hypocalcemia 3. ovarian cancer on chemo 4. urinary urgency Plan: Ms. Almaraz is a very pleasant 69 yo female with ovarian cancer on chemotherapy, here for severe hypomagnesemia found on OP labs. - Aggressive mag supplements - she has completed her chemotherapy, and on surveillance now - Await UA/Ucx for possible UTI, defer to primary team on treatment - Hydration - Monitor CBC - Continue eliquis for prior VTE Discussed with pt and she was agreeable. All questions answered. discussed with nursing staff.
== END 2024-11-27 16:43 | disposition home or self-care (01) | DRG 641 ==
LOC: EC 16:26 → 5NMEDONC 22:32
PROVIDERS: ADMIT Student in an Organized Health Care Education/Training Program; ATTEND Student in an Organized Health Care Education/Training Program
DX: E83.42 Hypomagnesemia (principal); E87.20 Acidosis, unspecified; E87.6 Hypokalemia; D53.9 Nutritional anemia, unspecified; E11.9 Type 2 diabetes mellitus without complications; E78.5 Hyperlipidemia, unspecified; I10 Essential (primary) hypertension; F32.A Depression, unspecified; Z79.4 Long term (current) use of insulin; Z93.3 Colostomy status; Z89.512 Acquired absence of left leg below knee; R39.15 Urgency of urination; G89.29 Other chronic pain; K21.9 Gastro-esophageal reflux disease without esophagitis; E83.51 Hypocalcemia; Z91.119 Patient's noncompliance with dietary regimen due to unspecified reason; T38.3X6A Underdosing of insulin and oral hypoglycemic [antidiabetic] drugs, initial encounter; Z91.148 Patient's other noncompliance with medication regimen for other reason; Z79.01 Long term (current) use of anticoagulants; Z87.440 Personal history of urinary (tract) infections; Z92.21 Personal history of antineoplastic chemotherapy; Z95.5 Presence of coronary angioplasty implant and graft; Z86.711 Personal history of pulmonary embolism; Z85.43 Personal history of malignant neoplasm of ovary; Z79.899 Other long term (current) drug therapy; Z79.82 Long term (current) use of aspirin; I25.2 Old myocardial infarction; Z87.891 Personal history of nicotine dependence
CPT/HCPCS: 36415; 71046; 80048; 80053; 81001; 82306; 82330; 82607; 82652; 82728; 82747; 83540; 83550; 83605; 83735; 83970; 84100; 84466; 85025; 85610; 85730; 87077; 87086; 87186; 93005; 94640; 96361; 96365; 96366; 96367; 99285

== ENCOUNTER → 2025-03-08 | Day surgery (SDC) | payer MEDICARE ==
[2025-03-03 15:12] VITALS: BMI 21.9
[~2025-03-08] MED LIST changes: -HYDROmorphone 0.5 MG/0.5 ML SYRINGE IVP PRN; +LACTATED RINGERS 1,000 ML IV SCH; +LIDOCAINE 1% (10MG/ML) FOR IV START INTRADERMA PRN; +LIDOCAINE 1% INJ 10MG/ML (20 ML MDV) ONE; -MIDAZOLAM 2 MG/2 ML VIAL IV PRN; +MIDAZOLAM 2 MG/2 ML VIAL ONE; +PROPOFOL 10 MG/ML 20 ML VIAL IV ONE; -Pre Op ABX Message 1 EACH MISC MISCELLANE ONE; +fentaNYL (PF) 50 MCG/ML 2 ML AMP IV PRN; +fentaNYL (PF) 50 MCG/ML 2 ML AMP ONE
[2025-03-08 11:58] VITALS: TEMP 98.3
[2025-03-08] MEDS: IV FLUID CONTINUATION 1,000 ML IV ONE (12:25)
[2025-03-08] MEDS: DEXAMETHASONE SOD PHOSPHATE 4 MG/ML 1 ML VIAL IVP STA (12:32)
[2025-03-08 12:34] LABS: Glucose,Whole Blood 151 mg/dL (70-110)
[2025-03-08] MEDS: HEPARIN SODIUM,PORCINE 5,000 UNIT/ML 1 ML VIAL SQ STA (12:37)
[2025-03-08] MEDS: LIDOCAINE 1% (10MG/ML) FOR IV START SQ ONE (13:15)
--- NOTE | 2025-03-08 13:32 | P.OP ---
Date of Procedure: 03/08/25 Preoperative Diagnosis: Ovarian Cancer Postoperative Diagnosis: Ovarian Cancer Procedure(s) Performed: Removal of Tunneled Catheter and Subcutaneous Port (Mediport) Anesthesia: MAC Surgeon: Wes Gibson Estimated Blood Loss (ml): 5 Pathology: none sent Condition: stable Disposition: PACU Description of Procedure: The patient was brought to the operating suite and placed in supine position. Anesthesia was given. The area was prepped and draped and usual sterile fashion. A timeout was performed. Local anesthetic was injected over the previous incision and a #15 blade was used to make an incision over previous decision. The catheter and port became visible. The previously placed sutures were cut with scissors. The catheter and port were easily removed. A hemostatic timeout was performed and all bleeding was controlled. Incision was closed with #4-0 monocryl. Skin glue was applied. Patient tolerated the procedure well and was sent to the PACU in stable condition.
[2025-03-08 13:57] VITALS: BP 114/56; PULSE 88; RESP 16
== END | disposition home or self-care (01) ==
LOC: OR 11:27
PROVIDERS: ATTEND Surgery
DX: C56.9 Malignant neoplasm of unspecified ovary (principal); I10 Essential (primary) hypertension; E78.5 Hyperlipidemia, unspecified; I25.10 Atherosclerotic heart disease of native coronary artery without angina pectoris; I48.91 Unspecified atrial fibrillation; J44.9 Chronic obstructive pulmonary disease, unspecified; Z95.5 Presence of coronary angioplasty implant and graft; Z91.048 Other nonmedicinal substance allergy status; Z79.01 Long term (current) use of anticoagulants; Z79.51 Long term (current) use of inhaled steroids; Z79.899 Other long term (current) drug therapy
CPT/HCPCS: 36590; J2250; J1644; J1100; J0690; J2003; J3010; J2704